=== PATIENT | female | born 1945 | race Caucasian/White ===

== ENCOUNTER 2016-08-21 14:24 | Emergency (ER) | payer BC ==
[~2016-08-21] VITALS: Ht 165.1 cm; Wt 117.9 kg
--- NOTE | 2016-08-21 15:21 | PHYS DOC ---
Past Medical History Past Medical History: Asthma, COPD, Diabetes-Type II, High Cholesterol, Hypertension, Hypothyroid, Other Additional Past Medical Histor: Graves disease Past Surgical History: Cholecystectomy, Pacemaker, Other Additional Past Surgical Histo: hernia repair Additional Information: quit smoking 4 years ago Alcohol Use: None Drug Use: None Adult General Chief Complaint Chief Complaint: MECHANICAL FALL HPI HPI Patient is a 70 year old female who presents with her daughter to the emergency department for evaluation after suffering 2 head injuries over the past 4 days. Patient states that 4 days ago she stumbled well trying to get to the restroom and hit the left side of her head against a wall. Patient did not fall to the ground as a result of this head injury. Patient also denied any loss consciousness. 2 days later the patient was sleeping in a chair and reportedly fell from the chair and hit the left side of her head and face. The patient states that she started noticing bruising along the left side of the face over the past 24 hours. After the patient notified her primary physician today, she was instructed to come to the emergency department for evaluation. Patient states that she is not experiencing any pain at this time. The patient has not had any headaches, worsening difficulty with balance, vision loss, difficulty with speech or swallowing, or increasing weakness. The patient is on Coumadin therapy for treatment of atrial fibrillation. Patient last had her INR checked 2 weeks ago and states that it was "borderline." Review of Systems Review of Systems Constitutional: Denies fever or chills [] Eyes: Denies change in visual acuity, redness, or eye pain [] HENT: Head injury, bruising to scalp and face [] Respiratory: Denies cough or shortness of breath [] Cardiovascular: Denies chest pain [] GI: Denies abdominal pain, nausea, vomiting, bloody stools or diarrhea [] : Denies dysuria or hematuria [] Musculoskeletal: Denies back pain or joint pain [] Integument: Denies rash or skin lesions [] Neurologic: Denies headache, focal weakness or sensory changes [] Allergies Allergies Allergies Coded Allergies Type Severity Reaction Last Updated Verified No Known Drug Allergies 08/21/16 No Physical Exam Physical Exam Constitutional: Alert, obese, afebrile, no acute distress. [] HENT: Normocephalic, ecchymosis and mild soft tissue swelling along left parietal scalp and along the left periorbitum, zygoma and cheek, bilateral external ears normal, oropharynx moist, no oral exudates, nose normal. [] Eyes: PERRLA, EOMI, conjunctiva normal, no discharge. [] Neck: Normal range of motion, no tenderness, supple, no stridor. [] Cardiovascular:Heart rate regular rhythm, no murmur [] Lungs & Thorax: Bilateral breath sounds clear to auscultation [] Abdomen: Bowel sounds normal, soft, no tenderness, no masses, no pulsatile masses. [] Skin: Warm, dry, no erythema, no rash. [] Back: No tenderness, no CVA tenderness. [] Extremities: No tenderness, no cyanosis, no clubbing, ROM intact, no edema. [] Neurologic: Alert and oriented X 3, normal motor function, normal sensory function, no focal deficits noted. [] Current Patient Data Vital Signs Vital Signs Date Time Temp Pulse Resp B/P (MAP) Pulse Ox O2 Delivery O2 Flow Rate FiO2 08/21/16 17:30 78 19 150/97 (114) 97 Room Air 08/21/16 14:32 98.5 98.5 Lab Values Laboratory Tests Test 08/21/16 16:10 Prothrombin Time 28.4 SEC (11.7-14.0) H Prothrombin Time INR 2.9 (0.8-1.1) H EKG EKG Not performed [] Radiology/Procedures Radiology/Procedures [facility] [address] [place] [address] IMAGING REPORT Signed PATIENT: REEMA RUTLEDGE ACCOUNT: [id number] : 1945 LOCATION: ER AGE: 70 SEX: F EXAM STATUS: REG ER ORD. PHYSICIAN: TATE LYMAN MD REASON: fall 2 days ago with head injury, patient currently on Coumadin therapy PROCEDURE: CT HEAD WO CONTRAST ADDENDUM Addendum: Coronal reformats are now available on this patient which demonstrates a subtle 2 mm hyperdensity identified in the subdural region in the left frontal lobe which could be a subtle subdural bleed or a prominent cortical vein. Close interval follow-up examination is recommended. Report was called to in ER at time of dictation. DICTATED AND SIGNED BY: TERESA DORANTES MD DATE: 08/21/16 1645 CC: TATE LYMAN MD; HILTON GIL DO ~ Examination: CT head without contrast History: History of fall Comparison: 05/30/2012 Technique: Axial CT images of the head was performed without contrast. PQRS Compliance Statement: One or more of the following individualized dose reduction techniques were utilized for this examination: 1. Automated exposure control 2. Adjustment of the mA and/or kV according to patient size 3. Use of iterative reconstruction technique Findings: There is no evidence of midline shift. Mild bilateral periventricular white matter hypodensities likely chronic small vessel ischemic disease. The visualized lateral ventricles, third ventricle, fourth ventricle are unchanged. The basal cisterns are uneffaced. Mild soft tissue swelling identified in the left frontal scalp region likely secondary to scalp hematoma. The visualized mastoid air cells are clear. Small mild mucosal thickening identified in the left sphenoid sinus likely sinus disease. Impression: 1. No acute intracranial findings. 2. Small left scalp hematoma in the left lateral frontal region. DICTATED and SIGNED BY: TERESA DORANTES MD DATE: 08/21/16 1538 CC: TATE LYMAN MD; HILTON GIL [] Course & Med Decision Making Course & Med Decision Making Pertinent Labs and Imaging studies reviewed. (See chart for details) Patient's INR within therapeutic range and patient's head CT was initially read as negative. I did receive a call later in the patient's stay from the radiologist stating that the initial read may have not been accurate as he reviewed the coronal images and was concerned about a hyperdensity on image #11 but could represent a possible bleed versus a bridging vein. I consulted Dr. Meadows of neurosurgery who reviewed the CT scan. He felt that the finding was likely not an acute bleed. He did agree to have patient follow-up in 2 days with his office and have repeat CT imaging at that time to ensure that the patient's findings remained stable. I spoke with patient regarding this finding and patient stated that she felt comfortable going home in her current state. Advised patient to return to emergency department for any worsening symptoms. Patient voiced understanding and in agreement with treatment plan. Dragon Disclaimer Dragon Disclaimer This electronic medical record was generated, in whole or in part, using a voice recognition dictation system. Departure Departure Impression: Primary Impression: Closed head injury Additional Impression: Traumatic ecchymosis of face Disposition: 01 HOME, SELF-CARE Condition: IMPROVED Referrals: NON,STAFF (PCP) STEVE MEADOWS MD Patient Instructions: Head Injury, Adult Additional Instructions: You will be followed up in the next [address] Meadows of neurosurgery who will order a repeat CT scan to ensure no evidence of head bleed. While your CT today shows a small abnormality, this is felt to not likely be a sign of life- threatening bleeding. It is important however if you experience any change in symptoms, especially if he develops severe headaches, persistent vomiting, difficulty with speech or swallowing, vision loss, or altered mental status, that she come immediately to the emergency department for reevaluation. Problem Qualifiers Primary Impression: Closed head injury Encounter type: initial encounter Qualified Codes: S09.90XA - Unspecified injury of head, initial encounter Additional Impression: Traumatic ecchymosis of face Encounter type: initial encounter Qualified Codes: S00.83XA - Contusion of other part of head, initial encounter TATE LYMAN MD August 21, 2016 15:21
--- NOTE | 2016-08-21 15:47 | RAD ---
Examination: CT head without contrast History: History of fall Comparison: 05/30/2012 Technique: Axial CT images of the head was performed without contrast. PQRS Compliance Statement: One or more of the following individualized dose reduction techniques were utilized for this examination: 1. Automated exposure control 2. Adjustment of the mA and/or kV according to patient size 3. Use of iterative reconstruction technique Findings: There is no evidence of midline shift. Mild bilateral periventricular white matter hypodensities likely chronic small vessel ischemic disease. The visualized lateral ventricles, third ventricle, fourth ventricle are unchanged. The basal cisterns are uneffaced. Mild soft tissue swelling identified in the left frontal scalp region likely secondary to scalp hematoma. The visualized mastoid air cells are clear. Small mild mucosal thickening identified in the left sphenoid sinus likely sinus disease. Impression: 1. No acute intracranial findings. 2. Small left scalp hematoma in the left lateral frontal region.
[2016-08-21 16:31] LABS: INR 2.9 (0.8-1.1); PROTHROMBIN TIME PATIENT 28.4 SEC (11.7-14.0)
[2016-08-21 17:30] VITALS: BP 150/97
== END 2016-08-21 18:48 | disposition home or self-care (01) ==
LOC: ER 14:24
DX: S00.83XA Contusion of other part of head, initial encounter (principal); S00.03XA Contusion of scalp, initial encounter; E03.9 Hypothyroidism, unspecified; E78.00 Pure hypercholesterolemia, unspecified; I10 Essential (primary) hypertension; E11.9 Type 2 diabetes mellitus without complications; J44.9 Chronic obstructive pulmonary disease, unspecified; E05.00 Thyrotoxicosis with diffuse goiter without thyrotoxic crisis or storm; Z87.891 Personal history of nicotine dependence; Z95.0 Presence of cardiac pacemaker; Z90.49 Acquired absence of other specified parts of digestive tract; Z98.890 Other specified postprocedural states; Z79.01 Long term (current) use of anticoagulants; W22.01XA Walked into wall, initial encounter; Y93.89 Activity, other specified; Y99.8 Other external cause status; Y92.89 Other specified places as the place of occurrence of the external cause
CPT/HCPCS: 36415; 70450; 85610; 99285-25

== ENCOUNTER → 2016-08-23 | Outpatient (CLI) | payer BC ==
[2016-08-21 17:30] VITALS: BP 150/97
--- NOTE | 2016-08-23 13:15 | RAD ---
Examination: CT head without contrast History: History of head injury Comparison: 08/21/2016 Technique: Axial CT images of the head was performed with a contrast. PQRS Compliance Statement: One or more of the following individualized dose reduction techniques were utilized for this examination: 1. Automated exposure control 2. Adjustment of the mA and/or kV according to patient size 3. Use of iterative reconstruction technique Findings: There is no evidence of midline shift. Mild bilateral parietal white matter hypodensities likely chronic small vessel ischemic disease. The visualized lateral ventricles, third ventricle, fourth ventricle are appropriate for age. Questionable subtle hyperdensity identified in the subdural region of the left frontal lobe grossly similar to prior exam could be prominent appearing cortical vein or a very subtle subdural bleed similar to prior exam. Left frontoparietal scalp hematoma grossly similar to prior exam. Mild mucosal thickening left sphenoid sinus Impression: Unchanged exam.
== END | disposition home or self-care (01) ==
LOC: CT 11:09
PROVIDERS: ATTEND Family Medicine
DX: M79.81 Nontraumatic hematoma of soft tissue (principal)
CPT/HCPCS: 70450

== ENCOUNTER 2017-12-23 22:06 | Inpatient (IN) | payer BC ==
[~2017-12-23] VITALS: Ht 165.1 cm; Wt 121.7 kg
[~2017-12-23 22:06] MED LIST: ASPI-630 PO; BENZ-8 PO; BUDE10.2 IH; DIGO125T PO; FLUT12AE IH; FURO20TA3 PO; LEVO125T5 PO; LISI10TA2 PO; METF500T16 PO; POTA10TA12 PO; SIMV40TA3 PO; SOTA150V IV; SOTA80TA20 PO; SOTA80TA48 PO; WARF-31 PO; WARF2TAB96 PO
[2017-12-23 22:38] LABS: BASO # 0.1 x10^3/uL (0.0-0.2); BASO % 1 % (0-3); EOS # 0.1 x10^3/uL (0.0-0.7); EOS % 1 % (0-3); HEMATOCRIT 40.3 % (36.0-47.0); HEMOGLOBIN 13.9 g/dL (12.0-15.5); LYMPH # 1.1 x10^3/uL (1.0-4.8); LYMPH % 13 % (24-48); MEAN CORPUSCULAR HEMOGLOBIN 33 pg (25-35); MEAN CORPUSCULAR HGB CONC 35 g/dL (31-37); MEAN CORPUSCULAR VOLUME 94 fL (79-100); MONO # 1.6 x10^3/uL (0.0-1.1); MONO % 20 % (0-9); NEUT # 5.4 x10^3uL (1.8-7.7); NEUT % 65 % (31-73); PLATELET COUNT 338 x10^3/uL (140-400); RED BLOOD COUNT 4.29 x10^6/uL (3.50-5.40); RED CELL DISTRIBUTION WIDTH 16.2 % (11.5-14.5); WHITE BLOOD COUNT 8.2 x10^3/uL (4.0-11.0)
[2017-12-23 22:47] LABS: PROTHROMBIN TIME PATIENT 21.9 SEC (11.7-14.0)
[2017-12-23 22:48] LABS: CALCIUM 8.9 mg/dL (8.5-10.1); CREATININE 0.9 mg/dL (0.6-1.0); GFR 61.5; POTASSIUM 4.2 mmol/L (3.5-5.1)
--- NOTE | 2017-12-23 22:54 | EKG ---
[facility] [address] [place] [address] Test Date: 2017-12-23 Test Time: 22:21:59 Pat Name: REEMA RUTLEDGE Department: Room: Gender: Female Director Equipment: : 1945 Requested By: ARIANA SNOWDEN Order Number: [id number] Reading MD: Dash Pandey Measurements Intervals [place] Rate: 104 P: [place]: QRS: -114 QRSD: 138 T: 100 QT: 368 QTc: 491 Interpretive Statements ATRIAL FIBRILLATION LOW LIMB LEAD VOLTAGE NON SPECIFIC INTRAVENTRICULAR BLOCK QRS(T) CONTOUR ABNORMALITY CONSISTENT WITH ANTERIOR INFARCT PROBABLY OLD CONSISTENT WITH INFEROLATERAL INFARCT PROBABLY OLD ABNORMAL ECG Electronically Signed On 12-24-2017 11:30:04 CDT by Dash Pandey
[2017-12-23] MEDS ORDERED: DEXAMETHASONE SOD PHOS 20 MG/5 ML VIAL. IV ONE (23:00)
[2017-12-23] MEDS ORDERED: dilTIAZem INJ 125 MG in IV DEXTROSE 5% 100ML 100 ML IV ONE (23:00)
[2017-12-23] MEDS ORDERED: ASPIRIN 325 MG TABLET PO ONE (23:00)
[2017-12-23] MEDS ORDERED: IPRATRPIUM/ALBUTEROL 0.5/2.5MG 3 ML NEBU. NEB ONE ×2 (23:00)
[2017-12-23] MEDS ORDERED: dilTIAZem IV PUSH 25 MG/5 ML VIAL IVP ONE (23:00)
[2017-12-23 23:02] LABS: ALBUMIN/GLOBULIN RATIO 0.7 (1.0-1.7); TOTAL BILIRUBIN 1.6 mg/dL (0.2-1.0); TOTAL PROTEIN 7.6 g/dL (6.4-8.2)
[2017-12-23 23:23] LABS: % METAS 1 % (0-0); % MYELOS 1 % (0-0)
[2017-12-23 23:25] LABS: % BANDS 22 % (0-9); % BASOS 2 % (0-3); % LYMPHS 8 % (24-48); % MONOS 11 % (0-10); % SEGS 55 % (35-66); NUCLEATED RBC 2; PLT ESTIMATE ADEQUATE (ADEQUATE)
[2017-12-23 23:26] LABS: ANISOCYTOSIS SLIGHT; POLYCHROMASIA SLIGHT
[2017-12-23] MEDS ORDERED: HYOSCYAMINE 0.125 MG TAB.RAPDIS PO ONE (23:45)
[2017-12-23] MEDS ORDERED: IV NORMAL SALINE 1000ML BAG 1,000 ML IV ONE ×2 (23:45)
[2017-12-24] VITALS (23 sets, daily range): BP systolic 96–157; BP diastolic 43–101
[2017-12-24] MEDS ORDERED: PIPERACILLIN/TAZOBACTAM 4.5 GM in IV NORMAL SALINE 100ML 100 ML IV ONE ×2
[2017-12-24] MEDS ORDERED: ONDANSETRON PF 4 MG/2 ML VIAL. IV PRN (00:15)
[2017-12-24] MEDS ORDERED: DEXTROSE 50% 25 GM / 50ML DISP.SYRIN. IV PRN (00:15)
[2017-12-24] MEDS ORDERED: fentaNYL PF VIAL 100 MCG/2 ML VIAL IV PRN (00:15)
--- NOTE | 2017-12-24 00:21 | PHYS DOC ---
Past Medical History Past Medical History: Asthma, CHF, COPD, Diabetes-Type II, High Cholesterol, Hypertension, Hypothyroid, Other Additional Past Medical Histor: Graves disease Past Surgical History: Cholecystectomy, Pacemaker, Other Additional Past Surgical Histo: hernia repair Alcohol Use: None Drug Use: None Adult General Chief Complaint Chief Complaint: SHORTNESS OF BREATH HPI HPI 72-year-old female presents with her spouse with report of progressive dyspnea times one week. Reports associated productive cough. Denies fever. Denies trauma. Patient does have history of COPD as well as CHF. Reports some slight increased lower extremity edema. Denies any calf pain. Denies trauma. In triage patient noted to have sats down to 85%. History of present illness limited by patient's current condition Review of Systems Review of Systems Constitutional: Reports generalized malaise Respiratory: Reports productive cough and increased shortness of breath Cardiovascular: Denies chest pain GI: Denies abdominal pain, nausea, vomiting, bloody stools or diarrhea [] Musculoskeletal: Denies back pain or joint pain [] Integument: Denies rash or skin lesions [] Neurologic: Denies headache, focal weakness or sensory changes [] Review of systems limited by patient's current condition Current Medications Current Medications Current Medications Medications (Trade) Dose Ordered Sig/Marley Start Time Stop Time Status Last Admin Dose Admin Albuterol/ Ipratropium (Duoneb) 3 ml STAT ONCE 12/23/17 23:00 12/23/17 23:01 DC Aspirin (Adonis Aspirin) 325 mg 1X ONCE 12/23/17 23:00 12/23/17 23:01 DC Dexamethasone Sodium Phosphate (Decadron) 10 mg 1X ONCE 12/23/17 23:00 12/23/17 23:01 DC 12/23/17 22:57 10 MG Dextrose (Dextrose 50%-Water Syringe) 12.5 gm PRN Q15MIN PRN 12/24/17 00:15 Diltiazem HCl (Cardizem) 20 mg 1X ONCE 12/23/17 23:00 12/23/17 23:01 DC 12/23/17 23:00 20 MG Diltiazem HCl 125 mg/Dextrose 125 ml @ 10 mls/hr 1X ONCE 12/23/17 23:00 12/24/17 11:29 12/23/17 23:11 10 MLS/HR Fentanyl Citrate (Fentanyl 2ml Vial) 50 mcg PRN Q2HR PRN 9/17/18 00:15 12/25/17 00:14 Hyoscyamine (Anaspaz) 0.25 mg 1X ONCE 12/23/17 23:45 12/23/17 23:46 Cancel Levofloxacin/ Dextrose 150 ml @ 100 mls/hr 1X ONCE 12/24/17 00:00 12/24/17 01:29 DC 12/24/17 01:17 100 MLS/HR Ondansetron HCl (Zofran) 4 mg PRN Q8HRS PRN 12/24/17 00:15 12/25/17 00:14 Piperacillin Sod/ Tazobactam Sod 4.5 gm/Sodium Chloride 100 ml @ 200 mls/hr 1X ONCE 12/24/17 00:00 12/24/17 00:29 DC 12/24/17 01:17 200 MLS/HR Sodium Chloride 1,000 ml @ 1,000 mls/hr 1X ONCE 12/23/17 23:45 12/24/17 00:44 DC 12/24/17 04:29 1,000 MLS/HR Allergies Allergies Allergies Coded Allergies Type Severity Reaction Last Updated Verified No Known Drug Allergies 08/21/16 No Physical Exam Physical Exam Constitutional: Well developed, well nourished, moderate respiratory distress HENT: Normocephalic, atraumatic, oropharynx moist Eyes: PERRL, EOMI, conjunctiva normal, no discharge. [] Neck: Normal range of motion, no tenderness, supple, no meningeal signs Cardiovascular: Irregularly irregular heart rate Lungs & Thorax: Coarse breath sounds bilaterally, moderate respiratory distress noted Abdomen: Soft, no tenderness] Skin: Warm, dry, BLE venous stasis noted Extremities: No tenderness, ROM intact, trace edema. [] Neurologic: Alert and oriented X 3, normal motor function, normal sensory function, no focal deficits noted. [] Psychologic: Mood -anxious Current Patient Data Vital Signs Vital Signs Date Time Temp Pulse Resp B/P (MAP) Pulse Ox O2 Delivery O2 Flow Rate FiO2 12/24/17 00:00 80 26 128/64 (85) 95 Nasal Cannula 2.0 12/23/17 22:08 99.7 99.7 Lab Values Laboratory Tests Test 12/23/17 22:15 White Blood Count 8.2 x10^3/uL (4.0-11.0) Red Blood Count 4.29 x10^6/uL (3.50-5.40) Hemoglobin 13.9 g/dL (12.0-15.5) Hematocrit 40.3 % (36.0-47.0) Mean Corpuscular Volume 94 fL (79-100) Mean Corpuscular Hemoglobin 33 pg (25-35) Mean Corpuscular Hemoglobin Concent 35 g/dL (31-37) Red Cell Distribution Width 16.2 % (11.5-14.5) H Platelet Count 338 x10^3/uL (140-400) Neutrophils (%) (Auto) 65 % (31-73) Lymphocytes (%) (Auto) 13 % (24-48) L Monocytes (%) (Auto) 20 % (0-9) H Eosinophils (%) (Auto) 1 % (0-3) Basophils (%) (Auto) 1 % (0-3) Neutrophils # (Auto) 5.4 x10^3uL (1.8-7.7) Lymphocytes # (Auto) 1.1 x10^3/uL (1.0-4.8) Monocytes # (Auto) 1.6 x10^3/uL (0.0-1.1) H Eosinophils # (Auto) 0.1 x10^3/uL (0.0-0.7) Basophils # (Auto) 0.1 x10^3/uL (0.0-0.2) Segmented Neutrophils % 55 % (35-66) Band Neutrophils % 22 % (0-9) H Lymphocytes % 8 % (24-48) L Monocytes % 11 % (0-10) H Basophils % 2 % (0-3) Metamyelocytes % 1 % (0-0) H Myelocytes % 1 % (0-0) H Nucleated Red Blood Cells 2 Platelet Estimate Adequate (ADEQUATE) Polychromasia Slight Anisocytosis Slight Prothrombin Time 21.9 SEC (11.7-14.0) H Prothrombin Time INR 2.0 (0.8-1.1) H PTT 39 SEC (24-38) H Sodium Level 135 mmol/L (136-145) L Potassium Level 4.2 mmol/L (3.5-5.1) Chloride Level 98 mmol/L (98-107) Carbon Dioxide Level 23 mmol/L (21-32) Anion Gap 14 (6-14) Blood Urea Nitrogen 10 mg/dL (7-20) Creatinine 0.9 mg/dL (0.6-1.0) Estimated GFR (Cockcroft-Gault) 61.5 BUN/Creatinine Ratio 11 (6-20) Glucose Level 170 mg/dL (70-99) H Lactic Acid Level 3.1 mmol/L (0.4-2.0) H Calcium Level 8.9 mg/dL (8.5-10.1) Magnesium Level 2.0 mg/dL (1.8-2.4) Total Bilirubin 1.6 mg/dL (0.2-1.0) H Aspartate Amino Transferase (AST) 54 U/L (15-37) H Alanine Aminotransferase (ALT) 31 U/L (14-59) Alkaline Phosphatase 93 U/L (46-116) Creatine Kinase 67 U/L (26-192) Troponin I Quantitative < 0.017 ng/mL (0.000-0.055) AY-Rbb-L-Type Natriuretic Peptide 1899 pg/mL (0-124) H Total Protein 7.6 g/dL (6.4-8.2) Albumin 3.0 g/dL (3.4-5.0) L Albumin/Globulin Ratio 0.7 (1.0-1.7) L Lipase 156 U/L (73-393) Digoxin Level 0.6 ng/mL (0.9-2.0) L Digoxin Last Dose Date Digoxin Last Dose Time Laboratory Tests 12/23/17 22:15 Laboratory Tests 12/23/17 22:15 EKG EKG @ 2221 Afib RVR at 104bpm, Frequent PVCs, Wide QRS, NO STEMI @0009 Afib at 72bpm, Occasional PVC, NO STEMI Radiology/Procedures Radiology/Procedures AP CXR: (preliminary interpretation by ED physician): Some increase vascular markings. Cannot exclude CHF exacerbation vs atypical pneumonia. Course & Med Decision Making Course & Med Decision Making Pertinent Labs and Imaging studies reviewed. (See chart for details) Patient presents with report of progressive dyspnea 2. of moderate respiratory distress upon arrival and noted hypoxia down to 86% on room air. Sats improved with supplemental O2. Patient noted to have coarse breath sounds bilaterally. Patient does have history of both COPD as well as CHF. EKG noted patient to be in atrial fibrillation with rapid ventricular response. Cardizem bolus and drip initiated. Labs obtained and posted to chart. WBC within normal limits however patient with greater than 20% bands. SIRS criteria and therefore met due to tachycardia as well as bandemia. Lactic acid also greater than 3. Concern for severe sepsis given surgical criteria and lactic acid elevation. Chest x-ray without focal pneumonia however appears likely atypical. Severe sepsis empiric antibiotics initiated. IV fluid bolusing provided to ideal weight. DuoNeb treatments provided with interval improvement of symptoms. Patient requiring admission for further evaluation and treatment. Discussed with Dr. Mancia (hospitalist) who is in agreement with admission. Discussed findings and plan with family, who acknowledge understanding and agreement. Dragon Disclaimer Dragon Disclaimer This electronic medical record was generated, in whole or in part, using a voice recognition dictation system. Departure Departure Impression: Primary Impression: Severe sepsis Additional Impressions: Bandemia Hypoxia Atrial fibrillation with RVR Disposition: ADMITTED INPATIENT Admitting Physician: Maryanne Mancia Condition: CRITICAL Referrals: HILTON GIL DO (PCP) Critical Care Time Critical care time was 30-74 minutes which includes time at bedside, spent in discussion of patient's care with specialists and/or family members, with interpretation of laboratory and/or radiological studies and is exclusive of procedures. Problem Qualifiers ARIANA SNOWDEN DO Dec 24, 2017 00:21
[2017-12-24 00:23] LABS: DIG 0.6 ng/mL (0.9-2.0)
[2017-12-24] MEDS ORDERED: VANCOMYCIN 2 GM in IV NORMAL SALINE 500ML BAG 500 ML IV ONE (00:30)
[2017-12-24] MEDS ORDERED: ALBUTEROL SULFATE 2.5 MG/3 ML NEBU. NEB PRN (00:30)
--- NOTE | 2017-12-24 01:15 | EKG ---
[facility] [address] [place] [address] Test Date: 2017-12-24 Test Time: 00:09:14 Pat Name: REEMA RUTLEDGE Department: Room: 103 1 Gender: Female Temperature Regulator: : 1945 Requested By: ARIANA SNOWDEN Order Number: [id number] Reading MD: Dash Pandey Measurements Intervals [place] Rate: 71 P: [place]: QRS: -103 QRSD: 136 T: 66 QT: 448 QTc: 492 Interpretive Statements ATRIAL FIBRILLATION LOW LIMB LEAD VOLTAGE NON SPECIFIC INTRAVENTRICULAR BLOCK QRS(T) CONTOUR ABNORMALITY CONSISTENT WITH ANTERIOR INFARCT PROBABLY OLD CONSISTENT WITH INFEROLATERAL INFARCT PROBABLY OLD ABNORMAL ECG Electronically Signed On 12-24-2017 11:30:57 CDT by Dash Pandey
[2017-12-24] MEDS ORDERED: INFLUENZA VAX SCREEN BY RX. MC ONE (01:45)
--- NOTE | 2017-12-24 02:13 | RAD ---
EXAM: CHEST 1 VIEW History: Dyspnea COMPARISON: 09/22/2017 TECHNIQUE: Single portable radiograph of the chest FINDINGS: Mild cardiomegaly. Mild prominent bilateral interstitial lung markings. Left-sided cardiac pacer is identified. IMPRESSION: Mild prominent appearing bilateral interstitial lung markings likely mild congestive changes. Electronically signed by: Shaw Edouard MD (12/24/2017 2:09 AM) [facility]
[2017-12-24] MEDS: INSULIN LISPRO 300 UNITS/3 ML INSULN.PEN. SQ SCH ×3 (08:41→17:46)
[2017-12-24] MEDS ORDERED: SOTA80TA48 PO (09:54)
[2017-12-24] MEDS ORDERED: BENZ100C PO (09:54)
[2017-12-24] MEDS ORDERED: PROAIR HFA8.5 GM INH (09:54)
[2017-12-24] MEDS: VANCOMYCIN PER PHARMACY MC PRN (10:44)
--- NOTE | 2017-12-24 10:51 | CONS ---
DATE OF CONSULTATION: 12/24/2017 ATTENDING PHYSICIAN: Dr. Mancia. REASON FOR CONSULTATION: Hypoxic respiratory failure, dyspnea. HISTORY OF PRESENT ILLNESS: The patient is a 72-year-old morbidly obese patient, who has a BMI of 43.9. She has 50 years of tobacco use. She is not on home oxygen. She came to the hospital with increasing shortness of breath for past 1 week and got worse this Sunday. She said she had a productive cough. She could not tell what was the color. She had no fever, no chills, no headaches, no nausea, no vomiting, no diarrhea, no chest pains. No dysuria. She did have lower extremity edema and venous stasis. The patient's oxygen saturation was down to 85%. As a result, she was placed on oxygen at 2 liters. Saturations are above 94%. In the ER, she was also reported to be in AFib with a rate above 100. She was started on Cardizem drip. Currently, she is being hospitalized for further evaluation. The patient also has a history of snoring and fatigue. She never had a formal sleep study to rule out CROW. PAST MEDICAL HISTORY: Significant for history of asthma, CHF, COPD, unknown FEV1, history of type 2 diabetes, dyslipidemia, hypertension, hypothyroidism, Graves disease. PAST SURGICAL HISTORY: Cholecystectomy, pacemaker, and hernia repair. ALLERGIES: None. CURRENT MEDICATIONS: All reviewed as listed in the MRAD including broad spectrum antibiotics, which were initiated in the ER, DuoNeb. REVIEW OF SYSTEMS: Twelve-point system obtained. Pertinent positives discussed in my history of present illness, otherwise noncontributory. All systems that were negative were reviewed as well. SOCIAL HISTORY: Smoked for 50 years before quitting. FAMILY HISTORY: Noncontributory to lungs. PHYSICAL EXAMINATION: VITAL SIGNS: Reviewed. Blood pressure currently 136/82, pulse in the 70s, pulse ox 95% on 2 liters. NECK: Supple, no JVD. LUNGS: Diminished breath sounds. CARDIOVASCULAR: With an irregular rhythm. ABDOMEN: Soft, morbidly obese. EXTREMITIES: With 3+ pitting edema and venous stasis. LABORATORY DATA: Reviewed. INR 2.0. BUN 10, creatinine 0.9. ProBNP 1899. Troponin less than 0.017. White cell count 8.2, hemoglobin 13.9 and platelets are 338. IMPRESSION: 1. Acute hypoxic respiratory failure secondary to multifactorial etiologies including a combination of right and left heart failure and possible lower respiratory tract infection. In addition, underlying chronic obstructive pulmonary disease with exacerbation. 2. Chronic atrial fibrillation, on chronic anticoagulation with mild increased ventricular response. Currently on Cardizem. 3. 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 She no longer smokes cigarettes. 4. Morbid obesity and suspect obesity hypoventilation syndrome. Needs to rule out for obstructive sleep apnea by sleep study as an outpatient. RECOMMENDATIONS: 1. Continue with present oxygen via nasal cannula. 2. Noncontrast CT chest to better assess for infiltrates. 3. Obtain echocardiogram to assess for RV and LV function. 4. Continue empiric antibiotics for now until CT chest results are available. 5. Diuresis. 6. Wean off Cardizem per Cardiology. 7. Follow Cardiology recommendation. 8. Bronchodilators. 9. Weight loss is advised. 10. Sleep study as an outpatient. 11. Discussed with the patient and the family, RN and RT. CRITICAL CARE TIME: 37 minutes. CARLOS BLANCO MD DR: VICTORIANO/erin JOB#: [id number] / [id number]
[2017-12-24] MEDS: IPRATRPIUM/ALBUTEROL 0.5/2.5MG 3 ML NEBU. NEB SCH ×3 (12:11→19:52)
[2017-12-24] MEDS: VANCOMYCIN 1.75 GM in IV NORMAL SALINE 500ML BAG 500 ML IV SCH (14:29)
--- NOTE | 2017-12-24 15:36 | HP ---
ADMIT DATE: 12/24/2017 CHIEF COMPLAINT: Shortness of breath. HISTORY OF PRESENT ILLNESS: The patient is a pleasant, morbidly obese female who presented with shortness of breath that has been getting worse for the past week. She has a BMI of 43.9, and she has known heart failure and COPD as well. Basically while in the ER, we noted that she was hypoxic. She seems to have a pulmonary infection and some heart failure. I have discussed the case with ER physician. We are going to admit the patient, give her IV antibiotics, steroids, oxygen and consult Pulmonary and Cardiology. PAST MEDICAL HISTORY: Morbid obesity, COPD, asthma, CHF, diabetes, hyperlipidemia, hypertension, hypothyroidism, Graves disease, cholecystectomy, pacemaker, hernia repair. ALLERGIES: None. FAMILY HISTORY: Coronary artery disease. SOCIAL HISTORY: She quit smoking, no drinking or drugs. MEDICATIONS: Reviewed, please refer to the MRAD. REVIEW OF SYSTEMS: GENERAL: No history of weight change, weakness or fevers. SKIN: No bruising, hair changes or rashes. EYES: No blurred, double or loss of vision. NOSE AND THROAT: No history of nosebleeds, hoarseness or sore throat. HEART: No history of palpitations, chest pain or shortness of breath on exertion. LUNGS: Denies cough, hemoptysis, wheezing. She complains of shortness of breath. GASTROINTESTINAL: Denies changes in appetite, nausea, vomiting, diarrhea or constipation. GENITOURINARY: No history of frequency, urgency, hesitancy or nocturia. NEUROLOGIC: Denies history of numbness, tingling, tremor or weakness. PSYCHIATRIC: No history of panic, anxiety or depression. ENDOCRINE: No history of heat or cold intolerance, polyuria or polydipsia. EXTREMITIES: Denies muscle weakness, joint pain, pain on walking or stiffness. PHYSICAL EXAMINATION: VITAL SIGNS: Temperature 98, pulse 80, respirations 18, blood pressure 120/70, O2 sat 97% on 2 liters. GENERAL: She is awake, soft spoken, lot of family members are present, they are good support for her. HEART: Normal S1, S2 with a soft S3. LUNGS: Bibasilar crackles. ABDOMEN: Soft, morbidly obese. EXTREMITIES: 2+ edema. SKIN: No rashes. ENDOCRINE: No thyromegaly. LYMPHATICS: No cervical nodes. HEMATOPOIETIC: No bruising. LABORATORY DATA: Hematology is normal. Electrolytes are pending. Troponin is 0. INR is 2.0. Drug screen is pending. Digoxin level 0.6. ASSESSMENT AND PLAN: Respiratory failure, multifactorial including heart failure, chronic obstructive pulmonary edema and probable pulmonary infection. The patient has been admitted. We will start IV antibiotics, breathing treatments, oxygen, steroids, consult Pulmonary, consult Cardiology. Continue home medicines, frequent labs. PROGNOSIS: Guarded. ICU monitoring. MACI BROWNE DO DR: NACHO/erin JOB#: [id number] / [id number]
[2017-12-24] MEDS ORDERED: WARFARIN 2 MG TABLET. PO ONE (16:00)
--- NOTE | 2017-12-24 16:42 | RAD ---
CT CHEST WO CONTRAST Indication: COPD, shortness of air Technique: Noncontrast CT imaging was performed of the chest, multiplanar reconstruction images submitted. One or more of the following individualized dose reduction techniques were utilized for this examination: 1. Automated exposure control 2. Adjustment of the mA and/or kV according to patient size 3. Use of iterative reconstruction technique. Contrast: None Comparison: None Findings: There is some motion degradation. There is dual lead left electronic cardiac device. There is no pericardial effusion or pneumothorax. There are trace pleural effusions bilaterally. There is some atelectasis near the lung bases bilaterally. Major airways are patent. There is bronchial wall thickening most notable of the lower lobes bilaterally. There is mild pneumobilia. No significantly enlarged nodes are identified. There is mild coronary calcification. IMPRESSION: 1. There is no lobar consolidation, likely atelectasis near the lung bases. There are trace pleural effusions bilaterally. There is nonspecific bronchial wall thickening bilaterally greatest of the lower lobes, could be seen with bronchitis. 2. There is mild coronary calcification. Electronically signed by: Eric Abreu MD (12/24/2017 4:39 PM) [email or web address]
--- NOTE | 2017-12-24 17:26 | PDOC2 ---
CONSULT Date of Consult Date of Consult DATE: 12/24/17 TIME: 17:18 Reason for Consult Reason for Consult: Dyspnea, A. fib with RVR Referring Physician Referring Physician: Dr. Mancia Identification/Chief Complaint Chief Complaint Dyspnea, sepsis, A. fib with RVR History of Present Illness Reason for Visit: This patient is a 72-year-old lady with a known history of chronic CHF as well as COPD that is an ex-smoker. She has Graves' disease, hypertension, obesity and comes in with progressive dyspnea and cough. For the past few days the patient has been getting more more short of breath and having a cough. She came in and was found to be hypoxic and to be in atrial fibrillation with a rapid ventricular response. The patient has chronic atrial fibrillation and has had a previous pacemaker inserted. She was started on IV Cardizem in the ER and at the time that I saw her she had a heart rate in the 80s. Patient denies any palpitations, denies any loss of consciousness, denies any chest pains. Past Medical History Cardiovascular: AFIB, CHF, HTN, Hyperlipidemia Pulmonary: Bronchitis, COPD Endocrine: Diabetes, Hypothyroidism Past Surgical History Past Surgical History: No pertinent history Family History Family History: High Cholestrol, Hypertension Social History ALCOHOL: none Drugs: None Current Problem List Problem List Problems Medical Problems: (1) Atrial fibrillation with RVR Status: Acute (2) Bandemia Status: Acute (3) Hypoxia Status: Acute (4) Severe sepsis Status: Acute Current Medications Current Medications Current Medications Diltiazem HCl (Cardizem) 20 mg 1X ONCE IVP Last administered on 12/23/17at 23: 00; Start 12/23/17 at 23:00; Stop 12/23/17 at 23:01; Status DC Aspirin (Adonis Aspirin) 325 mg 1X ONCE PO ; Start 12/23/17 at 23:00; Stop 12/23 at 23:01; Status DC Diltiazem HCl 125 mg/Dextrose 125 ml @ 10 mls/hr 1X ONCE IV Last administered on 12/23/17at 23:11; Start 12/23/17 at 23:00; Stop 12/24/17 at 11:29 ; Status DC Dexamethasone Sodium Phosphate (Decadron) 10 mg 1X ONCE IV Last administered on 12/23/17at 22:57; Start 12/23/17 at 23:00; Stop 12/23/17 at 23:01; Status DC Albuterol/ Ipratropium (Duoneb) 3 ml 1X ONCE NEB ; Start 12/23/17 at 23:00; Stop 12/23/17 at 23:01; Status DC Albuterol/ Ipratropium (Duoneb) 3 ml STAT ONCE NEB ; Start 12/23/17 at 23:00; Stop 12/23/17 at 23:01; Status DC Hyoscyamine (Anaspaz) 0.25 mg 1X ONCE PO ; Start 12/23/17 at 23:45; Stop at 23:46; Status Cancel Sodium Chloride 1,000 ml @ 1,000 mls/hr 1X ONCE IV Last administered on at 01:17; Start 12/23/17 at 23:45; Stop 12/24/17 at 00:44; Status DC Sodium Chloride 1,000 ml @ 1,000 mls/hr 1X ONCE IV Last administered on at 04:29; Start 12/23/17 at 23:45; Stop 12/24/17 at 00:44; Status DC Piperacillin Sod/ Tazobactam Sod 4.5 gm/Sodium Chloride 100 ml @ 200 mls/hr 1X ONCE IV Last administered on 12/24/17at 01:17; Start 12/24/17 at 00:00; Stop 12/24/17 at 00:29; Status DC Levofloxacin/ Dextrose 150 ml @ 100 mls/hr 1X ONCE IV Last administered on at 01:17; Start 12/24/17 at 00:00; Stop 12/24/17 at 01:29; Status DC Vancomycin HCl 2 gm/Sodium Chloride 500 ml @ 250 mls/hr 1X ONCE IV Last administered on 12/24/17at 01:18; Start 12/24/17 at 00:30; Stop 12/24/17 at 02:29 ; Status DC Ondansetron HCl (Zofran) 4 mg PRN Q8HRS PRN IV NAUSEA/VOMITING 1ST CHOICE; Start 12/24/17 at 00:15; Stop 12/25/17 at 00:14 Fentanyl Citrate (Fentanyl 2ml Vial) 50 mcg PRN Q2HR PRN IV SEVERE PAIN; Start 12/24/17 at 00:15; Stop 12/25/17 at 00:14 Albuterol Sulfate (Ventolin Neb Soln) 2.5 mg PRN Q4HRS PRN NEB WHEEZING; Start 12/24/17 at 00:30 Insulin Human Lispro (HumaLOG) 0-5 UNITS TIDWMEALS SQ Last administered on 12/24at 13:04; Start 12/24/17 at 08:00 Dextrose (Dextrose 50%-Water Syringe) 12.5 gm PRN Q15MIN PRN IV SEE COMMENTS; Start 12/24/17 at 00:15 Info (Do NOT chart on this placeholder) 1 each 1X ONCE MC ; Start 12/24/17 at 01:45; Stop 12/24/17 at 01:46; Status UNV Influenza Virus Vaccine (Afluria Trivalent [id number] Syringe) 0.5 ml ONCE ONCE VAX IM Last administered on 12/24/17at 08:51; Start 12/24/17 at 09:00; Stop at 09:01; Status DC Albuterol/ Ipratropium (Duoneb) 3 ml RTQID NEB Last administered on 12/24/17at 15:19; Start 12/24/17 at 12:00 Levofloxacin/ Dextrose 100 ml @ 100 mls/hr Q24H IV ; Start 12/24/17 at 10:30; Status UNV Vancomycin HCl (Vanco Per Pharmacy) 1 each PRN DAILY PRN MC SEE COMMENTS Last administered on 12/24/17at 10:44; Start 12/24/17 at 10:30 Levofloxacin/ Dextrose 100 ml @ 100 mls/hr Q24H IV ; Start 12/24/17 at 23:00 Vancomycin HCl 1.75 gm/Sodium Chloride 500 ml @ 250 mls/hr Q12H IV Last administered on 12/24/17at 14:29; Start 12/24/17 at 13:00 Vancomycin HCl (Vancomycin Trough Level) 1 each 1X ONCE MC ; Start 12/25/17 at 23:30; Stop 12/25/17 at 23:31 Lactobacillus Rhamnosus (Culturelle) 1 cap BID PO ; Start 12/24/17 at 21:00 Warfarin Sodium (Coumadin Per Pharmacy) 1 each PRN DAILY PRN MC SEE COMMENTS Last administered on 12/24/17at 15:05; Start 12/24/17 at 14:45 Warfarin Sodium (Coumadin) 2 mg 1X WARF ONCE PO Last administered on at 15:52; Start 12/24/17 at 16:00; Stop 12/24/17 at 16:01; Status DC Digoxin (Lanoxin) 125 mcg DAILY PO ; Start 12/24/17 at 17:30 Sotalol HCl (Betapace) 80 mg BID PO ; Start 12/24/17 at 21:00 Furosemide (Lasix) 20 mg DAILY PO ; Start 12/25/17 at 09:00; Status UNV Potassium Chloride (Klor-Con) 10 meq DAILY PO ; Start 12/25/17 at 09:00; Status UNV Non-Formulary Medication (Levothyroxine Sodium ) 150 mcg DAILY PO ; Start at 09:00; Status UNV Non-Formulary Medication (Metformin Hcl ) 500 mg BIDWMEALS PO ; Start 12/24/17 at 17:00; Status UNV Non-Formulary Medication (Simvastatin ) 40 mg DAILY PO ; Start 12/25/17 at 09:00 ; Status UNV Active Scripts Active Digoxin 125 Mcg Tablet 125 Mcg PO DAILY Reported Proair Hfa Inhaler (Albuterol Sulfate) 8.5 Gm Hfa.aer.ad 1 Puff INH PRN Q6HRS PRN Sotalol (Sotalol Hcl) 80 Mg Tablet 1 Tab PO BID Tessalon Perle (Benzonatate) 100 Mg Capsule 2 Cap PO TID PRN Warfarin Sodium 2 Mg Tablet 1 Tab PO DAILY Lisinopril 10 Mg Tablet 1 Tab PO DAILY Levothyroxine Sodium 125 Mcg Tablet 150 Mcg PO DAILY Simvastatin 40 Mg Tablet 40 Mg PO DAILY Metformin Hcl 500 Mg Tablet 500 Mg PO BIDWMEALS Furosemide 20 Mg Tablet 1 Tab PO DAILY Potassium Chloride 10 Meq Tab.sr.24h 10 Meq PO DAILY Allergies Allergies: Coded Allergies: No Known Drug Allergies (Unverified , 08/21/16) Physical Exam General: Alert, Cooperative, No acute distress HEENT: PERRLA, Other (1 cm JVD) Lungs: Other (breath sounds decreased, no wheezing, diffuse coarse breath sounds) Heart: Other (irregularly irregular, S1, S2) Abdomen: Normal bowel sounds, Soft Extremities: Other (trace edema) Vitals VITALS Vital Signs Date Time Temp Pulse Resp B/P (MAP) Pulse Ox O2 Delivery O2 Flow Rate FiO2 9/17/18 15:19 Nasal Cannula 2.0 12/24/17 15:00 68 15 144/80 (101) 96 12/24/17 12:00 97.9 97.9 Labs Labs Laboratory Tests Test 12/23/17 22:15 12/24/17 02:30 12/24/17 06:30 12/24/17 08:06 White Blood Count 8.2 x10^3/uL (4.0-11.0) Red Blood Count 4.29 x10^6/uL (3.50-5.40) Hemoglobin 13.9 g/dL (12.0-15.5) Hematocrit 40.3 % (36.0-47.0) Mean Corpuscular Volume 94 fL (79-100) Mean Corpuscular Hemoglobin 33 pg (25-35) Mean Corpuscular Hemoglobin Concent 35 g/dL (31-37) Red Cell Distribution Width 16.2 % (11.5-14.5) Platelet Count 338 x10^3/uL (140-400) Neutrophils (%) (Auto) 65 % (31-73) Lymphocytes (%) (Auto) 13 % (24-48) Monocytes (%) (Auto) 20 % (0-9) Eosinophils (%) (Auto) 1 % (0-3) Basophils (%) (Auto) 1 % (0-3) Neutrophils # (Auto) 5.4 x10^3uL (1.8-7.7) Lymphocytes # (Auto) 1.1 x10^3/uL (1.0-4.8) Monocytes # (Auto) 1.6 x10^3/uL (0.0-1.1) Eosinophils # (Auto) 0.1 x10^3/uL (0.0-0.7) Basophils # (Auto) 0.1 x10^3/uL (0.0-0.2) Segmented Neutrophils % 55 % (35-66) Band Neutrophils % 22 % (0-9) Lymphocytes % 8 % (24-48) Monocytes % 11 % (0-10) Basophils % 2 % (0-3) Metamyelocytes % 1 % (0-0) Myelocytes % 1 % (0-0) Nucleated Red Blood Cells 2 Platelet Estimate Adequate (ADEQUATE) Polychromasia Slight Anisocytosis Slight Prothrombin Time 21.9 SEC (11.7-14.0) Prothromb Time International Ratio 2.0 (0.8-1.1) Activated Partial Thromboplast Time 39 SEC (24-38) Sodium Level 135 mmol/L (136-145) Potassium Level 4.2 mmol/L (3.5-5.1) Chloride Level 98 mmol/L (98-107) Carbon Dioxide Level 23 mmol/L (21-32) Anion Gap 14 (6-14) Blood Urea Nitrogen 10 mg/dL (7-20) Creatinine 0.9 mg/dL (0.6-1.0) Estimated GFR (Cockcroft-Gault) 61.5 BUN/Creatinine Ratio 11 (6-20) Glucose Level 170 mg/dL (70-99) Lactic Acid Level 3.1 mmol/L (0.4-2.0) 1.9 mmol/L (0.4-2.0) Calcium Level 8.9 mg/dL (8.5-10.1) Magnesium Level 2.0 mg/dL (1.8-2.4) Total Bilirubin 1.6 mg/dL (0.2-1.0) Aspartate Amino Transf (AST/SGOT) 54 U/L (15-37) Alanine Aminotransferase (ALT/SGPT) 31 U/L (14-59) Alkaline Phosphatase 93 U/L (46-116) Creatine Kinase 67 U/L (26-192) Troponin I Quantitative < 0.017 ng/mL (0.000-0.055) < 0.017 ng/mL (0.000-0.055) < 0.017 ng/mL (0.000-0.055) WN-Urz-S-Type Natriuretic Peptide 1899 pg/mL (0-124) Total Protein 7.6 g/dL (6.4-8.2) Albumin 3.0 g/dL (3.4-5.0) Albumin/Globulin Ratio 0.7 (1.0-1.7) Lipase 156 U/L (73-393) Digoxin Level 0.6 ng/mL (0.9-2.0) Digoxin Last Dose Date Digoxin Last Dose Time Glucose (Fingerstick) 168 mg/dL (70-99) Test 12/24/17 11:50 Glucose (Fingerstick) 157 mg/dL (70-99) Laboratory Tests Test 12/23/17 22:15 12/24/17 02:30 12/24/17 06:30 12/24/17 08:06 White Blood Count 8.2 x10^3/uL (4.0-11.0) Red Blood Count 4.29 x10^6/uL (3.50-5.40) Hemoglobin 13.9 g/dL (12.0-15.5) Hematocrit 40.3 % (36.0-47.0) Mean Corpuscular Volume 94 fL (79-100) Mean Corpuscular Hemoglobin 33 pg (25-35) Mean Corpuscular Hemoglobin Concent 35 g/dL (31-37) Red Cell Distribution Width 16.2 % (11.5-14.5) Platelet Count 338 x10^3/uL (140-400) Neutrophils (%) (Auto) 65 % (31-73) Lymphocytes (%) (Auto) 13 % (24-48) Monocytes (%) (Auto) 20 % (0-9) Eosinophils (%) (Auto) 1 % (0-3) Basophils (%) (Auto) 1 % (0-3) Neutrophils # (Auto) 5.4 x10^3uL (1.8-7.7) Lymphocytes # (Auto) 1.1 x10^3/uL (1.0-4.8) Monocytes # (Auto) 1.6 x10^3/uL (0.0-1.1) Eosinophils # (Auto) 0.1 x10^3/uL (0.0-0.7) Basophils # (Auto) 0.1 x10^3/uL (0.0-0.2) Segmented Neutrophils % 55 % (35-66) Band Neutrophils % 22 % (0-9) Lymphocytes % 8 % (24-48) Monocytes % 11 % (0-10) Basophils % 2 % (0-3) Metamyelocytes % 1 % (0-0) Myelocytes % 1 % (0-0) Nucleated Red Blood Cells 2 Platelet Estimate Adequate (ADEQUATE) Polychromasia Slight Anisocytosis Slight Prothrombin Time 21.9 SEC (11.7-14.0) Prothromb Time International Ratio 2.0 (0.8-1.1) Activated Partial Thromboplast Time 39 SEC (24-38) Sodium Level 135 mmol/L (136-145) Potassium Level 4.2 mmol/L (3.5-5.1) Chloride Level 98 mmol/L (98-107) Carbon Dioxide Level 23 mmol/L (21-32) Anion Gap 14 (6-14) Blood Urea Nitrogen 10 mg/dL (7-20) Creatinine 0.9 mg/dL (0.6-1.0) Estimated GFR (Cockcroft-Gault) 61.5 BUN/Creatinine Ratio 11 (6-20) Glucose Level 170 mg/dL (70-99) Lactic Acid Level 3.1 mmol/L (0.4-2.0) 1.9 mmol/L (0.4-2.0) Calcium Level 8.9 mg/dL (8.5-10.1) Magnesium Level 2.0 mg/dL (1.8-2.4) Total Bilirubin 1.6 mg/dL (0.2-1.0) Aspartate Amino Transf (AST/SGOT) 54 U/L (15-37) Alanine Aminotransferase (ALT/SGPT) 31 U/L (14-59) Alkaline Phosphatase 93 U/L (46-116) Creatine Kinase 67 U/L (26-192) Troponin I Quantitative < 0.017 ng/mL (0.000-0.055) < 0.017 ng/mL (0.000-0.055) < 0.017 ng/mL (0.000-0.055) EG-Sga-P-Type Natriuretic Peptide 1899 pg/mL (0-124) Total Protein 7.6 g/dL (6.4-8.2) Albumin 3.0 g/dL (3.4-5.0) Albumin/Globulin Ratio 0.7 (1.0-1.7) Lipase 156 U/L (73-393) Digoxin Level 0.6 ng/mL (0.9-2.0) Digoxin Last Dose Date Digoxin Last Dose Time Glucose (Fingerstick) 168 mg/dL (70-99) Test 12/24/17 11:50 Glucose (Fingerstick) 157 mg/dL (70-99) Assessment/Plan Assessment/Plan Patient with a known history of right and left heart failure comes in with an elevated lactic level and hypoxia. She may be having a pneumonic process that may have put her into sepsis and heart failure. She has a pacemaker and chronic atrial fibrillation. I would DC the Cardizem drip at this time and resume her home medications with sotalol and digoxin. We will check an echocardiogram to see for changes in the left ventricular function and then depending on the patient's progression will have further recommendations. Thank you very much for asking me to participate in the care of this patient. MARTI SAUER MD Dec 24, 2017 17:26
[2017-12-24] MEDS: FUROSEMIDE 20 MG TABLET PO SCH (17:29)
[2017-12-24] MEDS: POTASSIUM CHLORIDE 10 MEQ TABLET.ER. PO SCH (17:44)
[2017-12-24] MEDS: LEVOTHYROXINE 150 MCG TABLET PO SCH (17:44)
[2017-12-24] MEDS: DIGOXIN 125 MCG TABLET. PO SCH (17:44)
[2017-12-24] MEDS: metFORMIN 500 MG TABLET PO SCH (17:45)
[2017-12-24] MEDS ORDERED: SIMVASTATIN 40 MG TABLET. PO SCH (18:00)
[2017-12-24] MEDS: LACTOBACILLUS RHAMNOSUS GG 1 CAPSULE. PO SCH (21:02)
[2017-12-24] MEDS: SIMVASTATIN 40 MG TABLET. PO SCH (21:02)
[2017-12-24] MEDS: SOTALOL 80 MG TABLET. PO SCH (21:03)
[2017-12-25] VITALS (13 sets, daily range): BP systolic 112–139; BP diastolic 65–88
[2017-12-25 05:42] LABS: PROTHROMBIN TIME PATIENT 22.9 SEC (11.7-14.0)
[2017-12-25] MEDS: IPRATRPIUM/ALBUTEROL 0.5/2.5MG 3 ML NEBU. NEB SCH ×5 (07:44→20:00)
[2017-12-25] MEDS: metFORMIN 500 MG TABLET PO SCH ×2 (07:47→16:44)
[2017-12-25] MEDS: LEVOTHYROXINE 150 MCG TABLET PO SCH (07:47)
[2017-12-25] MEDS: SOTALOL 80 MG TABLET. PO SCH ×2 (07:48→20:45)
[2017-12-25] MEDS: LACTOBACILLUS RHAMNOSUS GG 1 CAPSULE. PO SCH ×2 (07:48→20:46)
[2017-12-25] MEDS: DIGOXIN 125 MCG TABLET. PO SCH (07:49)
[2017-12-25] MEDS: FUROSEMIDE 20 MG TABLET PO SCH (07:50)
[2017-12-25] MEDS: POTASSIUM CHLORIDE 10 MEQ TABLET.ER. PO SCH (07:50)
[2017-12-25] MEDS: INSULIN LISPRO 300 UNITS/3 ML INSULN.PEN. SQ SCH ×3 (08:00→17:00)
[2017-12-25] MEDS ORDERED: guaiFENesin/CODEINE 100mg/10mg 5 ML LIQUID PO PRN (08:45)
[2017-12-25] MEDS ORDERED: FUROSEMIDE 20 MG TABLET PO ONE (09:00)
[2017-12-25] MEDS: VANCOMYCIN PER PHARMACY MC PRN (10:36)
--- NOTE | 2017-12-25 11:34 | PDOC ---
PULMONARY PROGRESS NOTES Subjective feels better Vitals Vital Signs Date Time Temp Pulse Resp B/P (MAP) Pulse Ox O2 Delivery O2 Flow Rate FiO2 12/25/17 10:00 82 18 121/65 (83) 96 Nasal Cannula 2.0 12/25/17 07:00 97.8 97.8 General: Alert, No acute distress Lungs: Wheezing Cardiovascular: S1, S2 Abdomen: Soft, Other (obese) Neuro Exam: Alert Extremities: Other (2+edema) Labs Laboratory Tests Test 12/23/17 22:15 12/24/17 01:30 12/24/17 02:30 12/24/17 06:30 White Blood Count 8.2 x10^3/uL (4.0-11.0) Red Blood Count 4.29 x10^6/uL (3.50-5.40) Hemoglobin 13.9 g/dL (12.0-15.5) Hematocrit 40.3 % (36.0-47.0) Mean Corpuscular Volume 94 fL (79-100) Mean Corpuscular Hemoglobin 33 pg (25-35) Mean Corpuscular Hemoglobin Concent 35 g/dL (31-37) Red Cell Distribution Width 16.2 % (11.5-14.5) Platelet Count 338 x10^3/uL (140-400) Neutrophils (%) (Auto) 65 % (31-73) Lymphocytes (%) (Auto) 13 % (24-48) Monocytes (%) (Auto) 20 % (0-9) Eosinophils (%) (Auto) 1 % (0-3) Basophils (%) (Auto) 1 % (0-3) Neutrophils # (Auto) 5.4 x10^3uL (1.8-7.7) Lymphocytes # (Auto) 1.1 x10^3/uL (1.0-4.8) Monocytes # (Auto) 1.6 x10^3/uL (0.0-1.1) Eosinophils # (Auto) 0.1 x10^3/uL (0.0-0.7) Basophils # (Auto) 0.1 x10^3/uL (0.0-0.2) Segmented Neutrophils % 55 % (35-66) Band Neutrophils % 22 % (0-9) Lymphocytes % 8 % (24-48) Monocytes % 11 % (0-10) Basophils % 2 % (0-3) Metamyelocytes % 1 % (0-0) Myelocytes % 1 % (0-0) Nucleated Red Blood Cells 2 Platelet Estimate Adequate (ADEQUATE) Polychromasia Slight Anisocytosis Slight Prothrombin Time 21.9 SEC (11.7-14.0) Prothromb Time International Ratio 2.0 (0.8-1.1) Activated Partial Thromboplast Time 39 SEC (24-38) Sodium Level 135 mmol/L (136-145) Potassium Level 4.2 mmol/L (3.5-5.1) Chloride Level 98 mmol/L (98-107) Carbon Dioxide Level 23 mmol/L (21-32) Anion Gap 14 (6-14) Blood Urea Nitrogen 10 mg/dL (7-20) Creatinine 0.9 mg/dL (0.6-1.0) Estimated GFR (Cockcroft-Gault) 61.5 BUN/Creatinine Ratio 11 (6-20) Glucose Level 170 mg/dL (70-99) Lactic Acid Level 3.1 mmol/L (0.4-2.0) 1.9 mmol/L (0.4-2.0) Calcium Level 8.9 mg/dL (8.5-10.1) Magnesium Level 2.0 mg/dL (1.8-2.4) Total Bilirubin 1.6 mg/dL (0.2-1.0) Aspartate Amino Transf (AST/SGOT) 54 U/L (15-37) Alanine Aminotransferase (ALT/SGPT) 31 U/L (14-59) Alkaline Phosphatase 93 U/L (46-116) Creatine Kinase 67 U/L (26-192) Troponin I Quantitative < 0.017 ng/mL (0.000-0.055) < 0.017 ng/mL (0.000-0.055) < 0.017 ng/mL (0.000-0.055) NH-Bev-K-Type Natriuretic Peptide 1899 pg/mL (0-124) Total Protein 7.6 g/dL (6.4-8.2) Albumin 3.0 g/dL (3.4-5.0) Albumin/Globulin Ratio 0.7 (1.0-1.7) Lipase 156 U/L (73-393) Digoxin Level 0.6 ng/mL (0.9-2.0) Digoxin Last Dose Date Digoxin Last Dose Time Nasal Screen MRSA (PCR) Negative (Negative) Test 12/24/17 08:06 12/24/17 11:50 12/24/17 17:43 12/25/17 03:50 Glucose (Fingerstick) 168 mg/dL (70-99) 157 mg/dL (70-99) 156 mg/dL (70-99) Prothrombin Time 22.9 SEC (11.7-14.0) Prothromb Time International Ratio 2.1 (0.8-1.1) Test 12/25/17 08:06 Glucose (Fingerstick) 131 mg/dL (70-99) Laboratory Tests Test 12/24/17 11:50 12/24/17 17:43 12/25/17 03:50 12/25/17 08:06 Glucose (Fingerstick) 157 mg/dL (70-99) 156 mg/dL (70-99) 131 mg/dL (70-99) Prothrombin Time 22.9 SEC (11.7-14.0) Prothromb Time International Ratio 2.1 (0.8-1.1) Medications Active Scripts Medications Dose Route/Sig Max Daily Dose Days Date Category Proair Hfa Inhaler (Albuterol Sulfate) 8.5 Gm Hfa.aer.ad 1 Puff INH PRN Q6HRS PRN 12/24/17 Reported Sotalol (Sotalol Hcl) 80 Mg Tablet 1 Tab PO BID 12/24/17 Reported Tessalon Perle (Benzonatate) 100 Mg Capsule 2 Cap PO TID PRN 12/24/17 Reported Digoxin 125 Mcg Tablet 125 Mcg PO DAILY 09/26/17 Rx Warfarin Sodium 2 Mg Tablet 1 Tab PO DAILY 09/23/17 Reported Lisinopril 10 Mg Tablet 1 Tab PO DAILY 09/23/17 Reported Levothyroxine Sodium 125 Mcg Tablet 150 Mcg PO DAILY 09/23/17 Reported Simvastatin 40 Mg Tablet 40 Mg PO DAILY 09/23/17 Reported Metformin Hcl 500 Mg Tablet 500 Mg PO BIDWMEALS 09/23/17 Reported Furosemide 20 Mg Tablet 1 Tab PO DAILY 09/23/17 Reported Potassium Chloride 10 Meq Tab.sr.24h 10 Meq PO DAILY 09/23/17 Reported Impression . 1. Acute hypoxic respiratory failure secondary to multifactorial etiologies including a combination of right and left heart failure and possible lower respiratory tract infection. In addition, underlying chronic obstructive pulmonary disease with exacerbation. 2. Chronic atrial fibrillation, on chronic anticoagulation with mild increased ventricular response. Currently on Cardizem. 3. 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 She no longer smokes cigarettes. 4. Morbid obesity and suspect obesity hypoventilation syndrome. Needs to rule out for obstructive sleep apnea by sleep study as an outpatient. Plan . 1. Continue with present oxygen via nasal cannula. 2. Noncontrast CT chest reviewed. mild basal atelectasis/ tiny effusions 3. echocardiogram reviewed 4. Continue empiric antibiotics for now 5. Diuresis. 6. Wean off Cardizem per Cardiology. 7. Follow Cardiology recommendation. 8. Bronchodilators. 9. Weight loss is advised. 10. Sleep study as an outpatient. 11. Discussed with the patient and the family, RN and RT. CARLOS BLANCO MD Dec 25, 2017 11:34
--- NOTE | 2017-12-25 12:14 | PDOC ---
PROGRESS NOTES Chief Complaint Chief Complaint sob with copd and chf copd exacerbation bronchitis CHF diastolic likely exacerbation HTN HLD Hypothyroidism ppm rapid AFIB Morbid obesity mild dementia plan: fu with card, pulm cont duoneb, levaquin, vanco cardizem drip off, cont satolol, dig, warfarin , INR daily talked to daughter and pt, tiny pleural effusion no need thoracentesis increase lasix to 40mg daily add cough meds echo pending PTOT History of Present Illness History of Present Illness ROS: no fever, chills, chest pain on NC 2L, no home o2 cont severe cough, no sputum bl leg severe edema, daughter said it is bad, but pt cannot tell pt said she was on lasix 150mg daily before, current 20mg daily at home Vitals Vitals Vital Signs Date Time Temp Pulse Resp B/P (MAP) Pulse Ox O2 Delivery O2 Flow Rate FiO2 12/25/17 12:06 95 Nasal Cannula 2.0 12/25/17 10:00 82 18 121/65 (83) 12/25/17 07:00 97.8 97.8 Physical Exam General: Alert, Cooperative, No acute distress Heart: Other (irregularly irregular, S1, S2) Lungs: Wheezing (bl mild wheezing with some rhonchis) Abdomen: Normal bowel sounds, Soft Extremities: No clubbing, No cyanosis, Other (bl leg 2-3+ edema, mild bl leg erythema) Skin: No significant lesion Labs LABS Laboratory Tests Test 12/24/17 17:43 12/25/17 03:50 12/25/17 08:06 12/25/17 12:04 Glucose (Fingerstick) 156 mg/dL (70-99) 131 mg/dL (70-99) 146 mg/dL (70-99) Prothrombin Time 22.9 SEC (11.7-14.0) Prothromb Time International Ratio 2.1 (0.8-1.1) Assessment and Plan Assessmemt and Plan Problems Medical Problems: (1) Atrial fibrillation with RVR Status: Acute (2) Bandemia Status: Acute (3) Hypoxia Status: Acute (4) Severe sepsis Status: Acute Comment Review of Relevant I have reviewed the following items uyen (where applicable) has been applied. Labs Laboratory Tests Test 12/23/17 22:15 12/24/17 01:30 12/24/17 02:30 12/24/17 06:30 White Blood Count 8.2 x10^3/uL (4.0-11.0) Red Blood Count 4.29 x10^6/uL (3.50-5.40) Hemoglobin 13.9 g/dL (12.0-15.5) Hematocrit 40.3 % (36.0-47.0) Mean Corpuscular Volume 94 fL (79-100) Mean Corpuscular Hemoglobin 33 pg (25-35) Mean Corpuscular Hemoglobin Concent 35 g/dL (31-37) Red Cell Distribution Width 16.2 % (11.5-14.5) Platelet Count 338 x10^3/uL (140-400) Neutrophils (%) (Auto) 65 % (31-73) Lymphocytes (%) (Auto) 13 % (24-48) Monocytes (%) (Auto) 20 % (0-9) Eosinophils (%) (Auto) 1 % (0-3) Basophils (%) (Auto) 1 % (0-3) Neutrophils # (Auto) 5.4 x10^3uL (1.8-7.7) Lymphocytes # (Auto) 1.1 x10^3/uL (1.0-4.8) Monocytes # (Auto) 1.6 x10^3/uL (0.0-1.1) Eosinophils # (Auto) 0.1 x10^3/uL (0.0-0.7) Basophils # (Auto) 0.1 x10^3/uL (0.0-0.2) Segmented Neutrophils % 55 % (35-66) Band Neutrophils % 22 % (0-9) Lymphocytes % 8 % (24-48) Monocytes % 11 % (0-10) Basophils % 2 % (0-3) Metamyelocytes % 1 % (0-0) Myelocytes % 1 % (0-0) Nucleated Red Blood Cells 2 Platelet Estimate Adequate (ADEQUATE) Polychromasia Slight Anisocytosis Slight Prothrombin Time 21.9 SEC (11.7-14.0) Prothromb Time International Ratio 2.0 (0.8-1.1) Activated Partial Thromboplast Time 39 SEC (24-38) Sodium Level 135 mmol/L (136-145) Potassium Level 4.2 mmol/L (3.5-5.1) Chloride Level 98 mmol/L (98-107) Carbon Dioxide Level 23 mmol/L (21-32) Anion Gap 14 (6-14) Blood Urea Nitrogen 10 mg/dL (7-20) Creatinine 0.9 mg/dL (0.6-1.0) Estimated GFR (Cockcroft-Gault) 61.5 BUN/Creatinine Ratio 11 (6-20) Glucose Level 170 mg/dL (70-99) Lactic Acid Level 3.1 mmol/L (0.4-2.0) 1.9 mmol/L (0.4-2.0) Calcium Level 8.9 mg/dL (8.5-10.1) Magnesium Level 2.0 mg/dL (1.8-2.4) Total Bilirubin 1.6 mg/dL (0.2-1.0) Aspartate Amino Transf (AST/SGOT) 54 U/L (15-37) Alanine Aminotransferase (ALT/SGPT) 31 U/L (14-59) Alkaline Phosphatase 93 U/L (46-116) Creatine Kinase 67 U/L (26-192) Troponin I Quantitative < 0.017 ng/mL (0.000-0.055) < 0.017 ng/mL (0.000-0.055) < 0.017 ng/mL (0.000-0.055) MH-She-I-Type Natriuretic Peptide 1899 pg/mL (0-124) Total Protein 7.6 g/dL (6.4-8.2) Albumin 3.0 g/dL (3.4-5.0) Albumin/Globulin Ratio 0.7 (1.0-1.7) Lipase 156 U/L (73-393) Digoxin Level 0.6 ng/mL (0.9-2.0) Digoxin Last Dose Date Digoxin Last Dose Time Nasal Screen MRSA (PCR) Negative (Negative) Test 12/24/17 08:06 12/24/17 11:50 12/24/17 17:43 12/25/17 03:50 Glucose (Fingerstick) 168 mg/dL (70-99) 157 mg/dL (70-99) 156 mg/dL (70-99) Prothrombin Time 22.9 SEC (11.7-14.0) Prothromb Time International Ratio 2.1 (0.8-1.1) Test 12/25/17 08:06 9/18/18 12:04 Glucose (Fingerstick) 131 mg/dL (70-99) 146 mg/dL (70-99) Laboratory Tests Test 12/24/17 17:43 12/25/17 03:50 12/25/17 08:06 12/25/17 12:04 Glucose (Fingerstick) 156 mg/dL (70-99) 131 mg/dL (70-99) 146 mg/dL (70-99) Prothrombin Time 22.9 SEC (11.7-14.0) Prothromb Time International Ratio 2.1 (0.8-1.1) Medications Current Medications Diltiazem HCl (Cardizem) 20 mg 1X ONCE IVP Last administered on 12/23/17at 23: 00; Start 12/23/17 at 23:00; Stop 12/23/17 at 23:01; Status DC Aspirin (Adonis Aspirin) 325 mg 1X ONCE PO ; Start 12/23/17 at 23:00; Stop 12/23 at 23:01; Status DC Diltiazem HCl 125 mg/Dextrose 125 ml @ 10 mls/hr 1X ONCE IV Last administered on 12/23/17at 23:11; Start 12/23/17 at 23:00; Stop 12/24/17 at 11:29 ; Status DC Dexamethasone Sodium Phosphate (Decadron) 10 mg 1X ONCE IV Last administered on 12/23/17at 22:57; Start 12/23/17 at 23:00; Stop 12/23/17 at 23:01; Status DC Albuterol/ Ipratropium (Duoneb) 3 ml 1X ONCE NEB ; Start 12/23/17 at 23:00; Stop 12/23/17 at 23:01; Status DC Albuterol/ Ipratropium (Duoneb) 3 ml STAT ONCE NEB ; Start 12/23/17 at 23:00; Stop 12/23/17 at 23:01; Status DC Hyoscyamine (Anaspaz) 0.25 mg 1X ONCE PO ; Start 12/23/17 at 23:45; Stop at 23:46; Status Cancel Sodium Chloride 1,000 ml @ 1,000 mls/hr 1X ONCE IV Last administered on at 01:17; Start 12/23/17 at 23:45; Stop 12/24/17 at 00:44; Status DC Sodium Chloride 1,000 ml @ 1,000 mls/hr 1X ONCE IV Last administered on at 04:29; Start 12/23/17 at 23:45; Stop 12/24/17 at 00:44; Status DC Piperacillin Sod/ Tazobactam Sod 4.5 gm/Sodium Chloride 100 ml @ 200 mls/hr 1X ONCE IV Last administered on 12/24/17at 01:17; Start 12/24/17 at 00:00; Stop 12/24/17 at 00:29; Status DC Levofloxacin/ Dextrose 150 ml @ 100 mls/hr 1X ONCE IV Last administered on at 01:17; Start 12/24/17 at 00:00; Stop 12/24/17 at 01:29; Status DC Vancomycin HCl 2 gm/Sodium Chloride 500 ml @ 250 mls/hr 1X ONCE IV Last administered on 12/24/17at 01:18; Start 12/24/17 at 00:30; Stop 12/24/17 at 02:29 ; Status DC Ondansetron HCl (Zofran) 4 mg PRN Q8HRS PRN IV NAUSEA/VOMITING 1ST CHOICE; Start 12/24/17 at 00:15; Stop 12/25/17 at 00:14; Status DC Fentanyl Citrate (Fentanyl 2ml Vial) 50 mcg PRN Q2HR PRN IV SEVERE PAIN; Start 12/24/17 at 00:15; Stop 12/25/17 at 00:14; Status DC Albuterol Sulfate (Ventolin Neb Soln) 2.5 mg PRN Q4HRS PRN NEB WHEEZING; Start 12/24/17 at 00:30 Insulin Human Lispro (HumaLOG) 0-5 UNITS TIDWMEALS SQ Last administered on 12/24at 17:46; Start 12/24/17 at 08:00 Dextrose (Dextrose 50%-Water Syringe) 12.5 gm PRN Q15MIN PRN IV SEE COMMENTS; Start 12/24/17 at 00:15 Info (Do NOT chart on this placeholder) 1 each 1X ONCE MC ; Start 12/24/17 at 01:45; Stop 12/24/17 at 01:46; Status UNV Influenza Virus Vaccine (Afluria Trivalent [id number] Syringe) 0.5 ml ONCE ONCE VAX IM Last administered on 12/24/17at 08:51; Start 12/24/17 at 09:00; Stop at 09:01; Status DC Albuterol/ Ipratropium (Duoneb) 3 ml RTQID NEB Last administered on 12/25/17at 12:06; Start 12/24/17 at 12:00 Levofloxacin/ Dextrose 100 ml @ 100 mls/hr Q24H IV ; Start 12/24/17 at 10:30; Status UNV Vancomycin HCl (Vanco Per Pharmacy) 1 each PRN DAILY PRN MC SEE COMMENTS Last administered on 12/25/17at 10:36; Start 12/24/17 at 10:30 Levofloxacin/ Dextrose 100 ml @ 100 mls/hr Q24H IV Last administered on at 23:58; Start 12/24/17 at 23:00 Vancomycin HCl 1.75 gm/Sodium Chloride 500 ml @ 250 mls/hr Q12H IV Last administered on 12/25/17at 00:00; Start 12/24/17 at 13:00 Vancomycin HCl (Vancomycin Trough Level) 1 each 1X ONCE MC ; Start 12/25/17 at 23:30; Stop 12/25/17 at 23:31 Lactobacillus Rhamnosus (Culturelle) 1 cap BID PO Last administered on at 07:48; Start 12/24/17 at 21:00 Warfarin Sodium (Coumadin Per Pharmacy) 1 each PRN DAILY PRN MC SEE COMMENTS Last administered on 12/25/17at 10:37; Start 12/24/17 at 14:45 Warfarin Sodium (Coumadin) 2 mg 1X WARF ONCE PO Last administered on at 15:52; Start 12/24/17 at 16:00; Stop 12/24/17 at 16:01; Status DC Digoxin (Lanoxin) 125 mcg DAILY PO Last administered on 12/25/17at 07:49; Start 12/24/17 at 17:30 Sotalol HCl (Betapace) 80 mg BID PO Last administered on 12/25/17at 07:48; Start 12/24/17 at 21:00 Furosemide (Lasix) 20 mg DAILY PO Last administered on 12/25/17at 07:50; Start 12/24/17 at 18:00; Stop 12/25/17 at 08:44; Status DC Potassium Chloride (Klor-Con) 10 meq DAILY PO Last administered on 12/25/17at 07 :50; Start 12/24/17 at 18:00 Levothyroxine Sodium (Synthroid) 150 mcg DAILY07 PO Last administered on at 07:47; Start 12/24/17 at 18:00 Metformin HCl (Glucophage) 500 mg BIDWMEALS PO Last administered on 12/25/17at 07:47; Start 12/24/17 at 18:00 Simvastatin (Zocor) 40 mg DAILY PO ; Start 12/24/17 at 18:00; Stop 12/24/17 at 18:00; Status DC Simvastatin (Zocor) 40 mg QHS PO Last administered on 12/24/17at 21:02; Start at 21:00 Furosemide (Lasix) 20 mg 1X ONCE PO ; Start 12/25/17 at 09:00; Stop 12/25/17 at 09:01; Status DC Guaifenesin/ Codeine Phosphate (Robitussin Ac) 5 ml PRN Q6HRS PRN PO COUGH; Start 12/25/17 at 08:45 Benzonatate (Tessalon Perle) 100 mg [id number] PO ; Start 12/25/17 at 09:00 Furosemide (Lasix) 40 mg DAILY PO ; Start 12/26/17 at 09:00 Warfarin Sodium (Coumadin) 2 mg 1X WARF ONCE PO ; Start 12/25/17 at 16:00; Stop 12/25/17 at 16:01 Active Scripts Active Digoxin 125 Mcg Tablet 125 Mcg PO DAILY Reported Proair Hfa Inhaler (Albuterol Sulfate) 8.5 Gm Hfa.aer.ad 1 Puff INH PRN Q6HRS PRN Sotalol (Sotalol Hcl) 80 Mg Tablet 1 Tab PO BID Tessalon Perle (Benzonatate) 100 Mg Capsule 2 Cap PO TID PRN Warfarin Sodium 2 Mg Tablet 1 Tab PO DAILY Lisinopril 10 Mg Tablet 1 Tab PO DAILY Levothyroxine Sodium 125 Mcg Tablet 150 Mcg PO DAILY Simvastatin 40 Mg Tablet 40 Mg PO DAILY Metformin Hcl 500 Mg Tablet 500 Mg PO BIDWMEALS Furosemide 20 Mg Tablet 1 Tab PO DAILY Potassium Chloride 10 Meq Tab.sr.24h 10 Meq PO DAILY Vitals/I & O Vital Sign - Last 24 Hours 12/24/17 12/24/17 12/24/17 12/24/17 12:20 13:00 14:00 15:00 Pulse 76 65 68 Resp 21 18 15 B/P (MAP) 120/70 (87) 127/76 (93) 144/80 (101) Pulse Ox 98 97 98 96 O2 Delivery Nasal Cannula Nasal Cannula Nasal Cannula Nasal Cannula O2 Flow Rate 2.0 2.0 2.0 2.0 12/24/17 12/24/17 12/24/17 12/24/17 15:19 16:00 16:00 17:00 Temp 97.7 97.7 Pulse 68 63 Resp 16 22 B/P (MAP) 125/66 (85) 116/72 (87) Pulse Ox 97 99 O2 Delivery Nasal Cannula Nasal Cannula Nasal Cannula Nasal Cannula O2 Flow Rate 2.0 2.0 2.0 2.0 12/24/17 12/24/17 12/24/17 12/24/17 17:44 18:00 19:00 19:52 Pulse 63 68 79 Resp 19 22 B/P (MAP) 116/72 117/101 (106) 126/71 (89) Pulse Ox 96 99 98 O2 Delivery Nasal Cannula Nasal Cannula Nasal Cannula O2 Flow Rate 2.0 2.0 2.0 12/24/17 12/24/17 12/24/17 12/24/17 20:00 20:00 21:00 21:03 Temp 98.3 98.3 Pulse 90 92 86 Resp 22 13 B/P (MAP) 108/71 (83) 96/75 (82) 96/75 Pulse Ox 99 96 O2 Delivery Nasal Cannula Nasal Cannula Nasal Cannula O2 Flow Rate 2.0 2.0 2.0 12/24/17 12/24/17 12/25/17 12/25/17 22:00 23:00 00:00 00:00 Temp 97.8 97.8 Pulse 86 78 90 Resp 16 18 14 B/P (MAP) 121/66 (84) 128/68 (88) 131/67 (88) Pulse Ox 95 99 98 O2 Delivery Nasal Cannula Nasal Cannula Nasal Cannula Nasal Cannula O2 Flow Rate 2.0 2.0 2.0 2.0 12/25/17 12/25/17 12/25/17 12/25/17 01:00 02:00 03:00 04:00 Temp 98.1 98.1 Pulse 82 72 70 65 Resp 18 18 16 15 B/P (MAP) 132/72 (92) 139/74 (95) 117/72 (87) 113/67 (82) Pulse Ox 100 98 96 96 O2 Delivery Nasal Cannula Nasal Cannula Nasal Cannula Nasal Cannula O2 Flow Rate 2.0 2.0 2.0 2.0 12/25/17 12/25/17 12/25/17 12/25/17 04:00 05:00 06:00 07:00 Temp 97.8 97.8 Pulse 76 83 78 Resp 15 12 18 B/P (MAP) 125/69 (87) 119/67 (84) 136/74 (94) Pulse Ox 100 99 98 O2 Delivery Nasal Cannula Nasal Cannula Nasal Cannula Nasal Cannula O2 Flow Rate 2.0 2.0 2.0 2.0 12/25/17 12/25/17 12/25/17 12/25/17 07:44 07:48 07:49 08:00 Pulse 98 107 B/P (MAP) 136/74 136/74 Pulse Ox 95 O2 Delivery Nasal Cannula Nasal Cannula O2 Flow Rate 2.0 2.0 12/25/17 12/25/17 12/25/17 12/25/17 08:00 09:00 10:00 12:06 Pulse 86 88 82 Resp 18 B/P (MAP) 130/76 (94) 121/65 (83) Pulse Ox 96 95 96 95 O2 Delivery Nasal Cannula Room Air Nasal Cannula Nasal Cannula O2 Flow Rate 2.0 97.0 2.0 2.0 Intake and Output 12/24/17 12/24/17 12/25/17 15:00 23:00 07:00 Intake Total 480 ml 801.3 ml 850 ml Output Total 150 ml Balance 330 ml 801.3 ml 850 ml NBA ROSENBAUM MD Dec 25, 2017 12:14
[2017-12-25] MEDS ORDERED: LABETALOL 20 MG/4 ML DISP.SYRIN. IVP PRN (12:15)
[2017-12-25] MEDS ORDERED: ONDANSETRON PF 4 MG/2 ML VIAL. IV PRN (12:15)
[2017-12-25] MEDS ORDERED: ACETAMINOPHEN 325 MG TABLET. PO PRN (12:15)
[2017-12-25] MEDS ORDERED: MORPHINE SULFATE 2 MG/ML VIAL. IV PRN (12:15)
[2017-12-25] MEDS: BENZONATATE 100 MG CAPSULE. PO SCH ×4 (12:54→21:00)
[2017-12-25] MEDS: DOCUSATE SODIUM 100 MG CAPSULE. PO PRN (12:55)
[2017-12-25] MEDS: VANCOMYCIN 1.75 GM in IV NORMAL SALINE 500ML BAG 500 ML IV SCH ×3 (13:00)
[2017-12-25] MEDS ORDERED: WARFARIN 2 MG TABLET. PO ONE (16:00)
--- NOTE | 2017-12-25 17:46 | PDOC ---
PROGRESS NOTES Subjective Subjective Patient is having problems with dyspnea. Is not feeling much better. Objective Objective Vital Signs Date Time Temp Pulse Resp B/P (MAP) Pulse Ox O2 Delivery O2 Flow Rate FiO2 12/25/17 17:29 95 Nasal Cannula 2.0 12/25/17 15:59 97.5 85 14 112/76 (88) 97.5 Intake and Output 12/25/17 07:00 Intake Total 2131.3 ml Output Total 150 ml Balance 1981.3 ml Intake Oral 980 ml IV Total 1151.3 ml Output Urine Total 150 ml # Voids 3 Physical Exam Physical Exam Lungs with diffuse wheezing and rales in both bases. Heart sounds unchanged. Extremities unchanged. Assessment Assessment The patient's ventricular response is moderate. Overall she appears to be having worsening CHF therefore I would recommend to diurese the patient. Comment Review of Relevant I have reviewed the following items uyen (where applicable) has been applied. Labs Laboratory Tests Test 12/23/17 22:15 12/24/17 01:30 12/24/17 02:30 12/24/17 06:30 White Blood Count 8.2 x10^3/uL (4.0-11.0) Red Blood Count 4.29 x10^6/uL (3.50-5.40) Hemoglobin 13.9 g/dL (12.0-15.5) Hematocrit 40.3 % (36.0-47.0) Mean Corpuscular Volume 94 fL (79-100) Mean Corpuscular Hemoglobin 33 pg (25-35) Mean Corpuscular Hemoglobin Concent 35 g/dL (31-37) Red Cell Distribution Width 16.2 % (11.5-14.5) Platelet Count 338 x10^3/uL (140-400) Neutrophils (%) (Auto) 65 % (31-73) Lymphocytes (%) (Auto) 13 % (24-48) Monocytes (%) (Auto) 20 % (0-9) Eosinophils (%) (Auto) 1 % (0-3) Basophils (%) (Auto) 1 % (0-3) Neutrophils # (Auto) 5.4 x10^3uL (1.8-7.7) Lymphocytes # (Auto) 1.1 x10^3/uL (1.0-4.8) Monocytes # (Auto) 1.6 x10^3/uL (0.0-1.1) Eosinophils # (Auto) 0.1 x10^3/uL (0.0-0.7) Basophils # (Auto) 0.1 x10^3/uL (0.0-0.2) Segmented Neutrophils % 55 % (35-66) Band Neutrophils % 22 % (0-9) Lymphocytes % 8 % (24-48) Monocytes % 11 % (0-10) Basophils % 2 % (0-3) Metamyelocytes % 1 % (0-0) Myelocytes % 1 % (0-0) Nucleated Red Blood Cells 2 Platelet Estimate Adequate (ADEQUATE) Polychromasia Slight Anisocytosis Slight Prothrombin Time 21.9 SEC (11.7-14.0) Prothromb Time International Ratio 2.0 (0.8-1.1) Activated Partial Thromboplast Time 39 SEC (24-38) Sodium Level 135 mmol/L (136-145) Potassium Level 4.2 mmol/L (3.5-5.1) Chloride Level 98 mmol/L (98-107) Carbon Dioxide Level 23 mmol/L (21-32) Anion Gap 14 (6-14) Blood Urea Nitrogen 10 mg/dL (7-20) Creatinine 0.9 mg/dL (0.6-1.0) Estimated GFR (Cockcroft-Gault) 61.5 BUN/Creatinine Ratio 11 (6-20) Glucose Level 170 mg/dL (70-99) Lactic Acid Level 3.1 mmol/L (0.4-2.0) 1.9 mmol/L (0.4-2.0) Calcium Level 8.9 mg/dL (8.5-10.1) Magnesium Level 2.0 mg/dL (1.8-2.4) Total Bilirubin 1.6 mg/dL (0.2-1.0) Aspartate Amino Transf (AST/SGOT) 54 U/L (15-37) Alanine Aminotransferase (ALT/SGPT) 31 U/L (14-59) Alkaline Phosphatase 93 U/L (46-116) Creatine Kinase 67 U/L (26-192) Troponin I Quantitative < 0.017 ng/mL (0.000-0.055) < 0.017 ng/mL (0.000-0.055) < 0.017 ng/mL (0.000-0.055) RB-Xfm-[id number]-Type Natriuretic Peptide 1899 pg/mL (0-124) Total Protein 7.6 g/dL (6.4-8.2) Albumin 3.0 g/dL (3.4-5.0) Albumin/Globulin Ratio 0.7 (1.0-1.7) Lipase 156 U/L (73-393) Digoxin Level 0.6 ng/mL (0.9-2.0) Digoxin Last Dose Date Digoxin Last Dose Time Nasal Screen MRSA (PCR) Negative (Negative) Test 12/24/17 08:06 12/24/17 11:50 12/24/17 17:43 12/25/17 03:50 Glucose (Fingerstick) 168 mg/dL (70-99) 157 mg/dL (70-99) 156 mg/dL (70-99) Prothrombin Time 22.9 SEC (11.7-14.0) Prothromb Time International Ratio 2.1 (0.8-1.1) Test 12/25/17 08:06 12/25/17 12:04 12/25/17 17:29 Glucose (Fingerstick) 131 mg/dL (70-99) 146 mg/dL (70-99) 138 mg/dL (70-99) Laboratory Tests Test 12/25/17 03:50 12/25/17 08:06 12/25/17 12:04 12/25/17 17:29 Prothrombin Time 22.9 SEC (11.7-14.0) Prothromb Time International Ratio 2.1 (0.8-1.1) Glucose (Fingerstick) 131 mg/dL (70-99) 146 mg/dL (70-99) 138 mg/dL (70-99) Medications Current Medications Diltiazem HCl (Cardizem) 20 mg 1X ONCE IVP Last administered on 12/23/17at 23: 00; Start 12/23/17 at 23:00; Stop 12/23/17 at 23:01; Status DC Aspirin (Adonis Aspirin) 325 mg 1X ONCE PO ; Start 12/23/17 at 23:00; Stop 12/23 at 23:01; Status DC Diltiazem HCl 125 mg/Dextrose 125 ml @ 10 mls/hr 1X ONCE IV Last administered on 12/23/17at 23:11; Start 12/23/17 at 23:00; Stop 12/24/17 at 11:29 ; Status DC Dexamethasone Sodium Phosphate (Decadron) 10 mg 1X ONCE IV Last administered on 12/23/17at 22:57; Start 12/23/17 at 23:00; Stop 12/23/17 at 23:01; Status DC Albuterol/ Ipratropium (Duoneb) 3 ml 1X ONCE NEB ; Start 12/23/17 at 23:00; Stop 12/23/17 at 23:01; Status DC Albuterol/ Ipratropium (Duoneb) 3 ml STAT ONCE NEB ; Start 12/23/17 at 23:00; Stop 12/23/17 at 23:01; Status DC Hyoscyamine (Anaspaz) 0.25 mg 1X ONCE PO ; Start 12/23/17 at 23:45; Stop at 23:46; Status Cancel Sodium Chloride 1,000 ml @ 1,000 mls/hr 1X ONCE IV Last administered on at 01:17; Start 12/23/17 at 23:45; Stop 12/24/17 at 00:44; Status DC Sodium Chloride 1,000 ml @ 1,000 mls/hr 1X ONCE IV Last administered on at 04:29; Start 12/23/17 at 23:45; Stop 12/24/17 at 00:44; Status DC Piperacillin Sod/ Tazobactam Sod 4.5 gm/Sodium Chloride 100 ml @ 200 mls/hr 1X ONCE IV Last administered on 12/24/17at 01:17; Start 12/24/17 at 00:00; Stop 12/24/17 at 00:29; Status DC Levofloxacin/ Dextrose 150 ml @ 100 mls/hr 1X ONCE IV Last administered on at 01:17; Start 12/24/17 at 00:00; Stop 12/24/17 at 01:29; Status DC Vancomycin HCl 2 gm/Sodium Chloride 500 ml @ 250 mls/hr 1X ONCE IV Last administered on 12/24/17at 01:18; Start 12/24/17 at 00:30; Stop 12/24/17 at 02:29 ; Status DC Ondansetron HCl (Zofran) 4 mg PRN Q8HRS PRN IV NAUSEA/VOMITING 1ST CHOICE; Start 12/24/17 at 00:15; Stop 12/25/17 at 00:14; Status DC Fentanyl Citrate (Fentanyl 2ml Vial) 50 mcg PRN Q2HR PRN IV SEVERE PAIN; Start 12/24/17 at 00:15; Stop 12/25/17 at 00:14; Status DC Albuterol Sulfate (Ventolin Neb Soln) 2.5 mg PRN Q4HRS PRN NEB WHEEZING Last administered on 12/25/17at 17:28; Start 12/24/17 at 00:30 Insulin Human Lispro (HumaLOG) 0-5 UNITS TIDWMEALS SQ Last administered on 12/24at 17:46; Start 12/24/17 at 08:00 Dextrose (Dextrose 50%-Water Syringe) 12.5 gm PRN Q15MIN PRN IV SEE COMMENTS; Start 12/24/17 at 00:15 Info (Do NOT chart on this placeholder) 1 each 1X ONCE MC ; Start 12/24/17 at 01:45; Stop 12/24/17 at 01:46; Status UNV Influenza Virus Vaccine (Afluria Trivalent [id number] Syringe) 0.5 ml ONCE ONCE VAX IM Last administered on 12/24/17at 08:51; Start 12/24/17 at 09:00; Stop at 09:01; Status DC Albuterol/ Ipratropium (Duoneb) 3 ml RTQID NEB Last administered on 12/25/17at 16:16; Start 12/24/17 at 12:00 Levofloxacin/ Dextrose 100 ml @ 100 mls/hr Q24H IV ; Start 12/24/17 at 10:30; Status UNV Vancomycin HCl (Vanco Per Pharmacy) 1 each PRN DAILY PRN MC SEE COMMENTS Last administered on 12/25/17at 10:36; Start 12/24/17 at 10:30; Stop 12/25/17 at 17:09 ; Status DC Levofloxacin/ Dextrose 100 ml @ 100 mls/hr Q24H IV Last administered on at 23:58; Start 12/24/17 at 23:00 Vancomycin HCl 1.75 gm/Sodium Chloride 500 ml @ 250 mls/hr Q12H IV Last administered on 12/25/17at 13:00; Start 12/24/17 at 13:00; Stop 12/25/17 at 17:08 ; Status DC Vancomycin HCl (Vancomycin Trough Level) 1 each 1X ONCE MC ; Start 12/25/17 at 23:30; Stop 12/25/17 at 23:30; Status DC Lactobacillus Rhamnosus (Culturelle) 1 cap BID PO Last administered on at 07:48; Start 12/24/17 at 21:00 Warfarin Sodium (Coumadin Per Pharmacy) 1 each PRN DAILY PRN MC SEE COMMENTS Last administered on 12/25/17at 10:37; Start 12/24/17 at 14:45 Warfarin Sodium (Coumadin) 2 mg 1X WARF ONCE PO Last administered on at 15:52; Start 12/24/17 at 16:00; Stop 12/24/17 at 16:01; Status DC Digoxin (Lanoxin) 125 mcg DAILY PO Last administered on 12/25/17at 07:49; Start 12/24/17 at 17:30 Sotalol HCl (Betapace) 80 mg BID PO Last administered on 12/25/17at 07:48; Start 12/24/17 at 21:00 Furosemide (Lasix) 20 mg DAILY PO Last administered on 12/25/17 07:50; Start 12/24/17 at 18:00; Stop 12/25/17 at 08:44; Status DC Potassium Chloride (Klor-Con) 10 meq DAILY PO Last administered on 12/25/17at 07 :50; Start 12/24/17 at 18:00 Levothyroxine Sodium (Synthroid) 150 mcg DAILY07 PO Last administered on at 07:47; Start 12/24/17 at 18:00 Metformin HCl (Glucophage) 500 mg BIDWMEALS PO Last administered on 12/25/17at 16:44; Start 12/24/17 at 18:00 Simvastatin (Zocor) 40 mg DAILY PO ; Start 12/24/17 at 18:00; Stop 12/24/17 at 18:00; Status DC Simvastatin (Zocor) 40 mg QHS PO Last administered on 12/24/17at 21:02; Start at 21:00 Furosemide (Lasix) 20 mg 1X ONCE PO Last administered on 12/25/17at 12:57; Start 12/25/17 at 09:00; Stop 12/25/17 at 09:01; Status DC Guaifenesin/ Codeine Phosphate (Robitussin Ac) 5 ml PRN Q6HRS PRN PO COUGH Last administered on 12/25/17at 12:54; Start 12/25/17 at 08:45 Benzonatate (Tessalon Perle) 100 mg [id number] PO Last administered on 12/25/17at 12 :54; Start 12/25/17 at 09:00 Furosemide (Lasix) 40 mg DAILY PO ; Start 12/26/17 at 09:00 Warfarin Sodium (Coumadin) 2 mg 1X WARF ONCE PO Last administered on at 16:44; Start 12/25/17 at 16:00; Stop 12/25/17 at 16:01; Status DC Acetaminophen (Tylenol) 650 mg PRN Q6HRS PRN PO FEVER; Start 12/25/17 at 12:15 Ondansetron HCl (Zofran) 4 mg PRN Q6HRS PRN IV NAUSEA/VOMITING; Start 12/25/17 at 12:15 Morphine Sulfate (Morphine Sulfate) 2 mg PRN Q2HR PRN IV MODERATE TO SEVERE PAIN; Start 12/25/17 at 12:15 Tramadol HCl (Ultram) 50 mg PRN Q6HRS PRN PO MILD TO MODERATE PAIN; Start 12/25 at 12:15 Docusate Sodium (Colace) 100 mg PRN DAILY PRN PO HARD STOOLS Last administered on 12/25/17at 12:55; Start 12/25/17 at 12:15 Labetalol HCl (Normodyne Iv Push) 20 mg PRN Q2HR PRN IVP HYPERTENSION, SEE COMMENTS; Start 12/25/17 at 12:15 Furosemide (Lasix) 60 mg 1X ONCE IVP ; Start 12/25/17 at 18:00; Stop 12/25/17 at 18:01 Furosemide (Lasix) 60 mg 1X ONCE IVP ; Start 12/26/17 at 09:00; Stop 12/26/17 at 09:01 Active Scripts Active Digoxin 125 Mcg Tablet 125 Mcg PO DAILY Reported Proair Hfa Inhaler (Albuterol Sulfate) 8.5 Gm Hfa.aer.ad 1 Puff INH PRN Q6HRS PRN Sotalol (Sotalol Hcl) 80 Mg Tablet 1 Tab PO BID Tessalon Perle (Benzonatate) 100 Mg Capsule 2 Cap PO TID PRN Warfarin Sodium 2 Mg Tablet 1 Tab PO DAILY Lisinopril 10 Mg Tablet 1 Tab PO DAILY Levothyroxine Sodium 125 Mcg Tablet 150 Mcg PO DAILY Simvastatin 40 Mg Tablet 40 Mg PO DAILY Metformin Hcl 500 Mg Tablet 500 Mg PO BIDWMEALS Furosemide 20 Mg Tablet 1 Tab PO DAILY Potassium Chloride 10 Meq Tab.sr.24h 10 Meq PO DAILY Vitals/I & O Vital Sign - Last 24 Hours 12/24/17 12/24/17 12/24/17 12/24/17 17:44 18:00 19:00 19:52 Pulse 63 68 79 Resp 19 22 B/P (MAP) 116/72 117/101 (106) 126/71 (89) Pulse Ox 96 99 98 O2 Delivery Nasal Cannula Nasal Cannula Nasal Cannula O2 Flow Rate 2.0 2.0 2.0 12/24/17 12/24/17 12/24/17 12/24/17 20:00 20:00 21:00 21:03 Temp 98.3 98.3 Pulse 90 92 86 Resp 22 13 B/P (MAP) 108/71 (83) 96/75 (82) 96/75 Pulse Ox 99 96 O2 Delivery Nasal Cannula Nasal Cannula Nasal Cannula O2 Flow Rate 2.0 2.0 2.0 12/24/17 12/24/17 12/25/17 12/25/17 22:00 23:00 00:00 00:00 Temp 97.8 97.8 Pulse 86 78 90 Resp 16 18 14 B/P (MAP) 121/66 (84) 128/68 (88) 131/67 (88) Pulse Ox 95 99 98 O2 Delivery Nasal Cannula Nasal Cannula Nasal Cannula Nasal Cannula O2 Flow Rate 2.0 2.0 2.0 2.0 12/25/17 12/25/17 12/25/17 12/25/17 01:00 02:00 03:00 04:00 Temp 98.1 98.1 Pulse 82 72 70 65 Resp 18 18 16 15 B/P (MAP) 132/72 (92) 139/74 (95) 117/72 (87) 113/67 (82) Pulse Ox 100 98 96 96 O2 Delivery Nasal Cannula Nasal Cannula Nasal Cannula Nasal Cannula O2 Flow Rate 2.0 2.0 2.0 2.0 12/25/17 12/25/17 12/25/17 12/25/17 04:00 05:00 06:00 07:00 Temp 97.8 97.8 Pulse 76 83 78 Resp 15 12 18 B/P (MAP) 125/69 (87) 119/67 (84) 136/74 (94) Pulse Ox 100 99 98 O2 Delivery Nasal Cannula Nasal Cannula Nasal Cannula Nasal Cannula O2 Flow Rate 2.0 2.0 2.0 2.0 12/25/17 12/25/17 12/25/17 12/25/17 07:44 07:48 07:49 08:00 Pulse 98 107 B/P (MAP) 136/74 136/74 Pulse Ox 95 O2 Delivery Nasal Cannula Nasal Cannula O2 Flow Rate 2.0 2.0 12/25/17 12/25/17 12/25/17 12/25/17 08:00 09:00 10:00 12:00 Pulse 86 88 82 74 Resp 15 16 18 14 B/P (MAP) 130/76 (94) 121/65 (83) 117/76 (90) Pulse Ox 96 95 96 99 O2 Delivery Nasal Cannula Room Air Nasal Cannula Nasal Cannula O2 Flow Rate 2.0 97.0 2.0 2.0 12/25/17 12/25/17 12/25/17 12/25/17 12:06 15:59 16:18 17:29 Temp 97.5 97.5 Pulse 85 Resp 14 B/P (MAP) 112/76 (88) Pulse Ox 95 99 95 95 O2 Delivery Nasal Cannula Nasal Cannula Nasal Cannula Nasal Cannula O2 Flow Rate 2.0 2.0 2.0 2.0 Intake and Output 12/24/17 12/24/17 12/25/17 15:00 23:00 07:00 Intake Total 480 ml 801.3 ml 850 ml Output Total 150 ml Balance 330 ml 801.3 ml 850 ml MARTI SAUER MD Dec 25, 2017 17:46
[2017-12-25] MEDS ORDERED: FUROSEMIDE 40 MG/4 ML VIAL. IVP ONE (18:00)
[2017-12-25] MEDS: SIMVASTATIN 40 MG TABLET. PO SCH (20:45)
[2017-12-26] VITALS (7 sets, daily range): BP systolic 102–139; BP diastolic 45–77
[2017-12-26] MEDS: LEVOTHYROXINE 150 MCG TABLET PO SCH (06:38)
[2017-12-26] MEDS: IPRATRPIUM/ALBUTEROL 0.5/2.5MG 3 ML NEBU. NEB SCH ×4 (07:59→19:33)
[2017-12-26] MEDS: INSULIN LISPRO 300 UNITS/3 ML INSULN.PEN. SQ SCH ×3 (08:00→17:00)
[2017-12-26 08:23] LABS: BASO % 0 % (0-3); EOS % 0 % (0-3); HEMATOCRIT 38.8 % (36.0-47.0); LYMPH # 0.8 x10^3/uL (1.0-4.8); LYMPH % 10 % (24-48); MEAN CORPUSCULAR HEMOGLOBIN 32 pg (25-35); MEAN CORPUSCULAR HGB CONC 33 g/dL (31-37); MEAN CORPUSCULAR VOLUME 95 fL (79-100); MONO # 1.3 x10^3/uL (0.0-1.1); MONO % 15 % (0-9); NEUT # 6.4 x10^3uL (1.8-7.7); NEUT % 74 % (31-73); PLATELET COUNT 249 x10^3/uL (140-400); RED BLOOD COUNT 4.11 x10^6/uL (3.50-5.40); RED CELL DISTRIBUTION WIDTH 16.9 % (11.5-14.5); WHITE BLOOD COUNT 8.6 x10^3/uL (4.0-11.0)
[2017-12-26 08:29] LABS: PROTHROMBIN TIME PATIENT 22.3 SEC (11.7-14.0)
[2017-12-26] MEDS: LACTOBACILLUS RHAMNOSUS GG 1 CAPSULE. PO SCH ×2 (08:45→20:57)
[2017-12-26] MEDS: POTASSIUM CHLORIDE 10 MEQ TABLET.ER. PO SCH (08:45)
[2017-12-26] MEDS: metFORMIN 500 MG TABLET PO SCH ×2 (08:45→17:29)
[2017-12-26] MEDS: BENZONATATE 100 MG CAPSULE. PO SCH ×5 (08:45→21:00)
[2017-12-26] MEDS: DIGOXIN 125 MCG TABLET. PO SCH (08:46)
[2017-12-26] MEDS: SOTALOL 80 MG TABLET. PO SCH ×2 (08:46→20:57)
[2017-12-26 08:49] LABS: CALCIUM 8.3 mg/dL (8.5-10.1); CREATININE 1.6 mg/dL (0.6-1.0); GFR 31.7; POTASSIUM 3.9 mmol/L (3.5-5.1)
[2017-12-26] MEDS: traMADol 50 MG TABLET PO PRN (08:58)
[2017-12-26] MEDS ORDERED: FUROSEMIDE 40 MG TABLET. PO SCH (09:00)
[2017-12-26] MEDS ORDERED: FUROSEMIDE 40 MG/4 ML VIAL. IVP ONE (09:00)
--- NOTE | 2017-12-26 10:54 | PDOC ---
PULMONARY PROGRESS NOTES Subjective feels better Vitals Vital Signs Date Time Temp Pulse Resp B/P (MAP) Pulse Ox O2 Delivery O2 Flow Rate FiO2 12/26/17 08:46 95 12/26/17 08:02 98 Nasal Cannula 2.0 12/26/17 07:59 98.2 18 109/54 (72) 98.2 General: Alert, No acute distress Lungs: Clear, Wheezing Cardiovascular: S1, S2 Abdomen: Soft, Other (obese) Neuro Exam: Alert Extremities: Other (2+edema) Labs Laboratory Tests Test 12/24/17 11:50 12/24/17 17:43 12/25/17 03:50 12/25/17 08:06 Glucose (Fingerstick) 157 mg/dL (70-99) 156 mg/dL (70-99) 131 mg/dL (70-99) Prothrombin Time 22.9 SEC (11.7-14.0) Prothromb Time International Ratio 2.1 (0.8-1.1) Test 12/25/17 12:04 12/25/17 17:29 12/25/17 20:21 12/26/17 07:08 Glucose (Fingerstick) 146 mg/dL (70-99) 138 mg/dL (70-99) 128 mg/dL (70-99) White Blood Count 8.6 x10^3/uL (4.0-11.0) Red Blood Count 4.11 x10^6/uL (3.50-5.40) Hemoglobin 13.0 g/dL (12.0-15.5) Hematocrit 38.8 % (36.0-47.0) Mean Corpuscular Volume 95 fL (79-100) Mean Corpuscular Hemoglobin 32 pg (25-35) Mean Corpuscular Hemoglobin Concent 33 g/dL (31-37) Red Cell Distribution Width 16.9 % (11.5-14.5) Platelet Count 249 x10^3/uL (140-400) Neutrophils (%) (Auto) 74 % (31-73) Lymphocytes (%) (Auto) 10 % (24-48) Monocytes (%) (Auto) 15 % (0-9) Eosinophils (%) (Auto) 0 % (0-3) Basophils (%) (Auto) 0 % (0-3) Neutrophils # (Auto) 6.4 x10^3uL (1.8-7.7) Lymphocytes # (Auto) 0.8 x10^3/uL (1.0-4.8) Monocytes # (Auto) 1.3 x10^3/uL (0.0-1.1) Eosinophils # (Auto) 0.0 x10^3/uL (0.0-0.7) Basophils # (Auto) 0.0 x10^3/uL (0.0-0.2) Prothrombin Time 22.3 SEC (11.7-14.0) Prothromb Time International Ratio 2.0 (0.8-1.1) Test 12/26/17 07:10 12/26/17 07:32 Sodium Level 139 mmol/L (136-145) Potassium Level 3.9 mmol/L (3.5-5.1) Chloride Level 103 mmol/L (98-107) Carbon Dioxide Level 25 mmol/L (21-32) Anion Gap 11 (6-14) Blood Urea Nitrogen 17 mg/dL (7-20) Creatinine 1.6 mg/dL (0.6-1.0) Estimated GFR (Cockcroft-Gault) 31.7 Glucose Level 143 mg/dL (70-99) Calcium Level 8.3 mg/dL (8.5-10.1) Glucose (Fingerstick) 143 mg/dL (70-99) Laboratory Tests Test 12/25/17 12:04 12/25/17 17:29 12/25/17 20:21 12/26/17 07:08 Glucose (Fingerstick) 146 mg/dL (70-99) 138 mg/dL (70-99) 128 mg/dL (70-99) White Blood Count 8.6 x10^3/uL (4.0-11.0) Red Blood Count 4.11 x10^6/uL (3.50-5.40) Hemoglobin 13.0 g/dL (12.0-15.5) Hematocrit 38.8 % (36.0-47.0) Mean Corpuscular Volume 95 fL (79-100) Mean Corpuscular Hemoglobin 32 pg (25-35) Mean Corpuscular Hemoglobin Concent 33 g/dL (31-37) Red Cell Distribution Width 16.9 % (11.5-14.5) Platelet Count 249 x10^3/uL (140-400) Neutrophils (%) (Auto) 74 % (31-73) Lymphocytes (%) (Auto) 10 % (24-48) Monocytes (%) (Auto) 15 % (0-9) Eosinophils (%) (Auto) 0 % (0-3) Basophils (%) (Auto) 0 % (0-3) Neutrophils # (Auto) 6.4 x10^3uL (1.8-7.7) Lymphocytes # (Auto) 0.8 x10^3/uL (1.0-4.8) Monocytes # (Auto) 1.3 x10^3/uL (0.0-1.1) Eosinophils # (Auto) 0.0 x10^3/uL (0.0-0.7) Basophils # (Auto) 0.0 x10^3/uL (0.0-0.2) Prothrombin Time 22.3 SEC (11.7-14.0) Prothromb Time International Ratio 2.0 (0.8-1.1) Test 12/26/17 07:10 12/26/17 07:32 Sodium Level 139 mmol/L (136-145) Potassium Level 3.9 mmol/L (3.5-5.1) Chloride Level 103 mmol/L (98-107) Carbon Dioxide Level 25 mmol/L (21-32) Anion Gap 11 (6-14) Blood Urea Nitrogen 17 mg/dL (7-20) Creatinine 1.6 mg/dL (0.6-1.0) Estimated GFR (Cockcroft-Gault) 31.7 Glucose Level 143 mg/dL (70-99) Calcium Level 8.3 mg/dL (8.5-10.1) Glucose (Fingerstick) 143 mg/dL (70-99) Medications Active Scripts Medications Dose Route/Sig Max Daily Dose Days Date Category Proair Hfa Inhaler (Albuterol Sulfate) 8.5 Gm Hfa.aer.ad 1 Puff INH PRN Q6HRS PRN 12/24/17 Reported Sotalol (Sotalol Hcl) 80 Mg Tablet 1 Tab PO BID 12/24/17 Reported Tessalon Perle (Benzonatate) 100 Mg Capsule 2 Cap PO TID PRN 12/24/17 Reported Digoxin 125 Mcg Tablet 125 Mcg PO DAILY 09/26/17 Rx Warfarin Sodium 2 Mg Tablet 1 Tab PO DAILY 09/23/17 Reported Lisinopril 10 Mg Tablet 1 Tab PO DAILY 09/23/17 Reported Levothyroxine Sodium 125 Mcg Tablet 150 Mcg PO DAILY 09/23/17 Reported Simvastatin 40 Mg Tablet 40 Mg PO DAILY 09/23/17 Reported Metformin Hcl 500 Mg Tablet 500 Mg PO BIDWMEALS 09/23/17 Reported Furosemide 20 Mg Tablet 1 Tab PO DAILY 09/23/17 Reported Potassium Chloride 10 Meq Tab.sr.24h 10 Meq PO DAILY 09/23/17 Reported Impression . 1. Acute hypoxic respiratory failure secondary to multifactorial etiologies including a combination of right and left heart failure and possible lower respiratory tract infection. In addition, underlying chronic obstructive pulmonary disease with exacerbation. 2. Chronic atrial fibrillation, on chronic anticoagulation with mild increased ventricular response. Currently on Cardizem. 3. 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 She no longer smokes cigarettes. 4. Morbid obesity and suspect obesity hypoventilation syndrome. Needs to rule out for obstructive sleep apnea by sleep study as an outpatient. Plan . 1. Continue with present oxygen via nasal cannula. 2. Noncontrast CT chest reviewed. mild basal atelectasis/ tiny effusions 3. echocardiogram reviewed 4. Continue empiric antibiotics for now 5. Diuresis. 6. off Cardizem per Cardiology. 7. Follow Cardiology recommendation. 8. Bronchodilators. 9. Weight loss is advised. 10. Sleep study as an outpatient. 11. Discussed with the patient and the family, CARLOS BLANCO MD Dec 26, 2017 10:54
--- NOTE | 2017-12-26 14:31 | PDOC ---
PROGRESS NOTES Chief Complaint Chief Complaint sob with copd and chf copd exacerbation bronchitis CHF diastolic likely exacerbation HTN HLD Hypothyroidism ppm rapid AFIB Morbid obesity mild dementia plan: fu with card, pulm cont duoneb, levaquin, vanco cardizem drip off, cont satolol, dig, warfarin , INR daily talked to daughter and pt, tiny pleural effusion no need thoracentesis increase lasix to 40mg daily, got lasix 60mg iv last night and today, cr 1.6. add cough meds echo pending PTOT History of Present Illness History of Present Illness ROS: no fever, chills, chest pain on NC 2L, no home o2 cont severe cough, no sputum bl leg severe edema, daughter said it is bad, but pt cannot tell pt said she was on lasix 150mg daily before, current 20mg daily at home Vitals Vitals Vital Signs Date Time Temp Pulse Resp B/P (MAP) Pulse Ox O2 Delivery O2 Flow Rate FiO2 12/26/17 12:14 Nasal Cannula 2.0 12/26/17 11:14 97.6 101 18 102/52 (69) 96 97.6 Physical Exam General: Alert, Cooperative, No acute distress Heart: Other (irregularly irregular, S1, S2) Lungs: Clear, Wheezing Abdomen: Normal bowel sounds, Soft Extremities: No clubbing, No cyanosis, Other (bl leg 2-3+ edema, mild bl leg erythema) Skin: No significant lesion Labs LABS Laboratory Tests Test 12/25/17 17:29 12/25/17 20:21 12/26/17 07:08 12/26/17 07:10 Glucose (Fingerstick) 138 mg/dL (70-99) 128 mg/dL (70-99) White Blood Count 8.6 x10^3/uL (4.0-11.0) Red Blood Count 4.11 x10^6/uL (3.50-5.40) Hemoglobin 13.0 g/dL (12.0-15.5) Hematocrit 38.8 % (36.0-47.0) Mean Corpuscular Volume 95 fL (79-100) Mean Corpuscular Hemoglobin 32 pg (25-35) Mean Corpuscular Hemoglobin Concent 33 g/dL (31-37) Red Cell Distribution Width 16.9 % (11.5-14.5) Platelet Count 249 x10^3/uL (140-400) Neutrophils (%) (Auto) 74 % (31-73) Lymphocytes (%) (Auto) 10 % (24-48) Monocytes (%) (Auto) 15 % (0-9) Eosinophils (%) (Auto) 0 % (0-3) Basophils (%) (Auto) 0 % (0-3) Neutrophils # (Auto) 6.4 x10^3uL (1.8-7.7) Lymphocytes # (Auto) 0.8 x10^3/uL (1.0-4.8) Monocytes # (Auto) 1.3 x10^3/uL (0.0-1.1) Eosinophils # (Auto) 0.0 x10^3/uL (0.0-0.7) Basophils # (Auto) 0.0 x10^3/uL (0.0-0.2) Prothrombin Time 22.3 SEC (11.7-14.0) Prothromb Time International Ratio 2.0 (0.8-1.1) Sodium Level 139 mmol/L (136-145) Potassium Level 3.9 mmol/L (3.5-5.1) Chloride Level 103 mmol/L (98-107) Carbon Dioxide Level 25 mmol/L (21-32) Anion Gap 11 (6-14) Blood Urea Nitrogen 17 mg/dL (7-20) Creatinine 1.6 mg/dL (0.6-1.0) Estimated GFR (Cockcroft-Gault) 31.7 Glucose Level 143 mg/dL (70-99) Calcium Level 8.3 mg/dL (8.5-10.1) Test 12/26/17 07:32 12/26/17 12:20 Glucose (Fingerstick) 143 mg/dL (70-99) 159 mg/dL (70-99) Assessment and Plan Assessmemt and Plan Problems Medical Problems: (1) Atrial fibrillation with RVR Status: Acute (2) Bandemia Status: Acute (3) Hypoxia Status: Acute (4) Severe sepsis Status: Acute Comment Review of Relevant I have reviewed the following items uyen (where applicable) has been applied. Labs Laboratory Tests Test 12/24/17 17:43 12/25/17 03:50 12/25/17 08:06 12/25/17 12:04 Glucose (Fingerstick) 156 mg/dL (70-99) 131 mg/dL (70-99) 146 mg/dL (70-99) Prothrombin Time 22.9 SEC (11.7-14.0) Prothromb Time International Ratio 2.1 (0.8-1.1) Test 12/25/17 17:29 12/25/17 20:21 12/26/17 07:08 12/26/17 07:10 Glucose (Fingerstick) 138 mg/dL (70-99) 128 mg/dL (70-99) White Blood Count 8.6 x10^3/uL (4.0-11.0) Red Blood Count 4.11 x10^6/uL (3.50-5.40) Hemoglobin 13.0 g/dL (12.0-15.5) Hematocrit 38.8 % (36.0-47.0) Mean Corpuscular Volume 95 fL (79-100) Mean Corpuscular Hemoglobin 32 pg (25-35) Mean Corpuscular Hemoglobin Concent 33 g/dL (31-37) Red Cell Distribution Width 16.9 % (11.5-14.5) Platelet Count 249 x10^3/uL (140-400) Neutrophils (%) (Auto) 74 % (31-73) Lymphocytes (%) (Auto) 10 % (24-48) Monocytes (%) (Auto) 15 % (0-9) Eosinophils (%) (Auto) 0 % (0-3) Basophils (%) (Auto) 0 % (0-3) Neutrophils # (Auto) 6.4 x10^3uL (1.8-7.7) Lymphocytes # (Auto) 0.8 x10^3/uL (1.0-4.8) Monocytes # (Auto) 1.3 x10^3/uL (0.0-1.1) Eosinophils # (Auto) 0.0 x10^3/uL (0.0-0.7) Basophils # (Auto) 0.0 x10^3/uL (0.0-0.2) Prothrombin Time 22.3 SEC (11.7-14.0) Prothromb Time International Ratio 2.0 (0.8-1.1) Sodium Level 139 mmol/L (136-145) Potassium Level 3.9 mmol/L (3.5-5.1) Chloride Level 103 mmol/L (98-107) Carbon Dioxide Level 25 mmol/L (21-32) Anion Gap 11 (6-14) Blood Urea Nitrogen 17 mg/dL (7-20) Creatinine 1.6 mg/dL (0.6-1.0) Estimated GFR (Cockcroft-Gault) 31.7 Glucose Level 143 mg/dL (70-99) Calcium Level 8.3 mg/dL (8.5-10.1) Test 12/26/17 07:32 12/26/17 12:20 Glucose (Fingerstick) 143 mg/dL (70-99) 159 mg/dL (70-99) Laboratory Tests Test 12/25/17 17:29 12/25/17 20:21 12/26/17 07:08 12/26/17 07:10 Glucose (Fingerstick) 138 mg/dL (70-99) 128 mg/dL (70-99) White Blood Count 8.6 x10^3/uL (4.0-11.0) Red Blood Count 4.11 x10^6/uL (3.50-5.40) Hemoglobin 13.0 g/dL (12.0-15.5) Hematocrit 38.8 % (36.0-47.0) Mean Corpuscular Volume 95 fL (79-100) Mean Corpuscular Hemoglobin 32 pg (25-35) Mean Corpuscular Hemoglobin Concent 33 g/dL (31-37) Red Cell Distribution Width 16.9 % (11.5-14.5) Platelet Count 249 x10^3/uL (140-400) Neutrophils (%) (Auto) 74 % (31-73) Lymphocytes (%) (Auto) 10 % (24-48) Monocytes (%) (Auto) 15 % (0-9) Eosinophils (%) (Auto) 0 % (0-3) Basophils (%) (Auto) 0 % (0-3) Neutrophils # (Auto) 6.4 x10^3uL (1.8-7.7) Lymphocytes # (Auto) 0.8 x10^3/uL (1.0-4.8) Monocytes # (Auto) 1.3 x10^3/uL (0.0-1.1) Eosinophils # (Auto) 0.0 x10^3/uL (0.0-0.7) Basophils # (Auto) 0.0 x10^3/uL (0.0-0.2) Prothrombin Time 22.3 SEC (11.7-14.0) Prothromb Time International Ratio 2.0 (0.8-1.1) Sodium Level 139 mmol/L (136-145) Potassium Level 3.9 mmol/L (3.5-5.1) Chloride Level 103 mmol/L (98-107) Carbon Dioxide Level 25 mmol/L (21-32) Anion Gap 11 (6-14) Blood Urea Nitrogen 17 mg/dL (7-20) Creatinine 1.6 mg/dL (0.6-1.0) Estimated GFR (Cockcroft-Gault) 31.7 Glucose Level 143 mg/dL (70-99) Calcium Level 8.3 mg/dL (8.5-10.1) Test 12/26/17 07:32 12/26/17 12:20 Glucose (Fingerstick) 143 mg/dL (70-99) 159 mg/dL (70-99) Medications Current Medications Diltiazem HCl (Cardizem) 20 mg 1X ONCE IVP Last administered on 12/23/17at 23: 00; Start 12/23/17 at 23:00; Stop 12/23/17 at 23:01; Status DC Aspirin (Adonis Aspirin) 325 mg 1X ONCE PO ; Start 12/23/17 at 23:00; Stop 12/23 at 23:01; Status DC Diltiazem HCl 125 mg/Dextrose 125 ml @ 10 mls/hr 1X ONCE IV Last administered on 12/23/17at 23:11; Start 12/23/17 at 23:00; Stop 12/24/17 at 11:29 ; Status DC Dexamethasone Sodium Phosphate (Decadron) 10 mg 1X ONCE IV Last administered on 12/23/17at 22:57; Start 12/23/17 at 23:00; Stop 12/23/17 at 23:01; Status DC Albuterol/ Ipratropium (Duoneb) 3 ml 1X ONCE NEB ; Start 12/23/17 at 23:00; Stop 12/23/17 at 23:01; Status DC Albuterol/ Ipratropium (Duoneb) 3 ml STAT ONCE NEB ; Start 12/23/17 at 23:00; Stop 12/23/17 at 23:01; Status DC Hyoscyamine (Anaspaz) 0.25 mg 1X ONCE PO ; Start 12/23/17 at 23:45; Stop at 23:46; Status Cancel Sodium Chloride 1,000 ml @ 1,000 mls/hr 1X ONCE IV Last administered on at 01:17; Start 12/23/17 at 23:45; Stop 12/24/17 at 00:44; Status DC Sodium Chloride 1,000 ml @ 1,000 mls/hr 1X ONCE IV Last administered on at 04:29; Start 12/23/17 at 23:45; Stop 12/24/17 at 00:44; Status DC Piperacillin Sod/ Tazobactam Sod 4.5 gm/Sodium Chloride 100 ml @ 200 mls/hr 1X ONCE IV Last administered on 12/24/17at 01:17; Start 12/24/17 at 00:00; Stop 12/24/17 at 00:29; Status DC Levofloxacin/ Dextrose 150 ml @ 100 mls/hr 1X ONCE IV Last administered on at 01:17; Start 12/24/17 at 00:00; Stop 12/24/17 at 01:29; Status DC Vancomycin HCl 2 gm/Sodium Chloride 500 ml @ 250 mls/hr 1X ONCE IV Last administered on 12/24/17at 01:18; Start 12/24/17 at 00:30; Stop 12/24/17 at 02:29 ; Status DC Ondansetron HCl (Zofran) 4 mg PRN Q8HRS PRN IV NAUSEA/VOMITING 1ST CHOICE; Start 12/24/17 at 00:15; Stop 12/25/17 at 00:14; Status DC Fentanyl Citrate (Fentanyl 2ml Vial) 50 mcg PRN Q2HR PRN IV SEVERE PAIN; Start 12/24/17 at 00:15; Stop 12/25/17 at 00:14; Status DC Albuterol Sulfate (Ventolin Neb Soln) 2.5 mg PRN Q4HRS PRN NEB WHEEZING Last administered on 12/25/17at 17:28; Start 12/24/17 at 00:30 Insulin Human Lispro (HumaLOG) 0-5 UNITS TIDWMEALS SQ Last administered on 12/24at 17:46; Start 12/24/17 at 08:00 Dextrose (Dextrose 50%-Water Syringe) 12.5 gm PRN Q15MIN PRN IV SEE COMMENTS; Start 12/24/17 at 00:15 Info (Do NOT chart on this placeholder) 1 each 1X ONCE MC ; Start 12/24/17 at 01:45; Stop 12/24/17 at 01:46; Status UNV Influenza Virus Vaccine (Afluria Trivalent [id number] Syringe) 0.5 ml ONCE ONCE VAX IM Last administered on 12/24/17at 08:51; Start 12/24/17 at 09:00; Stop at 09:01; Status DC Albuterol/ Ipratropium (Duoneb) 3 ml RTQID NEB Last administered on 12/26/17at 11:08; Start 12/24/17 at 12:00 Levofloxacin/ Dextrose 100 ml @ 100 mls/hr Q24H IV ; Start 12/24/17 at 10:30; Status UNV Vancomycin HCl (Vanco Per Pharmacy) 1 each PRN DAILY PRN MC SEE COMMENTS Last administered on 12/25/17at 10:36; Start 12/24/17 at 10:30; Stop 12/25/17 at 17:09 ; Status DC Levofloxacin/ Dextrose 100 ml @ 100 mls/hr Q24H IV Last administered on at 23:31; Start 12/24/17 at 23:00 Vancomycin HCl 1.75 gm/Sodium Chloride 500 ml @ 250 mls/hr Q12H IV Last administered on 12/25/17at 13:00; Start 12/24/17 at 13:00; Stop 12/25/17 at 17:08 ; Status DC Vancomycin HCl (Vancomycin Trough Level) 1 each 1X ONCE MC ; Start 12/25/17 at 23:30; Stop 12/25/17 at 23:30; Status DC Lactobacillus Rhamnosus (Culturelle) 1 cap BID PO Last administered on at 08:45; Start 12/24/17 at 21:00 Warfarin Sodium (Coumadin Per Pharmacy) 1 each PRN DAILY PRN MC SEE COMMENTS Last administered on 12/25/17at 10:37; Start 12/24/17 at 14:45 Warfarin Sodium (Coumadin) 2 mg 1X WARF ONCE PO Last administered on at 15:52; Start 12/24/17 at 16:00; Stop 12/24/17 at 16:01; Status DC Digoxin (Lanoxin) 125 mcg DAILY PO Last administered on 12/26/17at 08:46; Start 12/24/17 at 17:30 Sotalol HCl (Betapace) 80 mg BID PO Last administered on 12/26/17at 08:46; Start 12/24/17 at 21:00 Furosemide (Lasix) 20 mg DAILY PO Last administered on 12/25/17at 07:50; Start 12/24/17 at 18:00; Stop 12/25/17 at 08:44; Status DC Potassium Chloride (Klor-Con) 10 meq DAILY PO Last administered on 12/26/17at 08 :45; Start 12/24/17 at 18:00 Levothyroxine Sodium (Synthroid) 150 mcg DAILY07 PO Last administered on at 06:38; Start 12/24/17 at 18:00 Metformin HCl (Glucophage) 500 mg BIDWMEALS PO Last administered on 12/26/17at 08:45; Start 12/24/17 at 18:00 Simvastatin (Zocor) 40 mg DAILY PO ; Start 12/24/17 at 18:00; Stop 12/24/17 at 18:00; Status DC Simvastatin (Zocor) 40 mg QHS PO Last administered on 12/25/17at 20:45; Start at 21:00 Furosemide (Lasix) 20 mg 1X ONCE PO Last administered on 12/25/17at 12:57; Start 12/25/17 at 09:00; Stop 12/25/17 at 09:01; Status DC Guaifenesin/ Codeine Phosphate (Robitussin Ac) 5 ml PRN Q6HRS PRN PO COUGH Last administered on 12/25/17at 12:54; Start 12/25/17 at 08:45 Benzonatate (Tessalon Perle) 100 mg [id number] PO Last administered on 12/26/17at 08 :45; Start 12/25/17 at 09:00 Furosemide (Lasix) 40 mg DAILY PO ; Start 12/26/17 at 09:00 Warfarin Sodium (Coumadin) 2 mg 1X WARF ONCE PO Last administered on at 16:44; Start 12/25/17 at 16:00; Stop 12/25/17 at 16:01; Status DC Acetaminophen (Tylenol) 650 mg PRN Q6HRS PRN PO FEVER; Start 12/25/17 at 12:15 Ondansetron HCl (Zofran) 4 mg PRN Q6HRS PRN IV NAUSEA/VOMITING; Start 12/25/17 at 12:15 Morphine Sulfate (Morphine Sulfate) 2 mg PRN Q2HR PRN IV MODERATE TO SEVERE PAIN; Start 12/25/17 at 12:15 Tramadol HCl (Ultram) 50 mg PRN Q6HRS PRN PO MILD TO MODERATE PAIN Last administered on 12/26/17at 08:58; Start 12/25/17 at 12:15 Docusate Sodium (Colace) 100 mg PRN DAILY PRN PO HARD STOOLS Last administered on 12/25/17at 12:55; Start 12/25/17 at 12:15 Labetalol HCl (Normodyne Iv Push) 20 mg PRN Q2HR PRN IVP HYPERTENSION, SEE COMMENTS; Start 12/25/17 at 12:15 Furosemide (Lasix) 60 mg 1X ONCE IVP Last administered on 12/25/17at 17:51; Start 12/25/17 at 18:00; Stop 12/25/17 at 18:01; Status DC Furosemide (Lasix) 60 mg 1X ONCE IVP Last administered on 12/26/17at 08:46; Start 12/26/17 at 09:00; Stop 12/26/17 at 09:01; Status DC Active Scripts Active Digoxin 125 Mcg Tablet 125 Mcg PO DAILY Reported Proair Hfa Inhaler (Albuterol Sulfate) 8.5 Gm Hfa.aer.ad 1 Puff INH PRN Q6HRS PRN Sotalol (Sotalol Hcl) 80 Mg Tablet 1 Tab PO BID Tessalon Perle (Benzonatate) 100 Mg Capsule 2 Cap PO TID PRN Warfarin Sodium 2 Mg Tablet 1 Tab PO DAILY Lisinopril 10 Mg Tablet 1 Tab PO DAILY Levothyroxine Sodium 125 Mcg Tablet 150 Mcg PO DAILY Simvastatin 40 Mg Tablet 40 Mg PO DAILY Metformin Hcl 500 Mg Tablet 500 Mg PO BIDWMEALS Furosemide 20 Mg Tablet 1 Tab PO DAILY Potassium Chloride 10 Meq Tab.sr.24h 10 Meq PO DAILY Vitals/I & O Vital Sign - Last 24 Hours 12/25/17 12/25/17 12/25/17 12/25/17 15:59 16:18 17:29 19:53 Temp 97.5 98.6 97.5 98.6 Pulse 85 110 Resp 14 20 B/P (MAP) 112/76 (88) 133/88 (103) Pulse Ox 99 95 95 96 O2 Delivery Nasal Cannula Nasal Cannula Nasal Cannula Nasal Cannula O2 Flow Rate 2.0 2.0 2.0 1.0 12/25/17 12/25/17 12/26/17 12/26/17 20:00 20:45 00:10 04:02 Temp 97.7 97.7 97.7 97.7 Pulse 110 106 101 Resp 20 18 B/P (MAP) 133/88 139/77 (97) 108/45 (66) Pulse Ox 98 97 O2 Delivery Nasal Cannula Nasal Cannula Nasal Cannula O2 Flow Rate 2.0 1.0 1.0 12/26/17 12/26/17 12/26/17 12/26/17 07:59 08:02 08:46 08:46 Temp 98.2 98.2 Pulse 87 95 95 Resp 18 B/P (MAP) 109/54 (72) Pulse Ox 98 98 O2 Delivery Nasal Cannula Nasal Cannula O2 Flow Rate 1.0 2.0 12/26/17 12/26/17 11:14 12:14 Temp 97.6 97.6 Pulse 101 Resp 18 B/P (MAP) 102/52 (69) Pulse Ox 96 O2 Delivery Nasal Cannula Nasal Cannula O2 Flow Rate 1.0 2.0 Intake and Output 12/25/17 12/25/17 12/26/17 15:00 23:00 07:00 Intake Total 350 ml 180 ml 400 ml Output Total 600 ml 1350 ml 500 ml Balance -250 ml -1170 ml -100 ml NBA ROSENBAUM MD Dec 26, 2017 14:31
[2017-12-26] MEDS ORDERED: WARFARIN 2 MG TABLET. PO ONE ×2 (14:45→16:00)
--- NOTE | 2017-12-26 17:38 | CARD ---
MR#: [id number] Date of Study: 12/24/2017 Ordering Physician: CARLOS BLANCO, Referring Physician: TORIE GARCIA Tech: Audrey Valera NUVIA APPROVED REPORT EXAM: Two-dimensional and M-mode echocardiogram with Doppler and color Doppler. Other Information Quality : Technically Limited Technically limited study due to COPD INDICATION COPD Congestive Heart Failure 2D DIMENSIONS RVDd3.3 (2.9-3.5cm)Left Atrium(2D)4.7 (1.6-4.0cm) IVSd1.1 (0.7-1.1cm)Aortic Root(2D)2.4 (2.0-3.7cm) LVDd4.8 (3.9-5.9cm)LVOT Diameter2.5 (1.8-2.4cm) PWd1.1 (0.7-1.1cm)LVDs3.1 (2.5-4.0cm) FS (%) 34.7 %SV68.3 ml LVEF(%)40.0 (>50%) Aortic Valve AoV Peak Nikhil.180.2cm/sAoV VTI35.4cm AO Peak GR.13.0mmHgLVOT VTI 14.81cm AO Mean GR.8mmHgAVA (VTI)2.05cm2 Mitral Valve MV E Fhcdnbse216.3cm/sMV DECEL [id number] TDI Lateral E' P. V7.01cm/sE/Lateral E'18.2 Tricuspid Valve TR P. [id number]/sRAP [id number] TR Peak Gr.[id number] LEFT VENTRICLE The left ventricle is normal size. There is normal left ventricular wall thickness. The left ventricu lar systolic function is decreased. The Ejection Fraction is 40%. There is global LV hypokinesis RIGHT VENTRICLE The right ventricle is mildly dilated. The right ventricular systolic function is decreased. There is a pacemaker lead in the right ventricle. ATRIA The left atrium is mildly dilated. The right atrium is moderately dilated. A pacemaker is seen in the right atrium consistent with history. The interatrial septum is intact with no evidence for an atria l septal defect or patent foramen ovale as noted on 2-D or Doppler imaging. AORTIC VALVE The aortic valve is not well visualized. Doppler and Color Flow revealed no significant aortic regurg itation. There is no significant aortic valvular stenosis. MITRAL VALVE The mitral valve is calcified but opens well. Mitral annular calcification is mild. There is no evide nce of mitral valve prolapse. There is no mitral valve stenosis. Doppler and Color-flow revealed trac e mitral regurgitation. TRICUSPID VALVE The tricuspid valve is normal in structure Doppler and Color Flow revealed mild tricuspid regurgitati on. There is mild to moderate pulmonary hypertension. The PA pressure was estimated at 45 mmHg. There is no tricuspid valve stenosis. PULMONIC VALVE The pulmonic valve is not well visualized. Doppler and Color Flow revealed no pulmonic valvular regur gitation. There is no pulmonic valvular stenosis. GREAT VESSELS The aortic root is normal in size. The ascending aorta is normal in size. The IVC was not visualized. PERICARDIAL EFFUSION There is a small circumferential pericardial effusion. Critical Notification Critical Value: No <Conclusion> The left ventricular systolic function is decreased. The Ejection Fraction is 40%. There is global LV hypokinesis The right ventricle is mildly dilated. The right ventricular systolic function is decreased. There is a pacemaker lead in the right ventricle. The left atrium is mildly dilated. The right atrium is moderately dilated. A pacemaker is seen in the right atrium consistent with history. The aortic valve is not well visualized. Doppler and Color-flow revealed trace mitral regurgitation. The mitral valve is calcified but opens well. Mitral annular calcification is mild. Doppler and Color Flow revealed mild tricuspid regurgitation. There is mild to moderate pulmonary hypertension. The PA pressure was estimated at 45 mmHg. The pulmonic valve is not well visualized. There is a small circumferential pericardial effusion. Signed by : Juan Pagan MD Electronically Approved : 12/26/2017 17:37:10
--- NOTE | 2017-12-26 19:30 | PDOC ---
PROGRESS NOTES Subjective Subjective At the time that I saw the patient she complained of feeling worse and more short of breath yesterday but now she seems to be doing better. No chest pains. Objective Objective Vital Signs Date Time Temp Pulse Resp B/P (MAP) Pulse Ox O2 Delivery O2 Flow Rate FiO2 12/26/17 15:13 97.5 97 18 111/66 (81) 97 Nasal Cannula 1.0 97.5 Intake and Output 12/26/17 07:00 Intake Total 930 ml Output Total 2450 ml Balance -1520 ml Intake Oral 830 ml IV Total 100 ml Output Urine Total 2450 ml # Voids 5 Physical Exam Physical Exam She is moving air better with less rales now. No changes in heart sounds. No significant decrease in edema Assessment Assessment The patient's echocardiogram was done and it shows: The left ventricular systolic function is decreased. The Ejection Fraction is 40 %. There is global LV hypokinesis The right ventricle is mildly dilated. The right ventricular systolic function is decreased. There is a pacemaker lead in the right ventricle. The left atrium is mildly dilated. The right atrium is moderately dilated. A pacemaker is seen in the right atrium consistent with history. The aortic valve is not well visualized. Doppler and Color-flow revealed trace mitral regurgitation. The mitral valve is calcified but opens well. Mitral annular calcification is mild. Doppler and Color Flow revealed mild tricuspid regurgitation. There is mild to moderate pulmonary hypertension. The PA pressure was estimated at 45 mmHg. The pulmonic valve is not well visualized. There is a small circumferential pericardial effusion. She seems to be doing a little better at this point but I still would like to diurese her a little more. Comment Review of Relevant I have reviewed the following items uyen (where applicable) has been applied. Labs Laboratory Tests Test 12/25/17 03:50 12/25/17 08:06 12/25/17 12:04 12/25/17 17:29 Prothrombin Time 22.9 SEC (11.7-14.0) Prothromb Time International Ratio 2.1 (0.8-1.1) Glucose (Fingerstick) 131 mg/dL (70-99) 146 mg/dL (70-99) 138 mg/dL (70-99) Test 12/25/17 20:21 12/26/17 07:08 12/26/17 07:10 9/19/18 07:32 Glucose (Fingerstick) 128 mg/dL (70-99) 143 mg/dL (70-99) White Blood Count 8.6 x10^3/uL (4.0-11.0) Red Blood Count 4.11 x10^6/uL (3.50-5.40) Hemoglobin 13.0 g/dL (12.0-15.5) Hematocrit 38.8 % (36.0-47.0) Mean Corpuscular Volume 95 fL (79-100) Mean Corpuscular Hemoglobin 32 pg (25-35) Mean Corpuscular Hemoglobin Concent 33 g/dL (31-37) Red Cell Distribution Width 16.9 % (11.5-14.5) Platelet Count 249 x10^3/uL (140-400) Neutrophils (%) (Auto) 74 % (31-73) Lymphocytes (%) (Auto) 10 % (24-48) Monocytes (%) (Auto) 15 % (0-9) Eosinophils (%) (Auto) 0 % (0-3) Basophils (%) (Auto) 0 % (0-3) Neutrophils # (Auto) 6.4 x10^3uL (1.8-7.7) Lymphocytes # (Auto) 0.8 x10^3/uL (1.0-4.8) Monocytes # (Auto) 1.3 x10^3/uL (0.0-1.1) Eosinophils # (Auto) 0.0 x10^3/uL (0.0-0.7) Basophils # (Auto) 0.0 x10^3/uL (0.0-0.2) Prothrombin Time 22.3 SEC (11.7-14.0) Prothromb Time International Ratio 2.0 (0.8-1.1) Sodium Level 139 mmol/L (136-145) Potassium Level 3.9 mmol/L (3.5-5.1) Chloride Level 103 mmol/L (98-107) Carbon Dioxide Level 25 mmol/L (21-32) Anion Gap 11 (6-14) Blood Urea Nitrogen 17 mg/dL (7-20) Creatinine 1.6 mg/dL (0.6-1.0) Estimated GFR (Cockcroft-Gault) 31.7 Glucose Level 143 mg/dL (70-99) Calcium Level 8.3 mg/dL (8.5-10.1) Test 12/26/17 12:20 12/26/17 17:06 Glucose (Fingerstick) 159 mg/dL (70-99) 126 mg/dL (70-99) Laboratory Tests Test 12/25/17 20:21 12/26/17 07:08 12/26/17 07:10 12/26/17 07:32 Glucose (Fingerstick) 128 mg/dL (70-99) 143 mg/dL (70-99) White Blood Count 8.6 x10^3/uL (4.0-11.0) Red Blood Count 4.11 x10^6/uL (3.50-5.40) Hemoglobin 13.0 g/dL (12.0-15.5) Hematocrit 38.8 % (36.0-47.0) Mean Corpuscular Volume 95 fL (79-100) Mean Corpuscular Hemoglobin 32 pg (25-35) Mean Corpuscular Hemoglobin Concent 33 g/dL (31-37) Red Cell Distribution Width 16.9 % (11.5-14.5) Platelet Count 249 x10^3/uL (140-400) Neutrophils (%) (Auto) 74 % (31-73) Lymphocytes (%) (Auto) 10 % (24-48) Monocytes (%) (Auto) 15 % (0-9) Eosinophils (%) (Auto) 0 % (0-3) Basophils (%) (Auto) 0 % (0-3) Neutrophils # (Auto) 6.4 x10^3uL (1.8-7.7) Lymphocytes # (Auto) 0.8 x10^3/uL (1.0-4.8) Monocytes # (Auto) 1.3 x10^3/uL (0.0-1.1) Eosinophils # (Auto) 0.0 x10^3/uL (0.0-0.7) Basophils # (Auto) 0.0 x10^3/uL (0.0-0.2) Prothrombin Time 22.3 SEC (11.7-14.0) Prothromb Time International Ratio 2.0 (0.8-1.1) Sodium Level 139 mmol/L (136-145) Potassium Level 3.9 mmol/L (3.5-5.1) Chloride Level 103 mmol/L (98-107) Carbon Dioxide Level 25 mmol/L (21-32) Anion Gap 11 (6-14) Blood Urea Nitrogen 17 mg/dL (7-20) Creatinine 1.6 mg/dL (0.6-1.0) Estimated GFR (Cockcroft-Gault) 31.7 Glucose Level 143 mg/dL (70-99) Calcium Level 8.3 mg/dL (8.5-10.1) Test 12/26/17 12:20 12/26/17 17:06 Glucose (Fingerstick) 159 mg/dL (70-99) 126 mg/dL (70-99) Medications Current Medications Diltiazem HCl (Cardizem) 20 mg 1X ONCE IVP Last administered on 12/23/17at 23: 00; Start 12/23/17 at 23:00; Stop 12/23/17 at 23:01; Status DC Aspirin (Adonis Aspirin) 325 mg 1X ONCE PO ; Start 12/23/17 at 23:00; Stop 12/23 at 23:01; Status DC Diltiazem HCl 125 mg/Dextrose 125 ml @ 10 mls/hr 1X ONCE IV Last administered on 12/23/17at 23:11; Start 12/23/17 at 23:00; Stop 12/24/17 at 11:29 ; Status DC Dexamethasone Sodium Phosphate (Decadron) 10 mg 1X ONCE IV Last administered on 12/23/17at 22:57; Start 12/23/17 at 23:00; Stop 12/23/17 at 23:01; Status DC Albuterol/ Ipratropium (Duoneb) 3 ml 1X ONCE NEB ; Start 12/23/17 at 23:00; Stop 12/23/17 at 23:01; Status DC Albuterol/ Ipratropium (Duoneb) 3 ml STAT ONCE NEB ; Start 12/23/17 at 23:00; Stop 12/23/17 at 23:01; Status DC Hyoscyamine (Anaspaz) 0.25 mg 1X ONCE PO ; Start 12/23/17 at 23:45; Stop at 23:46; Status Cancel Sodium Chloride 1,000 ml @ 1,000 mls/hr 1X ONCE IV Last administered on at 01:17; Start 12/23/17 at 23:45; Stop 12/24/17 at 00:44; Status DC Sodium Chloride 1,000 ml @ 1,000 mls/hr 1X ONCE IV Last administered on at 04:29; Start 12/23/17 at 23:45; Stop 12/24/17 at 00:44; Status DC Piperacillin Sod/ Tazobactam Sod 4.5 gm/Sodium Chloride 100 ml @ 200 mls/hr 1X ONCE IV Last administered on 12/24/17at 01:17; Start 12/24/17 at 00:00; Stop 12/24/17 at 00:29; Status DC Levofloxacin/ Dextrose 150 ml @ 100 mls/hr 1X ONCE IV Last administered on at 01:17; Start 12/24/17 at 00:00; Stop 12/24/17 at 01:29; Status DC Vancomycin HCl 2 gm/Sodium Chloride 500 ml @ 250 mls/hr 1X ONCE IV Last administered on 12/24/17at 01:18; Start 12/24/17 at 00:30; Stop 12/24/17 at 02:29 ; Status DC Ondansetron HCl (Zofran) 4 mg PRN Q8HRS PRN IV NAUSEA/VOMITING 1ST CHOICE; Start 12/24/17 at 00:15; Stop 12/25/17 at 00:14; Status DC Fentanyl Citrate (Fentanyl 2ml Vial) 50 mcg PRN Q2HR PRN IV SEVERE PAIN; Start 12/24/17 at 00:15; Stop 12/25/17 at 00:14; Status DC Albuterol Sulfate (Ventolin Neb Soln) 2.5 mg PRN Q4HRS PRN NEB WHEEZING Last administered on 12/25/17at 17:28; Start 12/24/17 at 00:30 Insulin Human Lispro (HumaLOG) 0-5 UNITS TIDWMEALS SQ Last administered on 12/24at 17:46; Start 12/24/17 at 08:00 Dextrose (Dextrose 50%-Water Syringe) 12.5 gm PRN Q15MIN PRN IV SEE COMMENTS; Start 12/24/17 at 00:15 Info (Do NOT chart on this placeholder) 1 each 1X ONCE MC ; Start 12/24/17 at 01:45; Stop 12/24/17 at 01:46; Status UNV Influenza Virus Vaccine (Afluria Trivalent 1320-2302 Syringe) 0.5 ml ONCE ONCE VAX IM Last administered on 12/24/17at 08:51; Start 12/24/17 at 09:00; Stop at 09:01; Status DC Albuterol/ Ipratropium (Duoneb) 3 ml RTQID NEB Last administered on 12/26/17at 15:08; Start 12/24/17 at 12:00 Levofloxacin/ Dextrose 100 ml @ 100 mls/hr Q24H IV ; Start 12/24/17 at 10:30; Status UNV Vancomycin HCl (Vanco Per Pharmacy) 1 each PRN DAILY PRN MC SEE COMMENTS Last administered on 12/25/17at 10:36; Start 12/24/17 at 10:30; Stop 12/25/17 at 17:09 ; Status DC Levofloxacin/ Dextrose 100 ml @ 100 mls/hr Q24H IV Last administered on at 23:31; Start 12/24/17 at 23:00; Stop 12/26/17 at 14:40; Status DC Vancomycin HCl 1.75 gm/Sodium Chloride 500 ml @ 250 mls/hr Q12H IV Last administered on 12/25/17at 13:00; Start 12/24/17 at 13:00; Stop 12/25/17 at 17:08 ; Status DC Vancomycin HCl (Vancomycin Trough Level) 1 each 1X ONCE MC ; Start 12/25/17 at 23:30; Stop 12/25/17 at 23:30; Status DC Lactobacillus Rhamnosus (Culturelle) 1 cap BID PO Last administered on at 08:45; Start 12/24/17 at 21:00 Warfarin Sodium (Coumadin Per Pharmacy) 1 each PRN DAILY PRN MC SEE COMMENTS Last administered on 12/26/17at 14:32; Start 12/24/17 at 14:45 Warfarin Sodium (Coumadin) 2 mg 1X WARF ONCE PO Last administered on at 15:52; Start 12/24/17 at 16:00; Stop 12/24/17 at 16:01; Status DC Digoxin (Lanoxin) 125 mcg DAILY PO Last administered on 12/26/17at 08:46; Start 12/24/17 at 17:30 Sotalol HCl (Betapace) 80 mg BID PO Last administered on 12/26/17at 08:46; Start 12/24/17 at 21:00 Furosemide (Lasix) 20 mg DAILY PO Last administered on 12/25/17at 07:50; Start 12/24/17 at 18:00; Stop 12/25/17 at 08:44; Status DC Potassium Chloride (Klor-Con) 10 meq DAILY PO Last administered on 12/26/17at 08 :45; Start 12/24/17 at 18:00 Levothyroxine Sodium (Synthroid) 150 mcg DAILY07 PO Last administered on at 06:38; Start 12/24/17 at 18:00 Metformin HCl (Glucophage) 500 mg BIDWMEALS PO Last administered on 12/26/17at 17:29; Start 12/24/17 at 18:00 Simvastatin (Zocor) 40 mg DAILY PO ; Start 12/24/17 at 18:00; Stop 12/24/17 at 18:00; Status DC Simvastatin (Zocor) 40 mg QHS PO Last administered on 12/25/17at 20:45; Start at 21:00 Furosemide (Lasix) 20 mg 1X ONCE PO Last administered on 12/25/17at 12:57; Start 12/25/17 at 09:00; Stop 12/25/17 at 09:01; Status DC Guaifenesin/ Codeine Phosphate (Robitussin Ac) 5 ml PRN Q6HRS PRN PO COUGH Last administered on 12/25/17at 12:54; Start 12/25/17 at 08:45 Benzonatate (Tessalon Perle) 100 mg [id number] PO Last administered on 12/25/17at 12 :54; Start 12/25/17 at 09:00 Furosemide (Lasix) 40 mg DAILY PO ; Start 12/26/17 at 09:00 Warfarin Sodium (Coumadin) 2 mg 1X WARF ONCE PO Last administered on at 16:44; Start 12/25/17 at 16:00; Stop 12/25/17 at 16:01; Status DC Acetaminophen (Tylenol) 650 mg PRN Q6HRS PRN PO FEVER; Start 12/25/17 at 12:15 Ondansetron HCl (Zofran) 4 mg PRN Q6HRS PRN IV NAUSEA/VOMITING; Start 12/25/17 at 12:15 Morphine Sulfate (Morphine Sulfate) 2 mg PRN Q2HR PRN IV MODERATE TO SEVERE PAIN; Start 12/25/17 at 12:15 Tramadol HCl (Ultram) 50 mg PRN Q6HRS PRN PO MILD TO MODERATE PAIN Last administered on 12/26/17at 08:58; Start 12/25/17 at 12:15 Docusate Sodium (Colace) 100 mg PRN DAILY PRN PO HARD STOOLS Last administered on 12/25/17at 12:55; Start 12/25/17 at 12:15 Labetalol HCl (Normodyne Iv Push) 20 mg PRN Q2HR PRN IVP HYPERTENSION, SEE COMMENTS; Start 12/25/17 at 12:15 Furosemide (Lasix) 60 mg 1X ONCE IVP Last administered on 12/25/17at 17:51; Start 12/25/17 at 18:00; Stop 12/25/17 at 18:01; Status DC Furosemide (Lasix) 60 mg 1X ONCE IVP Last administered on 12/26/17at 08:46; Start 12/26/17 at 09:00; Stop 12/26/17 at 09:01; Status DC Warfarin Sodium (Coumadin) 2 mg 1X ONCE PO ; Start 12/26/17 at 14:45; Stop at 14:46; Status Cancel Warfarin Sodium (Coumadin) 2 mg 1X WARF ONCE PO Last administered on at 17:29; Start 12/26/17 at 16:00; Stop 12/26/17 at 16:01; Status DC Levofloxacin/ Dextrose 50 ml @ 50 mls/hr Q24H IV ; Start 12/26/17 at 23:00 Active Scripts Active Digoxin 125 Mcg Tablet 125 Mcg PO DAILY Reported Proair Hfa Inhaler (Albuterol Sulfate) 8.5 Gm Hfa.aer.ad 1 Puff INH PRN Q6HRS PRN Sotalol (Sotalol Hcl) 80 Mg Tablet 1 Tab PO BID Tessalon Perle (Benzonatate) 100 Mg Capsule 2 Cap PO TID PRN Warfarin Sodium 2 Mg Tablet 1 Tab PO DAILY Lisinopril 10 Mg Tablet 1 Tab PO DAILY Levothyroxine Sodium 125 Mcg Tablet 150 Mcg PO DAILY Simvastatin 40 Mg Tablet 40 Mg PO DAILY Metformin Hcl 500 Mg Tablet 500 Mg PO BIDWMEALS Furosemide 20 Mg Tablet 1 Tab PO DAILY Potassium Chloride 10 Meq Tab.sr.24h 10 Meq PO DAILY Vitals/I & O Vital Sign - Last 24 Hours 12/25/17 12/25/17 12/25/17 12/26/17 19:53 20:00 20:45 00:10 Temp 98.6 97.7 98.6 97.7 Pulse 110 110 106 Resp 20 20 B/P (MAP) 133/88 (103) 133/88 139/77 (97) Pulse Ox 96 98 O2 Delivery Nasal Cannula Nasal Cannula Nasal Cannula O2 Flow Rate 1.0 2.0 1.0 12/26/17 12/26/17 12/26/17 12/26/17 04:02 07:59 08:02 08:46 Temp 97.7 98.2 97.7 98.2 Pulse 101 87 95 Resp 18 B/P (MAP) 108/45 (66) 109/54 (72) Pulse Ox 97 98 98 O2 Delivery Nasal Cannula Nasal Cannula Nasal Cannula O2 Flow Rate 1.0 1.0 2.0 12/26/17 12/26/17 12/26/17 12/26/17 08:46 11:14 12:14 15:11 Temp 97.6 97.6 Pulse 95 101 Resp 18 B/P (MAP) 102/52 (69) Pulse Ox 96 O2 Delivery Nasal Cannula Nasal Cannula Nasal Cannula O2 Flow Rate 1.0 2.0 2.0 12/26/17 15:13 Temp 97.5 97.5 Pulse 97 Resp 18 B/P (MAP) 111/66 (81) Pulse Ox 97 O2 Delivery Nasal Cannula O2 Flow Rate 1.0 Intake and Output 12/25/17 12/25/17 12/26/17 15:00 23:00 07:00 Intake Total 350 ml 180 ml 400 ml Output Total 600 ml 1350 ml 500 ml Balance -250 ml -1170 ml -100 ml MARTI SAUER MD Dec 26, 2017 19:30
[2017-12-26] MEDS: SIMVASTATIN 40 MG TABLET. PO SCH (20:57)
[2017-12-27] VITALS (7 sets, daily range): BP systolic 110–152; BP diastolic 54–77
[2017-12-27] MEDS: LEVOTHYROXINE 150 MCG TABLET PO SCH (05:55)
[2017-12-27 06:05] LABS: CALCIUM 8.1 mg/dL (8.5-10.1); CREATININE 2.1 mg/dL (0.6-1.0); GFR 23.2; POTASSIUM 3.9 mmol/L (3.5-5.1)
[2017-12-27 06:20] LABS: PROTHROMBIN TIME PATIENT 23.1 SEC (11.7-14.0)
[2017-12-27 06:24] LABS: BASO % 0 % (0-3); EOS # 0.1 x10^3/uL (0.0-0.7); EOS % 1 % (0-3); HEMATOCRIT 36.6 % (36.0-47.0); HEMOGLOBIN 12.3 g/dL (12.0-15.5); LYMPH # 0.8 x10^3/uL (1.0-4.8); LYMPH % 11 % (24-48); MEAN CORPUSCULAR HEMOGLOBIN 32 pg (25-35); MEAN CORPUSCULAR HGB CONC 34 g/dL (31-37); MEAN CORPUSCULAR VOLUME 94 fL (79-100); MONO # 1.1 x10^3/uL (0.0-1.1); MONO % 15 % (0-9); NEUT # 5.2 x10^3uL (1.8-7.7); NEUT % 73 % (31-73); PLATELET COUNT 199 x10^3/uL (140-400); RED BLOOD COUNT 3.88 x10^6/uL (3.50-5.40); RED CELL DISTRIBUTION WIDTH 17.2 % (11.5-14.5); WHITE BLOOD COUNT 7.2 x10^3/uL (4.0-11.0)
[2017-12-27] MEDS: IPRATRPIUM/ALBUTEROL 0.5/2.5MG 3 ML NEBU. NEB SCH ×4 (07:36→18:26)
[2017-12-27] MEDS: INSULIN LISPRO 300 UNITS/3 ML INSULN.PEN. SQ SCH ×3 (08:00→17:00)
[2017-12-27] MEDS: BENZONATATE 100 MG CAPSULE. PO SCH ×3 (09:00→20:57)
--- NOTE | 2017-12-27 09:14 | PDOC ---
PULMONARY PROGRESS NOTES Subjective no soa, weak. forgetfull Vitals Vital Signs Date Time Temp Pulse Resp B/P (MAP) Pulse Ox O2 Delivery O2 Flow Rate FiO2 12/27/17 07:38 97 Nasal Cannula 2.0 12/27/17 07:00 97.7 86 24 110/57 (74) 97.7 General: Alert, No acute distress Lungs: Clear Cardiovascular: S1, S2 Abdomen: Soft, Other (obese) Neuro Exam: Alert Extremities: Other (2+edema) Labs Laboratory Tests Test 12/25/17 12:04 12/25/17 17:29 12/25/17 20:21 12/26/17 07:08 Glucose (Fingerstick) 146 mg/dL (70-99) 138 mg/dL (70-99) 128 mg/dL (70-99) White Blood Count 8.6 x10^3/uL (4.0-11.0) Red Blood Count 4.11 x10^6/uL (3.50-5.40) Hemoglobin 13.0 g/dL (12.0-15.5) Hematocrit 38.8 % (36.0-47.0) Mean Corpuscular Volume 95 fL (79-100) Mean Corpuscular Hemoglobin 32 pg (25-35) Mean Corpuscular Hemoglobin Concent 33 g/dL (31-37) Red Cell Distribution Width 16.9 % (11.5-14.5) Platelet Count 249 x10^3/uL (140-400) Neutrophils (%) (Auto) 74 % (31-73) Lymphocytes (%) (Auto) 10 % (24-48) Monocytes (%) (Auto) 15 % (0-9) Eosinophils (%) (Auto) 0 % (0-3) Basophils (%) (Auto) 0 % (0-3) Neutrophils # (Auto) 6.4 x10^3uL (1.8-7.7) Lymphocytes # (Auto) 0.8 x10^3/uL (1.0-4.8) Monocytes # (Auto) 1.3 x10^3/uL (0.0-1.1) Eosinophils # (Auto) 0.0 x10^3/uL (0.0-0.7) Basophils # (Auto) 0.0 x10^3/uL (0.0-0.2) Prothrombin Time 22.3 SEC (11.7-14.0) Prothromb Time International Ratio 2.0 (0.8-1.1) Test 12/26/17 07:10 12/26/17 07:32 12/26/17 12:20 12/26/17 17:06 Sodium Level 139 mmol/L (136-145) Potassium Level 3.9 mmol/L (3.5-5.1) Chloride Level 103 mmol/L (98-107) Carbon Dioxide Level 25 mmol/L (21-32) Anion Gap 11 (6-14) Blood Urea Nitrogen 17 mg/dL (7-20) Creatinine 1.6 mg/dL (0.6-1.0) Estimated GFR (Cockcroft-Gault) 31.7 Glucose Level 143 mg/dL (70-99) Calcium Level 8.3 mg/dL (8.5-10.1) Glucose (Fingerstick) 143 mg/dL (70-99) 159 mg/dL (70-99) 126 mg/dL (70-99) Test 12/26/17 20:34 12/27/17 04:10 12/27/17 04:40 12/27/17 08:25 Glucose (Fingerstick) 113 mg/dL (70-99) 110 mg/dL (70-99) Sodium Level 140 mmol/L (136-145) Potassium Level 3.9 mmol/L (3.5-5.1) Chloride Level 103 mmol/L (98-107) Carbon Dioxide Level 26 mmol/L (21-32) Anion Gap 11 (6-14) Blood Urea Nitrogen 22 mg/dL (7-20) Creatinine 2.1 mg/dL (0.6-1.0) Estimated GFR (Cockcroft-Gault) 23.2 Glucose Level 133 mg/dL (70-99) Calcium Level 8.1 mg/dL (8.5-10.1) White Blood Count 7.2 x10^3/uL (4.0-11.0) Red Blood Count 3.88 x10^6/uL (3.50-5.40) Hemoglobin 12.3 g/dL (12.0-15.5) Hematocrit 36.6 % (36.0-47.0) Mean Corpuscular Volume 94 fL (79-100) Mean Corpuscular Hemoglobin 32 pg (25-35) Mean Corpuscular Hemoglobin Concent 34 g/dL (31-37) Red Cell Distribution Width 17.2 % (11.5-14.5) Platelet Count 199 x10^3/uL (140-400) Neutrophils (%) (Auto) 73 % (31-73) Lymphocytes (%) (Auto) 11 % (24-48) Monocytes (%) (Auto) 15 % (0-9) Eosinophils (%) (Auto) 1 % (0-3) Basophils (%) (Auto) 0 % (0-3) Neutrophils # (Auto) 5.2 x10^3uL (1.8-7.7) Lymphocytes # (Auto) 0.8 x10^3/uL (1.0-4.8) Monocytes # (Auto) 1.1 x10^3/uL (0.0-1.1) Eosinophils # (Auto) 0.1 x10^3/uL (0.0-0.7) Basophils # (Auto) 0.0 x10^3/uL (0.0-0.2) Prothrombin Time 23.1 SEC (11.7-14.0) Prothromb Time International Ratio 2.1 (0.8-1.1) Laboratory Tests Test 12/26/17 12:20 12/26/17 17:06 12/26/17 20:34 12/27/17 04:10 Glucose (Fingerstick) 159 mg/dL (70-99) 126 mg/dL (70-99) 113 mg/dL (70-99) Sodium Level 140 mmol/L (136-145) Potassium Level 3.9 mmol/L (3.5-5.1) Chloride Level 103 mmol/L (98-107) Carbon Dioxide Level 26 mmol/L (21-32) Anion Gap 11 (6-14) Blood Urea Nitrogen 22 mg/dL (7-20) Creatinine 2.1 mg/dL (0.6-1.0) Estimated GFR (Cockcroft-Gault) 23.2 Glucose Level 133 mg/dL (70-99) Calcium Level 8.1 mg/dL (8.5-10.1) Test 12/27/17 04:40 12/27/17 08:25 White Blood Count 7.2 x10^3/uL (4.0-11.0) Red Blood Count 3.88 x10^6/uL (3.50-5.40) Hemoglobin 12.3 g/dL (12.0-15.5) Hematocrit 36.6 % (36.0-47.0) Mean Corpuscular Volume 94 fL (79-100) Mean Corpuscular Hemoglobin 32 pg (25-35) Mean Corpuscular Hemoglobin Concent 34 g/dL (31-37) Red Cell Distribution Width 17.2 % (11.5-14.5) Platelet Count 199 x10^3/uL (140-400) Neutrophils (%) (Auto) 73 % (31-73) Lymphocytes (%) (Auto) 11 % (24-48) Monocytes (%) (Auto) 15 % (0-9) Eosinophils (%) (Auto) 1 % (0-3) Basophils (%) (Auto) 0 % (0-3) Neutrophils # (Auto) 5.2 x10^3uL (1.8-7.7) Lymphocytes # (Auto) 0.8 x10^3/uL (1.0-4.8) Monocytes # (Auto) 1.1 x10^3/uL (0.0-1.1) Eosinophils # (Auto) 0.1 x10^3/uL (0.0-0.7) Basophils # (Auto) 0.0 x10^3/uL (0.0-0.2) Prothrombin Time 23.1 SEC (11.7-14.0) Prothromb Time International Ratio 2.1 (0.8-1.1) Glucose (Fingerstick) 110 mg/dL (70-99) Medications Active Scripts Medications Dose Route/Sig Max Daily Dose Days Date Category Proair Hfa Inhaler (Albuterol Sulfate) 8.5 Gm Hfa.aer.ad 1 Puff INH PRN Q6HRS PRN 12/24/17 Reported Sotalol (Sotalol Hcl) 80 Mg Tablet 1 Tab PO BID 12/24/17 Reported Tessalon Perle (Benzonatate) 100 Mg Capsule 2 Cap PO TID PRN 12/24/17 Reported Digoxin 125 Mcg Tablet 125 Mcg PO DAILY 09/26/17 Rx Warfarin Sodium 2 Mg Tablet 1 Tab PO DAILY 09/23/17 Reported Lisinopril 10 Mg Tablet 1 Tab PO DAILY 09/23/17 Reported Levothyroxine Sodium 125 Mcg Tablet 150 Mcg PO DAILY 09/23/17 Reported Simvastatin 40 Mg Tablet 40 Mg PO DAILY 09/23/17 Reported Metformin Hcl 500 Mg Tablet 500 Mg PO BIDWMEALS 09/23/17 Reported Furosemide 20 Mg Tablet 1 Tab PO DAILY 09/23/17 Reported Potassium Chloride 10 Meq Tab.sr.24h 10 Meq PO DAILY 09/23/17 Reported Impression . 1. Acute hypoxic respiratory failure secondary to multifactorial etiologies including a combination of right and left heart failure and possible lower respiratory tract infection. In addition, underlying chronic obstructive pulmonary disease with exacerbation. 2. Chronic atrial fibrillation, on chronic anticoagulation with mild increased ventricular response. improved. 3. 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 She no longer smokes cigarettes. 4. Morbid obesity and suspect obesity hypoventilation syndrome. Needs to rule out for obstructive sleep apnea by sleep study as an outpatient. Plan . 1. Continue with present oxygen via nasal cannula. 2. Noncontrast CT chest reviewed. mild basal atelectasis/ tiny effusions 3. echocardiogram reviewed 4. Continue empiric antibiotics for now . change to PO 5. Diuresis. 6. off Cardizem per Cardiology. 7. Follow Cardiology recommendation. 8. Bronchodilators. 9. Weight loss is advised. 10. Sleep study as an outpatient. 11. Discussed with the patient and the family, CARLOS BLANCO MD Dec 27, 2017 09:14
[2017-12-27] MEDS: LACTOBACILLUS RHAMNOSUS GG 1 CAPSULE. PO SCH ×2 (09:45→20:56)
[2017-12-27] MEDS: DOCUSATE SODIUM 100 MG CAPSULE. PO PRN (09:45)
[2017-12-27] MEDS: DIGOXIN 125 MCG TABLET. PO SCH (09:45)
[2017-12-27] MEDS: metFORMIN 500 MG TABLET PO SCH (09:45)
[2017-12-27] MEDS: SOTALOL 80 MG TABLET. PO SCH ×2 (09:46→20:52)
[2017-12-27] MEDS: POTASSIUM CHLORIDE 10 MEQ TABLET.ER. PO SCH (09:46)
--- NOTE | 2017-12-27 12:06 | PDOC2 ---
CONSULT Date of Consult Date of Consult DATE: 12/27/17 TIME: 12:00 Reason for Consult Reason for Consult: RICKEY Referring Physician Referring Physician: JOSE Identification/Chief Complaint Chief Complaint SOB Source Source: Chart review History of Present Illness Reason for Visit: THIS IS A 72 YR OLD WITH SOB. NOTED TO HAVE ?CHF AND COPD EXACERBATION. SHE HAS HAD SOME CONFUSION AND IS BEING EVALUATED BY NEUROLOGY FOR THAT. CARDIOLOGY HAS SEEN HER FOR A HX OF AFIB RVR CONTROLLED WITH CA CHANNEL LUPE HX OF CHF. CR WNL ON ADMIT NOW UP TO 2.1. SHE HAS RECEIVED SOME LASIX. PO INTAKE AT BEST MODERATE. NO CKD NOTED. NO NEPHROTOXINS OR HEMODYNAMIC INSTABILITY IDENTIFIED Past Medical History Cardiovascular: AFIB, CHF, HTN, Hyperlipidemia Pulmonary: Bronchitis, COPD Psych: No pertinent hx Rheumatologic: No pertinent hx Infectious disease: No pertinent hx ENT: No pertinent hx Renal/: No pertinent hx Endocrine: Diabetes, Hypothyroidism Past Surgical History Past Surgical History: No pertinent history Family History Family History: High Cholestrol, Hypertension Social History ALCOHOL: none Drugs: None Current Problem List Problem List Problems Medical Problems: (1) Atrial fibrillation with RVR Status: Acute (2) Bandemia Status: Acute (3) Hypoxia Status: Acute (4) Severe sepsis Status: Acute Current Medications Current Medications Current Medications Diltiazem HCl (Cardizem) 20 mg 1X ONCE IVP Last administered on 12/23/17at 23: 00; Start 12/23/17 at 23:00; Stop 12/23/17 at 23:01; Status DC Aspirin (Adonis Aspirin) 325 mg 1X ONCE PO ; Start 12/23/17 at 23:00; Stop 12/23 at 23:01; Status DC Diltiazem HCl 125 mg/Dextrose 125 ml @ 10 mls/hr 1X ONCE IV Last administered on 12/23/17at 23:11; Start 12/23/17 at 23:00; Stop 12/24/17 at 11:29 ; Status DC Dexamethasone Sodium Phosphate (Decadron) 10 mg 1X ONCE IV Last administered on 12/23/17at 22:57; Start 12/23/17 at 23:00; Stop 12/23/17 at 23:01; Status DC Albuterol/ Ipratropium (Duoneb) 3 ml 1X ONCE NEB ; Start 12/23/17 at 23:00; Stop 12/23/17 at 23:01; Status DC Albuterol/ Ipratropium (Duoneb) 3 ml STAT ONCE NEB ; Start 12/23/17 at 23:00; Stop 12/23/17 at 23:01; Status DC Hyoscyamine (Anaspaz) 0.25 mg 1X ONCE PO ; Start 12/23/17 at 23:45; Stop at 23:46; Status Cancel Sodium Chloride 1,000 ml @ 1,000 mls/hr 1X ONCE IV Last administered on at 01:17; Start 12/23/17 at 23:45; Stop 12/24/17 at 00:44; Status DC Sodium Chloride 1,000 ml @ 1,000 mls/hr 1X ONCE IV Last administered on at 04:29; Start 12/23/17 at 23:45; Stop 12/24/17 at 00:44; Status DC Piperacillin Sod/ Tazobactam Sod 4.5 gm/Sodium Chloride 100 ml @ 200 mls/hr 1X ONCE IV Last administered on 12/24/17at 01:17; Start 12/24/17 at 00:00; Stop 12/24/17 at 00:29; Status DC Levofloxacin/ Dextrose 150 ml @ 100 mls/hr 1X ONCE IV Last administered on at 01:17; Start 12/24/17 at 00:00; Stop 12/24/17 at 01:29; Status DC Vancomycin HCl 2 gm/Sodium Chloride 500 ml @ 250 mls/hr 1X ONCE IV Last administered on 12/24/17at 01:18; Start 12/24/17 at 00:30; Stop 12/24/17 at 02:29 ; Status DC Ondansetron HCl (Zofran) 4 mg PRN Q8HRS PRN IV NAUSEA/VOMITING 1ST CHOICE; Start 12/24/17 at 00:15; Stop 12/25/17 at 00:14; Status DC Fentanyl Citrate (Fentanyl 2ml Vial) 50 mcg PRN Q2HR PRN IV SEVERE PAIN; Start 12/24/17 at 00:15; Stop 12/25/17 at 00:14; Status DC Albuterol Sulfate (Ventolin Neb Soln) 2.5 mg PRN Q4HRS PRN NEB WHEEZING Last administered on 12/25/17at 17:28; Start 12/24/17 at 00:30 Insulin Human Lispro (HumaLOG) 0-5 UNITS TIDWMEALS SQ Last administered on 12/24at 17:46; Start 12/24/17 at 08:00 Dextrose (Dextrose 50%-Water Syringe) 12.5 gm PRN Q15MIN PRN IV SEE COMMENTS; Start 12/24/17 at 00:15 Info (Do NOT chart on this placeholder) 1 each 1X ONCE MC ; Start 12/24/17 at 01:45; Stop 12/24/17 at 01:46; Status UNV Influenza Virus Vaccine (Afluria Trivalent [id number] Syringe) 0.5 ml ONCE ONCE VAX IM Last administered on 12/24/17at 08:51; Start 12/24/17 at 09:00; Stop at 09:01; Status DC Albuterol/ Ipratropium (Duoneb) 3 ml RTQID NEB Last administered on 12/27/17at 11:09; Start 12/24/17 at 12:00 Levofloxacin/ Dextrose 100 ml @ 100 mls/hr Q24H IV ; Start 12/24/17 at 10:30; Status UNV Vancomycin HCl (Vanco Per Pharmacy) 1 each PRN DAILY PRN MC SEE COMMENTS Last administered on 12/25/17at 10:36; Start 12/24/17 at 10:30; Stop 12/25/17 at 17:09 ; Status DC Levofloxacin/ Dextrose 100 ml @ 100 mls/hr Q24H IV Last administered on at 23:31; Start 12/24/17 at 23:00; Stop 12/26/17 at 14:40; Status DC Vancomycin HCl 1.75 gm/Sodium Chloride 500 ml @ 250 mls/hr Q12H IV Last administered on 12/25/17at 13:00; Start 12/24/17 at 13:00; Stop 12/25/17 at 17:08 ; Status DC Vancomycin HCl (Vancomycin Trough Level) 1 each 1X ONCE MC ; Start 12/25/17 at 23:30; Stop 12/25/17 at 23:30; Status DC Lactobacillus Rhamnosus (Culturelle) 1 cap BID PO Last administered on at 09:45; Start 12/24/17 at 21:00 Warfarin Sodium (Coumadin Per Pharmacy) 1 each PRN DAILY PRN MC SEE COMMENTS Last administered on 12/27/17 09:20; Start 12/24/17 at 14:45 Warfarin Sodium (Coumadin) 2 mg 1X WARF ONCE PO Last administered on at 15:52; Start 12/24/17 at 16:00; Stop 12/24/17 at 16:01; Status DC Digoxin (Lanoxin) 125 mcg DAILY PO Last administered on 12/27/17at 09:45; Start 12/24/17 at 17:30 Sotalol HCl (Betapace) 80 mg BID PO Last administered on 12/27/17 09:46; Start 12/24/17 at 21:00 Furosemide (Lasix) 20 mg DAILY PO Last administered on 12/25/17at 07:50; Start 12/24/17 at 18:00; Stop 12/25/17 at 08:44; Status DC Potassium Chloride (Klor-Con) 10 meq DAILY PO Last administered on 12/27/17at 09 :46; Start 12/24/17 at 18:00 Levothyroxine Sodium (Synthroid) 150 mcg DAILY07 PO Last administered on at 05:55; Start 12/24/17 at 18:00 Metformin HCl (Glucophage) 500 mg BIDWMEALS PO Last administered on 12/27/17at 09:45; Start 12/24/17 at 18:00; Stop 12/27/17 at 10:53; Status DC Simvastatin (Zocor) 40 mg DAILY PO ; Start 12/24/17 at 18:00; Stop 12/24/17 at 18:00; Status DC Simvastatin (Zocor) 40 mg QHS PO Last administered on 12/26/17at 20:57; Start at 21:00 Furosemide (Lasix) 20 mg 1X ONCE PO Last administered on 12/25/17at 12:57; Start 12/25/17 at 09:00; Stop 12/25/17 at 09:01; Status DC Guaifenesin/ Codeine Phosphate (Robitussin Ac) 5 ml PRN Q6HRS PRN PO COUGH Last administered on 12/25/17at 12:54; Start 12/25/17 at 08:45 Benzonatate (Tessalon Perle) 100 mg [id number] PO Last administered on 12/25/17at 12 :54; Start 12/25/17 at 09:00 Furosemide (Lasix) 40 mg DAILY PO ; Start 12/26/17 at 09:00 Warfarin Sodium (Coumadin) 2 mg 1X WARF ONCE PO Last administered on at 16:44; Start 12/25/17 at 16:00; Stop 12/25/17 at 16:01; Status DC Acetaminophen (Tylenol) 650 mg PRN Q6HRS PRN PO FEVER; Start 12/25/17 at 12:15 Ondansetron HCl (Zofran) 4 mg PRN Q6HRS PRN IV NAUSEA/VOMITING; Start 12/25/17 at 12:15 Morphine Sulfate (Morphine Sulfate) 2 mg PRN Q2HR PRN IV MODERATE TO SEVERE PAIN; Start 12/25/17 at 12:15 Tramadol HCl (Ultram) 50 mg PRN Q6HRS PRN PO MILD TO MODERATE PAIN Last administered on 12/26/17at 08:58; Start 12/25/17 at 12:15 Docusate Sodium (Colace) 100 mg PRN DAILY PRN PO HARD STOOLS Last administered on 12/27/17at 09:45; Start 12/25/17 at 12:15 Labetalol HCl (Normodyne Iv Push) 20 mg PRN Q2HR PRN IVP HYPERTENSION, SEE COMMENTS; Start 12/25/17 at 12:15 Furosemide (Lasix) 60 mg 1X ONCE IVP Last administered on 12/25/17at 17:51; Start 12/25/17 at 18:00; Stop 12/25/17 at 18:01; Status DC Furosemide (Lasix) 60 mg 1X ONCE IVP Last administered on 12/26/17at 08:46; Start 12/26/17 at 09:00; Stop 12/26/17 at 09:01; Status DC Warfarin Sodium (Coumadin) 2 mg 1X ONCE PO ; Start 12/26/17 at 14:45; Stop at 14:46; Status Cancel Warfarin Sodium (Coumadin) 2 mg 1X WARF ONCE PO Last administered on at 17:29; Start 12/26/17 at 16:00; Stop 12/26/17 at 16:01; Status DC Levofloxacin/ Dextrose 50 ml @ 50 mls/hr Q24H IV Last administered on at 22:47; Start 12/26/17 at 23:00; Stop 12/27/17 at 09:12; Status DC Levofloxacin (Levaquin) 250 mg QHS PO ; Start 12/27/17 at 21:00 Warfarin Sodium (Coumadin) 2 mg 1X WARF ONCE PO ; Start 12/27/17 at 16:00; Stop 12/27/17 at 16:01 Active Scripts Active Digoxin 125 Mcg Tablet 125 Mcg PO DAILY Reported Proair Hfa Inhaler (Albuterol Sulfate) 8.5 Gm Hfa.aer.ad 1 Puff INH PRN Q6HRS PRN Sotalol (Sotalol Hcl) 80 Mg Tablet 1 Tab PO BID Tessalon Perle (Benzonatate) 100 Mg Capsule 2 Cap PO TID PRN Warfarin Sodium 2 Mg Tablet 1 Tab PO DAILY Lisinopril 10 Mg Tablet 1 Tab PO DAILY Levothyroxine Sodium 125 Mcg Tablet 150 Mcg PO DAILY Simvastatin 40 Mg Tablet 40 Mg PO DAILY Metformin Hcl 500 Mg Tablet 500 Mg PO BIDWMEALS Furosemide 20 Mg Tablet 1 Tab PO DAILY Potassium Chloride 10 Meq Tab.sr.24h 10 Meq PO DAILY Allergies Allergies: Coded Allergies: No Known Drug Allergies (Unverified , 08/21/16) ROS Review of System UNABLE TO OBTAIN Physical Exam General: Alert, Cooperative, No acute distress HEENT: Atraumatic, PERRLA, EOMI Lungs: Clear to auscultation Heart: Regular rate, Other (IRREGULAR) Abdomen: Normal bowel sounds, Soft Extremities: No clubbing, No cyanosis Skin: No breakdown Neuro: Normal speech, Other (NO ASYMMETRY) Psych/Mental Status: Mood NL MUSCULOSKELETAL: No deformity, No swelling Vitals VITALS Vital Signs Date Time Temp Pulse Resp B/P (MAP) Pulse Ox O2 Delivery O2 Flow Rate FiO2 12/27/17 11:09 Nasal Cannula 2.0 12/27/17 11:00 98.1 73 22 120/54 (76) 95 98.1 Labs Labs Laboratory Tests Test 12/25/17 12:04 12/25/17 17:29 12/25/17 20:21 12/26/17 07:08 Glucose (Fingerstick) 146 mg/dL (70-99) 138 mg/dL (70-99) 128 mg/dL (70-99) White Blood Count 8.6 x10^3/uL (4.0-11.0) Red Blood Count 4.11 x10^6/uL (3.50-5.40) Hemoglobin 13.0 g/dL (12.0-15.5) Hematocrit 38.8 % (36.0-47.0) Mean Corpuscular Volume 95 fL (79-100) Mean Corpuscular Hemoglobin 32 pg (25-35) Mean Corpuscular Hemoglobin Concent 33 g/dL (31-37) Red Cell Distribution Width 16.9 % (11.5-14.5) Platelet Count 249 x10^3/uL (140-400) Neutrophils (%) (Auto) 74 % (31-73) Lymphocytes (%) (Auto) 10 % (24-48) Monocytes (%) (Auto) 15 % (0-9) Eosinophils (%) (Auto) 0 % (0-3) Basophils (%) (Auto) 0 % (0-3) Neutrophils # (Auto) 6.4 x10^3uL (1.8-7.7) Lymphocytes # (Auto) 0.8 x10^3/uL (1.0-4.8) Monocytes # (Auto) 1.3 x10^3/uL (0.0-1.1) Eosinophils # (Auto) 0.0 x10^3/uL (0.0-0.7) Basophils # (Auto) 0.0 x10^3/uL (0.0-0.2) Prothrombin Time 22.3 SEC (11.7-14.0) Prothromb Time International Ratio 2.0 (0.8-1.1) Test 12/26/17 07:10 12/26/17 07:32 12/26/17 12:20 12/26/17 17:06 Sodium Level 139 mmol/L (136-145) Potassium Level 3.9 mmol/L (3.5-5.1) Chloride Level 103 mmol/L (98-107) Carbon Dioxide Level 25 mmol/L (21-32) Anion Gap 11 (6-14) Blood Urea Nitrogen 17 mg/dL (7-20) Creatinine 1.6 mg/dL (0.6-1.0) Estimated GFR (Cockcroft-Gault) 31.7 Glucose Level 143 mg/dL (70-99) Calcium Level 8.3 mg/dL (8.5-10.1) Glucose (Fingerstick) 143 mg/dL (70-99) 159 mg/dL (70-99) 126 mg/dL (70-99) Test 12/26/17 20:34 12/27/17 04:10 12/27/17 04:40 12/27/17 08:25 Glucose (Fingerstick) 113 mg/dL (70-99) 110 mg/dL (70-99) Sodium Level 140 mmol/L (136-145) Potassium Level 3.9 mmol/L (3.5-5.1) Chloride Level 103 mmol/L (98-107) Carbon Dioxide Level 26 mmol/L (21-32) Anion Gap 11 (6-14) Blood Urea Nitrogen 22 mg/dL (7-20) Creatinine 2.1 mg/dL (0.6-1.0) Estimated GFR (Cockcroft-Gault) 23.2 Glucose Level 133 mg/dL (70-99) Calcium Level 8.1 mg/dL (8.5-10.1) Thyroid Stimulating Hormone (TSH) 5.468 uIU/mL (0.358-3.74) White Blood Count 7.2 x10^3/uL (4.0-11.0) Red Blood Count 3.88 x10^6/uL (3.50-5.40) Hemoglobin 12.3 g/dL (12.0-15.5) Hematocrit 36.6 % (36.0-47.0) Mean Corpuscular Volume 94 fL (79-100) Mean Corpuscular Hemoglobin 32 pg (25-35) Mean Corpuscular Hemoglobin Concent 34 g/dL (31-37) Red Cell Distribution Width 17.2 % (11.5-14.5) Platelet Count 199 x10^3/uL (140-400) Neutrophils (%) (Auto) 73 % (31-73) Lymphocytes (%) (Auto) 11 % (24-48) Monocytes (%) (Auto) 15 % (0-9) Eosinophils (%) (Auto) 1 % (0-3) Basophils (%) (Auto) 0 % (0-3) Neutrophils # (Auto) 5.2 x10^3uL (1.8-7.7) Lymphocytes # (Auto) 0.8 x10^3/uL (1.0-4.8) Monocytes # (Auto) 1.1 x10^3/uL (0.0-1.1) Eosinophils # (Auto) 0.1 x10^3/uL (0.0-0.7) Basophils # (Auto) 0.0 x10^3/uL (0.0-0.2) Prothrombin Time 23.1 SEC (11.7-14.0) Prothromb Time International Ratio 2.1 (0.8-1.1) Laboratory Tests Test 12/26/17 12:20 12/26/17 17:06 12/26/17 20:34 12/27/17 04:10 Glucose (Fingerstick) 159 mg/dL (70-99) 126 mg/dL (70-99) 113 mg/dL (70-99) Sodium Level 140 mmol/L (136-145) Potassium Level 3.9 mmol/L (3.5-5.1) Chloride Level 103 mmol/L (98-107) Carbon Dioxide Level 26 mmol/L (21-32) Anion Gap 11 (6-14) Blood Urea Nitrogen 22 mg/dL (7-20) Creatinine 2.1 mg/dL (0.6-1.0) Estimated GFR (Cockcroft-Gault) 23.2 Glucose Level 133 mg/dL (70-99) Calcium Level 8.1 mg/dL (8.5-10.1) Thyroid Stimulating Hormone (TSH) 5.468 uIU/mL (0.358-3.74) Test 12/27/17 04:40 12/27/17 08:25 White Blood Count 7.2 x10^3/uL (4.0-11.0) Red Blood Count 3.88 x10^6/uL (3.50-5.40) Hemoglobin 12.3 g/dL (12.0-15.5) Hematocrit 36.6 % (36.0-47.0) Mean Corpuscular Volume 94 fL (79-100) Mean Corpuscular Hemoglobin 32 pg (25-35) Mean Corpuscular Hemoglobin Concent 34 g/dL (31-37) Red Cell Distribution Width 17.2 % (11.5-14.5) Platelet Count 199 x10^3/uL (140-400) Neutrophils (%) (Auto) 73 % (31-73) Lymphocytes (%) (Auto) 11 % (24-48) Monocytes (%) (Auto) 15 % (0-9) Eosinophils (%) (Auto) 1 % (0-3) Basophils (%) (Auto) 0 % (0-3) Neutrophils # (Auto) 5.2 x10^3uL (1.8-7.7) Lymphocytes # (Auto) 0.8 x10^3/uL (1.0-4.8) Monocytes # (Auto) 1.1 x10^3/uL (0.0-1.1) Eosinophils # (Auto) 0.1 x10^3/uL (0.0-0.7) Basophils # (Auto) 0.0 x10^3/uL (0.0-0.2) Prothrombin Time 23.1 SEC (11.7-14.0) Prothromb Time International Ratio 2.1 (0.8-1.1) Glucose (Fingerstick) 110 mg/dL (70-99) Assessment/Plan Assessment/Plan IMP RICKEY-CR NORMAL TO 2.1 TODAY DEHYDRATION COPD HX OF CHF-COMPENSATED HTN HX DM II PLAN STOP LASIX AND KCL AGREE WITH HOLDING METFORMIN ALSO CONT TO HOLD PTS JORGE LUIS-I HYDRATION VERENA ANGUIANO MD Dec 27, 2017 12:06
--- NOTE | 2017-12-27 12:43 | RAD ---
CT of the head without contrast, 12/27/2017: HISTORY: Altered mental status The patient's head is rotated. Comparison is made to a study from 09/22/2017. There is moderate cerebral atrophy. The ventricles are within normal limits in size considering the presence of atrophy. There is no shift of the midline structures. There is no evidence of acute intracranial hemorrhage or mass effect. A small amount of free fluid is present in the right maxillary sinus. There is mild mucosal thickening in the left maxillary sinus. These findings were not evident on the previous study. IMPRESSION: 1. Cerebral atrophy. 2. No acute intracranial abnormality is detected. 3. Bilateral maxillary sinusitis Note: The findings were called to the patient's nurse on the floor at 12:39 PM on 12/27/2017. Electronically signed by: Edilberto Moraes MD (12/27/2017 12:40 PM) [facility]
--- NOTE | 2017-12-27 13:36 | PDOC2 ---
NEUROLOGY CONSULT Date of Admission Date of Admission DATE: 12/27/17 TIME: 13:23 Reason for Consult Reason for Consult: IMPRESSION: Metabolic encephalopathy. Hypoxia encephalopathy. Confusion x 3 days. CVA evaluation. Respiratory failure. Renal failure. CHF, EF 40%. AFib. DM. Hyperglycemia. HTN. HLD. Hypothyroidism. Bilateral maxillary sinusitis. Severe obesity. Pacemaker in site. Brain atrophy. RECOMMENDATIONS/PLAN: Brain MRI w/o contrast. EEG, after MRI. Lab: see orders. She has been treated with Coumadin. Continue Zocor HS. Treat medical and cardiac diseases. OT/PT. Discussed with her daughter at bedside on 12/27/17. HISTORY OF THE PRESENT ILLNESS: 72-y-old female patient with many medical and cardiac diseases has been having symptoms of SOB, difficult breathing with 02 desaturation, mental status changes, confusion, intermittent unresponsiveness for 2 days and she was brought to the ER of [facility] and hospitalized for further evaluation. Past Medical History Cardiovascular: AFIB, CHF, HTN, Hyperlipidemia Pulmonary: Bronchitis, COPD Psych: No pertinent hx Rheumatologic: No pertinent hx Infectious disease: No pertinent hx ENT: No pertinent hx Renal/: No pertinent hx Endocrine: Diabetes, Hypothyroidism Past Surgical History Cholecystectomy, pacemaker, and hernia repair. Family History HLD, Hypertension Social History ALCOHOL: none Drugs: None ALLERGY: Reviewed. MEDICATIONS: Refer to [facility] REVIEW OF SYSTEMS: Constitutional: Obesity. Head: No traumatic brain or head injury. Skin: No edema, or rash. Ear: No infection, tinnitus. Eyes: No vision loss or color blindness. Nose: No bleeding or purulent discharges. Hearing: Hearing decrease. Neck: No injury. Breast: No history of cancer, masses,or discharges. Cardiac: AFib, Pacemaker Placement, HTN, HLD. Pulmonary: SOB, COPD. GI: No GI ulcer, GI bleeding. Urinary/genital: UTI. Endocrinologic: Diabetes Mellitus, hypothyroidism, obesity. Skeletomuscular: Generalized weakness. Neurological: see HP. Psychiatric: Denies drug use/abuse. Otherwise, not [id number] review of systems. PHYSICAL EXAMINATION: General appearance is in subacute distress. HEENT: Normocephalic and nontraumatic. Eyes, nose, ears, and throat are unremarkable. Neck is supple. No lymphadenopathy. No crepitus. Cardiovascular: S1, S2, seemed irregular rate and rhythm. Pulmonary: decreased breathing sounds to auscultation bilaterally. Abdomen: Bowel sounds are positive. Extremities: No rash, lesions. No restriction of range of motion NEUROLOGICAL EXAMINATION: Confusional state. Not oriented to time, place and person. PERRL. EOMI. CN: no focal findings. Muscle tone: Decreased. Muscle strength: 4- DTR: 0-1 due to near morbid obesity. Plantar reflex: Neutral response bilaterally Gait: not examined in bed. Sensory exam: no acute abnormal findings. No acute cerebellar signs elicited. F-T-N test not performed due to not follow commands. Current Medications Current Medications Current Medications Diltiazem HCl (Cardizem) 20 mg 1X ONCE IVP Last administered on 12/23/17at 23: 00; Start 12/23/17 at 23:00; Stop 12/23/17 at 23:01; Status DC Aspirin (Adonis Aspirin) 325 mg 1X ONCE PO ; Start 12/23/17 at 23:00; Stop 12/23 at 23:01; Status DC Diltiazem HCl 125 mg/Dextrose 125 ml @ 10 mls/hr 1X ONCE IV Last administered on 12/23/17at 23:11; Start 12/23/17 at 23:00; Stop 12/24/17 at 11:29 ; Status DC Dexamethasone Sodium Phosphate (Decadron) 10 mg 1X ONCE IV Last administered on 12/23/17at 22:57; Start 12/23/17 at 23:00; Stop 12/23/17 at 23:01; Status DC Albuterol/ Ipratropium (Duoneb) 3 ml 1X ONCE NEB ; Start 12/23/17 at 23:00; Stop 12/23/17 at 23:01; Status DC Albuterol/ Ipratropium (Duoneb) 3 ml STAT ONCE NEB ; Start 12/23/17 at 23:00; Stop 12/23/17 at 23:01; Status DC Hyoscyamine (Anaspaz) 0.25 mg 1X ONCE PO ; Start 12/23/17 at 23:45; Stop at 23:46; Status Cancel Sodium Chloride 1,000 ml @ 1,000 mls/hr 1X ONCE IV Last administered on at 01:17; Start 12/23/17 at 23:45; Stop 12/24/17 at 00:44; Status DC Sodium Chloride 1,000 ml @ 1,000 mls/hr 1X ONCE IV Last administered on at 04:29; Start 12/23/17 at 23:45; Stop 12/24/17 at 00:44; Status DC Piperacillin Sod/ Tazobactam Sod 4.5 gm/Sodium Chloride 100 ml @ 200 mls/hr 1X ONCE IV Last administered on 12/24/17at 01:17; Start 12/24/17 at 00:00; Stop 12/24/17 at 00:29; Status DC Levofloxacin/ Dextrose 150 ml @ 100 mls/hr 1X ONCE IV Last administered on at 01:17; Start 12/24/17 at 00:00; Stop 12/24/17 at 01:29; Status DC Vancomycin HCl 2 gm/Sodium Chloride 500 ml @ 250 mls/hr 1X ONCE IV Last administered on 12/24/17at 01:18; Start 12/24/17 at 00:30; Stop 12/24/17 at 02:29 ; Status DC Ondansetron HCl (Zofran) 4 mg PRN Q8HRS PRN IV NAUSEA/VOMITING 1ST CHOICE; Start 12/24/17 at 00:15; Stop 12/25/17 at 00:14; Status DC Fentanyl Citrate (Fentanyl 2ml Vial) 50 mcg PRN Q2HR PRN IV SEVERE PAIN; Start 12/24/17 at 00:15; Stop 12/25/17 at 00:14; Status DC Albuterol Sulfate (Ventolin Neb Soln) 2.5 mg PRN Q4HRS PRN NEB WHEEZING Last administered on 12/25/17at 17:28; Start 12/24/17 at 00:30 Insulin Human Lispro (HumaLOG) 0-5 UNITS TIDWMEALS SQ Last administered on 12/24at 17:46; Start 12/24/17 at 08:00 Dextrose (Dextrose 50%-Water Syringe) 12.5 gm PRN Q15MIN PRN IV SEE COMMENTS; Start 12/24/17 at 00:15 Info (Do NOT chart on this placeholder) 1 each 1X ONCE MC ; Start 12/24/17 at 01:45; Stop 12/24/17 at 01:46; Status UNV Influenza Virus Vaccine (Afluria Trivalent [id number] Syringe) 0.5 ml ONCE ONCE VAX IM Last administered on 12/24/17at 08:51; Start 12/24/17 at 09:00; Stop at 09:01; Status DC Albuterol/ Ipratropium (Duoneb) 3 ml RTQID NEB Last administered on 12/27/17at 11:09; Start 12/24/17 at 12:00 Levofloxacin/ Dextrose 100 ml @ 100 mls/hr Q24H IV ; Start 12/24/17 at 10:30; Status UNV Vancomycin HCl (Vanco Per Pharmacy) 1 each PRN DAILY PRN MC SEE COMMENTS Last administered on 12/25/17at 10:36; Start 12/24/17 at 10:30; Stop 12/25/17 at 17:09 ; Status DC Levofloxacin/ Dextrose 100 ml @ 100 mls/hr Q24H IV Last administered on at 23:31; Start 12/24/17 at 23:00; Stop 12/26/17 at 14:40; Status DC Vancomycin HCl 1.75 gm/Sodium Chloride 500 ml @ 250 mls/hr Q12H IV Last administered on 12/25/17at 13:00; Start 12/24/17 at 13:00; Stop 12/25/17 at 17:08 ; Status DC Vancomycin HCl (Vancomycin Trough Level) 1 each 1X ONCE MC ; Start 12/25/17 at 23:30; Stop 12/25/17 at 23:30; Status DC Lactobacillus Rhamnosus (Culturelle) 1 cap BID PO Last administered on at 09:45; Start 12/24/17 at 21:00 Warfarin Sodium (Coumadin Per Pharmacy) 1 each PRN DAILY PRN MC SEE COMMENTS Last administered on 12/27/17at 09:20; Start 12/24/17 at 14:45 Warfarin Sodium (Coumadin) 2 mg 1X WARF ONCE PO Last administered on at 15:52; Start 12/24/17 at 16:00; Stop 12/24/17 at 16:01; Status DC Digoxin (Lanoxin) 125 mcg DAILY PO Last administered on 12/27/17at 09:45; Start 12/24/17 at 17:30 Sotalol HCl (Betapace) 80 mg BID PO Last administered on 12/27/17 09:46; Start 12/24/17 at 21:00 Furosemide (Lasix) 20 mg DAILY PO Last administered on 12/25/17at 07:50; Start 12/24/17 at 18:00; Stop 12/25/17 at 08:44; Status DC Potassium Chloride (Klor-Con) 10 meq DAILY PO Last administered on 12/27/17at 09 :46; Start 12/24/17 at 18:00; Stop 12/27/17 at 11:59; Status DC Levothyroxine Sodium (Synthroid) 150 mcg DAILY07 PO Last administered on at 05:55; Start 12/24/17 at 18:00 Metformin HCl (Glucophage) 500 mg BIDWMEALS PO Last administered on 12/27/17 09:45; Start 12/24/17 at 18:00; Stop 12/27/17 at 10:53; Status DC Simvastatin (Zocor) 40 mg DAILY PO ; Start 12/24/17 at 18:00; Stop 12/24/17 at 18:00; Status DC Simvastatin (Zocor) 40 mg QHS PO Last administered on 12/26/17at 20:57; Start at 21:00 Furosemide (Lasix) 20 mg 1X ONCE PO Last administered on 12/25/17at 12:57; Start 12/25/17 at 09:00; Stop 12/25/17 at 09:01; Status DC Guaifenesin/ Codeine Phosphate (Robitussin Ac) 5 ml PRN Q6HRS PRN PO COUGH Last administered on 12/25/17at 12:54; Start 12/25/17 at 08:45 Benzonatate (Tessalon Perle) 100 mg [id number] PO Last administered on 12/25/17at 12 :54; Start 12/25/17 at 09:00 Furosemide (Lasix) 40 mg DAILY PO ; Start 12/26/17 at 09:00; Stop 12/27/17 at 11 :59; Status DC Warfarin Sodium (Coumadin) 2 mg 1X WARF ONCE PO Last administered on at 16:44; Start 12/25/17 at 16:00; Stop 12/25/17 at 16:01; Status DC Acetaminophen (Tylenol) 650 mg PRN Q6HRS PRN PO FEVER; Start 12/25/17 at 12:15 Ondansetron HCl (Zofran) 4 mg PRN Q6HRS PRN IV NAUSEA/VOMITING; Start 12/25/17 at 12:15 Morphine Sulfate (Morphine Sulfate) 2 mg PRN Q2HR PRN IV MODERATE TO SEVERE PAIN; Start 12/25/17 at 12:15 Tramadol HCl (Ultram) 50 mg PRN Q6HRS PRN PO MILD TO MODERATE PAIN Last administered on 12/26/17at 08:58; Start 12/25/17 at 12:15 Docusate Sodium (Colace) 100 mg PRN DAILY PRN PO HARD STOOLS Last administered on 12/27/17at 09:45; Start 12/25/17 at 12:15 Labetalol HCl (Normodyne Iv Push) 20 mg PRN Q2HR PRN IVP HYPERTENSION, SEE COMMENTS; Start 12/25/17 at 12:15 Furosemide (Lasix) 60 mg 1X ONCE IVP Last administered on 12/25/17at 17:51; Start 12/25/17 at 18:00; Stop 12/25/17 at 18:01; Status DC Furosemide (Lasix) 60 mg 1X ONCE IVP Last administered on 12/26/17at 08:46; Start 12/26/17 at 09:00; Stop 12/26/17 at 09:01; Status DC Warfarin Sodium (Coumadin) 2 mg 1X ONCE PO ; Start 12/26/17 at 14:45; Stop at 14:46; Status Cancel Warfarin Sodium (Coumadin) 2 mg 1X WARF ONCE PO Last administered on at 17:29; Start 12/26/17 at 16:00; Stop 12/26/17 at 16:01; Status DC Levofloxacin/ Dextrose 50 ml @ 50 mls/hr Q24H IV Last administered on at 22:47; Start 12/26/17 at 23:00; Stop 12/27/17 at 09:12; Status DC Levofloxacin (Levaquin) 250 mg QHS PO ; Start 12/27/17 at 21:00 Warfarin Sodium (Coumadin) 2 mg 1X WARF ONCE PO ; Start 12/27/17 at 16:00; Stop 12/27/17 at 16:01 Sodium Chloride 1,000 ml @ 75 mls/hr [id number] IV ; Start 12/27/17 at 12:00 Active Scripts Active Digoxin 125 Mcg Tablet 125 Mcg PO DAILY Reported Proair Hfa Inhaler (Albuterol Sulfate) 8.5 Gm Hfa.aer.ad 1 Puff INH PRN Q6HRS PRN Sotalol (Sotalol Hcl) 80 Mg Tablet 1 Tab PO BID Tessalon Perle (Benzonatate) 100 Mg Capsule 2 Cap PO TID PRN Warfarin Sodium 2 Mg Tablet 1 Tab PO DAILY Lisinopril 10 Mg Tablet 1 Tab PO DAILY Levothyroxine Sodium 125 Mcg Tablet 150 Mcg PO DAILY Simvastatin 40 Mg Tablet 40 Mg PO DAILY Metformin Hcl 500 Mg Tablet 500 Mg PO BIDWMEALS Furosemide 20 Mg Tablet 1 Tab PO DAILY Potassium Chloride 10 Meq Tab.sr.24h 10 Meq PO DAILY Allergies Allergies: Allergies Coded Allergies Type Severity Reaction Last Updated Verified No Known Drug Allergies 08/21/16 No ROS Review of System The patient denies any associated fevers, chills, headache, ear pain, rhinorrhea , sore throat, stiff neck, productive cough, chest pain, shortness of breath, back or flank pain, abdominal pain, nausea, vomiting, diarrhea, constipation, dysuria, rash, numbness, weakness, tingling, incontinence, difficulty ambulating, or diaphoresis. Physical Exam Physical Exam General: Well developed, well nourished, no acute distress, well appearing HEENT: Pupils equally round and reactive to light, EOMI, no discharge, normal conjunctiva Neck: Supple, no nuchal rigidity, no JVD, trachea midline, no tenderness Cardiac: RRR, no murmurs, no gallops, no rubs Chest/Lungs: CTAB, no wheeze, no rhonchi, no crackles Abdomen: soft, non-distended, no guarding, no peritoneal signs, non-tender Back: No tenderness Extremities: no edema, pulses intact, non-tender,capillary refill <3 sec bilateral upper and lower extremities, Neuro: Alert and oriented x 4, no focal deficits, normal speech Vitals Vitals: Vital Signs Date Time Temp Pulse Resp B/P (MAP) Pulse Ox O2 Delivery O2 Flow Rate FiO2 12/27/17 12:31 85 124/65 (84) 12/27/17 11:09 Nasal Cannula 2.0 12/27/17 11:00 98.1 22 95 98.1 Labs Labs Laboratory Tests Test 12/25/17 17:29 12/25/17 20:21 12/26/17 07:08 12/26/17 07:10 Glucose (Fingerstick) 138 mg/dL (70-99) 128 mg/dL (70-99) White Blood Count 8.6 x10^3/uL (4.0-11.0) Red Blood Count 4.11 x10^6/uL (3.50-5.40) Hemoglobin 13.0 g/dL (12.0-15.5) Hematocrit 38.8 % (36.0-47.0) Mean Corpuscular Volume 95 fL (79-100) Mean Corpuscular Hemoglobin 32 pg (25-35) Mean Corpuscular Hemoglobin Concent 33 g/dL (31-37) Red Cell Distribution Width 16.9 % (11.5-14.5) Platelet Count 249 x10^3/uL (140-400) Neutrophils (%) (Auto) 74 % (31-73) Lymphocytes (%) (Auto) 10 % (24-48) Monocytes (%) (Auto) 15 % (0-9) Eosinophils (%) (Auto) 0 % (0-3) Basophils (%) (Auto) 0 % (0-3) Neutrophils # (Auto) 6.4 x10^3uL (1.8-7.7) Lymphocytes # (Auto) 0.8 x10^3/uL (1.0-4.8) Monocytes # (Auto) 1.3 x10^3/uL (0.0-1.1) Eosinophils # (Auto) 0.0 x10^3/uL (0.0-0.7) Basophils # (Auto) 0.0 x10^3/uL (0.0-0.2) Prothrombin Time 22.3 SEC (11.7-14.0) Prothromb Time International Ratio 2.0 (0.8-1.1) Sodium Level 139 mmol/L (136-145) Potassium Level 3.9 mmol/L (3.5-5.1) Chloride Level 103 mmol/L (98-107) Carbon Dioxide Level 25 mmol/L (21-32) Anion Gap 11 (6-14) Blood Urea Nitrogen 17 mg/dL (7-20) Creatinine 1.6 mg/dL (0.6-1.0) Estimated GFR (Cockcroft-Gault) 31.7 Glucose Level 143 mg/dL (70-99) Calcium Level 8.3 mg/dL (8.5-10.1) Test 12/26/17 07:32 12/26/17 12:20 12/26/17 17:06 12/26/17 20:34 Glucose (Fingerstick) 143 mg/dL (70-99) 159 mg/dL (70-99) 126 mg/dL (70-99) 113 mg/dL (70-99) Test 12/27/17 04:10 12/27/17 04:40 12/27/17 08:25 12/27/17 12:08 Sodium Level 140 mmol/L (136-145) Potassium Level 3.9 mmol/L (3.5-5.1) Chloride Level 103 mmol/L (98-107) Carbon Dioxide Level 26 mmol/L (21-32) Anion Gap 11 (6-14) Blood Urea Nitrogen 22 mg/dL (7-20) Creatinine 2.1 mg/dL (0.6-1.0) Estimated GFR (Cockcroft-Gault) 23.2 Glucose Level 133 mg/dL (70-99) Calcium Level 8.1 mg/dL (8.5-10.1) Thyroid Stimulating Hormone (TSH) 5.468 uIU/mL (0.358-3.74) White Blood Count 7.2 x10^3/uL (4.0-11.0) Red Blood Count 3.88 x10^6/uL (3.50-5.40) Hemoglobin 12.3 g/dL (12.0-15.5) Hematocrit 36.6 % (36.0-47.0) Mean Corpuscular Volume 94 fL (79-100) Mean Corpuscular Hemoglobin 32 pg (25-35) Mean Corpuscular Hemoglobin Concent 34 g/dL (31-37) Red Cell Distribution Width 17.2 % (11.5-14.5) Platelet Count 199 x10^3/uL (140-400) Neutrophils (%) (Auto) 73 % (31-73) Lymphocytes (%) (Auto) 11 % (24-48) Monocytes (%) (Auto) 15 % (0-9) Eosinophils (%) (Auto) 1 % (0-3) Basophils (%) (Auto) 0 % (0-3) Neutrophils # (Auto) 5.2 x10^3uL (1.8-7.7) Lymphocytes # (Auto) 0.8 x10^3/uL (1.0-4.8) Monocytes # (Auto) 1.1 x10^3/uL (0.0-1.1) Eosinophils # (Auto) 0.1 x10^3/uL (0.0-0.7) Basophils # (Auto) 0.0 x10^3/uL (0.0-0.2) Prothrombin Time 23.1 SEC (11.7-14.0) Prothromb Time International Ratio 2.1 (0.8-1.1) Glucose (Fingerstick) 110 mg/dL (70-99) 132 mg/dL (70-99) Laboratory Tests Test 12/26/17 17:06 12/26/17 20:34 12/27/17 04:10 12/27/17 04:40 Glucose (Fingerstick) 126 mg/dL (70-99) 113 mg/dL (70-99) Sodium Level 140 mmol/L (136-145) Potassium Level 3.9 mmol/L (3.5-5.1) Chloride Level 103 mmol/L (98-107) Carbon Dioxide Level 26 mmol/L (21-32) Anion Gap 11 (6-14) Blood Urea Nitrogen 22 mg/dL (7-20) Creatinine 2.1 mg/dL (0.6-1.0) Estimated GFR (Cockcroft-Gault) 23.2 Glucose Level 133 mg/dL (70-99) Calcium Level 8.1 mg/dL (8.5-10.1) Thyroid Stimulating Hormone (TSH) 5.468 uIU/mL (0.358-3.74) White Blood Count 7.2 x10^3/uL (4.0-11.0) Red Blood Count 3.88 x10^6/uL (3.50-5.40) Hemoglobin 12.3 g/dL (12.0-15.5) Hematocrit 36.6 % (36.0-47.0) Mean Corpuscular Volume 94 fL (79-100) Mean Corpuscular Hemoglobin 32 pg (25-35) Mean Corpuscular Hemoglobin Concent 34 g/dL (31-37) Red Cell Distribution Width 17.2 % (11.5-14.5) Platelet Count 199 x10^3/uL (140-400) Neutrophils (%) (Auto) 73 % (31-73) Lymphocytes (%) (Auto) 11 % (24-48) Monocytes (%) (Auto) 15 % (0-9) Eosinophils (%) (Auto) 1 % (0-3) Basophils (%) (Auto) 0 % (0-3) Neutrophils # (Auto) 5.2 x10^3uL (1.8-7.7) Lymphocytes # (Auto) 0.8 x10^3/uL (1.0-4.8) Monocytes # (Auto) 1.1 x10^3/uL (0.0-1.1) Eosinophils # (Auto) 0.1 x10^3/uL (0.0-0.7) Basophils # (Auto) 0.0 x10^3/uL (0.0-0.2) Prothrombin Time 23.1 SEC (11.7-14.0) Prothromb Time International Ratio 2.1 (0.8-1.1) Test 12/27/17 08:25 12/27/17 12:08 Glucose (Fingerstick) 110 mg/dL (70-99) 132 mg/dL (70-99) LIAT DE SANTIAGO MD Dec 27, 2017 13:36
[2017-12-27 13:51] LABS: FREE T4 1.43 ng/dL (0.76-1.46)
--- NOTE | 2017-12-27 14:26 | PDOC ---
PROGRESS NOTES Chief Complaint Chief Complaint sob with copd and chf copd exacerbation bronchitis CHF systolic ef 40% likely exacerbation HTN HLD Hypothyroidism ppm rapid AFIB Morbid obesity mild dementia AMS, metabolic encephlopathy with rickey, hypoxic RICKEY, vasomotor plan: fu with card, pulm cont duoneb, levaquin, vanco cardizem drip off, cont satolol, dig, warfarin , INR daily talked to daughter and pt, tiny pleural effusion no need thoracentesis increase lasix to 40mg daily, got lasix 60mg iv last night and today, cr 2.1 today, lasix dced as per renal, and ivf today add cough meds echo done neuro consult, head ct, MRI, EEG hold metformin given rickey PTOT History of Present Illness History of Present Illness ROS: no fever, chills, chest pain on NC 2L, no home o2 cont severe cough, no sputum bl leg severe edema, daughter said it is bad, but pt cannot tell pt said she was on lasix 150mg daily before, current 20mg daily at home 12/27: pt not talking much to me today as before, altho she used to hard finding words to tell me and told her daughter wrong info often cr higher to 2.1, got 2 times lasix iv Vitals Vitals Vital Signs Date Time Temp Pulse Resp B/P (MAP) Pulse Ox O2 Delivery O2 Flow Rate FiO2 12/27/17 12:31 85 124/65 (84) 12/27/17 11:09 Nasal Cannula 2.0 12/27/17 11:00 98.1 22 95 98.1 Physical Exam General: Alert, Cooperative, No acute distress Heart: Regular rate, Other (IRREGULAR) Lungs: Clear Abdomen: Normal bowel sounds, Soft Extremities: No clubbing, No cyanosis Skin: No breakdown Labs LABS Laboratory Tests Test 12/26/17 17:06 12/26/17 20:34 12/27/17 04:10 12/27/17 04:40 Glucose (Fingerstick) 126 mg/dL (70-99) 113 mg/dL (70-99) Sodium Level 140 mmol/L (136-145) Potassium Level 3.9 mmol/L (3.5-5.1) Chloride Level 103 mmol/L (98-107) Carbon Dioxide Level 26 mmol/L (21-32) Anion Gap 11 (6-14) Blood Urea Nitrogen 22 mg/dL (7-20) Creatinine 2.1 mg/dL (0.6-1.0) Estimated GFR (Cockcroft-Gault) 23.2 Glucose Level 133 mg/dL (70-99) Calcium Level 8.1 mg/dL (8.5-10.1) Thyroid Stimulating Hormone (TSH) 5.468 uIU/mL (0.358-3.74) Free Thyroxine 1.43 ng/dL (0.76-1.46) Free Triiodothyronine (T3) pg/mL 0.99 pg/mL (2.18-3.98) White Blood Count 7.2 x10^3/uL (4.0-11.0) Red Blood Count 3.88 x10^6/uL (3.50-5.40) Hemoglobin 12.3 g/dL (12.0-15.5) Hematocrit 36.6 % (36.0-47.0) Mean Corpuscular Volume 94 fL (79-100) Mean Corpuscular Hemoglobin 32 pg (25-35) Mean Corpuscular Hemoglobin Concent 34 g/dL (31-37) Red Cell Distribution Width 17.2 % (11.5-14.5) Platelet Count 199 x10^3/uL (140-400) Neutrophils (%) (Auto) 73 % (31-73) Lymphocytes (%) (Auto) 11 % (24-48) Monocytes (%) (Auto) 15 % (0-9) Eosinophils (%) (Auto) 1 % (0-3) Basophils (%) (Auto) 0 % (0-3) Neutrophils # (Auto) 5.2 x10^3uL (1.8-7.7) Lymphocytes # (Auto) 0.8 x10^3/uL (1.0-4.8) Monocytes # (Auto) 1.1 x10^3/uL (0.0-1.1) Eosinophils # (Auto) 0.1 x10^3/uL (0.0-0.7) Basophils # (Auto) 0.0 x10^3/uL (0.0-0.2) Prothrombin Time 23.1 SEC (11.7-14.0) Prothromb Time International Ratio 2.1 (0.8-1.1) Test 12/27/17 08:25 12/27/17 12:08 Glucose (Fingerstick) 110 mg/dL (70-99) 132 mg/dL (70-99) Assessment and Plan Assessmemt and Plan Problems Medical Problems: (1) Atrial fibrillation with RVR Status: Acute (2) Bandemia Status: Acute (3) Hypoxia Status: Acute (4) Severe sepsis Status: Acute Comment Review of Relevant I have reviewed the following items uyen (where applicable) has been applied. Labs Laboratory Tests Test 12/25/17 17:29 12/25/17 20:21 12/26/17 07:08 12/26/17 07:10 Glucose (Fingerstick) 138 mg/dL (70-99) 128 mg/dL (70-99) White Blood Count 8.6 x10^3/uL (4.0-11.0) Red Blood Count 4.11 x10^6/uL (3.50-5.40) Hemoglobin 13.0 g/dL (12.0-15.5) Hematocrit 38.8 % (36.0-47.0) Mean Corpuscular Volume 95 fL (79-100) Mean Corpuscular Hemoglobin 32 pg (25-35) Mean Corpuscular Hemoglobin Concent 33 g/dL (31-37) Red Cell Distribution Width 16.9 % (11.5-14.5) Platelet Count 249 x10^3/uL (140-400) Neutrophils (%) (Auto) 74 % (31-73) Lymphocytes (%) (Auto) 10 % (24-48) Monocytes (%) (Auto) 15 % (0-9) Eosinophils (%) (Auto) 0 % (0-3) Basophils (%) (Auto) 0 % (0-3) Neutrophils # (Auto) 6.4 x10^3uL (1.8-7.7) Lymphocytes # (Auto) 0.8 x10^3/uL (1.0-4.8) Monocytes # (Auto) 1.3 x10^3/uL (0.0-1.1) Eosinophils # (Auto) 0.0 x10^3/uL (0.0-0.7) Basophils # (Auto) 0.0 x10^3/uL (0.0-0.2) Prothrombin Time 22.3 SEC (11.7-14.0) Prothromb Time International Ratio 2.0 (0.8-1.1) Sodium Level 139 mmol/L (136-145) Potassium Level 3.9 mmol/L (3.5-5.1) Chloride Level 103 mmol/L (98-107) Carbon Dioxide Level 25 mmol/L (21-32) Anion Gap 11 (6-14) Blood Urea Nitrogen 17 mg/dL (7-20) Creatinine 1.6 mg/dL (0.6-1.0) Estimated GFR (Cockcroft-Gault) 31.7 Glucose Level 143 mg/dL (70-99) Calcium Level 8.3 mg/dL (8.5-10.1) Test 12/26/17 07:32 12/26/17 12:20 12/26/17 17:06 12/26/17 20:34 Glucose (Fingerstick) 143 mg/dL (70-99) 159 mg/dL (70-99) 126 mg/dL (70-99) 113 mg/dL (70-99) Test 12/27/17 04:10 12/27/17 04:40 12/27/17 08:25 12/27/17 12:08 Sodium Level 140 mmol/L (136-145) Potassium Level 3.9 mmol/L (3.5-5.1) Chloride Level 103 mmol/L (98-107) Carbon Dioxide Level 26 mmol/L (21-32) Anion Gap 11 (6-14) Blood Urea Nitrogen 22 mg/dL (7-20) Creatinine 2.1 mg/dL (0.6-1.0) Estimated GFR (Cockcroft-Gault) 23.2 Glucose Level 133 mg/dL (70-99) Calcium Level 8.1 mg/dL (8.5-10.1) Thyroid Stimulating Hormone (TSH) 5.468 uIU/mL (0.358-3.74) Free Thyroxine 1.43 ng/dL (0.76-1.46) Free Triiodothyronine (T3) pg/mL 0.99 pg/mL (2.18-3.98) White Blood Count 7.2 x10^3/uL (4.0-11.0) Red Blood Count 3.88 x10^6/uL (3.50-5.40) Hemoglobin 12.3 g/dL (12.0-15.5) Hematocrit 36.6 % (36.0-47.0) Mean Corpuscular Volume 94 fL (79-100) Mean Corpuscular Hemoglobin 32 pg (25-35) Mean Corpuscular Hemoglobin Concent 34 g/dL (31-37) Red Cell Distribution Width 17.2 % (11.5-14.5) Platelet Count 199 x10^3/uL (140-400) Neutrophils (%) (Auto) 73 % (31-73) Lymphocytes (%) (Auto) 11 % (24-48) Monocytes (%) (Auto) 15 % (0-9) Eosinophils (%) (Auto) 1 % (0-3) Basophils (%) (Auto) 0 % (0-3) Neutrophils # (Auto) 5.2 x10^3uL (1.8-7.7) Lymphocytes # (Auto) 0.8 x10^3/uL (1.0-4.8) Monocytes # (Auto) 1.1 x10^3/uL (0.0-1.1) Eosinophils # (Auto) 0.1 x10^3/uL (0.0-0.7) Basophils # (Auto) 0.0 x10^3/uL (0.0-0.2) Prothrombin Time 23.1 SEC (11.7-14.0) Prothromb Time International Ratio 2.1 (0.8-1.1) Glucose (Fingerstick) 110 mg/dL (70-99) 132 mg/dL (70-99) Laboratory Tests Test 12/26/17 17:06 12/26/17 20:34 12/27/17 04:10 12/27/17 04:40 Glucose (Fingerstick) 126 mg/dL (70-99) 113 mg/dL (70-99) Sodium Level 140 mmol/L (136-145) Potassium Level 3.9 mmol/L (3.5-5.1) Chloride Level 103 mmol/L (98-107) Carbon Dioxide Level 26 mmol/L (21-32) Anion Gap 11 (6-14) Blood Urea Nitrogen 22 mg/dL (7-20) Creatinine 2.1 mg/dL (0.6-1.0) Estimated GFR (Cockcroft-Gault) 23.2 Glucose Level 133 mg/dL (70-99) Calcium Level 8.1 mg/dL (8.5-10.1) Thyroid Stimulating Hormone (TSH) 5.468 uIU/mL (0.358-3.74) Free Thyroxine 1.43 ng/dL (0.76-1.46) Free Triiodothyronine (T3) pg/mL 0.99 pg/mL (2.18-3.98) White Blood Count 7.2 x10^3/uL (4.0-11.0) Red Blood Count 3.88 x10^6/uL (3.50-5.40) Hemoglobin 12.3 g/dL (12.0-15.5) Hematocrit 36.6 % (36.0-47.0) Mean Corpuscular Volume 94 fL (79-100) Mean Corpuscular Hemoglobin 32 pg (25-35) Mean Corpuscular Hemoglobin Concent 34 g/dL (31-37) Red Cell Distribution Width 17.2 % (11.5-14.5) Platelet Count 199 x10^3/uL (140-400) Neutrophils (%) (Auto) 73 % (31-73) Lymphocytes (%) (Auto) 11 % (24-48) Monocytes (%) (Auto) 15 % (0-9) Eosinophils (%) (Auto) 1 % (0-3) Basophils (%) (Auto) 0 % (0-3) Neutrophils # (Auto) 5.2 x10^3uL (1.8-7.7) Lymphocytes # (Auto) 0.8 x10^3/uL (1.0-4.8) Monocytes # (Auto) 1.1 x10^3/uL (0.0-1.1) Eosinophils # (Auto) 0.1 x10^3/uL (0.0-0.7) Basophils # (Auto) 0.0 x10^3/uL (0.0-0.2) Prothrombin Time 23.1 SEC (11.7-14.0) Prothromb Time International Ratio 2.1 (0.8-1.1) Test 12/27/17 08:25 12/27/17 12:08 Glucose (Fingerstick) 110 mg/dL (70-99) 132 mg/dL (70-99) Medications Current Medications Diltiazem HCl (Cardizem) 20 mg 1X ONCE IVP Last administered on 12/23/17at 23: 00; Start 12/23/17 at 23:00; Stop 12/23/17 at 23:01; Status DC Aspirin (Adonis Aspirin) 325 mg 1X ONCE PO ; Start 12/23/17 at 23:00; Stop 12/23 at 23:01; Status DC Diltiazem HCl 125 mg/Dextrose 125 ml @ 10 mls/hr 1X ONCE IV Last administered on 12/23/17at 23:11; Start 12/23/17 at 23:00; Stop 12/24/17 at 11:29 ; Status DC Dexamethasone Sodium Phosphate (Decadron) 10 mg 1X ONCE IV Last administered on 12/23/17at 22:57; Start 12/23/17 at 23:00; Stop 12/23/17 at 23:01; Status DC Albuterol/ Ipratropium (Duoneb) 3 ml 1X ONCE NEB ; Start 12/23/17 at 23:00; Stop 12/23/17 at 23:01; Status DC Albuterol/ Ipratropium (Duoneb) 3 ml STAT ONCE NEB ; Start 12/23/17 at 23:00; Stop 12/23/17 at 23:01; Status DC Hyoscyamine (Anaspaz) 0.25 mg 1X ONCE PO ; Start 12/23/17 at 23:45; Stop at 23:46; Status Cancel Sodium Chloride 1,000 ml @ 1,000 mls/hr 1X ONCE IV Last administered on at 01:17; Start 12/23/17 at 23:45; Stop 12/24/17 at 00:44; Status DC Sodium Chloride 1,000 ml @ 1,000 mls/hr 1X ONCE IV Last administered on at 04:29; Start 12/23/17 at 23:45; Stop 12/24/17 at 00:44; Status DC Piperacillin Sod/ Tazobactam Sod 4.5 gm/Sodium Chloride 100 ml @ 200 mls/hr 1X ONCE IV Last administered on 12/24/17at 01:17; Start 12/24/17 at 00:00; Stop 12/24/17 at 00:29; Status DC Levofloxacin/ Dextrose 150 ml @ 100 mls/hr 1X ONCE IV Last administered on at 01:17; Start 12/24/17 at 00:00; Stop 12/24/17 at 01:29; Status DC Vancomycin HCl 2 gm/Sodium Chloride 500 ml @ 250 mls/hr 1X ONCE IV Last administered on 12/24/17at 01:18; Start 12/24/17 at 00:30; Stop 12/24/17 at 02:29 ; Status DC Ondansetron HCl (Zofran) 4 mg PRN Q8HRS PRN IV NAUSEA/VOMITING 1ST CHOICE; Start 12/24/17 at 00:15; Stop 12/25/17 at 00:14; Status DC Fentanyl Citrate (Fentanyl 2ml Vial) 50 mcg PRN Q2HR PRN IV SEVERE PAIN; Start 12/24/17 at 00:15; Stop 12/25/17 at 00:14; Status DC Albuterol Sulfate (Ventolin Neb Soln) 2.5 mg PRN Q4HRS PRN NEB WHEEZING Last administered on 12/25/17at 17:28; Start 12/24/17 at 00:30 Insulin Human Lispro (HumaLOG) 0-5 UNITS TIDWMEALS SQ Last administered on 12/24at 17:46; Start 12/24/17 at 08:00 Dextrose (Dextrose 50%-Water Syringe) 12.5 gm PRN Q15MIN PRN IV SEE COMMENTS; Start 12/24/17 at 00:15 Info (Do NOT chart on this placeholder) 1 each 1X ONCE MC ; Start 12/24/17 at 01:45; Stop 12/24/17 at 01:46; Status UNV Influenza Virus Vaccine (Afluria Trivalent [id number] Syringe) 0.5 ml ONCE ONCE VAX IM Last administered on 12/24/17at 08:51; Start 12/24/17 at 09:00; Stop at 09:01; Status DC Albuterol/ Ipratropium (Duoneb) 3 ml RTQID NEB Last administered on 12/27/17at 11:09; Start 12/24/17 at 12:00 Levofloxacin/ Dextrose 100 ml @ 100 mls/hr Q24H IV ; Start 12/24/17 at 10:30; Status UNV Vancomycin HCl (Vanco Per Pharmacy) 1 each PRN DAILY PRN MC SEE COMMENTS Last administered on 12/25/17at 10:36; Start 12/24/17 at 10:30; Stop 12/25/17 at 17:09 ; Status DC Levofloxacin/ Dextrose 100 ml @ 100 mls/hr Q24H IV Last administered on at 23:31; Start 12/24/17 at 23:00; Stop 12/26/17 at 14:40; Status DC Vancomycin HCl 1.75 gm/Sodium Chloride 500 ml @ 250 mls/hr Q12H IV Last administered on 12/25/17at 13:00; Start 12/24/17 at 13:00; Stop 12/25/17 at 17:08 ; Status DC Vancomycin HCl (Vancomycin Trough Level) 1 each 1X ONCE MC ; Start 12/25/17 at 23:30; Stop 12/25/17 at 23:30; Status DC Lactobacillus Rhamnosus (Culturelle) 1 cap BID PO Last administered on at 09:45; Start 12/24/17 at 21:00 Warfarin Sodium (Coumadin Per Pharmacy) 1 each PRN DAILY PRN MC SEE COMMENTS Last administered on 12/27/17at 09:20; Start 12/24/17 at 14:45 Warfarin Sodium (Coumadin) 2 mg 1X WARF ONCE PO Last administered on at 15:52; Start 12/24/17 at 16:00; Stop 12/24/17 at 16:01; Status DC Digoxin (Lanoxin) 125 mcg DAILY PO Last administered on 12/27/17at 09:45; Start 12/24/17 at 17:30 Sotalol HCl (Betapace) 80 mg BID PO Last administered on 12/27/17at 09:46; Start 12/24/17 at 21:00 Furosemide (Lasix) 20 mg DAILY PO Last administered on 12/25/17at 07:50; Start 12/24/17 at 18:00; Stop 12/25/17 at 08:44; Status DC Potassium Chloride (Klor-Con) 10 meq DAILY PO Last administered on 12/27/17at 09 :46; Start 12/24/17 at 18:00; Stop 12/27/17 at 11:59; Status DC Levothyroxine Sodium (Synthroid) 150 mcg DAILY07 PO Last administered on at 05:55; Start 12/24/17 at 18:00 Metformin HCl (Glucophage) 500 mg BIDWMEALS PO Last administered on 12/27/17at 09:45; Start 12/24/17 at 18:00; Stop 12/27/17 at 10:53; Status DC Simvastatin (Zocor) 40 mg DAILY PO ; Start 12/24/17 at 18:00; Stop 12/24/17 at 18:00; Status DC Simvastatin (Zocor) 40 mg QHS PO Last administered on 12/26/17at 20:57; Start at 21:00 Furosemide (Lasix) 20 mg 1X ONCE PO Last administered on 12/25/17at 12:57; Start 12/25/17 at 09:00; Stop 12/25/17 at 09:01; Status DC Guaifenesin/ Codeine Phosphate (Robitussin Ac) 5 ml PRN Q6HRS PRN PO COUGH Last administered on 12/25/17at 12:54; Start 12/25/17 at 08:45 Benzonatate (Tessalon Perle) 100 mg [id number] PO Last administered on 12/25/17at 12 :54; Start 12/25/17 at 09:00 Furosemide (Lasix) 40 mg DAILY PO ; Start 12/26/17 at 09:00; Stop 12/27/17 at 11 :59; Status DC Warfarin Sodium (Coumadin) 2 mg 1X WARF ONCE PO Last administered on at 16:44; Start 12/25/17 at 16:00; Stop 12/25/17 at 16:01; Status DC Acetaminophen (Tylenol) 650 mg PRN Q6HRS PRN PO FEVER; Start 12/25/17 at 12:15 Ondansetron HCl (Zofran) 4 mg PRN Q6HRS PRN IV NAUSEA/VOMITING; Start 12/25/17 at 12:15 Morphine Sulfate (Morphine Sulfate) 2 mg PRN Q2HR PRN IV MODERATE TO SEVERE PAIN; Start 12/25/17 at 12:15 Tramadol HCl (Ultram) 50 mg PRN Q6HRS PRN PO MILD TO MODERATE PAIN Last administered on 12/26/17at 08:58; Start 12/25/17 at 12:15 Docusate Sodium (Colace) 100 mg PRN DAILY PRN PO HARD STOOLS Last administered on 12/27/17at 09:45; Start 12/25/17 at 12:15 Labetalol HCl (Normodyne Iv Push) 20 mg PRN Q2HR PRN IVP HYPERTENSION, SEE COMMENTS; Start 12/25/17 at 12:15 Furosemide (Lasix) 60 mg 1X ONCE IVP Last administered on 12/25/17at 17:51; Start 12/25/17 at 18:00; Stop 12/25/17 at 18:01; Status DC Furosemide (Lasix) 60 mg 1X ONCE IVP Last administered on 12/26/17at 08:46; Start 12/26/17 at 09:00; Stop 12/26/17 at 09:01; Status DC Warfarin Sodium (Coumadin) 2 mg 1X ONCE PO ; Start 12/26/17 at 14:45; Stop at 14:46; Status Cancel Warfarin Sodium (Coumadin) 2 mg 1X WARF ONCE PO Last administered on at 17:29; Start 12/26/17 at 16:00; Stop 12/26/17 at 16:01; Status DC Levofloxacin/ Dextrose 50 ml @ 50 mls/hr Q24H IV Last administered on at 22:47; Start 12/26/17 at 23:00; Stop 12/27/17 at 09:12; Status DC Levofloxacin (Levaquin) 250 mg QHS PO ; Start 12/27/17 at 21:00 Warfarin Sodium (Coumadin) 2 mg 1X WARF ONCE PO ; Start 12/27/17 at 16:00; Stop 12/27/17 at 16:01 Sodium Chloride 1,000 ml @ 75 mls/hr [id number] IV ; Start 12/27/17 at 12:00 Active Scripts Active Digoxin 125 Mcg Tablet 125 Mcg PO DAILY Reported Proair Hfa Inhaler (Albuterol Sulfate) 8.5 Gm Hfa.aer.ad 1 Puff INH PRN Q6HRS PRN Sotalol (Sotalol Hcl) 80 Mg Tablet 1 Tab PO BID Tessalon Perle (Benzonatate) 100 Mg Capsule 2 Cap PO TID PRN Warfarin Sodium 2 Mg Tablet 1 Tab PO DAILY Lisinopril 10 Mg Tablet 1 Tab PO DAILY Levothyroxine Sodium 125 Mcg Tablet 150 Mcg PO DAILY Simvastatin 40 Mg Tablet 40 Mg PO DAILY Metformin Hcl 500 Mg Tablet 500 Mg PO BIDWMEALS Furosemide 20 Mg Tablet 1 Tab PO DAILY Potassium Chloride 10 Meq Tab.sr.24h 10 Meq PO DAILY Vitals/I & O Vital Sign - Last 24 Hours 12/26/17 12/26/17 12/26/17 12/26/17 15:11 15:13 19:29 19:35 Temp 97.5 97.4 97.5 97.4 Pulse 97 78 Resp 18 18 B/P (MAP) 111/66 (81) 113/62 (79) Pulse Ox 97 98 97 O2 Delivery Nasal Cannula Nasal Cannula Nasal Cannula Nasal Cannula O2 Flow Rate 2.0 1.0 2.0 2.0 12/26/17 12/26/17 12/26/17 12/27/17 20:30 20:57 22:34 03:28 Temp 97.6 98.0 97.6 98.0 Pulse 78 90 111 Resp 18 B/P (MAP) 113/62 123/64 (83) 133/69 (90) Pulse Ox 97 97 O2 Delivery Nasal Cannula Nasal Cannula Nasal Cannula O2 Flow Rate 2.0 2.0 2.0 12/27/17 12/27/17 12/27/17 12/27/17 07:00 07:38 09:45 09:46 Temp 97.7 97.7 Pulse 86 86 94 Resp 24 B/P (MAP) 110/57 (74) Pulse Ox 96 97 O2 Delivery Room Air Nasal Cannula O2 Flow Rate 2.0 12/27/17 12/27/17 12/27/17 11:00 11:09 12:31 Temp 98.1 98.1 Pulse 73 85 Resp 22 B/P (MAP) 120/54 (76) 124/65 (84) Pulse Ox 95 O2 Delivery Nasal Cannula Nasal Cannula O2 Flow Rate 2.0 2.0 Intake and Output 12/26/17 12/26/17 12/27/17 15:00 23:00 07:00 Intake Total 0 ml 240 ml 350 ml Output Total 550 ml 325 ml 150 ml Balance -550 ml -85 ml 200 ml NBA ROSENBAUM MD Dec 27, 2017 14:26
--- NOTE | 2017-12-27 15:05 | PDOC ---
PROGRESS NOTES Subjective Subjective Patient was confused earlier and had an episode for a few minutes of unresponsiveness. Her rhythm shows atrial fibrillation and intermittent pacing. A CT of the head was attempted but has been rescheduled for later on today. Objective Objective Vital Signs Date Time Temp Pulse Resp B/P (MAP) Pulse Ox O2 Delivery O2 Flow Rate FiO2 12/27/17 12:31 85 124/65 (84) 12/27/17 11:09 Nasal Cannula 2.0 12/27/17 11:00 98.1 22 95 98.1 Intake and Output 12/27/17 07:00 Intake Total 590 ml Output Total 1025 ml Balance -435 ml Intake Oral 540 ml IV Total 50 ml Output Urine Total 1025 ml # Voids 4 Physical Exam Physical Exam Some coarse crackles present. No wheezing now. Heart irregular, no changes in sounds. Extremities no changes in edema Assessment Assessment The patient had some mental status changes earlier and a short period of unresponsiveness. In addition to this she is in atrial fibrillation with intermittent pacing. The pacemaker is working appropriately. This pacemaker is a Biotronik and it is not MRI compatible. I agree with the neuro workup. I think that this patient is having problems secondary to Alzheimer's or some form of progressive dementia. Reading to see the opinion of the neurologist in this aspect. Comment Review of Relevant I have reviewed the following items uyen (where applicable) has been applied. Labs Laboratory Tests Test 12/25/17 17:29 12/25/17 20:21 12/26/17 07:08 12/26/17 07:10 Glucose (Fingerstick) 138 mg/dL (70-99) 128 mg/dL (70-99) White Blood Count 8.6 x10^3/uL (4.0-11.0) Red Blood Count 4.11 x10^6/uL (3.50-5.40) Hemoglobin 13.0 g/dL (12.0-15.5) Hematocrit 38.8 % (36.0-47.0) Mean Corpuscular Volume 95 fL (79-100) Mean Corpuscular Hemoglobin 32 pg (25-35) Mean Corpuscular Hemoglobin Concent 33 g/dL (31-37) Red Cell Distribution Width 16.9 % (11.5-14.5) Platelet Count 249 x10^3/uL (140-400) Neutrophils (%) (Auto) 74 % (31-73) Lymphocytes (%) (Auto) 10 % (24-48) Monocytes (%) (Auto) 15 % (0-9) Eosinophils (%) (Auto) 0 % (0-3) Basophils (%) (Auto) 0 % (0-3) Neutrophils # (Auto) 6.4 x10^3uL (1.8-7.7) Lymphocytes # (Auto) 0.8 x10^3/uL (1.0-4.8) Monocytes # (Auto) 1.3 x10^3/uL (0.0-1.1) Eosinophils # (Auto) 0.0 x10^3/uL (0.0-0.7) Basophils # (Auto) 0.0 x10^3/uL (0.0-0.2) Prothrombin Time 22.3 SEC (11.7-14.0) Prothromb Time International Ratio 2.0 (0.8-1.1) Sodium Level 139 mmol/L (136-145) Potassium Level 3.9 mmol/L (3.5-5.1) Chloride Level 103 mmol/L (98-107) Carbon Dioxide Level 25 mmol/L (21-32) Anion Gap 11 (6-14) Blood Urea Nitrogen 17 mg/dL (7-20) Creatinine 1.6 mg/dL (0.6-1.0) Estimated GFR (Cockcroft-Gault) 31.7 Glucose Level 143 mg/dL (70-99) Calcium Level 8.3 mg/dL (8.5-10.1) Test 12/26/17 07:32 12/26/17 12:20 12/26/17 17:06 12/26/17 20:34 Glucose (Fingerstick) 143 mg/dL (70-99) 159 mg/dL (70-99) 126 mg/dL (70-99) 113 mg/dL (70-99) Test 12/27/17 04:10 12/27/17 04:40 12/27/17 08:25 12/27/17 12:08 Sodium Level 140 mmol/L (136-145) Potassium Level 3.9 mmol/L (3.5-5.1) Chloride Level 103 mmol/L (98-107) Carbon Dioxide Level 26 mmol/L (21-32) Anion Gap 11 (6-14) Blood Urea Nitrogen 22 mg/dL (7-20) Creatinine 2.1 mg/dL (0.6-1.0) Estimated GFR (Cockcroft-Gault) 23.2 Glucose Level 133 mg/dL (70-99) Calcium Level 8.1 mg/dL (8.5-10.1) Thyroid Stimulating Hormone (TSH) 5.468 uIU/mL (0.358-3.74) Free Thyroxine 1.43 ng/dL (0.76-1.46) Free Triiodothyronine (T3) pg/mL 0.99 pg/mL (2.18-3.98) White Blood Count 7.2 x10^3/uL (4.0-11.0) Red Blood Count 3.88 x10^6/uL (3.50-5.40) Hemoglobin 12.3 g/dL (12.0-15.5) Hematocrit 36.6 % (36.0-47.0) Mean Corpuscular Volume 94 fL (79-100) Mean Corpuscular Hemoglobin 32 pg (25-35) Mean Corpuscular Hemoglobin Concent 34 g/dL (31-37) Red Cell Distribution Width 17.2 % (11.5-14.5) Platelet Count 199 x10^3/uL (140-400) Neutrophils (%) (Auto) 73 % (31-73) Lymphocytes (%) (Auto) 11 % (24-48) Monocytes (%) (Auto) 15 % (0-9) Eosinophils (%) (Auto) 1 % (0-3) Basophils (%) (Auto) 0 % (0-3) Neutrophils # (Auto) 5.2 x10^3uL (1.8-7.7) Lymphocytes # (Auto) 0.8 x10^3/uL (1.0-4.8) Monocytes # (Auto) 1.1 x10^3/uL (0.0-1.1) Eosinophils # (Auto) 0.1 x10^3/uL (0.0-0.7) Basophils # (Auto) 0.0 x10^3/uL (0.0-0.2) Prothrombin Time 23.1 SEC (11.7-14.0) Prothromb Time International Ratio 2.1 (0.8-1.1) Glucose (Fingerstick) 110 mg/dL (70-99) 132 mg/dL (70-99) Laboratory Tests Test 12/26/17 17:06 12/26/17 20:34 12/27/17 04:10 12/27/17 04:40 Glucose (Fingerstick) 126 mg/dL (70-99) 113 mg/dL (70-99) Sodium Level 140 mmol/L (136-145) Potassium Level 3.9 mmol/L (3.5-5.1) Chloride Level 103 mmol/L (98-107) Carbon Dioxide Level 26 mmol/L (21-32) Anion Gap 11 (6-14) Blood Urea Nitrogen 22 mg/dL (7-20) Creatinine 2.1 mg/dL (0.6-1.0) Estimated GFR (Cockcroft-Gault) 23.2 Glucose Level 133 mg/dL (70-99) Calcium Level 8.1 mg/dL (8.5-10.1) Thyroid Stimulating Hormone (TSH) 5.468 uIU/mL (0.358-3.74) Free Thyroxine 1.43 ng/dL (0.76-1.46) Free Triiodothyronine (T3) pg/mL 0.99 pg/mL (2.18-3.98) White Blood Count 7.2 x10^3/uL (4.0-11.0) Red Blood Count 3.88 x10^6/uL (3.50-5.40) Hemoglobin 12.3 g/dL (12.0-15.5) Hematocrit 36.6 % (36.0-47.0) Mean Corpuscular Volume 94 fL (79-100) Mean Corpuscular Hemoglobin 32 pg (25-35) Mean Corpuscular Hemoglobin Concent 34 g/dL (31-37) Red Cell Distribution Width 17.2 % (11.5-14.5) Platelet Count 199 x10^3/uL (140-400) Neutrophils (%) (Auto) 73 % (31-73) Lymphocytes (%) (Auto) 11 % (24-48) Monocytes (%) (Auto) 15 % (0-9) Eosinophils (%) (Auto) 1 % (0-3) Basophils (%) (Auto) 0 % (0-3) Neutrophils # (Auto) 5.2 x10^3uL (1.8-7.7) Lymphocytes # (Auto) 0.8 x10^3/uL (1.0-4.8) Monocytes # (Auto) 1.1 x10^3/uL (0.0-1.1) Eosinophils # (Auto) 0.1 x10^3/uL (0.0-0.7) Basophils # (Auto) 0.0 x10^3/uL (0.0-0.2) Prothrombin Time 23.1 SEC (11.7-14.0) Prothromb Time International Ratio 2.1 (0.8-1.1) Test 12/27/17 08:25 12/27/17 12:08 Glucose (Fingerstick) 110 mg/dL (70-99) 132 mg/dL (70-99) Medications Current Medications Diltiazem HCl (Cardizem) 20 mg 1X ONCE IVP Last administered on 12/23/17at 23: 00; Start 12/23/17 at 23:00; Stop 12/23/17 at 23:01; Status DC Aspirin (Adonis Aspirin) 325 mg 1X ONCE PO ; Start 12/23/17 at 23:00; Stop 12/23 at 23:01; Status DC Diltiazem HCl 125 mg/Dextrose 125 ml @ 10 mls/hr 1X ONCE IV Last administered on 12/23/17at 23:11; Start 12/23/17 at 23:00; Stop 12/24/17 at 11:29 ; Status DC Dexamethasone Sodium Phosphate (Decadron) 10 mg 1X ONCE IV Last administered on 12/23/17at 22:57; Start 12/23/17 at 23:00; Stop 12/23/17 at 23:01; Status DC Albuterol/ Ipratropium (Duoneb) 3 ml 1X ONCE NEB ; Start 12/23/17 at 23:00; Stop 12/23/17 at 23:01; Status DC Albuterol/ Ipratropium (Duoneb) 3 ml STAT ONCE NEB ; Start 12/23/17 at 23:00; Stop 12/23/17 at 23:01; Status DC Hyoscyamine (Anaspaz) 0.25 mg 1X ONCE PO ; Start 12/23/17 at 23:45; Stop at 23:46; Status Cancel Sodium Chloride 1,000 ml @ 1,000 mls/hr 1X ONCE IV Last administered on at 01:17; Start 12/23/17 at 23:45; Stop 12/24/17 at 00:44; Status DC Sodium Chloride 1,000 ml @ 1,000 mls/hr 1X ONCE IV Last administered on at 04:29; Start 12/23/17 at 23:45; Stop 12/24/17 at 00:44; Status DC Piperacillin Sod/ Tazobactam Sod 4.5 gm/Sodium Chloride 100 ml @ 200 mls/hr 1X ONCE IV Last administered on 12/24/17at 01:17; Start 12/24/17 at 00:00; Stop 12/24/17 at 00:29; Status DC Levofloxacin/ Dextrose 150 ml @ 100 mls/hr 1X ONCE IV Last administered on at 01:17; Start 12/24/17 at 00:00; Stop 12/24/17 at 01:29; Status DC Vancomycin HCl 2 gm/Sodium Chloride 500 ml @ 250 mls/hr 1X ONCE IV Last administered on 12/24/17at 01:18; Start 12/24/17 at 00:30; Stop 12/24/17 at 02:29 ; Status DC Ondansetron HCl (Zofran) 4 mg PRN Q8HRS PRN IV NAUSEA/VOMITING 1ST CHOICE; Start 12/24/17 at 00:15; Stop 12/25/17 at 00:14; Status DC Fentanyl Citrate (Fentanyl 2ml Vial) 50 mcg PRN Q2HR PRN IV SEVERE PAIN; Start 12/24/17 at 00:15; Stop 12/25/17 at 00:14; Status DC Albuterol Sulfate (Ventolin Neb Soln) 2.5 mg PRN Q4HRS PRN NEB WHEEZING Last administered on 12/25/17at 17:28; Start 12/24/17 at 00:30 Insulin Human Lispro (HumaLOG) 0-5 UNITS TIDWMEALS SQ Last administered on 12/24at 17:46; Start 12/24/17 at 08:00 Dextrose (Dextrose 50%-Water Syringe) 12.5 gm PRN Q15MIN PRN IV SEE COMMENTS; Start 12/24/17 at 00:15 Info (Do NOT chart on this placeholder) 1 each 1X ONCE MC ; Start 12/24/17 at 01:45; Stop 12/24/17 at 01:46; Status UNV Influenza Virus Vaccine (Afluria Trivalent [id number] Syringe) 0.5 ml ONCE ONCE VAX IM Last administered on 12/24/17at 08:51; Start 12/24/17 at 09:00; Stop at 09:01; Status DC Albuterol/ Ipratropium (Duoneb) 3 ml RTQID NEB Last administered on 12/27/17at 11:09; Start 12/24/17 at 12:00 Levofloxacin/ Dextrose 100 ml @ 100 mls/hr Q24H IV ; Start 12/24/17 at 10:30; Status UNV Vancomycin HCl (Vanco Per Pharmacy) 1 each PRN DAILY PRN MC SEE COMMENTS Last administered on 12/25/17at 10:36; Start 12/24/17 at 10:30; Stop 12/25/17 at 17:09 ; Status DC Levofloxacin/ Dextrose 100 ml @ 100 mls/hr Q24H IV Last administered on at 23:31; Start 12/24/17 at 23:00; Stop 12/26/17 at 14:40; Status DC Vancomycin HCl 1.75 gm/Sodium Chloride 500 ml @ 250 mls/hr Q12H IV Last administered on 12/25/17at 13:00; Start 12/24/17 at 13:00; Stop 12/25/17 at 17:08 ; Status DC Vancomycin HCl (Vancomycin Trough Level) 1 each 1X ONCE MC ; Start 12/25/17 at 23:30; Stop 12/25/17 at 23:30; Status DC Lactobacillus Rhamnosus (Culturelle) 1 cap BID PO Last administered on at 09:45; Start 12/24/17 at 21:00 Warfarin Sodium (Coumadin Per Pharmacy) 1 each PRN DAILY PRN MC SEE COMMENTS Last administered on 12/27/17at 09:20; Start 12/24/17 at 14:45 Warfarin Sodium (Coumadin) 2 mg 1X WARF ONCE PO Last administered on at 15:52; Start 12/24/17 at 16:00; Stop 12/24/17 at 16:01; Status DC Digoxin (Lanoxin) 125 mcg DAILY PO Last administered on 12/27/17at 09:45; Start 12/24/17 at 17:30 Sotalol HCl (Betapace) 80 mg BID PO Last administered on 12/27/17at 09:46; Start 12/24/17 at 21:00 Furosemide (Lasix) 20 mg DAILY PO Last administered on 12/25/17at 07:50; Start 12/24/17 at 18:00; Stop 12/25/17 at 08:44; Status DC Potassium Chloride (Klor-Con) 10 meq DAILY PO Last administered on 12/27/17at 09 :46; Start 12/24/17 at 18:00; Stop 12/27/17 at 11:59; Status DC Levothyroxine Sodium (Synthroid) 150 mcg DAILY07 PO Last administered on at 05:55; Start 12/24/17 at 18:00 Metformin HCl (Glucophage) 500 mg BIDWMEALS PO Last administered on 12/27/17at 09:45; Start 12/24/17 at 18:00; Stop 12/27/17 at 10:53; Status DC Simvastatin (Zocor) 40 mg DAILY PO ; Start 12/24/17 at 18:00; Stop 12/24/17 at 18:00; Status DC Simvastatin (Zocor) 40 mg QHS PO Last administered on 12/26/17at 20:57; Start at 21:00 Furosemide (Lasix) 20 mg 1X ONCE PO Last administered on 12/25/17at 12:57; Start 12/25/17 at 09:00; Stop 12/25/17 at 09:01; Status DC Guaifenesin/ Codeine Phosphate (Robitussin Ac) 5 ml PRN Q6HRS PRN PO COUGH Last administered on 12/25/17at 12:54; Start 12/25/17 at 08:45 Benzonatate (Tessalon Perle) 100 mg [id number] PO Last administered on 12/25/17at 12 :54; Start 12/25/17 at 09:00 Furosemide (Lasix) 40 mg DAILY PO ; Start 12/26/17 at 09:00; Stop 12/27/17 at 11 :59; Status DC Warfarin Sodium (Coumadin) 2 mg 1X WARF ONCE PO Last administered on at 16:44; Start 12/25/17 at 16:00; Stop 12/25/17 at 16:01; Status DC Acetaminophen (Tylenol) 650 mg PRN Q6HRS PRN PO FEVER; Start 12/25/17 at 12:15 Ondansetron HCl (Zofran) 4 mg PRN Q6HRS PRN IV NAUSEA/VOMITING; Start 12/25/17 at 12:15 Morphine Sulfate (Morphine Sulfate) 2 mg PRN Q2HR PRN IV MODERATE TO SEVERE PAIN; Start 12/25/17 at 12:15 Tramadol HCl (Ultram) 50 mg PRN Q6HRS PRN PO MILD TO MODERATE PAIN Last administered on 12/26/17at 08:58; Start 12/25/17 at 12:15 Docusate Sodium (Colace) 100 mg PRN DAILY PRN PO HARD STOOLS Last administered on 12/27/17at 09:45; Start 12/25/17 at 12:15 Labetalol HCl (Normodyne Iv Push) 20 mg PRN Q2HR PRN IVP HYPERTENSION, SEE COMMENTS; Start 12/25/17 at 12:15 Furosemide (Lasix) 60 mg 1X ONCE IVP Last administered on 12/25/17at 17:51; Start 12/25/17 at 18:00; Stop 12/25/17 at 18:01; Status DC Furosemide (Lasix) 60 mg 1X ONCE IVP Last administered on 12/26/17at 08:46; Start 12/26/17 at 09:00; Stop 12/26/17 at 09:01; Status DC Warfarin Sodium (Coumadin) 2 mg 1X ONCE PO ; Start 12/26/17 at 14:45; Stop at 14:46; Status Cancel Warfarin Sodium (Coumadin) 2 mg 1X WARF ONCE PO Last administered on at 17:29; Start 12/26/17 at 16:00; Stop 12/26/17 at 16:01; Status DC Levofloxacin/ Dextrose 50 ml @ 50 mls/hr Q24H IV Last administered on at 22:47; Start 12/26/17 at 23:00; Stop 9/20/18 at 09:12; Status DC Levofloxacin (Levaquin) 250 mg QHS PO ; Start 12/27/17 at 21:00 Warfarin Sodium (Coumadin) 2 mg 1X WARF ONCE PO ; Start 12/27/17 at 16:00; Stop 12/27/17 at 16:01 Sodium Chloride 1,000 ml @ 75 mls/hr [id number] IV ; Start 12/27/17 at 12:00 Active Scripts Active Digoxin 125 Mcg Tablet 125 Mcg PO DAILY Reported Proair Hfa Inhaler (Albuterol Sulfate) 8.5 Gm Hfa.aer.ad 1 Puff INH PRN Q6HRS PRN Sotalol (Sotalol Hcl) 80 Mg Tablet 1 Tab PO BID Tessalon Perle (Benzonatate) 100 Mg Capsule 2 Cap PO TID PRN Warfarin Sodium 2 Mg Tablet 1 Tab PO DAILY Lisinopril 10 Mg Tablet 1 Tab PO DAILY Levothyroxine Sodium 125 Mcg Tablet 150 Mcg PO DAILY Simvastatin 40 Mg Tablet 40 Mg PO DAILY Metformin Hcl 500 Mg Tablet 500 Mg PO BIDWMEALS Furosemide 20 Mg Tablet 1 Tab PO DAILY Potassium Chloride 10 Meq Tab.sr.24h 10 Meq PO DAILY Vitals/I & O Vital Sign - Last 24 Hours 12/26/17 12/26/17 12/26/17 12/26/17 15:11 15:13 19:29 19:35 Temp 97.5 97.4 97.5 97.4 Pulse 97 78 Resp 18 18 B/P (MAP) 111/66 (81) 113/62 (79) Pulse Ox 97 98 97 O2 Delivery Nasal Cannula Nasal Cannula Nasal Cannula Nasal Cannula O2 Flow Rate 2.0 1.0 2.0 2.0 12/26/17 12/26/17 12/26/17 12/27/17 20:30 20:57 22:34 03:28 Temp 97.6 98.0 97.6 98.0 Pulse 78 90 111 Resp 18 B/P (MAP) 113/62 123/64 (83) 133/69 (90) Pulse Ox 97 97 O2 Delivery Nasal Cannula Nasal Cannula Nasal Cannula O2 Flow Rate 2.0 2.0 2.0 12/27/17 12/27/17 12/27/17 12/27/17 07:00 07:38 09:45 09:46 Temp 97.7 97.7 Pulse 86 86 94 Resp 24 B/P (MAP) 110/57 (74) Pulse Ox 96 97 O2 Delivery Room Air Nasal Cannula O2 Flow Rate 2.0 12/27/17 12/27/17 12/27/17 11:00 11:09 12:31 Temp 98.1 98.1 Pulse 73 85 Resp 22 B/P (MAP) 120/54 (76) 124/65 (84) Pulse Ox 95 O2 Delivery Nasal Cannula Nasal Cannula O2 Flow Rate 2.0 2.0 Intake and Output 12/26/17 12/26/17 12/27/17 15:00 23:00 07:00 Intake Total 0 ml 240 ml 350 ml Output Total 550 ml 325 ml 150 ml Balance -550 ml -85 ml 200 ml MARTI SAUER MD Dec 27, 2017 15:05
[2017-12-27] MEDS: IV NORMAL SALINE 1000ML BAG 1,000 ML IV SCH (15:37)
[2017-12-27] MEDS ORDERED: WARFARIN 2 MG TABLET. PO ONE (16:00)
[2017-12-27] MEDS: SIMVASTATIN 40 MG TABLET. PO SCH (20:52)
[2017-12-27] MEDS: traMADol 50 MG TABLET PO PRN (21:22)
[2017-12-28 03:47] VITALS: BP 116/66
[2017-12-28] MEDS: traMADol 50 MG TABLET PO PRN ×2 (04:07→20:48)
[2017-12-28 05:22] LABS: CALCIUM 7.9 mg/dL (8.5-10.1); CREATININE 2.3 mg/dL (0.6-1.0); GFR 20.8; POTASSIUM 4.1 mmol/L (3.5-5.1)
[2017-12-28 05:27] LABS: PROTHROMBIN TIME PATIENT 24.4 SEC (11.7-14.0)
[2017-12-28 05:45] LABS: CHOLESTEROL/HDL RATIO 2.8
[2017-12-28] MEDS: LEVOTHYROXINE 150 MCG TABLET PO SCH (06:24)
[2017-12-28] MEDS: IPRATRPIUM/ALBUTEROL 0.5/2.5MG 3 ML NEBU. NEB SCH ×4 (07:22→20:06)
[2017-12-28] MEDS: INSULIN LISPRO 300 UNITS/3 ML INSULN.PEN. SQ SCH ×3 (08:00→17:00)
[2017-12-28] MEDS: LACTOBACILLUS RHAMNOSUS GG 1 CAPSULE. PO SCH ×2 (08:01→20:41)
[2017-12-28] MEDS: BENZONATATE 100 MG CAPSULE. PO SCH ×3 (08:01→20:41)
[2017-12-28] MEDS: SOTALOL 80 MG TABLET. PO SCH ×2 (08:02→20:41)
[2017-12-28] MEDS: DIGOXIN 125 MCG TABLET. PO SCH (08:03)
[2017-12-28] MEDS: IV NORMAL SALINE 1000ML BAG 1,000 ML IV SCH ×2 (10:06→17:35)
[2017-12-28 11:00] VITALS: BP 109/71
--- NOTE | 2017-12-28 13:11 | PDOC ---
PULMONARY PROGRESS NOTES Subjective no soa, weak. does not want to go to skill Vitals Vital Signs Date Time Temp Pulse Resp B/P (MAP) Pulse Ox O2 Delivery O2 Flow Rate FiO2 12/28/17 11:22 97 Nasal Cannula 2.0 12/28/17 11:00 98.0 81 20 109/71 (84) 98.0 General: Alert, No acute distress Lungs: Clear Cardiovascular: S1, S2 Abdomen: Soft, Other (obese) Neuro Exam: Alert Extremities: Other (2+edema) Labs Laboratory Tests Test 12/26/17 17:06 12/26/17 20:34 12/27/17 04:10 12/27/17 04:40 Glucose (Fingerstick) 126 mg/dL (70-99) 113 mg/dL (70-99) Sodium Level 140 mmol/L (136-145) Potassium Level 3.9 mmol/L (3.5-5.1) Chloride Level 103 mmol/L (98-107) Carbon Dioxide Level 26 mmol/L (21-32) Anion Gap 11 (6-14) Blood Urea Nitrogen 22 mg/dL (7-20) Creatinine 2.1 mg/dL (0.6-1.0) Estimated GFR (Cockcroft-Gault) 23.2 Glucose Level 133 mg/dL (70-99) Calcium Level 8.1 mg/dL (8.5-10.1) Thyroid Stimulating Hormone (TSH) 5.468 uIU/mL (0.358-3.74) Free Thyroxine 1.43 ng/dL (0.76-1.46) Free Triiodothyronine (T3) pg/mL 0.99 pg/mL (2.18-3.98) White Blood Count 7.2 x10^3/uL (4.0-11.0) Red Blood Count 3.88 x10^6/uL (3.50-5.40) Hemoglobin 12.3 g/dL (12.0-15.5) Hematocrit 36.6 % (36.0-47.0) Mean Corpuscular Volume 94 fL (79-100) Mean Corpuscular Hemoglobin 32 pg (25-35) Mean Corpuscular Hemoglobin Concent 34 g/dL (31-37) Red Cell Distribution Width 17.2 % (11.5-14.5) Platelet Count 199 x10^3/uL (140-400) Neutrophils (%) (Auto) 73 % (31-73) Lymphocytes (%) (Auto) 11 % (24-48) Monocytes (%) (Auto) 15 % (0-9) Eosinophils (%) (Auto) 1 % (0-3) Basophils (%) (Auto) 0 % (0-3) Neutrophils # (Auto) 5.2 x10^3uL (1.8-7.7) Lymphocytes # (Auto) 0.8 x10^3/uL (1.0-4.8) Monocytes # (Auto) 1.1 x10^3/uL (0.0-1.1) Eosinophils # (Auto) 0.1 x10^3/uL (0.0-0.7) Basophils # (Auto) 0.0 x10^3/uL (0.0-0.2) Prothrombin Time 23.1 SEC (11.7-14.0) Prothromb Time International Ratio 2.1 (0.8-1.1) Test 12/27/17 08:25 12/27/17 12:08 12/27/17 17:14 12/27/17 20:53 Glucose (Fingerstick) 110 mg/dL (70-99) 132 mg/dL (70-99) 111 mg/dL (70-99) 151 mg/dL (70-99) Test 12/28/17 04:00 12/28/17 07:58 12/28/17 11:45 Prothrombin Time 24.4 SEC (11.7-14.0) Prothromb Time International Ratio 2.3 (0.8-1.1) Sodium Level 138 mmol/L (136-145) Potassium Level 4.1 mmol/L (3.5-5.1) Chloride Level 104 mmol/L (98-107) Carbon Dioxide Level 25 mmol/L (21-32) Anion Gap 9 (6-14) Blood Urea Nitrogen 25 mg/dL (7-20) Creatinine 2.3 mg/dL (0.6-1.0) Estimated GFR (Cockcroft-Gault) 20.8 Glucose Level 119 mg/dL (70-99) Calcium Level 7.9 mg/dL (8.5-10.1) Triglycerides Level 105 mg/dL (0-150) Cholesterol Level 74 mg/dL (0-200) LDL Cholesterol, Calculated 27 mg/dL (0-100) VLDL Cholesterol, Calculated 21 mg/dL (0-40) Non-HDL Cholesterol Calculated 48 mg/dL (0-129) HDL Cholesterol 26 mg/dL (40-60) Cholesterol/HDL Ratio 2.8 Glucose (Fingerstick) 120 mg/dL (70-99) 148 mg/dL (70-99) Laboratory Tests Test 12/27/17 17:14 12/27/17 20:53 12/28/17 04:00 12/28/17 07:58 Glucose (Fingerstick) 111 mg/dL (70-99) 151 mg/dL (70-99) 120 mg/dL (70-99) Prothrombin Time 24.4 SEC (11.7-14.0) Prothromb Time International Ratio 2.3 (0.8-1.1) Sodium Level 138 mmol/L (136-145) Potassium Level 4.1 mmol/L (3.5-5.1) Chloride Level 104 mmol/L (98-107) Carbon Dioxide Level 25 mmol/L (21-32) Anion Gap 9 (6-14) Blood Urea Nitrogen 25 mg/dL (7-20) Creatinine 2.3 mg/dL (0.6-1.0) Estimated GFR (Cockcroft-Gault) 20.8 Glucose Level 119 mg/dL (70-99) Calcium Level 7.9 mg/dL (8.5-10.1) Triglycerides Level 105 mg/dL (0-150) Cholesterol Level 74 mg/dL (0-200) LDL Cholesterol, Calculated 27 mg/dL (0-100) VLDL Cholesterol, Calculated 21 mg/dL (0-40) Non-HDL Cholesterol Calculated 48 mg/dL (0-129) HDL Cholesterol 26 mg/dL (40-60) Cholesterol/HDL Ratio 2.8 Test 12/28/17 11:45 Glucose (Fingerstick) 148 mg/dL (70-99) Medications Active Scripts Medications Dose Route/Sig Max Daily Dose Days Date Category Proair Hfa Inhaler (Albuterol Sulfate) 8.5 Gm Hfa.aer.ad 1 Puff INH PRN Q6HRS PRN 12/24/17 Reported Sotalol (Sotalol Hcl) 80 Mg Tablet 1 Tab PO BID 12/24/17 Reported Tessalon Perle (Benzonatate) 100 Mg Capsule 2 Cap PO TID PRN 12/24/17 Reported Digoxin 125 Mcg Tablet 125 Mcg PO DAILY 09/26/17 Rx Warfarin Sodium 2 Mg Tablet 1 Tab PO DAILY 09/23/17 Reported Lisinopril 10 Mg Tablet 1 Tab PO DAILY 09/23/17 Reported Levothyroxine Sodium 125 Mcg Tablet 150 Mcg PO DAILY 09/23/17 Reported Simvastatin 40 Mg Tablet 40 Mg PO DAILY 09/23/17 Reported Metformin Hcl 500 Mg Tablet 500 Mg PO BIDWMEALS 09/23/17 Reported Furosemide 20 Mg Tablet 1 Tab PO DAILY 09/23/17 Reported Potassium Chloride 10 Meq Tab.sr.24h 10 Meq PO DAILY 09/23/17 Reported Impression . 1. Acute hypoxic respiratory failure secondary to multifactorial etiologies including a combination of right and left heart failure and possible lower respiratory tract infection. In addition, underlying chronic obstructive pulmonary disease with exacerbation. 2. Chronic atrial fibrillation, on chronic anticoagulation with mild increased ventricular response. improved. 3. 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 She no longer smokes cigarettes. 4. Morbid obesity and suspect obesity hypoventilation syndrome. Needs to rule out for obstructive sleep apnea by sleep study as an outpatient. Plan . 1. Continue with present oxygen via nasal cannula. 2. Noncontrast CT chest reviewed. mild basal atelectasis/ tiny effusions 3. echocardiogram reviewed 4. Continue empiric antibiotics for now . change to PO 5. Diuresis. 6. off Cardizem per Cardiology. 7. Follow Cardiology recommendation. 8. Bronchodilators. 9. Weight loss is advised. 10. Sleep study as an outpatient. 11. Discussed with the patient / she wants to go home 6 min walk before dc CARLOS BLANCO MD Dec 28, 2017 13:11
--- NOTE | 2017-12-28 13:30 | PDOC ---
Renal-Progress Notes Subjective Notes Notes NO COMPLAINTS. NO SOB History of Present Illness Hx of present illness CONFUSION, NEURO EVAL Vitals Vitals Vital Signs Date Time Temp Pulse Resp B/P (MAP) Pulse Ox O2 Delivery O2 Flow Rate FiO2 12/28/17 11:22 97 Nasal Cannula 2.0 12/28/17 11:00 98.0 81 20 109/71 (84) 98.0 Weight Weight [ ] I.O. Intake and Output Intake and Output 12/28/17 07:00 Intake Total 550 ml Output Total 800 ml Balance -250 ml Intake Oral 550 ml Output Urine Total 800 ml # Voids 2 Labs Labs Laboratory Tests Test 12/27/17 17:14 12/27/17 20:53 12/28/17 04:00 12/28/17 07:58 Glucose (Fingerstick) 111 mg/dL (70-99) 151 mg/dL (70-99) 120 mg/dL (70-99) Prothrombin Time 24.4 SEC (11.7-14.0) Prothromb Time International Ratio 2.3 (0.8-1.1) Sodium Level 138 mmol/L (136-145) Potassium Level 4.1 mmol/L (3.5-5.1) Chloride Level 104 mmol/L (98-107) Carbon Dioxide Level 25 mmol/L (21-32) Anion Gap 9 (6-14) Blood Urea Nitrogen 25 mg/dL (7-20) Creatinine 2.3 mg/dL (0.6-1.0) Estimated GFR (Cockcroft-Gault) 20.8 Glucose Level 119 mg/dL (70-99) Calcium Level 7.9 mg/dL (8.5-10.1) Triglycerides Level 105 mg/dL (0-150) Cholesterol Level 74 mg/dL (0-200) LDL Cholesterol, Calculated 27 mg/dL (0-100) VLDL Cholesterol, Calculated 21 mg/dL (0-40) Non-HDL Cholesterol Calculated 48 mg/dL (0-129) HDL Cholesterol 26 mg/dL (40-60) Cholesterol/HDL Ratio 2.8 Test 12/28/17 11:45 Glucose (Fingerstick) 148 mg/dL (70-99) Review of Systems Constitutional: yes: other (NOT RELIABLE) Physical Exam General Appearance: no apparent distress Skin: warm Respiratory: bilateral CTA Heart: S1S2 Abdomen: soft, bowel sounds present Extremities: pulses present Neurology: alert Assessment Assessment IMP RICKEY-ATN-CR OF 2.3-NO CKD DEHYDRATION ACUTE RESP FAILURE-COMPENSATED ENCEPHALOPATHY ?DEMENTIA PLAN ENC PO LOW FLOW IVFS LABS IN AM VERENA ANGUIANO MD Dec 28, 2017 13:30
--- NOTE | 2017-12-28 13:56 | PDOC ---
PROGRESS NOTES Chief Complaint Chief Complaint sob with copd and chf copd exacerbation bronchitis CHF systolic ef 40% likely exacerbation HTN HLD Hypothyroidism ppm rapid AFIB Morbid obesity mild dementia AMS, metabolic encephalopathy with rickey, hypoxic RICKEY, vasomotor plan: fu with card, pulm cont duoneb, levaquin, vanco cardizem drip off, cont satolol, dig, warfarin , INR daily talked to daughter and pt, tiny pleural effusion no need thoracentesis increase lasix to 40mg daily, got lasix 60mg iv last night and today, cr 2.1 today, lasix dced as per renal, added ivf add cough meds echo done neuro consult, head ct, MRI cannot be done 2/2 PPM, EEG pending hold metformin given rickey PTOT sw fu, pt refuse rehab. check UA, ucx History of Present Illness History of Present Illness ROS: no fever, chills, chest pain on NC 2L, no home o2 cont severe cough, no sputum bl leg severe edema, daughter said it is bad, but pt cannot tell pt said she was on lasix 150mg daily before, current 20mg daily at home 12/27: pt not talking much to me today as before, altho she used to hard finding words to tell me and told her daughter wrong info often cr higher to 2.1, got 2 times lasix iv later pt got unresponsive, woke up during CT scan. HEAD CT ok. 12/28: Cr higher to 2.3. pt kind of back to her baseline, not talkative, but answer questions and follow commands. refused to go to rehab hematuria as per [employer] Vitals Vitals Vital Signs Date Time Temp Pulse Resp B/P (MAP) Pulse Ox O2 Delivery O2 Flow Rate FiO2 12/28/17 11:22 97 Nasal Cannula 2.0 12/28/17 11:00 98.0 81 20 109/71 (84) 98.0 Physical Exam General: Alert, Cooperative, No acute distress Heart: Regular rate, Other (IRREGULAR) Lungs: Clear Abdomen: Normal bowel sounds, Soft Extremities: No clubbing, No cyanosis Skin: No breakdown Labs LABS Laboratory Tests Test 12/27/17 17:14 12/27/17 20:53 12/28/17 04:00 12/28/17 07:58 Glucose (Fingerstick) 111 mg/dL (70-99) 151 mg/dL (70-99) 120 mg/dL (70-99) Prothrombin Time 24.4 SEC (11.7-14.0) Prothromb Time International Ratio 2.3 (0.8-1.1) Sodium Level 138 mmol/L (136-145) Potassium Level 4.1 mmol/L (3.5-5.1) Chloride Level 104 mmol/L (98-107) Carbon Dioxide Level 25 mmol/L (21-32) Anion Gap 9 (6-14) Blood Urea Nitrogen 25 mg/dL (7-20) Creatinine 2.3 mg/dL (0.6-1.0) Estimated GFR (Cockcroft-Gault) 20.8 Glucose Level 119 mg/dL (70-99) Calcium Level 7.9 mg/dL (8.5-10.1) Triglycerides Level 105 mg/dL (0-150) Cholesterol Level 74 mg/dL (0-200) LDL Cholesterol, Calculated 27 mg/dL (0-100) VLDL Cholesterol, Calculated 21 mg/dL (0-40) Non-HDL Cholesterol Calculated 48 mg/dL (0-129) HDL Cholesterol 26 mg/dL (40-60) Cholesterol/HDL Ratio 2.8 Test 12/28/17 11:45 Glucose (Fingerstick) 148 mg/dL (70-99) Assessment and Plan Assessmemt and Plan Problems Medical Problems: (1) Atrial fibrillation with RVR Status: Acute (2) Bandemia Status: Acute (3) Hypoxia Status: Acute (4) Severe sepsis Status: Acute Comment Review of Relevant I have reviewed the following items uyen (where applicable) has been applied. Labs Laboratory Tests Test 12/26/17 17:06 12/26/17 20:34 12/27/17 04:10 12/27/17 04:40 Glucose (Fingerstick) 126 mg/dL (70-99) 113 mg/dL (70-99) Sodium Level 140 mmol/L (136-145) Potassium Level 3.9 mmol/L (3.5-5.1) Chloride Level 103 mmol/L (98-107) Carbon Dioxide Level 26 mmol/L (21-32) Anion Gap 11 (6-14) Blood Urea Nitrogen 22 mg/dL (7-20) Creatinine 2.1 mg/dL (0.6-1.0) Estimated GFR (Cockcroft-Gault) 23.2 Glucose Level 133 mg/dL (70-99) Calcium Level 8.1 mg/dL (8.5-10.1) Thyroid Stimulating Hormone (TSH) 5.468 uIU/mL (0.358-3.74) Free Thyroxine 1.43 ng/dL (0.76-1.46) Free Triiodothyronine (T3) pg/mL 0.99 pg/mL (2.18-3.98) White Blood Count 7.2 x10^3/uL (4.0-11.0) Red Blood Count 3.88 x10^6/uL (3.50-5.40) Hemoglobin 12.3 g/dL (12.0-15.5) Hematocrit 36.6 % (36.0-47.0) Mean Corpuscular Volume 94 fL (79-100) Mean Corpuscular Hemoglobin 32 pg (25-35) Mean Corpuscular Hemoglobin Concent 34 g/dL (31-37) Red Cell Distribution Width 17.2 % (11.5-14.5) Platelet Count 199 x10^3/uL (140-400) Neutrophils (%) (Auto) 73 % (31-73) Lymphocytes (%) (Auto) 11 % (24-48) Monocytes (%) (Auto) 15 % (0-9) Eosinophils (%) (Auto) 1 % (0-3) Basophils (%) (Auto) 0 % (0-3) Neutrophils # (Auto) 5.2 x10^3uL (1.8-7.7) Lymphocytes # (Auto) 0.8 x10^3/uL (1.0-4.8) Monocytes # (Auto) 1.1 x10^3/uL (0.0-1.1) Eosinophils # (Auto) 0.1 x10^3/uL (0.0-0.7) Basophils # (Auto) 0.0 x10^3/uL (0.0-0.2) Prothrombin Time 23.1 SEC (11.7-14.0) Prothromb Time International Ratio 2.1 (0.8-1.1) Test 12/27/17 08:25 12/27/17 12:08 12/27/17 17:14 12/27/17 20:53 Glucose (Fingerstick) 110 mg/dL (70-99) 132 mg/dL (70-99) 111 mg/dL (70-99) 151 mg/dL (70-99) Test 12/28/17 04:00 12/28/17 07:58 12/28/17 11:45 Prothrombin Time 24.4 SEC (11.7-14.0) Prothromb Time International Ratio 2.3 (0.8-1.1) Sodium Level 138 mmol/L (136-145) Potassium Level 4.1 mmol/L (3.5-5.1) Chloride Level 104 mmol/L (98-107) Carbon Dioxide Level 25 mmol/L (21-32) Anion Gap 9 (6-14) Blood Urea Nitrogen 25 mg/dL (7-20) Creatinine 2.3 mg/dL (0.6-1.0) Estimated GFR (Cockcroft-Gault) 20.8 Glucose Level 119 mg/dL (70-99) Calcium Level 7.9 mg/dL (8.5-10.1) Triglycerides Level 105 mg/dL (0-150) Cholesterol Level 74 mg/dL (0-200) LDL Cholesterol, Calculated 27 mg/dL (0-100) VLDL Cholesterol, Calculated 21 mg/dL (0-40) Non-HDL Cholesterol Calculated 48 mg/dL (0-129) HDL Cholesterol 26 mg/dL (40-60) Cholesterol/HDL Ratio 2.8 Glucose (Fingerstick) 120 mg/dL (70-99) 148 mg/dL (70-99) Laboratory Tests Test 12/27/17 17:14 12/27/17 20:53 12/28/17 04:00 12/28/17 07:58 Glucose (Fingerstick) 111 mg/dL (70-99) 151 mg/dL (70-99) 120 mg/dL (70-99) Prothrombin Time 24.4 SEC (11.7-14.0) Prothromb Time International Ratio 2.3 (0.8-1.1) Sodium Level 138 mmol/L (136-145) Potassium Level 4.1 mmol/L (3.5-5.1) Chloride Level 104 mmol/L (98-107) Carbon Dioxide Level 25 mmol/L (21-32) Anion Gap 9 (6-14) Blood Urea Nitrogen 25 mg/dL (7-20) Creatinine 2.3 mg/dL (0.6-1.0) Estimated GFR (Cockcroft-Gault) 20.8 Glucose Level 119 mg/dL (70-99) Calcium Level 7.9 mg/dL (8.5-10.1) Triglycerides Level 105 mg/dL (0-150) Cholesterol Level 74 mg/dL (0-200) LDL Cholesterol, Calculated 27 mg/dL (0-100) VLDL Cholesterol, Calculated 21 mg/dL (0-40) Non-HDL Cholesterol Calculated 48 mg/dL (0-129) HDL Cholesterol 26 mg/dL (40-60) Cholesterol/HDL Ratio 2.8 Test 12/28/17 11:45 Glucose (Fingerstick) 148 mg/dL (70-99) Medications Current Medications Diltiazem HCl (Cardizem) 20 mg 1X ONCE IVP Last administered on 12/23/17at 23: 00; Start 12/23/17 at 23:00; Stop 12/23/17 at 23:01; Status DC Aspirin ([place] Aspirin) 325 mg 1X ONCE PO ; Start 12/23/17 at 23:00; Stop 12/23 at 23:01; Status DC Diltiazem HCl 125 mg/Dextrose 125 ml @ 10 mls/hr 1X ONCE IV Last administered on 12/23/17at 23:11; Start 12/23/17 at 23:00; Stop 12/24/17 at 11:29 ; Status DC Dexamethasone Sodium Phosphate (Decadron) 10 mg 1X ONCE IV Last administered on 12/23/17at 22:57; Start 12/23/17 at 23:00; Stop 12/23/17 at 23:01; Status DC Albuterol/ Ipratropium (Duoneb) 3 ml 1X ONCE NEB ; Start 12/23/17 at 23:00; Stop 12/23/17 at 23:01; Status DC Albuterol/ Ipratropium (Duoneb) 3 ml STAT ONCE NEB ; Start 12/23/17 at 23:00; Stop 12/23/17 at 23:01; Status DC Hyoscyamine (Anaspaz) 0.25 mg 1X ONCE PO ; Start 12/23/17 at 23:45; Stop at 23:46; Status Cancel Sodium Chloride 1,000 ml @ 1,000 mls/hr 1X ONCE IV Last administered on at 01:17; Start 12/23/17 at 23:45; Stop 12/24/17 at 00:44; Status DC Sodium Chloride 1,000 ml @ 1,000 mls/hr 1X ONCE IV Last administered on at 04:29; Start 12/23/17 at 23:45; Stop 12/24/17 at 00:44; Status DC Piperacillin Sod/ Tazobactam Sod 4.5 gm/Sodium Chloride 100 ml @ 200 mls/hr 1X ONCE IV Last administered on 12/24/17at 01:17; Start 12/24/17 at 00:00; Stop 12/24/17 at 00:29; Status DC Levofloxacin/ Dextrose 150 ml @ 100 mls/hr 1X ONCE IV Last administered on at 01:17; Start 12/24/17 at 00:00; Stop 12/24/17 at 01:29; Status DC Vancomycin HCl 2 gm/Sodium Chloride 500 ml @ 250 mls/hr 1X ONCE IV Last administered on 12/24/17at 01:18; Start 12/24/17 at 00:30; Stop 12/24/17 at 02:29 ; Status DC Ondansetron HCl (Zofran) 4 mg PRN Q8HRS PRN IV NAUSEA/VOMITING 1ST CHOICE; Start 12/24/17 at 00:15; Stop 12/25/17 at 00:14; Status DC Fentanyl Citrate (Fentanyl 2ml Vial) 50 mcg PRN Q2HR PRN IV SEVERE PAIN; Start 12/24/17 at 00:15; Stop 12/25/17 at 00:14; Status DC Albuterol Sulfate (Ventolin Neb Soln) 2.5 mg PRN Q4HRS PRN NEB WHEEZING Last administered on 12/25/17at 17:28; Start 12/24/17 at 00:30 Insulin Human Lispro (HumaLOG) 0-5 UNITS TIDWMEALS SQ Last administered on 12/24at 17:46; Start 12/24/17 at 08:00 Dextrose (Dextrose 50%-Water Syringe) 12.5 gm PRN Q15MIN PRN IV SEE COMMENTS; Start 12/24/17 at 00:15 Info (Do NOT chart on this placeholder) 1 each 1X ONCE MC ; Start 12/24/17 at 01:45; Stop 12/24/17 at 01:46; Status UNV Influenza Virus Vaccine (Afluria Trivalent 5450-2409 Syringe) 0.5 ml ONCE ONCE VAX IM Last administered on 12/24/17at 08:51; Start 12/24/17 at 09:00; Stop at 09:01; Status DC Albuterol/ Ipratropium (Duoneb) 3 ml RTQID NEB Last administered on 12/28/17at 11:22; Start 12/24/17 at 12:00 Levofloxacin/ Dextrose 100 ml @ 100 mls/hr Q24H IV ; Start 12/24/17 at 10:30; Status UNV Vancomycin HCl (Vanco Per Pharmacy) 1 each PRN DAILY PRN MC SEE COMMENTS Last administered on 12/25/17at 10:36; Start 12/24/17 at 10:30; Stop 12/25/17 at 17:09 ; Status DC Levofloxacin/ Dextrose 100 ml @ 100 mls/hr Q24H IV Last administered on at 23:31; Start 12/24/17 at 23:00; Stop 12/26/17 at 14:40; Status DC Vancomycin HCl 1.75 gm/Sodium Chloride 500 ml @ 250 mls/hr Q12H IV Last administered on 12/25/17at 13:00; Start 12/24/17 at 13:00; Stop 12/25/17 at 17:08 ; Status DC Vancomycin HCl (Vancomycin Trough Level) 1 each 1X ONCE MC ; Start 12/25/17 at 23:30; Stop 12/25/17 at 23:30; Status DC Lactobacillus Rhamnosus (Culturelle) 1 cap BID PO Last administered on at 08:01; Start 12/24/17 at 21:00 Warfarin Sodium (Coumadin Per Pharmacy) 1 each PRN DAILY PRN MC SEE COMMENTS Last administered on 12/27/17at 09:20; Start 12/24/17 at 14:45 Warfarin Sodium (Coumadin) 2 mg 1X WARF ONCE PO Last administered on at 15:52; Start 12/24/17 at 16:00; Stop 12/24/17 at 16:01; Status DC Digoxin (Lanoxin) 125 mcg DAILY PO Last administered on 12/28/17at 08:03; Start 12/24/17 at 17:30 Sotalol HCl (Betapace) 80 mg BID PO Last administered on 12/28/17at 08:02; Start 12/24/17 at 21:00 Furosemide (Lasix) 20 mg DAILY PO Last administered on 12/25/17at 07:50; Start 12/24/17 at 18:00; Stop 12/25/17 at 08:44; Status DC Potassium Chloride (Klor-Con) 10 meq DAILY PO Last administered on 12/27/17at 09 :46; Start 12/24/17 at 18:00; Stop 12/27/17 at 11:59; Status DC Levothyroxine Sodium (Synthroid) 150 mcg DAILY07 PO Last administered on at 06:24; Start 12/24/17 at 18:00 Metformin HCl (Glucophage) 500 mg BIDWMEALS PO Last administered on 12/27/17at 09:45; Start 12/24/17 at 18:00; Stop 12/27/17 at 10:53; Status DC Simvastatin (Zocor) 40 mg DAILY PO ; Start 12/24/17 at 18:00; Stop 12/24/17 at 18:00; Status DC Simvastatin (Zocor) 40 mg QHS PO Last administered on 12/27/17at 20:52; Start at 21:00 Furosemide (Lasix) 20 mg 1X ONCE PO Last administered on 12/25/17at 12:57; Start 12/25/17 at 09:00; Stop 12/25/17 at 09:01; Status DC Guaifenesin/ Codeine Phosphate (Robitussin Ac) 5 ml PRN Q6HRS PRN PO COUGH Last administered on 12/25/17at 12:54; Start 12/25/17 at 08:45 Benzonatate (Tessalon Perle) 100 mg [id number] PO Last administered on 12/28/17at 08 :01; Start 12/25/17 at 09:00 Furosemide (Lasix) 40 mg DAILY PO ; Start 12/26/17 at 09:00; Stop 12/27/17 at 11 :59; Status DC Warfarin Sodium (Coumadin) 2 mg 1X WARF ONCE PO Last administered on at 16:44; Start 12/25/17 at 16:00; Stop 12/25/17 at 16:01; Status DC Acetaminophen (Tylenol) 650 mg PRN Q6HRS PRN PO FEVER; Start 12/25/17 at 12:15 Ondansetron HCl (Zofran) 4 mg PRN Q6HRS PRN IV NAUSEA/VOMITING; Start 12/25/17 at 12:15 Morphine Sulfate (Morphine Sulfate) 2 mg PRN Q2HR PRN IV MODERATE TO SEVERE PAIN; Start 12/25/17 at 12:15 Tramadol HCl (Ultram) 50 mg PRN Q6HRS PRN PO MILD TO MODERATE PAIN Last administered on 12/28/17at 04:07; Start 12/25/17 at 12:15 Docusate Sodium (Colace) 100 mg PRN DAILY PRN PO HARD STOOLS Last administered on 12/27/17at 09:45; Start 12/25/17 at 12:15 Labetalol HCl (Normodyne Iv Push) 20 mg PRN Q2HR PRN IVP HYPERTENSION, SEE COMMENTS; Start 12/25/17 at 12:15 Furosemide (Lasix) 60 mg 1X ONCE IVP Last administered on 12/25/17at 17:51; Start 12/25/17 at 18:00; Stop 12/25/17 at 18:01; Status DC Furosemide (Lasix) 60 mg 1X ONCE IVP Last administered on 12/26/17at 08:46; Start 12/26/17 at 09:00; Stop 12/26/17 at 09:01; Status DC Warfarin Sodium (Coumadin) 2 mg 1X ONCE PO ; Start 12/26/17 at 14:45; Stop at 14:46; Status Cancel Warfarin Sodium (Coumadin) 2 mg 1X WARF ONCE PO Last administered on at 17:29; Start 12/26/17 at 16:00; Stop 12/26/17 at 16:01; Status DC Levofloxacin/ Dextrose 50 ml @ 50 mls/hr Q24H IV Last administered on at 22:47; Start 12/26/17 at 23:00; Stop 12/27/17 at 09:12; Status DC Levofloxacin (Levaquin) 250 mg QHS PO Last administered on 9/20/18at 20:52; Start 12/27/17 at 21:00 Warfarin Sodium (Coumadin) 2 mg 1X WARF ONCE PO Last administered on at 17:15; Start 12/27/17 at 16:00; Stop 12/27/17 at 16:01; Status DC Sodium Chloride 1,000 ml @ 75 mls/hr [id number] IV Last administered on at 15:37; Start 12/27/17 at 12:00 Active Scripts Active Digoxin 125 Mcg Tablet 125 Mcg PO DAILY Reported Proair Hfa Inhaler (Albuterol Sulfate) 8.5 Gm Hfa.aer.ad 1 Puff INH PRN Q6HRS PRN Sotalol (Sotalol Hcl) 80 Mg Tablet 1 Tab PO BID Tessalon Perle (Benzonatate) 100 Mg Capsule 2 Cap PO TID PRN Warfarin Sodium 2 Mg Tablet 1 Tab PO DAILY Lisinopril 10 Mg Tablet 1 Tab PO DAILY Levothyroxine Sodium 125 Mcg Tablet 150 Mcg PO DAILY Simvastatin 40 Mg Tablet 40 Mg PO DAILY Metformin Hcl 500 Mg Tablet 500 Mg PO BIDWMEALS Furosemide 20 Mg Tablet 1 Tab PO DAILY Potassium Chloride 10 Meq Tab.sr.24h 10 Meq PO DAILY Vitals/I & O Vital Sign - Last 24 Hours 12/27/17 12/27/17 12/27/17 12/27/17 15:00 15:22 19:54 20:00 Temp 97.5 97.8 97.5 97.8 Pulse 85 75 Resp 22 22 B/P (MAP) 152/65 (94) 144/67 (92) Pulse Ox 98 97 O2 Delivery Room Air Nasal Cannula Room Air Nasal Cannula O2 Flow Rate 2.0 2.0 12/27/17 12/27/17 12/27/17 12/28/17 20:52 21:22 23:01 03:47 Temp 97.9 98.0 97.9 98.0 Pulse 75 84 85 Resp 20 20 B/P (MAP) 144/67 123/77 (92) 116/66 (83) Pulse Ox 97 99 98 O2 Delivery Nasal Cannula Nasal Cannula Nasal Cannula O2 Flow Rate 2.0 2.0 2.0 12/28/17 12/28/17 12/28/17 12/28/17 04:07 05:30 06:49 07:14 Temp 97.4 97.4 Pulse 79 Pulse Ox 98 98 99 97 O2 Delivery Nasal Cannula Nasal Cannula Nasal Cannula Nasal Cannula O2 Flow Rate 2.0 2.0 3.0 2.0 12/28/17 12/28/17 12/28/17 12/28/17 08:02 08:03 11:00 11:22 Temp 98.0 98.0 Pulse 84 86 81 Resp 20 B/P (MAP) 123/57 109/71 (84) Pulse Ox 98 97 O2 Delivery Nasal Cannula Nasal Cannula O2 Flow Rate 2.0 2.0 Intake and Output 12/27/17 12/27/17 12/28/17 15:00 23:00 07:00 Intake Total 500 ml 50 ml Output Total 300 ml 500 ml Balance 200 ml -450 ml NBA ROSENBAUM MD Dec 28, 2017 13:56
[2017-12-28] MEDS ORDERED: WARFARIN 2 MG TABLET. PO ONE (16:00)
--- NOTE | 2017-12-28 17:04 | PDOC ---
PROGRESS NOTES Subjective Subjective No confusion at this time. We discussed her current situation. The patient has been having some hematuria and complaints of a cough. Objective Objective Vital Signs Date Time Temp Pulse Resp B/P (MAP) Pulse Ox O2 Delivery O2 Flow Rate FiO2 12/28/17 11:22 97 Nasal Cannula 2.0 12/28/17 11:00 98.0 81 20 109/71 (84) 98.0 Intake and Output 12/28/17 07:00 Intake Total 550 ml Output Total 800 ml Balance -250 ml Intake Oral 550 ml Output Urine Total 800 ml # Voids 2 Physical Exam Physical Exam Moving air better. Rhonchi more on the right than on the left. No wheezing. No changes in heart sounds. A little less edema. Assessment Assessment Patient having some hematuria and continues with a cough. I agree with the present plan. Would try to give her more fluids and see how she tolerates them. Eventually she will need to go to detention for some physical therapy but I do not believe that she's ready yet. Comment Review of Relevant I have reviewed the following items uyen (where applicable) has been applied. Labs Laboratory Tests Test 12/26/17 17:06 12/26/17 20:34 12/27/17 04:10 12/27/17 04:40 Glucose (Fingerstick) 126 mg/dL (70-99) 113 mg/dL (70-99) Sodium Level 140 mmol/L (136-145) Potassium Level 3.9 mmol/L (3.5-5.1) Chloride Level 103 mmol/L (98-107) Carbon Dioxide Level 26 mmol/L (21-32) Anion Gap 11 (6-14) Blood Urea Nitrogen 22 mg/dL (7-20) Creatinine 2.1 mg/dL (0.6-1.0) Estimated GFR (Cockcroft-Gault) 23.2 Glucose Level 133 mg/dL (70-99) Calcium Level 8.1 mg/dL (8.5-10.1) Thyroid Stimulating Hormone (TSH) 5.468 uIU/mL (0.358-3.74) Free Thyroxine 1.43 ng/dL (0.76-1.46) Free Triiodothyronine (T3) pg/mL 0.99 pg/mL (2.18-3.98) White Blood Count 7.2 x10^3/uL (4.0-11.0) Red Blood Count 3.88 x10^6/uL (3.50-5.40) Hemoglobin 12.3 g/dL (12.0-15.5) Hematocrit 36.6 % (36.0-47.0) Mean Corpuscular Volume 94 fL (79-100) Mean Corpuscular Hemoglobin 32 pg (25-35) Mean Corpuscular Hemoglobin Concent 34 g/dL (31-37) Red Cell Distribution Width 17.2 % (11.5-14.5) Platelet Count 199 x10^3/uL (140-400) Neutrophils (%) (Auto) 73 % (31-73) Lymphocytes (%) (Auto) 11 % (24-48) Monocytes (%) (Auto) 15 % (0-9) Eosinophils (%) (Auto) 1 % (0-3) Basophils (%) (Auto) 0 % (0-3) Neutrophils # (Auto) 5.2 x10^3uL (1.8-7.7) Lymphocytes # (Auto) 0.8 x10^3/uL (1.0-4.8) Monocytes # (Auto) 1.1 x10^3/uL (0.0-1.1) Eosinophils # (Auto) 0.1 x10^3/uL (0.0-0.7) Basophils # (Auto) 0.0 x10^3/uL (0.0-0.2) Prothrombin Time 23.1 SEC (11.7-14.0) Prothromb Time International Ratio 2.1 (0.8-1.1) Test 12/27/17 08:25 12/27/17 12:08 12/27/17 17:14 12/27/17 20:53 Glucose (Fingerstick) 110 mg/dL (70-99) 132 mg/dL (70-99) 111 mg/dL (70-99) 151 mg/dL (70-99) Test 12/28/17 04:00 12/28/17 07:58 12/28/17 11:45 Prothrombin Time 24.4 SEC (11.7-14.0) Prothromb Time International Ratio 2.3 (0.8-1.1) Sodium Level 138 mmol/L (136-145) Potassium Level 4.1 mmol/L (3.5-5.1) Chloride Level 104 mmol/L (98-107) Carbon Dioxide Level 25 mmol/L (21-32) Anion Gap 9 (6-14) Blood Urea Nitrogen 25 mg/dL (7-20) Creatinine 2.3 mg/dL (0.6-1.0) Estimated GFR (Cockcroft-Gault) 20.8 Glucose Level 119 mg/dL (70-99) Calcium Level 7.9 mg/dL (8.5-10.1) Triglycerides Level 105 mg/dL (0-150) Cholesterol Level 74 mg/dL (0-200) LDL Cholesterol, Calculated 27 mg/dL (0-100) VLDL Cholesterol, Calculated 21 mg/dL (0-40) Non-HDL Cholesterol Calculated 48 mg/dL (0-129) HDL Cholesterol 26 mg/dL (40-60) Cholesterol/HDL Ratio 2.8 Glucose (Fingerstick) 120 mg/dL (70-99) 148 mg/dL (70-99) Laboratory Tests Test 12/27/17 17:14 12/27/17 20:53 12/28/17 04:00 12/28/17 07:58 Glucose (Fingerstick) 111 mg/dL (70-99) 151 mg/dL (70-99) 120 mg/dL (70-99) Prothrombin Time 24.4 SEC (11.7-14.0) Prothromb Time International Ratio 2.3 (0.8-1.1) Sodium Level 138 mmol/L (136-145) Potassium Level 4.1 mmol/L (3.5-5.1) Chloride Level 104 mmol/L (98-107) Carbon Dioxide Level 25 mmol/L (21-32) Anion Gap 9 (6-14) Blood Urea Nitrogen 25 mg/dL (7-20) Creatinine 2.3 mg/dL (0.6-1.0) Estimated GFR (Cockcroft-Gault) 20.8 Glucose Level 119 mg/dL (70-99) Calcium Level 7.9 mg/dL (8.5-10.1) Triglycerides Level 105 mg/dL (0-150) Cholesterol Level 74 mg/dL (0-200) LDL Cholesterol, Calculated 27 mg/dL (0-100) VLDL Cholesterol, Calculated 21 mg/dL (0-40) Non-HDL Cholesterol Calculated 48 mg/dL (0-129) HDL Cholesterol 26 mg/dL (40-60) Cholesterol/HDL Ratio 2.8 Test 12/28/17 11:45 Glucose (Fingerstick) 148 mg/dL (70-99) Medications Current Medications Diltiazem HCl (Cardizem) 20 mg 1X ONCE IVP Last administered on 12/23/17at 23: 00; Start 12/23/17 at 23:00; Stop 12/23/17 at 23:01; Status DC Aspirin (Adonis Aspirin) 325 mg 1X ONCE PO ; Start 12/23/17 at 23:00; Stop 12/23 at 23:01; Status DC Diltiazem HCl 125 mg/Dextrose 125 ml @ 10 mls/hr 1X ONCE IV Last administered on 12/23/17at 23:11; Start 12/23/17 at 23:00; Stop 12/24/17 at 11:29 ; Status DC Dexamethasone Sodium Phosphate (Decadron) 10 mg 1X ONCE IV Last administered on 12/23/17at 22:57; Start 12/23/17 at 23:00; Stop 12/23/17 at 23:01; Status DC Albuterol/ Ipratropium (Duoneb) 3 ml 1X ONCE NEB ; Start 12/23/17 at 23:00; Stop 12/23/17 at 23:01; Status DC Albuterol/ Ipratropium (Duoneb) 3 ml STAT ONCE NEB ; Start 12/23/17 at 23:00; Stop 12/23/17 at 23:01; Status DC Hyoscyamine (Anaspaz) 0.25 mg 1X ONCE PO ; Start 12/23/17 at 23:45; Stop at 23:46; Status Cancel Sodium Chloride 1,000 ml @ 1,000 mls/hr 1X ONCE IV Last administered on at 01:17; Start 12/23/17 at 23:45; Stop 12/24/17 at 00:44; Status DC Sodium Chloride 1,000 ml @ 1,000 mls/hr 1X ONCE IV Last administered on at 04:29; Start 12/23/17 at 23:45; Stop 12/24/17 at 00:44; Status DC Piperacillin Sod/ Tazobactam Sod 4.5 gm/Sodium Chloride 100 ml @ 200 mls/hr 1X ONCE IV Last administered on 12/24/17at 01:17; Start 12/24/17 at 00:00; Stop 12/24/17 at 00:29; Status DC Levofloxacin/ Dextrose 150 ml @ 100 mls/hr 1X ONCE IV Last administered on at 01:17; Start 12/24/17 at 00:00; Stop 12/24/17 at 01:29; Status DC Vancomycin HCl 2 gm/Sodium Chloride 500 ml @ 250 mls/hr 1X ONCE IV Last administered on 12/24/17at 01:18; Start 12/24/17 at 00:30; Stop 12/24/17 at 02:29 ; Status DC Ondansetron HCl (Zofran) 4 mg PRN Q8HRS PRN IV NAUSEA/VOMITING 1ST CHOICE; Start 12/24/17 at 00:15; Stop 12/25/17 at 00:14; Status DC Fentanyl Citrate (Fentanyl 2ml Vial) 50 mcg PRN Q2HR PRN IV SEVERE PAIN; Start 12/24/17 at 00:15; Stop 12/25/17 at 00:14; Status DC Albuterol Sulfate (Ventolin Neb Soln) 2.5 mg PRN Q4HRS PRN NEB WHEEZING Last administered on 12/25/17at 17:28; Start 12/24/17 at 00:30 Insulin Human Lispro (HumaLOG) 0-5 UNITS TIDWMEALS SQ Last administered on 12/24at 17:46; Start 12/24/17 at 08:00 Dextrose (Dextrose 50%-Water Syringe) 12.5 gm PRN Q15MIN PRN IV SEE COMMENTS; Start 12/24/17 at 00:15 Info (Do NOT chart on this placeholder) 1 each 1X ONCE MC ; Start 12/24/17 at 01:45; Stop 12/24/17 at 01:46; Status UNV Influenza Virus Vaccine (Afluria Trivalent [id number] Syringe) 0.5 ml ONCE ONCE VAX IM Last administered on 12/24/17at 08:51; Start 12/24/17 at 09:00; Stop at 09:01; Status DC Albuterol/ Ipratropium (Duoneb) 3 ml RTQID NEB Last administered on 12/28/17at 11:22; Start 12/24/17 at 12:00 Levofloxacin/ Dextrose 100 ml @ 100 mls/hr Q24H IV ; Start 12/24/17 at 10:30; Status UNV Vancomycin HCl (Vanco Per Pharmacy) 1 each PRN DAILY PRN MC SEE COMMENTS Last administered on 12/25/17at 10:36; Start 12/24/17 at 10:30; Stop 12/25/17 at 17:09 ; Status DC Levofloxacin/ Dextrose 100 ml @ 100 mls/hr Q24H IV Last administered on at 23:31; Start 12/24/17 at 23:00; Stop 12/26/17 at 14:40; Status DC Vancomycin HCl 1.75 gm/Sodium Chloride 500 ml @ 250 mls/hr Q12H IV Last administered on 12/25/17at 13:00; Start 12/24/17 at 13:00; Stop 12/25/17 at 17:08 ; Status DC Vancomycin HCl (Vancomycin Trough Level) 1 each 1X ONCE MC ; Start 12/25/17 at 23:30; Stop 12/25/17 at 23:30; Status DC Lactobacillus Rhamnosus (Culturelle) 1 cap BID PO Last administered on at 08:01; Start 12/24/17 at 21:00 Warfarin Sodium (Coumadin Per Pharmacy) 1 each PRN DAILY PRN MC SEE COMMENTS Last administered on 12/28/17at 14:03; Start 12/24/17 at 14:45 Warfarin Sodium (Coumadin) 2 mg 1X WARF ONCE PO Last administered on at 15:52; Start 12/24/17 at 16:00; Stop 12/24/17 at 16:01; Status DC Digoxin (Lanoxin) 125 mcg DAILY PO Last administered on 12/28/17at 08:03; Start 12/24/17 at 17:30 Sotalol HCl (Betapace) 80 mg BID PO Last administered on 12/28/17at 08:02; Start 12/24/17 at 21:00 Furosemide (Lasix) 20 mg DAILY PO Last administered on 12/25/17at 07:50; Start 12/24/17 at 18:00; Stop 12/25/17 at 08:44; Status DC Potassium Chloride (Klor-Con) 10 meq DAILY PO Last administered on 12/27/17at 09 :46; Start 12/24/17 at 18:00; Stop 12/27/17 at 11:59; Status DC Levothyroxine Sodium (Synthroid) 150 mcg DAILY07 PO Last administered on at 06:24; Start 12/24/17 at 18:00 Metformin HCl (Glucophage) 500 mg BIDWMEALS PO Last administered on 12/27/17at 09:45; Start 12/24/17 at 18:00; Stop 12/27/17 at 10:53; Status DC Simvastatin (Zocor) 40 mg DAILY PO ; Start 12/24/17 at 18:00; Stop 12/24/17 at 18:00; Status DC Simvastatin (Zocor) 40 mg QHS PO Last administered on 12/27/17at 20:52; Start at 21:00 Furosemide (Lasix) 20 mg 1X ONCE PO Last administered on 12/25/17at 12:57; Start 12/25/17 at 09:00; Stop 12/25/17 at 09:01; Status DC Guaifenesin/ Codeine Phosphate (Robitussin Ac) 5 ml PRN Q6HRS PRN PO COUGH Last administered on 12/25/17at 12:54; Start 12/25/17 at 08:45 Benzonatate (Tessalon Perle) 100 mg [id number] PO Last administered on 12/28/17at 08 :01; Start 12/25/17 at 09:00 Furosemide (Lasix) 40 mg DAILY PO ; Start 12/26/17 at 09:00; Stop 12/27/17 at 11 :59; Status DC Warfarin Sodium (Coumadin) 2 mg 1X WARF ONCE PO Last administered on at 16:44; Start 12/25/17 at 16:00; Stop 12/25/17 at 16:01; Status DC Acetaminophen (Tylenol) 650 mg PRN Q6HRS PRN PO FEVER; Start 12/25/17 at 12:15 Ondansetron HCl (Zofran) 4 mg PRN Q6HRS PRN IV NAUSEA/VOMITING; Start 12/25/17 at 12:15 Morphine Sulfate (Morphine Sulfate) 2 mg PRN Q2HR PRN IV MODERATE TO SEVERE PAIN; Start 12/25/17 at 12:15 Tramadol HCl (Ultram) 50 mg PRN Q6HRS PRN PO MILD TO MODERATE PAIN Last administered on 12/28/17at 04:07; Start 12/25/17 at 12:15 Docusate Sodium (Colace) 100 mg PRN DAILY PRN PO HARD STOOLS Last administered on 12/27/17at 09:45; Start 12/25/17 at 12:15 Labetalol HCl (Normodyne Iv Push) 20 mg PRN Q2HR PRN IVP HYPERTENSION, SEE COMMENTS; Start 12/25/17 at 12:15 Furosemide (Lasix) 60 mg 1X ONCE IVP Last administered on 12/25/17at 17:51; Start 12/25/17 at 18:00; Stop 12/25/17 at 18:01; Status DC Furosemide (Lasix) 60 mg 1X ONCE IVP Last administered on 12/26/17at 08:46; Start 12/26/17 at 09:00; Stop 12/26/17 at 09:01; Status DC Warfarin Sodium (Coumadin) 2 mg 1X ONCE PO ; Start 12/26/17 at 14:45; Stop at 14:46; Status Cancel Warfarin Sodium (Coumadin) 2 mg 1X WARF ONCE PO Last administered on at 17:29; Start 12/26/17 at 16:00; Stop 12/26/17 at 16:01; Status DC Levofloxacin/ Dextrose 50 ml @ 50 mls/hr Q24H IV Last administered on at 22:47; Start 12/26/17 at 23:00; Stop 12/27/17 at 09:12; Status DC Levofloxacin (Levaquin) 250 mg QHS PO Last administered on 12/27/17at 20:52; Start 12/27/17 at 21:00 Warfarin Sodium (Coumadin) 2 mg 1X WARF ONCE PO Last administered on at 17:15; Start 12/27/17 at 16:00; Stop 12/27/17 at 16:01; Status DC Sodium Chloride 1,000 ml @ 75 mls/hr [id number] IV Last administered on at 15:37; Start 12/27/17 at 12:00 Warfarin Sodium (Coumadin) 2 mg 1X WARF ONCE PO ; Start 12/28/17 at 16:00; Stop 12/28/17 at 16:01; Status DC Active Scripts Active Digoxin 125 Mcg Tablet 125 Mcg PO DAILY Reported Proair Hfa Inhaler (Albuterol Sulfate) 8.5 Gm Hfa.aer.ad 1 Puff INH PRN Q6HRS PRN Sotalol (Sotalol Hcl) 80 Mg Tablet 1 Tab PO BID Tessalon Perle (Benzonatate) 100 Mg Capsule 2 Cap PO TID PRN Warfarin Sodium 2 Mg Tablet 1 Tab PO DAILY Lisinopril 10 Mg Tablet 1 Tab PO DAILY Levothyroxine Sodium 125 Mcg Tablet 150 Mcg PO DAILY Simvastatin 40 Mg Tablet 40 Mg PO DAILY Metformin Hcl 500 Mg Tablet 500 Mg PO BIDWMEALS Furosemide 20 Mg Tablet 1 Tab PO DAILY Potassium Chloride 10 Meq Tab.sr.24h 10 Meq PO DAILY Vitals/I & O Vital Sign - Last 24 Hours 12/27/17 12/27/17 12/27/17 12/27/17 19:54 20:00 20:52 21:22 Temp 97.8 97.8 Pulse 75 75 Resp 22 B/P (MAP) 144/67 (92) 144/67 Pulse Ox 97 97 O2 Delivery Room Air Nasal Cannula Nasal Cannula O2 Flow Rate 2.0 2.0 12/27/17 12/28/17 12/28/17 12/28/17 23:01 03:47 04:07 05:30 Temp 97.9 98.0 97.9 98.0 Pulse 84 85 Resp 20 20 B/P (MAP) 123/77 (92) 116/66 (83) Pulse Ox 99 98 98 98 O2 Delivery Nasal Cannula Nasal Cannula Nasal Cannula Nasal Cannula O2 Flow Rate 2.0 2.0 2.0 2.0 12/28/17 12/28/17 12/28/17 12/28/17 06:49 07:14 08:02 08:03 Temp 97.4 97.4 Pulse 79 84 86 B/P (MAP) 123/57 Pulse Ox 99 97 O2 Delivery Nasal Cannula Nasal Cannula O2 Flow Rate 3.0 2.0 12/28/17 12/28/17 11:00 11:22 Temp 98.0 98.0 Pulse 81 Resp 20 B/P (MAP) 109/71 (84) Pulse Ox 98 97 O2 Delivery Nasal Cannula Nasal Cannula O2 Flow Rate 2.0 2.0 Intake and Output 12/27/17 12/27/17 12/28/17 15:00 23:00 07:00 Intake Total 500 ml 50 ml Output Total 300 ml 500 ml Balance 200 ml -450 ml MARTI SAUER MD Dec 28, 2017 17:03
--- NOTE | 2017-12-28 18:15 | EEG ---
DATE OF SERVICE: 12/28/2017 ELECTROENCEPHALOGRAM NUMBER: [id number] OBJECTIVE: This is a 72-year-old female patient with history of mental status changes. EEG was requested to evaluate cerebral activity. METHODS: Twenty electrodes were applied according to the international 10-20 electrode placement system. EKG monitoring, hyperventilation, intermittent photic stimulation, monopolar and bipolar montages are routinely utilized. The record was obtained on a digital system with video monitoring. FINDINGS: 1. Background: The patient was recorded in the awake, drowsy, and sleep states. The overall background amplitude is 10-20 microvolts. A posterior dominant rhythm of 7-8 Hz is observed. 2. Abnormalities: No specific epileptiform discharge or electrographic seizure is seen. No focal or diffuse slowing. 3. Activation: Hyperventilation was not performed because the patient was unable to perform the technique. Intermittent photic stimulation was performed with photic driving. IMPRESSION: This electroencephalogram is a mildly abnormal study for the awake, drowsy and sleep states. The posterior dominant rhythm of 7-8 Hz is mildly slow for age. No focal, lateralizing, specific epileptiform discharge or electrographic seizure is seen. LIAT DE SANTIAGO MD DR: MARGO/erin JOB#: [id number] / [id number] HENNY
--- NOTE | 2017-12-28 18:19 | PDOC ---
PROGRESS NOTES Assessment Assessment Metabolic encephalopathy. Hypoxia encephalopathy. Confusion. CVA evaluation. Respiratory failure. Renal failure. CHF, EF 40%. AFib. DM. Hyperglycemia. HTN. HLD. Hypothyroidism. Bilateral maxillary sinusitis. Severe obesity. Pacemaker in site. Brain atrophy. RECOMMENDATIONS/PLAN: She has been treated with Coumadin. Continue Zocor HS. Treat medical and cardiac diseases. OT/PT. Discussed with her daughter in detail on the phone on 12/28/17. EEG on 12/28/17: The posterior dominant rhythm is slow for age. HCT: 12/27/17: No acute findings except brain atrophy. HISTORY OF THE PRESENT ILLNESS: 72-y-old female patient with many medical and cardiac diseases has been having symptoms of SOB, difficult breathing with 02 desaturation, mental status changes, confusion, intermittent unresponsiveness for 2 days and she was brought to the ER of [facility] and hospitalized for further evaluation. Past Medical History Cardiovascular: AFIB, CHF, HTN, Hyperlipidemia Pulmonary: Bronchitis, COPD Psych: No pertinent hx Rheumatologic: No pertinent hx Infectious disease: No pertinent hx ENT: No pertinent hx Renal/: No pertinent hx Endocrine: Diabetes, Hypothyroidism Past Surgical History Cholecystectomy, pacemaker, and hernia repair. Family History HLD, Hypertension Social History ALCOHOL: none Drugs: None ALLERGY: Reviewed. MEDICATIONS: Refer to MAR REVIEW OF SYSTEMS: Constitutional: Obesity. Head: No traumatic brain or head injury. Skin: No edema, or rash. Ear: No infection, tinnitus. Eyes: No vision loss or color blindness. Nose: No bleeding or purulent discharges. Hearing: Hearing decrease. Neck: No injury. Breast: No history of cancer, masses,or discharges. Cardiac: AFib, Pacemaker Placement, HTN, HLD. Pulmonary: SOB, COPD. GI: No GI ulcer, GI bleeding. Urinary/genital: UTI. Endocrinologic: Diabetes Mellitus, hypothyroidism, obesity. Skeletomuscular: Generalized weakness. Neurological: see HP. Psychiatric: Denies drug use/abuse. Otherwise, not [id number] review of systems. PHYSICAL EXAMINATION: General appearance is in subacute distress. HEENT: Normocephalic and nontraumatic. Eyes, nose, ears, and throat are unremarkable. Neck is supple. No lymphadenopathy. No crepitus. Cardiovascular: S1, S2, seemed irregular rate and rhythm. Pulmonary: decreased breathing sounds to auscultation bilaterally. Abdomen: Bowel sounds are positive. Extremities: No rash, lesions. No restriction of range of motion NEUROLOGICAL EXAMINATION: Awake. Not oriented to time, place but knew person. PERRL. EOMI. CN: no focal findings. Muscle tone: Decreased. Muscle strength: 4 DTR: 0-1 due to near morbid obesity. Plantar reflex: Neutral response bilaterally Gait: not examined in chair. Sensory exam: no acute abnormal findings. No acute cerebellar signs elicited. F-T-N test fine. Objective Objective Vital Signs Date Time Temp Pulse Resp B/P (MAP) Pulse Ox O2 Delivery O2 Flow Rate FiO2 12/28/17 17:12 98 Nasal Cannula 2.0 12/28/17 11:00 98.0 81 20 109/71 (84) 98.0 Intake and Output 12/28/17 07:00 Intake Total 550 ml Output Total 800 ml Balance -250 ml Intake Oral 550 ml Output Urine Total 800 ml # Voids 2 Vitals Signs Vitals VS - Last 72 Hours, by Label Date Time Temp Pulse Resp B/P (MAP) Pulse Ox O2 Delivery O2 Flow Rate FiO2 12/28/17 17:12 98 Nasal Cannula 2.0 12/28/17 11:22 97 Nasal Cannula 2.0 12/28/17 11:00 98.0 81 20 109/71 (84) 98 Nasal Cannula 2.0 98.0 12/28/17 08:03 86 12/28/17 08:02 84 123/57 12/28/17 07:14 97 Nasal Cannula 2.0 12/28/17 06:49 97.4 79 99 Nasal Cannula 3.0 97.4 12/28/17 05:30 98 Nasal Cannula 2.0 12/28/17 04:07 98 Nasal Cannula 2.0 12/28/17 03:47 98.0 85 20 116/66 (83) 98 Nasal Cannula 2.0 98.0 12/27/17 23:01 97.9 84 20 123/77 (92) 99 Nasal Cannula 2.0 97.9 12/27/17 21:22 97 Nasal Cannula 2.0 12/27/17 20:52 75 144/67 12/27/17 20:00 Nasal Cannula 2.0 12/27/17 19:54 97.8 75 22 144/67 (92) 97 Room Air 97.8 9/20/18 15:22 Nasal Cannula 2.0 12/27/17 15:00 97.5 85 22 152/65 (94) 98 Room Air 97.5 12/27/17 12:31 85 124/65 (84) 12/27/17 11:09 Nasal Cannula 2.0 12/27/17 11:00 98.1 73 22 120/54 (76) 95 Nasal Cannula 2.0 98.1 12/27/17 09:46 94 12/27/17 09:45 86 12/27/17 07:38 97 Nasal Cannula 2.0 12/27/17 07:00 97.7 86 24 110/57 (74) 96 Room Air 97.7 Laboratory Laboratory Laboratory Tests Test 12/27/17 20:53 12/28/17 04:00 12/28/17 07:58 12/28/17 11:45 Glucose (Fingerstick) 151 mg/dL (70-99) 120 mg/dL (70-99) 148 mg/dL (70-99) Prothrombin Time 24.4 SEC (11.7-14.0) Prothromb Time International Ratio 2.3 (0.8-1.1) Sodium Level 138 mmol/L (136-145) Potassium Level 4.1 mmol/L (3.5-5.1) Chloride Level 104 mmol/L (98-107) Carbon Dioxide Level 25 mmol/L (21-32) Anion Gap 9 (6-14) Blood Urea Nitrogen 25 mg/dL (7-20) Creatinine 2.3 mg/dL (0.6-1.0) Estimated GFR (Cockcroft-Gault) 20.8 Glucose Level 119 mg/dL (70-99) Calcium Level 7.9 mg/dL (8.5-10.1) Triglycerides Level 105 mg/dL (0-150) Cholesterol Level 74 mg/dL (0-200) LDL Cholesterol, Calculated 27 mg/dL (0-100) VLDL Cholesterol, Calculated 21 mg/dL (0-40) Non-HDL Cholesterol Calculated 48 mg/dL (0-129) HDL Cholesterol 26 mg/dL (40-60) Cholesterol/HDL Ratio 2.8 Test 12/28/17 17:24 Glucose (Fingerstick) 133 mg/dL (70-99) Medication Medications Current Medications Levofloxacin (Levaquin) 250 mg QHS PO Last administered on 12/27/17at 20:52; Start 12/27/17 at 21:00 Sodium Chloride 1,000 ml @ 60 mls/hr [id number] IV Last administered on at 17:35; Start 12/28/17 at 18:00 Warfarin Sodium (Coumadin) 2 mg 1X WARF ONCE PO Last administered on at 17:33; Start 12/28/17 at 16:00; Stop 12/28/17 at 16:01; Status DC Comment Review of Relevant I have reviewed the following items uyen (where applicable) has been applied. LIAT DE SANTIAGO MD Dec 28, 2017 18:19
[2017-12-28 18:31] LABS: BILIRUBIN,URINE NEGATIVE (NEG); CLARITY,URINE CLEAR; COLOR,URINE YELLOW; NITRITE,URINE NEGATIVE (NEG); PROTEIN,URINE 30 mg/dL (NEG-TRACE); UROBILINOGEN,URINE 0.2 mg/dL (0.2 mg/dL)
[2017-12-28 18:49] LABS: BACTERIA,URINE 0 /HPF (0-FEW); RBC,URINE TNTC /HPF (0-2); SQUAMOUS EPITHELIAL CELL,UR MOD /LPF
[2017-12-28 19:35] VITALS: BP 122/66
[2017-12-28 20:40] VITALS: BP 124/61
[2017-12-28] MEDS: SIMVASTATIN 40 MG TABLET. PO SCH (20:41)
[2017-12-28] MEDS: DOCUSATE SODIUM 100 MG CAPSULE. PO PRN (20:47)
[2017-12-28 23:25] VITALS: BP 119/63
[2017-12-29 03:43] VITALS: BP 120/64
[2017-12-29] MEDS: LEVOTHYROXINE 150 MCG TABLET PO SCH (06:39)
[2017-12-29] MEDS: IPRATRPIUM/ALBUTEROL 0.5/2.5MG 3 ML NEBU. NEB SCH ×4 (07:13→19:16)
[2017-12-29 07:16] VITALS: BP 128/62
[2017-12-29] MEDS: INSULIN LISPRO 300 UNITS/3 ML INSULN.PEN. SQ SCH ×3 (08:00→17:00)
[2017-12-29] MEDS: DIGOXIN 125 MCG TABLET. PO SCH (08:36)
[2017-12-29] MEDS: LACTOBACILLUS RHAMNOSUS GG 1 CAPSULE. PO SCH ×2 (08:36→20:13)
[2017-12-29] MEDS: SOTALOL 80 MG TABLET. PO SCH ×2 (08:36→20:13)
[2017-12-29] MEDS: BENZONATATE 100 MG CAPSULE. PO SCH ×3 (08:36→20:13)
--- NOTE | 2017-12-29 09:11 | PDOC ---
PULMONARY PROGRESS NOTES Subjective no soa, weak. does not want to go to skill Vitals Vital Signs Date Time Temp Pulse Resp B/P (MAP) Pulse Ox O2 Delivery O2 Flow Rate FiO2 12/29/17 08:36 85 128/62 12/29/17 07:16 98.0 21 98 Nasal Cannula 2.0 98.0 General: Alert, No acute distress Lungs: Clear Cardiovascular: S1, S2 Abdomen: Soft, Other (obese) Neuro Exam: Alert Extremities: Other (2+edema) Labs Laboratory Tests Test 12/27/17 12:08 12/27/17 17:14 12/27/17 20:53 12/28/17 04:00 Glucose (Fingerstick) 132 mg/dL (70-99) 111 mg/dL (70-99) 151 mg/dL (70-99) Prothrombin Time 24.4 SEC (11.7-14.0) Prothromb Time International Ratio 2.3 (0.8-1.1) Sodium Level 138 mmol/L (136-145) Potassium Level 4.1 mmol/L (3.5-5.1) Chloride Level 104 mmol/L (98-107) Carbon Dioxide Level 25 mmol/L (21-32) Anion Gap 9 (6-14) Blood Urea Nitrogen 25 mg/dL (7-20) Creatinine 2.3 mg/dL (0.6-1.0) Estimated GFR (Cockcroft-Gault) 20.8 Glucose Level 119 mg/dL (70-99) Calcium Level 7.9 mg/dL (8.5-10.1) Triglycerides Level 105 mg/dL (0-150) Cholesterol Level 74 mg/dL (0-200) LDL Cholesterol, Calculated 27 mg/dL (0-100) VLDL Cholesterol, Calculated 21 mg/dL (0-40) Non-HDL Cholesterol Calculated 48 mg/dL (0-129) HDL Cholesterol 26 mg/dL (40-60) Cholesterol/HDL Ratio 2.8 Test 12/28/17 07:58 12/28/17 11:45 12/28/17 17:24 12/28/17 18:00 Glucose (Fingerstick) 120 mg/dL (70-99) 148 mg/dL (70-99) 133 mg/dL (70-99) Urine Collection Type Unknown Urine Color Yellow Urine Clarity Clear Urine pH 5.0 Urine Specific [place] 1.010 Urine Protein 30 mg/dL (NEG-TRACE) Urine Glucose (UA) Negative mg/dL (NEG) Urine Ketones (Stick) Negative mg/dL (NEG) Urine Blood Large (NEG) Urine Nitrite Negative (NEG) Urine Bilirubin Negative (NEG) Urine Urobilinogen Dipstick 0.2 mg/dL (0.2 mg/dL) Urine Leukocyte Esterase Small (NEG) Urine RBC Tntc /HPF (0-2) Urine WBC 11-20 /HPF (0-4) Urine Squamous Epithelial Cells Mod /LPF Urine Bacteria 0 /HPF (0-FEW) Urine Mucus Mod /LPF Test 12/28/17 20:56 12/29/17 08:07 Glucose (Fingerstick) 114 mg/dL (70-99) 116 mg/dL (70-99) Laboratory Tests Test 12/28/17 11:45 12/28/17 17:24 12/28/17 18:00 12/28/17 20:56 Glucose (Fingerstick) 148 mg/dL (70-99) 133 mg/dL (70-99) 114 mg/dL (70-99) Urine Collection Type Unknown Urine Color Yellow Urine Clarity Clear Urine pH 5.0 Urine Specific [place] 1.010 Urine Protein 30 mg/dL (NEG-TRACE) Urine Glucose (UA) Negative mg/dL (NEG) Urine Ketones (Stick) Negative mg/dL (NEG) Urine Blood Large (NEG) Urine Nitrite Negative (NEG) Urine Bilirubin Negative (NEG) Urine Urobilinogen Dipstick 0.2 mg/dL (0.2 mg/dL) Urine Leukocyte Esterase Small (NEG) Urine RBC Tntc /HPF (0-2) Urine WBC 11-20 /HPF (0-4) Urine Squamous Epithelial Cells Mod /LPF Urine Bacteria 0 /HPF (0-FEW) Urine Mucus Mod /LPF Test 12/29/17 08:07 Glucose (Fingerstick) 116 mg/dL (70-99) Medications Active Scripts Medications Dose Route/Sig Max Daily Dose Days Date Category Proair Hfa Inhaler (Albuterol Sulfate) 8.5 Gm Hfa.aer.ad 1 Puff INH PRN Q6HRS PRN 12/24/17 Reported Sotalol (Sotalol Hcl) 80 Mg Tablet 1 Tab PO BID 12/24/17 Reported Tessalon Perle (Benzonatate) 100 Mg Capsule 2 Cap PO TID PRN 12/24/17 Reported Digoxin 125 Mcg Tablet 125 Mcg PO DAILY 09/26/17 Rx Warfarin Sodium 2 Mg Tablet 1 Tab PO DAILY 09/23/17 Reported Lisinopril 10 Mg Tablet 1 Tab PO DAILY 09/23/17 Reported Levothyroxine Sodium 125 Mcg Tablet 150 Mcg PO DAILY 09/23/17 Reported Simvastatin 40 Mg Tablet 40 Mg PO DAILY 09/23/17 Reported Metformin Hcl 500 Mg Tablet 500 Mg PO BIDWMEALS 09/23/17 Reported Furosemide 20 Mg Tablet 1 Tab PO DAILY 09/23/17 Reported Potassium Chloride 10 Meq Tab.sr.24h 10 Meq PO DAILY 09/23/17 Reported Impression . 1. Acute hypoxic respiratory failure secondary to multifactorial etiologies including a combination of right and left heart failure and possible lower respiratory tract infection. In addition, underlying chronic obstructive pulmonary disease with exacerbation. 2. Chronic atrial fibrillation, on chronic anticoagulation with mild increased ventricular response. improved. 3. 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 She no longer smokes cigarettes. 4. Morbid obesity and suspect obesity hypoventilation syndrome. Needs to rule out for obstructive sleep apnea by sleep study as an outpatient. Plan . 1. Continue with present oxygen via nasal cannula. 2. Noncontrast CT chest reviewed. mild basal atelectasis/ tiny effusions 3. echocardiogram reviewed 4. Continue empiric antibiotics for now . changed to PO 5. Diuresis. 6. off Cardizem per Cardiology. 7. Follow Cardiology recommendation. 8. Bronchodilators. 9. Weight loss is advised. 10. Sleep study as an outpatient. 11. Discussed with the patient / she wants to go home 6 min walk before dc CARLOS BLANCO MD Dec 29, 2017 09:11
[2017-12-29] MEDS: IV NORMAL SALINE 1000ML BAG 1,000 ML IV SCH (10:40)
[2017-12-29 11:10] VITALS: BP 115/57
[2017-12-29 11:19] LABS: ALBUMIN 2.6 g/dL (3.4-5.0); ALBUMIN/GLOBULIN RATIO 0.8 (1.0-1.7); CALCIUM 7.8 mg/dL (8.5-10.1); CREATININE 2.4 mg/dL (0.6-1.0); GFR 19.8; POTASSIUM 4.3 mmol/L (3.5-5.1); TOTAL BILIRUBIN 0.5 mg/dL (0.2-1.0); TOTAL PROTEIN 5.7 g/dL (6.4-8.2)
[2017-12-29 11:29] LABS: PROTHROMBIN TIME PATIENT 24.1 SEC (11.7-14.0)
--- NOTE | 2017-12-29 12:24 | PDOC ---
PROGRESS NOTES Chief Complaint Chief Complaint sob with copd and chf copd exacerbation bronchitis CHF systolic ef 40% likely exacerbation HTN HLD Hypothyroidism ppm rapid AFIB Morbid obesity mild dementia AMS, metabolic encephalopathy with rickey, hypoxic RICKEY, vasomotor plan: fu with card, pulm cont duoneb, levaquin. dced vanco cardizem drip off, cont satolol, dig, warfarin , INR daily talked to daughter and pt, tiny pleural effusion no need thoracentesis increase lasix to 40mg daily, got lasix 60mg iv x2 times. lasix dced as per renal, added ivf add cough meds echo done neuro consult, head ct, MRI cannot be done 2/2 PPM, EEG neg for seizure. hold metformin given rickey PTOT sw fu, pt refused rehab but seems family agreed, screening PP. check UA, ucx History of Present Illness History of Present Illness ROS: no fever, chills, chest pain on NC 2L, no home o2 cont severe cough, no sputum bl leg severe edema, daughter said it is bad, but pt cannot tell pt said she was on lasix 150mg daily before, current 20mg daily at home 12/27: pt not talking much to me today as before, altho she used to hard finding words to tell me and told her daughter wrong info often cr higher to 2.1, got 2 times lasix iv later pt got unresponsive, woke up during CT scan. HEAD CT ok. 12/28: Cr higher to 2.3. pt kind of back to her baseline, not talkative, but answer questions and follow commands. refused to go to rehab hematuria as per [employer] 12/29: talkative a like normal, cannot tell me why she was unresponsive 2 ds ago. Cr still high as 2.4 Vitals Vitals Vital Signs Date Time Temp Pulse Resp B/P (MAP) Pulse Ox O2 Delivery O2 Flow Rate FiO2 12/29/17 11:20 98 12/29/17 11:10 98.3 101 20 115/57 (76) Room Air 98.3 12/29/17 07:16 2.0 Physical Exam General: Alert, Cooperative, No acute distress Heart: Regular rate, Other (IRREGULAR) Lungs: Clear Abdomen: Normal bowel sounds, Soft Extremities: No clubbing, No cyanosis Skin: No breakdown Labs LABS Laboratory Tests Test 12/28/17 17:24 12/28/17 18:00 12/28/17 20:56 12/29/17 08:07 Glucose (Fingerstick) 133 mg/dL (70-99) 114 mg/dL (70-99) 116 mg/dL (70-99) Urine Collection Type Unknown Urine Color Yellow Urine Clarity Clear Urine pH 5.0 Urine Specific [place] 1.010 Urine Protein 30 mg/dL (NEG-TRACE) Urine Glucose (UA) Negative mg/dL (NEG) Urine Ketones (Stick) Negative mg/dL (NEG) Urine Blood Large (NEG) Urine Nitrite Negative (NEG) Urine Bilirubin Negative (NEG) Urine Urobilinogen Dipstick 0.2 mg/dL (0.2 mg/dL) Urine Leukocyte Esterase Small (NEG) Urine RBC Tntc /HPF (0-2) Urine WBC 11-20 /HPF (0-4) Urine Squamous Epithelial Cells Mod /LPF Urine Bacteria 0 /HPF (0-FEW) Urine Mucus Mod /LPF Test 12/29/17 10:30 12/29/17 11:56 Prothrombin Time 24.1 SEC (11.7-14.0) Prothromb Time International Ratio 2.2 (0.8-1.1) Sodium Level 140 mmol/L (136-145) Potassium Level 4.3 mmol/L (3.5-5.1) Chloride Level 104 mmol/L (98-107) Carbon Dioxide Level 26 mmol/L (21-32) Anion Gap 10 (6-14) Blood Urea Nitrogen 25 mg/dL (7-20) Creatinine 2.4 mg/dL (0.6-1.0) Estimated GFR (Cockcroft-Gault) 19.8 BUN/Creatinine Ratio 10 (6-20) Glucose Level 160 mg/dL (70-99) Calcium Level 7.8 mg/dL (8.5-10.1) Total Bilirubin 0.5 mg/dL (0.2-1.0) Aspartate Amino Transf (AST/SGOT) 43 U/L (15-37) Alanine Aminotransferase (ALT/SGPT) 28 U/L (14-59) Alkaline Phosphatase 91 U/L (46-116) Total Protein 5.7 g/dL (6.4-8.2) Albumin 2.6 g/dL (3.4-5.0) Albumin/Globulin Ratio 0.8 (1.0-1.7) Glucose (Fingerstick) 135 mg/dL (70-99) Assessment and Plan Assessmemt and Plan Problems Medical Problems: (1) Atrial fibrillation with RVR Status: Acute (2) Bandemia Status: Acute (3) Hypoxia Status: Acute (4) Severe sepsis Status: Acute Comment Review of Relevant I have reviewed the following items uyen (where applicable) has been applied. Labs Laboratory Tests Test 12/27/17 17:14 12/27/17 20:53 12/28/17 04:00 12/28/17 07:58 Glucose (Fingerstick) 111 mg/dL (70-99) 151 mg/dL (70-99) 120 mg/dL (70-99) Prothrombin Time 24.4 SEC (11.7-14.0) Prothromb Time International Ratio 2.3 (0.8-1.1) Sodium Level 138 mmol/L (136-145) Potassium Level 4.1 mmol/L (3.5-5.1) Chloride Level 104 mmol/L (98-107) Carbon Dioxide Level 25 mmol/L (21-32) Anion Gap 9 (6-14) Blood Urea Nitrogen 25 mg/dL (7-20) Creatinine 2.3 mg/dL (0.6-1.0) Estimated GFR (Cockcroft-Gault) 20.8 Glucose Level 119 mg/dL (70-99) Calcium Level 7.9 mg/dL (8.5-10.1) Triglycerides Level 105 mg/dL (0-150) Cholesterol Level 74 mg/dL (0-200) LDL Cholesterol, Calculated 27 mg/dL (0-100) VLDL Cholesterol, Calculated 21 mg/dL (0-40) Non-HDL Cholesterol Calculated 48 mg/dL (0-129) HDL Cholesterol 26 mg/dL (40-60) Cholesterol/HDL Ratio 2.8 Test 12/28/17 11:45 12/28/17 17:24 12/28/17 18:00 12/28/17 20:56 Glucose (Fingerstick) 148 mg/dL (70-99) 133 mg/dL (70-99) 114 mg/dL (70-99) Urine Collection Type Unknown Urine Color Yellow Urine Clarity Clear Urine pH 5.0 Urine Specific [place] 1.010 Urine Protein 30 mg/dL (NEG-TRACE) Urine Glucose (UA) Negative mg/dL (NEG) Urine Ketones (Stick) Negative mg/dL (NEG) Urine Blood Large (NEG) Urine Nitrite Negative (NEG) Urine Bilirubin Negative (NEG) Urine Urobilinogen Dipstick 0.2 mg/dL (0.2 mg/dL) Urine Leukocyte Esterase Small (NEG) Urine RBC Tntc /HPF (0-2) Urine WBC 11-20 /HPF (0-4) Urine Squamous Epithelial Cells Mod /LPF Urine Bacteria 0 /HPF (0-FEW) Urine Mucus Mod /LPF Test 12/29/17 08:07 12/29/17 10:30 12/29/17 11:56 Glucose (Fingerstick) 116 mg/dL (70-99) 135 mg/dL (70-99) Prothrombin Time 24.1 SEC (11.7-14.0) Prothromb Time International Ratio 2.2 (0.8-1.1) Sodium Level 140 mmol/L (136-145) Potassium Level 4.3 mmol/L (3.5-5.1) Chloride Level 104 mmol/L (98-107) Carbon Dioxide Level 26 mmol/L (21-32) Anion Gap 10 (6-14) Blood Urea Nitrogen 25 mg/dL (7-20) Creatinine 2.4 mg/dL (0.6-1.0) Estimated GFR (Cockcroft-Gault) 19.8 BUN/Creatinine Ratio 10 (6-20) Glucose Level 160 mg/dL (70-99) Calcium Level 7.8 mg/dL (8.5-10.1) Total Bilirubin 0.5 mg/dL (0.2-1.0) Aspartate Amino Transf (AST/SGOT) 43 U/L (15-37) Alanine Aminotransferase (ALT/SGPT) 28 U/L (14-59) Alkaline Phosphatase 91 U/L (46-116) Total Protein 5.7 g/dL (6.4-8.2) Albumin 2.6 g/dL (3.4-5.0) Albumin/Globulin Ratio 0.8 (1.0-1.7) Laboratory Tests Test 12/28/17 17:24 12/28/17 18:00 12/28/17 20:56 12/29/17 08:07 Glucose (Fingerstick) 133 mg/dL (70-99) 114 mg/dL (70-99) 116 mg/dL (70-99) Urine Collection Type Unknown Urine Color Yellow Urine Clarity Clear Urine pH 5.0 Urine Specific [place] 1.010 Urine Protein 30 mg/dL (NEG-TRACE) Urine Glucose (UA) Negative mg/dL (NEG) Urine Ketones (Stick) Negative mg/dL (NEG) Urine Blood Large (NEG) Urine Nitrite Negative (NEG) Urine Bilirubin Negative (NEG) Urine Urobilinogen Dipstick 0.2 mg/dL (0.2 mg/dL) Urine Leukocyte Esterase Small (NEG) Urine RBC Tntc /HPF (0-2) Urine WBC 11-20 /HPF (0-4) Urine Squamous Epithelial Cells Mod /LPF Urine Bacteria 0 /HPF (0-FEW) Urine Mucus Mod /LPF Test 12/29/17 10:30 12/29/17 11:56 Prothrombin Time 24.1 SEC (11.7-14.0) Prothromb Time International Ratio 2.2 (0.8-1.1) Sodium Level 140 mmol/L (136-145) Potassium Level 4.3 mmol/L (3.5-5.1) Chloride Level 104 mmol/L (98-107) Carbon Dioxide Level 26 mmol/L (21-32) Anion Gap 10 (6-14) Blood Urea Nitrogen 25 mg/dL (7-20) Creatinine 2.4 mg/dL (0.6-1.0) Estimated GFR (Cockcroft-Gault) 19.8 BUN/Creatinine Ratio 10 (6-20) Glucose Level 160 mg/dL (70-99) Calcium Level 7.8 mg/dL (8.5-10.1) Total Bilirubin 0.5 mg/dL (0.2-1.0) Aspartate Amino Transf (AST/SGOT) 43 U/L (15-37) Alanine Aminotransferase (ALT/SGPT) 28 U/L (14-59) Alkaline Phosphatase 91 U/L (46-116) Total Protein 5.7 g/dL (6.4-8.2) Albumin 2.6 g/dL (3.4-5.0) Albumin/Globulin Ratio 0.8 (1.0-1.7) Glucose (Fingerstick) 135 mg/dL (70-99) Medications Current Medications Diltiazem HCl (Cardizem) 20 mg 1X ONCE IVP Last administered on 12/23/17at 23: 00; Start 12/23/17 at 23:00; Stop 12/23/17 at 23:01; Status DC Aspirin (Adonis Aspirin) 325 mg 1X ONCE PO ; Start 12/23/17 at 23:00; Stop 12/23 at 23:01; Status DC Diltiazem HCl 125 mg/Dextrose 125 ml @ 10 mls/hr 1X ONCE IV Last administered on 12/23/17at 23:11; Start 12/23/17 at 23:00; Stop 12/24/17 at 11:29 ; Status DC Dexamethasone Sodium Phosphate (Decadron) 10 mg 1X ONCE IV Last administered on 12/23/17at 22:57; Start 12/23/17 at 23:00; Stop 12/23/17 at 23:01; Status DC Albuterol/ Ipratropium (Duoneb) 3 ml 1X ONCE NEB ; Start 12/23/17 at 23:00; Stop 12/23/17 at 23:01; Status DC Albuterol/ Ipratropium (Duoneb) 3 ml STAT ONCE NEB ; Start 12/23/17 at 23:00; Stop 12/23/17 at 23:01; Status DC Hyoscyamine (Anaspaz) 0.25 mg 1X ONCE PO ; Start 12/23/17 at 23:45; Stop at 23:46; Status Cancel Sodium Chloride 1,000 ml @ 1,000 mls/hr 1X ONCE IV Last administered on at 01:17; Start 12/23/17 at 23:45; Stop 12/24/17 at 00:44; Status DC Sodium Chloride 1,000 ml @ 1,000 mls/hr 1X ONCE IV Last administered on at 04:29; Start 12/23/17 at 23:45; Stop 12/24/17 at 00:44; Status DC Piperacillin Sod/ Tazobactam Sod 4.5 gm/Sodium Chloride 100 ml @ 200 mls/hr 1X ONCE IV Last administered on 12/24/17at 01:17; Start 12/24/17 at 00:00; Stop 12/24/17 at 00:29; Status DC Levofloxacin/ Dextrose 150 ml @ 100 mls/hr 1X ONCE IV Last administered on at 01:17; Start 12/24/17 at 00:00; Stop 12/24/17 at 01:29; Status DC Vancomycin HCl 2 gm/Sodium Chloride 500 ml @ 250 mls/hr 1X ONCE IV Last administered on 12/24/17at 01:18; Start 12/24/17 at 00:30; Stop 12/24/17 at 02:29 ; Status DC Ondansetron HCl (Zofran) 4 mg PRN Q8HRS PRN IV NAUSEA/VOMITING 1ST CHOICE; Start 12/24/17 at 00:15; Stop 12/25/17 at 00:14; Status DC Fentanyl Citrate (Fentanyl 2ml Vial) 50 mcg PRN Q2HR PRN IV SEVERE PAIN; Start 12/24/17 at 00:15; Stop 12/25/17 at 00:14; Status DC Albuterol Sulfate (Ventolin Neb Soln) 2.5 mg PRN Q4HRS PRN NEB WHEEZING Last administered on 12/25/17at 17:28; Start 12/24/17 at 00:30 Insulin Human Lispro (HumaLOG) 0-5 UNITS TIDWMEALS SQ Last administered on 12/24at 17:46; Start 12/24/17 at 08:00 Dextrose (Dextrose 50%-Water Syringe) 12.5 gm PRN Q15MIN PRN IV SEE COMMENTS; Start 12/24/17 at 00:15 Info (Do NOT chart on this placeholder) 1 each 1X ONCE MC ; Start 12/24/17 at 01:45; Stop 12/24/17 at 01:46; Status UNV Influenza Virus Vaccine (Afluria Trivalent [id number] Syringe) 0.5 ml ONCE ONCE VAX IM Last administered on 12/24/17at 08:51; Start 12/24/17 at 09:00; Stop at 09:01; Status DC Albuterol/ Ipratropium (Duoneb) 3 ml RTQID NEB Last administered on 12/29/17at 11:20; Start 12/24/17 at 12:00 Levofloxacin/ Dextrose 100 ml @ 100 mls/hr Q24H IV ; Start 12/24/17 at 10:30; Status UNV Vancomycin HCl (Vanco Per Pharmacy) 1 each PRN DAILY PRN MC SEE COMMENTS Last administered on 12/25/17at 10:36; Start 12/24/17 at 10:30; Stop 12/25/17 at 17:09 ; Status DC Levofloxacin/ Dextrose 100 ml @ 100 mls/hr Q24H IV Last administered on at 23:31; Start 12/24/17 at 23:00; Stop 12/26/17 at 14:40; Status DC Vancomycin HCl 1.75 gm/Sodium Chloride 500 ml @ 250 mls/hr Q12H IV Last administered on 12/25/17at 13:00; Start 12/24/17 at 13:00; Stop 12/25/17 at 17:08 ; Status DC Vancomycin HCl (Vancomycin Trough Level) 1 each 1X ONCE MC ; Start 12/25/17 at 23:30; Stop 12/25/17 at 23:30; Status DC Lactobacillus Rhamnosus (Culturelle) 1 cap BID PO Last administered on at 08:36; Start 12/24/17 at 21:00 Warfarin Sodium (Coumadin Per Pharmacy) 1 each PRN DAILY PRN MC SEE COMMENTS Last administered on 12/28/17at 14:03; Start 12/24/17 at 14:45 Warfarin Sodium (Coumadin) 2 mg 1X WARF ONCE PO Last administered on at 15:52; Start 12/24/17 at 16:00; Stop 12/24/17 at 16:01; Status DC Digoxin (Lanoxin) 125 mcg DAILY PO Last administered on 12/29/17at 08:36; Start 12/24/17 at 17:30 Sotalol HCl (Betapace) 80 mg BID PO Last administered on 12/29/17at 08:36; Start 12/24/17 at 21:00 Furosemide (Lasix) 20 mg DAILY PO Last administered on 12/25/17at 07:50; Start 12/24/17 at 18:00; Stop 12/25/17 at 08:44; Status DC Potassium Chloride (Klor-Con) 10 meq DAILY PO Last administered on 12/27/17at 09 :46; Start 12/24/17 at 18:00; Stop 12/27/17 at 11:59; Status DC Levothyroxine Sodium (Synthroid) 150 mcg DAILY07 PO Last administered on at 06:39; Start 12/24/17 at 18:00 Metformin HCl (Glucophage) 500 mg BIDWMEALS PO Last administered on 12/27/17at 09:45; Start 12/24/17 at 18:00; Stop 12/27/17 at 10:53; Status DC Simvastatin (Zocor) 40 mg DAILY PO ; Start 12/24/17 at 18:00; Stop 12/24/17 at 18:00; Status DC Simvastatin (Zocor) 40 mg QHS PO Last administered on 12/28/17at 20:41; Start at 21:00 Furosemide (Lasix) 20 mg 1X ONCE PO Last administered on 12/25/17at 12:57; Start 12/25/17 at 09:00; Stop 12/25/17 at 09:01; Status DC Guaifenesin/ Codeine Phosphate (Robitussin Ac) 5 ml PRN Q6HRS PRN PO COUGH Last administered on 12/25/17at 12:54; Start 12/25/17 at 08:45 Benzonatate (Tessalon Perle) 100 mg [id number] PO Last administered on 12/29/17at 08 :36; Start 12/25/17 at 09:00 Furosemide (Lasix) 40 mg DAILY PO ; Start 12/26/17 at 09:00; Stop 12/27/17 at 11 :59; Status DC Warfarin Sodium (Coumadin) 2 mg 1X WARF ONCE PO Last administered on at 16:44; Start 12/25/17 at 16:00; Stop 12/25/17 at 16:01; Status DC Acetaminophen (Tylenol) 650 mg PRN Q6HRS PRN PO FEVER; Start 12/25/17 at 12:15 Ondansetron HCl (Zofran) 4 mg PRN Q6HRS PRN IV NAUSEA/VOMITING; Start 12/25/17 at 12:15 Morphine Sulfate (Morphine Sulfate) 2 mg PRN Q2HR PRN IV MODERATE TO SEVERE PAIN; Start 12/25/17 at 12:15 Tramadol HCl (Ultram) 50 mg PRN Q6HRS PRN PO MILD TO MODERATE PAIN Last administered on 12/28/17at 20:48; Start 12/25/17 at 12:15 Docusate Sodium (Colace) 100 mg PRN DAILY PRN PO HARD STOOLS Last administered on 12/28/17at 20:47; Start 12/25/17 at 12:15 Labetalol HCl (Normodyne Iv Push) 20 mg PRN Q2HR PRN IVP HYPERTENSION, SEE COMMENTS; Start 12/25/17 at 12:15 Furosemide (Lasix) 60 mg 1X ONCE IVP Last administered on 12/25/17at 17:51; Start 12/25/17 at 18:00; Stop 12/25/17 at 18:01; Status DC Furosemide (Lasix) 60 mg 1X ONCE IVP Last administered on 12/26/17at 08:46; Start 12/26/17 at 09:00; Stop 12/26/17 at 09:01; Status DC Warfarin Sodium (Coumadin) 2 mg 1X ONCE PO ; Start 12/26/17 at 14:45; Stop at 14:46; Status Cancel Warfarin Sodium (Coumadin) 2 mg 1X WARF ONCE PO Last administered on at 17:29; Start 12/26/17 at 16:00; Stop 12/26/17 at 16:01; Status DC Levofloxacin/ Dextrose 50 ml @ 50 mls/hr Q24H IV Last administered on at 22:47; Start 12/26/17 at 23:00; Stop 12/27/17 at 09:12; Status DC Levofloxacin (Levaquin) 250 mg QHS PO Last administered on 12/28/17at 20:41; Start 12/27/17 at 21:00 Warfarin Sodium (Coumadin) 2 mg 1X WARF ONCE PO Last administered on at 17:15; Start 12/27/17 at 16:00; Stop 12/27/17 at 16:01; Status DC Sodium Chloride 1,000 ml @ 75 mls/hr [id number] IV Last administered on at 15:37; Start 12/27/17 at 12:00; Stop 12/28/17 at 17:24; Status DC Warfarin Sodium (Coumadin) 2 mg 1X WARF ONCE PO Last administered on at 17:33; Start 12/28/17 at 16:00; Stop 12/28/17 at 16:01; Status DC Sodium Chloride 1,000 ml @ 60 mls/hr [id number] IV Last administered on at 17:35; Start 12/28/17 at 18:00 Warfarin Sodium (Coumadin) 2 mg 1X WARF ONCE PO ; Start 12/29/17 at 16:00; Stop 12/29/17 at 16:01 Active Scripts Active Digoxin 125 Mcg Tablet 125 Mcg PO DAILY Reported Proair Hfa Inhaler (Albuterol Sulfate) 8.5 Gm Hfa.aer.ad 1 Puff INH PRN Q6HRS PRN Sotalol (Sotalol Hcl) 80 Mg Tablet 1 Tab PO BID Tessalon Perle (Benzonatate) 100 Mg Capsule 2 Cap PO TID PRN Warfarin Sodium 2 Mg Tablet 1 Tab PO DAILY Lisinopril 10 Mg Tablet 1 Tab PO DAILY Levothyroxine Sodium 125 Mcg Tablet 150 Mcg PO DAILY Simvastatin 40 Mg Tablet 40 Mg PO DAILY Metformin Hcl 500 Mg Tablet 500 Mg PO BIDWMEALS Furosemide 20 Mg Tablet 1 Tab PO DAILY Potassium Chloride 10 Meq Tab.sr.24h 10 Meq PO DAILY Vitals/I & O Vital Sign - Last 24 Hours 12/28/17 12/28/17 12/28/17 12/28/17 17:12 19:35 20:00 20:09 Temp 97.8 97.8 Pulse 69 Resp 20 B/P (MAP) 122/66 (84) Pulse Ox 98 99 99 O2 Delivery Nasal Cannula Nasal Cannula Nasal Cannula Nasal Cannula O2 Flow Rate 2.0 2.0 2.0 2.0 12/28/17 12/28/17 12/28/17 12/28/17 20:40 20:41 20:48 21:48 Pulse 80 80 Resp 20 20 B/P (MAP) 124/61 (82) 124/61 12/28/17 12/29/17 12/29/17 12/29/17 23:25 03:43 07:15 07:16 Temp 98.1 98.0 98.0 98.1 98.0 98.0 Pulse 90 81 85 Resp 22 21 21 B/P (MAP) 119/63 (81) 120/64 (82) 128/62 (84) Pulse Ox 95 98 99 98 O2 Delivery Nasal Cannula Nasal Cannula Nasal Cannula Nasal Cannula O2 Flow Rate 2.0 2.0 2.0 2.0 12/29/17 12/29/17 12/29/17 12/29/17 08:36 08:36 11:10 11:20 Temp 98.3 98.3 Pulse 85 85 101 Resp 20 B/P (MAP) 128/62 128/62 115/57 (76) Pulse Ox 94 98 O2 Delivery Room Air Intake and Output 12/28/17 12/28/17 12/29/17 15:00 23:00 07:00 Intake Total 460 ml 200 ml Output Total 600 ml 400 ml Balance -140 ml -200 ml NBA ROSENBAUM MD Dec 29, 2017 12:24
--- NOTE | 2017-12-29 13:25 | PDOC ---
PROGRESS NOTES Subjective Subjective Patient feels better today. Was able to stand up today and even ambulate with assistance for a short distance. Objective Objective Vital Signs Date Time Temp Pulse Resp B/P (MAP) Pulse Ox O2 Delivery O2 Flow Rate FiO2 12/29/17 11:20 98 12/29/17 11:10 98.3 101 20 115/57 (76) Room Air 98.3 12/29/17 08:00 2.0 Intake and Output 12/29/17 07:00 Intake Total 660 ml Output Total 1000 ml Balance -340 ml Intake Oral 660 ml Output Urine Total 1000 ml # Voids 1 Physical Exam Physical Exam No significant changes in cardiac exam Assessment Assessment Patient in better spirits although she is concerned about missing out on her [employer] game as well as a family birthday alliance party next weekend. Continue with physical therapy Comment Review of Relevant I have reviewed the following items uyen (where applicable) has been applied. Labs Laboratory Tests Test 12/27/17 17:14 12/27/17 20:53 12/28/17 04:00 12/28/17 07:58 Glucose (Fingerstick) 111 mg/dL (70-99) 151 mg/dL (70-99) 120 mg/dL (70-99) Prothrombin Time 24.4 SEC (11.7-14.0) Prothromb Time International Ratio 2.3 (0.8-1.1) Sodium Level 138 mmol/L (136-145) Potassium Level 4.1 mmol/L (3.5-5.1) Chloride Level 104 mmol/L (98-107) Carbon Dioxide Level 25 mmol/L (21-32) Anion Gap 9 (6-14) Blood Urea Nitrogen 25 mg/dL (7-20) Creatinine 2.3 mg/dL (0.6-1.0) Estimated GFR (Cockcroft-Gault) 20.8 Glucose Level 119 mg/dL (70-99) Calcium Level 7.9 mg/dL (8.5-10.1) Triglycerides Level 105 mg/dL (0-150) Cholesterol Level 74 mg/dL (0-200) LDL Cholesterol, Calculated 27 mg/dL (0-100) VLDL Cholesterol, Calculated 21 mg/dL (0-40) Non-HDL Cholesterol Calculated 48 mg/dL (0-129) HDL Cholesterol 26 mg/dL (40-60) Cholesterol/HDL Ratio 2.8 Test 12/28/17 11:45 12/28/17 17:24 12/28/17 18:00 12/28/17 20:56 Glucose (Fingerstick) 148 mg/dL (70-99) 133 mg/dL (70-99) 114 mg/dL (70-99) Urine Collection Type Unknown Urine Color Yellow Urine Clarity Clear Urine pH 5.0 Urine Specific [place] 1.010 Urine Protein 30 mg/dL (NEG-TRACE) Urine Glucose (UA) Negative mg/dL (NEG) Urine Ketones (Stick) Negative mg/dL (NEG) Urine Blood Large (NEG) Urine Nitrite Negative (NEG) Urine Bilirubin Negative (NEG) Urine Urobilinogen Dipstick 0.2 mg/dL (0.2 mg/dL) Urine Leukocyte Esterase Small (NEG) Urine RBC Tntc /HPF (0-2) Urine WBC 11-20 /HPF (0-4) Urine Squamous Epithelial Cells Mod /LPF Urine Bacteria 0 /HPF (0-FEW) Urine Mucus Mod /LPF Test 12/29/17 08:07 12/29/17 10:30 12/29/17 11:56 Glucose (Fingerstick) 116 mg/dL (70-99) 135 mg/dL (70-99) Prothrombin Time 24.1 SEC (11.7-14.0) Prothromb Time International Ratio 2.2 (0.8-1.1) Sodium Level 140 mmol/L (136-145) Potassium Level 4.3 mmol/L (3.5-5.1) Chloride Level 104 mmol/L (98-107) Carbon Dioxide Level 26 mmol/L (21-32) Anion Gap 10 (6-14) Blood Urea Nitrogen 25 mg/dL (7-20) Creatinine 2.4 mg/dL (0.6-1.0) Estimated GFR (Cockcroft-Gault) 19.8 BUN/Creatinine Ratio 10 (6-20) Glucose Level 160 mg/dL (70-99) Calcium Level 7.8 mg/dL (8.5-10.1) Total Bilirubin 0.5 mg/dL (0.2-1.0) Aspartate Amino Transf (AST/SGOT) 43 U/L (15-37) Alanine Aminotransferase (ALT/SGPT) 28 U/L (14-59) Alkaline Phosphatase 91 U/L (46-116) Total Protein 5.7 g/dL (6.4-8.2) Albumin 2.6 g/dL (3.4-5.0) Albumin/Globulin Ratio 0.8 (1.0-1.7) Laboratory Tests Test 12/28/17 17:24 12/28/17 18:00 12/28/17 20:56 12/29/17 08:07 Glucose (Fingerstick) 133 mg/dL (70-99) 114 mg/dL (70-99) 116 mg/dL (70-99) Urine Collection Type Unknown Urine Color Yellow Urine Clarity Clear Urine pH 5.0 Urine Specific [place] 1.010 Urine Protein 30 mg/dL (NEG-TRACE) Urine Glucose (UA) Negative mg/dL (NEG) Urine Ketones (Stick) Negative mg/dL (NEG) Urine Blood Large (NEG) Urine Nitrite Negative (NEG) Urine Bilirubin Negative (NEG) Urine Urobilinogen Dipstick 0.2 mg/dL (0.2 mg/dL) Urine Leukocyte Esterase Small (NEG) Urine RBC Tntc /HPF (0-2) Urine WBC 11-20 /HPF (0-4) Urine Squamous Epithelial Cells Mod /LPF Urine Bacteria 0 /HPF (0-FEW) Urine Mucus Mod /LPF Test 12/29/17 10:30 12/29/17 11:56 Prothrombin Time 24.1 SEC (11.7-14.0) Prothromb Time International Ratio 2.2 (0.8-1.1) Sodium Level 140 mmol/L (136-145) Potassium Level 4.3 mmol/L (3.5-5.1) Chloride Level 104 mmol/L (98-107) Carbon Dioxide Level 26 mmol/L (21-32) Anion Gap 10 (6-14) Blood Urea Nitrogen 25 mg/dL (7-20) Creatinine 2.4 mg/dL (0.6-1.0) Estimated GFR (Cockcroft-Gault) 19.8 BUN/Creatinine Ratio 10 (6-20) Glucose Level 160 mg/dL (70-99) Calcium Level 7.8 mg/dL (8.5-10.1) Total Bilirubin 0.5 mg/dL (0.2-1.0) Aspartate Amino Transf (AST/SGOT) 43 U/L (15-37) Alanine Aminotransferase (ALT/SGPT) 28 U/L (14-59) Alkaline Phosphatase 91 U/L (46-116) Total Protein 5.7 g/dL (6.4-8.2) Albumin 2.6 g/dL (3.4-5.0) Albumin/Globulin Ratio 0.8 (1.0-1.7) Glucose (Fingerstick) 135 mg/dL (70-99) Medications Current Medications Diltiazem HCl (Cardizem) 20 mg 1X ONCE IVP Last administered on 12/23/17at 23: 00; Start 12/23/17 at 23:00; Stop 12/23/17 at 23:01; Status DC Aspirin (Adonis Aspirin) 325 mg 1X ONCE PO ; Start 12/23/17 at 23:00; Stop 12/23 at 23:01; Status DC Diltiazem HCl 125 mg/Dextrose 125 ml @ 10 mls/hr 1X ONCE IV Last administered on 12/23/17at 23:11; Start 12/23/17 at 23:00; Stop 12/24/17 at 11:29 ; Status DC Dexamethasone Sodium Phosphate (Decadron) 10 mg 1X ONCE IV Last administered on 12/23/17at 22:57; Start 12/23/17 at 23:00; Stop 12/23/17 at 23:01; Status DC Albuterol/ Ipratropium (Duoneb) 3 ml 1X ONCE NEB ; Start 12/23/17 at 23:00; Stop 12/23/17 at 23:01; Status DC Albuterol/ Ipratropium (Duoneb) 3 ml STAT ONCE NEB ; Start 12/23/17 at 23:00; Stop 12/23/17 at 23:01; Status DC Hyoscyamine (Anaspaz) 0.25 mg 1X ONCE PO ; Start 12/23/17 at 23:45; Stop at 23:46; Status Cancel Sodium Chloride 1,000 ml @ 1,000 mls/hr 1X ONCE IV Last administered on at 01:17; Start 12/23/17 at 23:45; Stop 12/24/17 at 00:44; Status DC Sodium Chloride 1,000 ml @ 1,000 mls/hr 1X ONCE IV Last administered on at 04:29; Start 12/23/17 at 23:45; Stop 12/24/17 at 00:44; Status DC Piperacillin Sod/ Tazobactam Sod 4.5 gm/Sodium Chloride 100 ml @ 200 mls/hr 1X ONCE IV Last administered on 12/24/17at 01:17; Start 12/24/17 at 00:00; Stop 12/24/17 at 00:29; Status DC Levofloxacin/ Dextrose 150 ml @ 100 mls/hr 1X ONCE IV Last administered on at 01:17; Start 12/24/17 at 00:00; Stop 12/24/17 at 01:29; Status DC Vancomycin HCl 2 gm/Sodium Chloride 500 ml @ 250 mls/hr 1X ONCE IV Last administered on 12/24/17at 01:18; Start 12/24/17 at 00:30; Stop 12/24/17 at 02:29 ; Status DC Ondansetron HCl (Zofran) 4 mg PRN Q8HRS PRN IV NAUSEA/VOMITING 1ST CHOICE; Start 12/24/17 at 00:15; Stop 12/25/17 at 00:14; Status DC Fentanyl Citrate (Fentanyl 2ml Vial) 50 mcg PRN Q2HR PRN IV SEVERE PAIN; Start 12/24/17 at 00:15; Stop 12/25/17 at 00:14; Status DC Albuterol Sulfate (Ventolin Neb Soln) 2.5 mg PRN Q4HRS PRN NEB WHEEZING Last administered on 12/25/17at 17:28; Start 12/24/17 at 00:30 Insulin Human Lispro (HumaLOG) 0-5 UNITS TIDWMEALS SQ Last administered on 12/24at 17:46; Start 12/24/17 at 08:00 Dextrose (Dextrose 50%-Water Syringe) 12.5 gm PRN Q15MIN PRN IV SEE COMMENTS; Start 12/24/17 at 00:15 Info (Do NOT chart on this placeholder) 1 each 1X ONCE MC ; Start 12/24/17 at 01:45; Stop 12/24/17 at 01:46; Status UNV Influenza Virus Vaccine (Afluria Trivalent [id number] Syringe) 0.5 ml ONCE ONCE VAX IM Last administered on 12/24/17at 08:51; Start 12/24/17 at 09:00; Stop at 09:01; Status DC Albuterol/ Ipratropium (Duoneb) 3 ml RTQID NEB Last administered on 12/29/17at 11:20; Start 12/24/17 at 12:00 Levofloxacin/ Dextrose 100 ml @ 100 mls/hr Q24H IV ; Start 12/24/17 at 10:30; Status UNV Vancomycin HCl (Vanco Per Pharmacy) 1 each PRN DAILY PRN MC SEE COMMENTS Last administered on 12/25/17at 10:36; Start 12/24/17 at 10:30; Stop 12/25/17 at 17:09 ; Status DC Levofloxacin/ Dextrose 100 ml @ 100 mls/hr Q24H IV Last administered on at 23:31; Start 12/24/17 at 23:00; Stop 12/26/17 at 14:40; Status DC Vancomycin HCl 1.75 gm/Sodium Chloride 500 ml @ 250 mls/hr Q12H IV Last administered on 12/25/17at 13:00; Start 12/24/17 at 13:00; Stop 12/25/17 at 17:08 ; Status DC Vancomycin HCl (Vancomycin Trough Level) 1 each 1X ONCE MC ; Start 12/25/17 at 23:30; Stop 12/25/17 at 23:30; Status DC Lactobacillus Rhamnosus (Culturelle) 1 cap BID PO Last administered on at 08:36; Start 12/24/17 at 21:00 Warfarin Sodium (Coumadin Per Pharmacy) 1 each PRN DAILY PRN MC SEE COMMENTS Last administered on 12/28/17at 14:03; Start 12/24/17 at 14:45 Warfarin Sodium (Coumadin) 2 mg 1X WARF ONCE PO Last administered on at 15:52; Start 12/24/17 at 16:00; Stop 12/24/17 at 16:01; Status DC Digoxin (Lanoxin) 125 mcg DAILY PO Last administered on 12/29/17at 08:36; Start 12/24/17 at 17:30 Sotalol HCl (Betapace) 80 mg BID PO Last administered on 12/29/17at 08:36; Start 12/24/17 at 21:00 Furosemide (Lasix) 20 mg DAILY PO Last administered on 12/25/17at 07:50; Start 12/24/17 at 18:00; Stop 12/25/17 at 08:44; Status DC Potassium Chloride (Klor-Con) 10 meq DAILY PO Last administered on 12/27/17at 09 :46; Start 12/24/17 at 18:00; Stop 12/27/17 at 11:59; Status DC Levothyroxine Sodium (Synthroid) 150 mcg DAILY07 PO Last administered on at 06:39; Start 12/24/17 at 18:00 Metformin HCl (Glucophage) 500 mg BIDWMEALS PO Last administered on 12/27/17at 09:45; Start 12/24/17 at 18:00; Stop 12/27/17 at 10:53; Status DC Simvastatin (Zocor) 40 mg DAILY PO ; Start 12/24/17 at 18:00; Stop 12/24/17 at 18:00; Status DC Simvastatin (Zocor) 40 mg QHS PO Last administered on 12/28/17at 20:41; Start at 21:00 Furosemide (Lasix) 20 mg 1X ONCE PO Last administered on 12/25/17at 12:57; Start 12/25/17 at 09:00; Stop 12/25/17 at 09:01; Status DC Guaifenesin/ Codeine Phosphate (Robitussin Ac) 5 ml PRN Q6HRS PRN PO COUGH Last administered on 12/25/17at 12:54; Start 12/25/17 at 08:45 Benzonatate (Tessalon Perle) 100 mg [id number] PO Last administered on 12/29/17at 08 :36; Start 12/25/17 at 09:00 Furosemide (Lasix) 40 mg DAILY PO ; Start 12/26/17 at 09:00; Stop 12/27/17 at 11 :59; Status DC Warfarin Sodium (Coumadin) 2 mg 1X WARF ONCE PO Last administered on at 16:44; Start 12/25/17 at 16:00; Stop 12/25/17 at 16:01; Status DC Acetaminophen (Tylenol) 650 mg PRN Q6HRS PRN PO FEVER; Start 12/25/17 at 12:15 Ondansetron HCl (Zofran) 4 mg PRN Q6HRS PRN IV NAUSEA/VOMITING; Start 12/25/17 at 12:15 Morphine Sulfate (Morphine Sulfate) 2 mg PRN Q2HR PRN IV MODERATE TO SEVERE PAIN; Start 12/25/17 at 12:15 Tramadol HCl (Ultram) 50 mg PRN Q6HRS PRN PO MILD TO MODERATE PAIN Last administered on 12/28/17at 20:48; Start 12/25/17 at 12:15 Docusate Sodium (Colace) 100 mg PRN DAILY PRN PO HARD STOOLS Last administered on 12/28/17at 20:47; Start 12/25/17 at 12:15 Labetalol HCl (Normodyne Iv Push) 20 mg PRN Q2HR PRN IVP HYPERTENSION, SEE COMMENTS; Start 12/25/17 at 12:15 Furosemide (Lasix) 60 mg 1X ONCE IVP Last administered on 12/25/17at 17:51; Start 12/25/17 at 18:00; Stop 12/25/17 at 18:01; Status DC Furosemide (Lasix) 60 mg 1X ONCE IVP Last administered on 12/26/17at 08:46; Start 12/26/17 at 09:00; Stop 12/26/17 at 09:01; Status DC Warfarin Sodium (Coumadin) 2 mg 1X ONCE PO ; Start 12/26/17 at 14:45; Stop at 14:46; Status Cancel Warfarin Sodium (Coumadin) 2 mg 1X WARF ONCE PO Last administered on at 17:29; Start 12/26/17 at 16:00; Stop 12/26/17 at 16:01; Status DC Levofloxacin/ Dextrose 50 ml @ 50 mls/hr Q24H IV Last administered on at 22:47; Start 12/26/17 at 23:00; Stop 12/27/17 at 09:12; Status DC Levofloxacin (Levaquin) 250 mg QHS PO Last administered on 12/28/17at 20:41; Start 12/27/17 at 21:00 Warfarin Sodium (Coumadin) 2 mg 1X WARF ONCE PO Last administered on at 17:15; Start 12/27/17 at 16:00; Stop 12/27/17 at 16:01; Status DC Sodium Chloride 1,000 ml @ 75 mls/hr [id number] IV Last administered on at 15:37; Start 12/27/17 at 12:00; Stop 12/28/17 at 17:24; Status DC Warfarin Sodium (Coumadin) 2 mg 1X WARF ONCE PO Last administered on at 17:33; Start 12/28/17 at 16:00; Stop 12/28/17 at 16:01; Status DC Sodium Chloride 1,000 ml @ 60 mls/hr [id number] IV Last administered on at 17:35; Start 12/28/17 at 18:00 Warfarin Sodium (Coumadin) 2 mg 1X WARF ONCE PO ; Start 12/29/17 at 16:00; Stop 12/29/17 at 16:01 Active Scripts Active Digoxin 125 Mcg Tablet 125 Mcg PO DAILY Reported Proair Hfa Inhaler (Albuterol Sulfate) 8.5 Gm Hfa.aer.ad 1 Puff INH PRN Q6HRS PRN Sotalol (Sotalol Hcl) 80 Mg Tablet 1 Tab PO BID Tessalon Perle (Benzonatate) 100 Mg Capsule 2 Cap PO TID PRN Warfarin Sodium 2 Mg Tablet 1 Tab PO DAILY Lisinopril 10 Mg Tablet 1 Tab PO DAILY Levothyroxine Sodium 125 Mcg Tablet 150 Mcg PO DAILY Simvastatin 40 Mg Tablet 40 Mg PO DAILY Metformin Hcl 500 Mg Tablet 500 Mg PO BIDWMEALS Furosemide 20 Mg Tablet 1 Tab PO DAILY Potassium Chloride 10 Meq Tab.sr.24h 10 Meq PO DAILY Vitals/I & O Vital Sign - Last 24 Hours 12/28/17 12/28/17 12/28/17 12/28/17 17:12 19:35 20:00 20:09 Temp 97.8 97.8 Pulse 69 Resp 20 B/P (MAP) 122/66 (84) Pulse Ox 98 99 99 O2 Delivery Nasal Cannula Nasal Cannula Nasal Cannula Nasal Cannula O2 Flow Rate 2.0 2.0 2.0 2.0 12/28/17 12/28/17 12/28/17 12/28/17 20:40 20:41 20:48 21:48 Pulse 80 80 Resp 20 20 B/P (MAP) 124/61 (82) 124/61 12/28/17 12/29/17 12/29/17 12/29/17 23:25 03:43 07:15 07:16 Temp 98.1 98.0 98.0 98.1 98.0 98.0 Pulse 90 81 85 Resp 22 21 21 B/P (MAP) 119/63 (81) 120/64 (82) 128/62 (84) Pulse Ox 95 98 99 98 O2 Delivery Nasal Cannula Nasal Cannula Nasal Cannula Nasal Cannula O2 Flow Rate 2.0 2.0 2.0 2.0 12/29/17 12/29/17 12/29/17 12/29/17 08:00 08:36 08:36 11:10 Temp 98.3 98.3 Pulse 85 85 101 Resp 20 B/P (MAP) 128/62 128/62 115/57 (76) Pulse Ox 94 O2 Delivery Nasal Cannula Room Air O2 Flow Rate 2.0 12/29/17 11:20 Pulse Ox 98 Intake and Output 12/28/17 12/28/17 12/29/17 15:00 23:00 07:00 Intake Total 460 ml 200 ml Output Total 600 ml 400 ml Balance -140 ml -200 ml MARTI SAUER MD Dec 29, 2017 13:25
--- NOTE | 2017-12-29 14:00 | PDOC ---
PROGRESS NOTES Assessment Assessment Metabolic encephalopathy. Hypoxia encephalopathy. Confusion. Respiratory failure. Renal failure. CHF, EF 40%. AFib. DM. Hyperglycemia. HTN. HLD. Hypothyroidism. Bilateral maxillary sinusitis. Severe obesity. Pacemaker in site. Brain atrophy. RECOMMENDATIONS/PLAN: She has been treated with Coumadin. Continue Zocor HS. Treat medical and cardiac diseases. OT/PT. Discussed with her daughter in detail on the phone on 12/28/17. EEG on 12/28/17: The posterior dominant rhythm is slow for age. HCT: 12/27/17: No acute findings except brain atrophy. HISTORY OF THE PRESENT ILLNESS: 72-y-old female patient with many medical and cardiac diseases has been having symptoms of SOB, difficult breathing with 02 desaturation, mental status changes, confusion, intermittent unresponsiveness for 2 days and she was brought to the ER of [facility] and hospitalized for further evaluation. She stated she is doing better on 12/29/17. Past Medical History Cardiovascular: AFIB, CHF, HTN, Hyperlipidemia Pulmonary: Bronchitis, COPD Psych: No pertinent hx Rheumatologic: No pertinent hx Infectious disease: No pertinent hx ENT: No pertinent hx Renal/: No pertinent hx Endocrine: Diabetes, Hypothyroidism Past Surgical History Cholecystectomy, pacemaker, and hernia repair. Family History HLD, Hypertension Social History ALCOHOL: none Drugs: None ALLERGY: Reviewed. MEDICATIONS: Refer to [facility] REVIEW OF SYSTEMS: Constitutional: Obesity. Head: No traumatic brain or head injury. Skin: No edema, or rash. Ear: No infection, tinnitus. Eyes: No vision loss or color blindness. Nose: No bleeding or purulent discharges. Hearing: Hearing decrease. Neck: No injury. Breast: No history of cancer, masses,or discharges. Cardiac: AFib, Pacemaker Placement, HTN, HLD. Pulmonary: SOB, COPD. GI: No GI ulcer, GI bleeding. Urinary/genital: UTI. Endocrinologic: Diabetes Mellitus, hypothyroidism, obesity. Skeletomuscular: Generalized weakness. Neurological: see HP. Psychiatric: Denies drug use/abuse. Otherwise, not [id number] review of systems. PHYSICAL EXAMINATION: General appearance is in subacute distress. HEENT: Normocephalic and nontraumatic. Eyes, nose, ears, and throat are unremarkable. Neck is supple. No lymphadenopathy. No crepitus. Cardiovascular: S1, S2, seemed irregular rate and rhythm. Pulmonary: decreased breathing sounds to auscultation bilaterally. Abdomen: Bowel sounds are positive. Extremities: No rash, lesions. No restriction of range of motion NEUROLOGICAL EXAMINATION: Awake. Not oriented to time, place but knew person. PERRL. EOMI. CN: no focal findings. Muscle tone: Decreased. Muscle strength: 4 DTR: 0-1 due to near morbid obesity. Plantar reflex: Neutral response bilaterally Gait: not examined in chair. Sensory exam: no acute abnormal findings. No acute cerebellar signs elicited. F-T-N test fine. Objective Objective Vital Signs Date Time Temp Pulse Resp B/P (MAP) Pulse Ox O2 Delivery O2 Flow Rate FiO2 12/29/17 11:20 98 12/29/17 11:10 98.3 101 20 115/57 (76) Room Air 98.3 12/29/17 08:00 2.0 Intake and Output 12/29/17 07:00 Intake Total 660 ml Output Total 1000 ml Balance -340 ml Intake Oral 660 ml Output Urine Total 1000 ml # Voids 1 Vitals Signs Vitals VS - Last 72 Hours, by Label Date Time Temp Pulse Resp B/P (MAP) Pulse Ox O2 Delivery O2 Flow Rate FiO2 12/29/17 11:20 98 12/29/17 11:10 98.3 101 20 115/57 (76) 94 Room Air 98.3 12/29/17 08:36 85 128/62 12/29/17 08:36 85 128/62 12/29/17 08:00 Nasal Cannula 2.0 12/29/17 07:16 98.0 85 21 128/62 (84) 98 Nasal Cannula 2.0 98.0 12/29/17 07:15 99 Nasal Cannula 2.0 12/29/17 03:43 98.0 81 21 120/64 (82) 98 Nasal Cannula 2.0 98.0 12/28/17 23:25 98.1 90 22 119/63 (81) 95 Nasal Cannula 2.0 98.1 12/28/17 21:48 20 12/28/17 20:48 20 12/28/17 20:41 80 124/61 12/28/17 20:40 80 124/61 (82) 12/28/17 20:09 99 Nasal Cannula 2.0 12/28/17 20:00 Nasal Cannula 2.0 12/28/17 19:35 97.8 69 20 122/66 (84) 99 Nasal Cannula 2.0 97.8 12/28/17 17:12 98 Nasal Cannula 2.0 12/28/17 11:22 97 Nasal Cannula 2.0 12/28/17 11:00 98.0 81 20 109/71 (84) 98 Nasal Cannula 2.0 98.0 12/28/17 08:03 86 12/28/17 08:02 84 123/57 12/28/17 07:14 97 Nasal Cannula 2.0 Laboratory Laboratory Laboratory Tests Test 12/28/17 17:24 12/28/17 18:00 12/28/17 20:56 12/29/17 08:07 Glucose (Fingerstick) 133 mg/dL (70-99) 114 mg/dL (70-99) 116 mg/dL (70-99) Urine Collection Type Unknown Urine Color Yellow Urine Clarity Clear Urine pH 5.0 Urine Specific [place] 1.010 Urine Protein 30 mg/dL (NEG-TRACE) Urine Glucose (UA) Negative mg/dL (NEG) Urine Ketones (Stick) Negative mg/dL (NEG) Urine Blood Large (NEG) Urine Nitrite Negative (NEG) Urine Bilirubin Negative (NEG) Urine Urobilinogen Dipstick 0.2 mg/dL (0.2 mg/dL) Urine Leukocyte Esterase Small (NEG) Urine RBC Tntc /HPF (0-2) Urine WBC 11-20 /HPF (0-4) Urine Squamous Epithelial Cells Mod /LPF Urine Bacteria 0 /HPF (0-FEW) Urine Mucus Mod /LPF Test 12/29/17 10:30 12/29/17 11:56 Prothrombin Time 24.1 SEC (11.7-14.0) Prothromb Time International Ratio 2.2 (0.8-1.1) Sodium Level 140 mmol/L (136-145) Potassium Level 4.3 mmol/L (3.5-5.1) Chloride Level 104 mmol/L (98-107) Carbon Dioxide Level 26 mmol/L (21-32) Anion Gap 10 (6-14) Blood Urea Nitrogen 25 mg/dL (7-20) Creatinine 2.4 mg/dL (0.6-1.0) Estimated GFR (Cockcroft-Gault) 19.8 BUN/Creatinine Ratio 10 (6-20) Glucose Level 160 mg/dL (70-99) Calcium Level 7.8 mg/dL (8.5-10.1) Total Bilirubin 0.5 mg/dL (0.2-1.0) Aspartate Amino Transf (AST/SGOT) 43 U/L (15-37) Alanine Aminotransferase (ALT/SGPT) 28 U/L (14-59) Alkaline Phosphatase 91 U/L (46-116) Total Protein 5.7 g/dL (6.4-8.2) Albumin 2.6 g/dL (3.4-5.0) Albumin/Globulin Ratio 0.8 (1.0-1.7) Glucose (Fingerstick) 135 mg/dL (70-99) Medication Medications Current Medications Sodium Chloride 1,000 ml @ 60 mls/hr [id number] IV Last administered on at 17:35; Start 12/28/17 at 18:00 Warfarin Sodium (Coumadin) 2 mg 1X WARF ONCE PO Last administered on at 17:33; Start 12/28/17 at 16:00; Stop 12/28/17 at 16:01; Status DC Warfarin Sodium (Coumadin) 2 mg 1X WARF ONCE PO ; Start 12/29/17 at 16:00; Stop 12/29/17 at 16:01 Comment Review of Relevant I have reviewed the following items uyen (where applicable) has been applied. LIAT DE SANTIAGO MD Dec 29, 2017 14:00
--- NOTE | 2017-12-29 14:06 | PDOC ---
SUBJECTIVE ROS We were asked to see this patient for AK I/ATN? Patient claims she is feeling more or less the same. She claims when she bends down and tries to stand up she does get a little lightheaded. CVS: no Orthopnea, no CP RESP: no SOB, no SILVA GI: no Nausea, no Vomiting : no Dysuria, no Urgency OBJECTIVE Vital Signs Vital Signs Date Time Temp Pulse Resp B/P (MAP) Pulse Ox O2 Delivery O2 Flow Rate FiO2 12/29/17 11:20 98 12/29/17 11:10 98.3 101 20 115/57 (76) Room Air 98.3 12/29/17 08:00 2.0 I & 0 Intake and Output 12/29/17 07:00 Intake Total 660 ml Output Total 1000 ml Balance -340 ml Intake Oral 660 ml Output Urine Total 1000 ml # Voids 1 PHYSICAL EXAM Physical Exam GEN: Awake, Oriented x 3, In no distress; morbidly obese female EYES: Vision Unchanged, Conjunctiva Normal EN: No EN Drainage, Mucous Membranes moist NECK: no JVD, no JVP, Supple, no Thyromegaly, short and thick. Unable to palpate thyromegaly CVS: S1S2, no audible Murmur, No Gallop, No Rub,+2-3 Ch brawny Edema RESP: no Rales, no Rhonchi,no Acc. Muscle Use GI: BS + ve, NO Bruit, Non Tender, Non Distended, obese abdomen : no CVA tenderness, no Suprapubic Tenderness DIAGNOSIS/ASSESSMENT Assessment & Plan ARF: Presumed ATN. Hematuria is noted so will check renal sonogram. May need CT scan stone protocol of the abdomen and pelvis. Current fluid and E-lyte status does not necessitate emergent need for dialysis. Anticipate improvement with IV fluids Possible intravascular volume depletion: Anticipate improvement with IV fluids as ordered hold diuretics at this time. Hematuria: Plan as above Significant lower extremity edema: May benefit from lymphedema therapy Hypoalbuminemia. May be contributing to edema also. COMMENT/RELEVANT DATA Meds Current Medications Medications (Trade) Dose Ordered Sig/Marley Start Time Stop Time Status Last Admin Dose Admin Acetaminophen (Tylenol) 650 mg PRN Q6HRS PRN 12/25/17 12:15 Albuterol Sulfate (Ventolin Neb Soln) 2.5 mg PRN Q4HRS PRN 12/24/17 00:30 12/25/17 17:28 2.5 MG Albuterol/ Ipratropium (Duoneb) 3 ml RTQID 12/24/17 12:00 12/29/17 11:20 3 ML Aspirin (Adonis Aspirin) 325 mg 1X ONCE 12/23/17 23:00 12/23/17 23:01 DC Benzonatate (Tessalon Perle) 100 mg [id number] 12/25/17 09:00 12/29/17 08:36 100 MG Dexamethasone Sodium Phosphate (Decadron) 10 mg 1X ONCE 12/23/17 23:00 12/23/17 23:01 DC 12/23/17 22:57 10 MG Dextrose (Dextrose 50%-Water Syringe) 12.5 gm PRN Q15MIN PRN 12/24/17 00:15 Digoxin (Lanoxin) 125 mcg DAILY 12/24/17 17:30 12/29/17 08:36 125 MCG Diltiazem HCl (Cardizem) 20 mg 1X ONCE 12/23/17 23:00 12/23/17 23:01 DC 12/23/17 23:00 20 MG Diltiazem HCl 125 mg/Dextrose 125 ml @ 10 mls/hr 1X ONCE 12/23/17 23:00 12/24/17 11:29 DC 12/23/17 23:11 10 MLS/HR Docusate Sodium (Colace) 100 mg PRN DAILY PRN 12/25/17 12:15 12/28/17 20:47 100 MG Fentanyl Citrate (Fentanyl 2ml Vial) 50 mcg PRN Q2HR PRN 12/24/17 00:15 12/25/17 00:14 DC Furosemide (Lasix) 60 mg 1X ONCE 12/26/17 09:00 12/26/17 09:01 DC 12/26/17 08:46 60 MG Guaifenesin/ Codeine Phosphate (Robitussin Ac) 5 ml PRN Q6HRS PRN 12/25/17 08:45 12/25/17 12:54 5 ML Hyoscyamine (Anaspaz) 0.25 mg 1X ONCE 12/23/17 23:45 12/23/17 23:46 Cancel Influenza Virus Vaccine (Afluria Trivalent [id number] Syringe) 0.5 ml ONCE ONCE 12/24/17 09:00 9/17/18 09:01 DC 12/24/17 08:51 0.5 ML Info (Do NOT chart on this placeholder) 1 each 1X ONCE 12/24/17 01:45 12/24/17 01:46 UNV Insulin Human Lispro (HumaLOG) 0-5 UNITS TIDWMEALS 12/24/17 08:00 12/24/17 17:46 2 UNITS Labetalol HCl (Normodyne Iv Push) 20 mg PRN Q2HR PRN 12/25/17 12:15 Lactobacillus Rhamnosus (Culturelle) 1 cap BID 12/24/17 21:00 12/29/17 08:36 1 CAP Levofloxacin (Levaquin) 250 mg QHS 12/27/17 21:00 12/28/17 20:41 250 MG Levofloxacin/ Dextrose 50 ml @ 50 mls/hr Q24H 12/26/17 23:00 12/27/17 09:12 DC 12/26/17 22:47 50 MLS/HR Levothyroxine Sodium (Synthroid) 150 mcg DAILY07 12/24/17 18:00 12/29/17 06:39 150 MCG Metformin HCl (Glucophage) 500 mg BIDWMEALS 12/24/17 18:00 12/27/17 10:53 DC 12/27/17 09:45 500 MG Morphine Sulfate (Morphine Sulfate) 2 mg PRN Q2HR PRN 12/25/17 12:15 Ondansetron HCl (Zofran) 4 mg PRN Q6HRS PRN 12/25/17 12:15 Piperacillin Sod/ Tazobactam Sod 4.5 gm/Sodium Chloride 100 ml @ 200 mls/hr 1X ONCE 12/24/17 00:00 12/24/17 00:29 DC 12/24/17 01:17 200 MLS/HR Potassium Chloride (Klor-Con) 10 meq DAILY 12/24/17 18:00 12/27/17 11:59 DC 12/27/17 09:46 10 MEQ Simvastatin (Zocor) 40 mg QHS 12/24/17 21:00 12/28/17 20:41 40 MG Sodium Chloride 1,000 ml @ 60 mls/hr [id number] 12/28/17 18:00 12/28/17 17:35 60 MLS/HR Sotalol HCl (Betapace) 80 mg BID 12/24/17 21:00 12/29/17 08:36 80 MG Tramadol HCl (Ultram) 50 mg PRN Q6HRS PRN 12/25/17 12:15 12/28/17 20:48 50 MG Vancomycin HCl (Vanco Per Pharmacy) 1 each PRN DAILY PRN 12/24/17 10:30 12/25/17 17:09 DC 12/25/17 10:36 1 EACH Vancomycin HCl (Vancomycin Trough Level) 1 each 1X ONCE 12/25/17 23:30 12/25/17 23:30 DC Vancomycin HCl 1.75 gm/Sodium Chloride 500 ml @ 250 mls/hr Q12H 12/24/17 13:00 12/25/17 17:08 DC 12/25/17 13:00 250 MLS/HR Vancomycin HCl 2 gm/Sodium Chloride 500 ml @ 250 mls/hr 1X ONCE 12/24/17 00:30 12/24/17 02:29 DC 12/24/17 01:18 250 MLS/HR Warfarin Sodium (Coumadin Per Pharmacy) 1 each PRN DAILY PRN 12/24/17 14:45 12/28/17 14:03 1 EACH Warfarin Sodium (Coumadin) 2 mg 1X WARF ONCE 12/29/17 16:00 12/29/17 16:01 Lab Laboratory Tests Test 12/28/17 17:24 12/28/17 18:00 12/28/17 20:56 12/29/17 08:07 Glucose (Fingerstick) 133 mg/dL (70-99) 114 mg/dL (70-99) 116 mg/dL (70-99) Urine Collection Type Unknown Urine Color Yellow Urine Clarity Clear Urine pH 5.0 Urine Specific [place] 1.010 Urine Protein 30 mg/dL (NEG-TRACE) Urine Glucose (UA) Negative mg/dL (NEG) Urine Ketones (Stick) Negative mg/dL (NEG) Urine Blood Large (NEG) Urine Nitrite Negative (NEG) Urine Bilirubin Negative (NEG) Urine Urobilinogen Dipstick 0.2 mg/dL (0.2 mg/dL) Urine Leukocyte Esterase Small (NEG) Urine RBC Tntc /HPF (0-2) Urine WBC 11-20 /HPF (0-4) Urine Squamous Epithelial Cells Mod /LPF Urine Bacteria 0 /HPF (0-FEW) Urine Mucus Mod /LPF Test 12/29/17 10:30 12/29/17 11:56 Prothrombin Time 24.1 SEC (11.7-14.0) Prothromb Time International Ratio 2.2 (0.8-1.1) Sodium Level 140 mmol/L (136-145) Potassium Level 4.3 mmol/L (3.5-5.1) Chloride Level 104 mmol/L (98-107) Carbon Dioxide Level 26 mmol/L (21-32) Anion Gap 10 (6-14) Blood Urea Nitrogen 25 mg/dL (7-20) Creatinine 2.4 mg/dL (0.6-1.0) Estimated GFR (Cockcroft-Gault) 19.8 BUN/Creatinine Ratio 10 (6-20) Glucose Level 160 mg/dL (70-99) Calcium Level 7.8 mg/dL (8.5-10.1) Total Bilirubin 0.5 mg/dL (0.2-1.0) Aspartate Amino Transf (AST/SGOT) 43 U/L (15-37) Alanine Aminotransferase (ALT/SGPT) 28 U/L (14-59) Alkaline Phosphatase 91 U/L (46-116) Total Protein 5.7 g/dL (6.4-8.2) Albumin 2.6 g/dL (3.4-5.0) Albumin/Globulin Ratio 0.8 (1.0-1.7) Glucose (Fingerstick) 135 mg/dL (70-99) Results All relevant outside records, renal labs, imaging studies, telemetry/EKG's were reviewed. ROHIT JENSEN MD Dec 29, 2017 14:06
[2017-12-29 15:00] VITALS: BP 113/56
--- NOTE | 2017-12-29 15:36 | RAD ---
RENAL COMPLETE BILATERAL History: Acute kidney injury Comparison: None. Findings: Multiple sonographic images of the kidneys and urinary bladder are submitted. Right kidney measured 11.6 x 5.5 x 4.3 cm. Left kidney measured 10.6 x 6.4 x 5.4 cm. There is no hydronephrosis of either kidney. Urinary bladder is distended with estimated volume of about 383 cc. Impression: 1. There is distention of the urinary bladder. 2. There is no hydronephrosis of either kidney. Electronically signed by: Eric Abreu MD (12/29/2017 3:32 PM) [id number]
[2017-12-29] MEDS ORDERED: WARFARIN 2 MG TABLET. PO ONE (16:00)
[2017-12-29 19:48] VITALS: BP 142/60
[2017-12-29] MEDS: SIMVASTATIN 40 MG TABLET. PO SCH (20:13)
[2017-12-29 23:29] VITALS: BP 116/69
[2017-12-30 03:05] VITALS: BP 122/67
[2017-12-30 04:40] LABS: BASO # 0.1 x10^3/uL (0.0-0.2); BASO % 1 % (0-3); EOS # 0.3 x10^3/uL (0.0-0.7); EOS % 4 % (0-3); HEMOGLOBIN 12.1 g/dL (12.0-15.5); LYMPH % 13 % (24-48); MEAN CORPUSCULAR HEMOGLOBIN 32 pg (25-35); MEAN CORPUSCULAR HGB CONC 34 g/dL (31-37); MEAN CORPUSCULAR VOLUME 94 fL (79-100); MONO % 13 % (0-9); NEUT # 5.4 x10^3uL (1.8-7.7); NEUT % 69 % (31-73); PLATELET COUNT 162 x10^3/uL (140-400); RED BLOOD COUNT 3.81 x10^6/uL (3.50-5.40); RED CELL DISTRIBUTION WIDTH 16.7 % (11.5-14.5); WHITE BLOOD COUNT 7.8 x10^3/uL (4.0-11.0)
[2017-12-30 05:05] LABS: CREATININE 2.4 mg/dL (0.6-1.0); GFR 19.8
[2017-12-30 05:14] LABS: PROTHROMBIN TIME PATIENT 23.9 SEC (11.7-14.0)
[2017-12-30] MEDS: IV NORMAL SALINE 1000ML BAG 1,000 ML IV SCH ×2 (05:27→21:26)
[2017-12-30] MEDS: LEVOTHYROXINE 150 MCG TABLET PO SCH (05:28)
--- NOTE | 2017-12-30 06:57 | PDOC ---
SUBJECTIVE ROS Asked to see for AK I. Patient is feeling a little better today. She does feel like she has a pretty dry throat though. Was barely able to swallow pills CVS: no Orthopnea, no CP RESP: no SOB, no SILVA GI: no Nausea, no Vomiting : no Dysuria, no Urgency OBJECTIVE Vital Signs Vital Signs Date Time Temp Pulse Resp B/P (MAP) Pulse Ox O2 Delivery O2 Flow Rate FiO2 12/30/17 03:05 98.1 77 21 122/67 (85) 94 Room Air 98.1 12/29/17 08:00 2.0 I & 0 Intake and Output 12/30/17 07:00 Intake Total 1080 ml Output Total 1140 ml Balance -60 ml Intake Oral 1080 ml Output Urine Total 1140 ml # Voids 2 PHYSICAL EXAM Physical Exam GEN: Awake, Oriented x 3, In no distress; morbidly obese female EYES: Vision Unchanged, Conjunctiva Normal EN: No EN Drainage, Mucous Membranes moist NECK: no JVD, no JVP, Supple, no Thyromegaly, short and thick. Unable to palpate thyromegaly CVS: S1S2, no audible Murmur, No Gallop, No Rub,+2-3 Ch brawny Edema RESP: no Rales, no Rhonchi,no Acc. Muscle Use GI: BS + ve, NO Bruit, Non Tender, Non Distended, obese abdomen : no CVA tenderness, no Suprapubic Tenderness DIAGNOSIS/ASSESSMENT Assessment & Plan ARF: Presumed ATN. Hematuria is notedbut -ve renal sonogram. May need CT scan stone protocol of the abdomen and pelvis if hematuria persists. I will check another UA in the morning. Possible intravascular volume depletion: Anticipate improvement with IV fluids as ordered hold diuretics at this time. Hematuria: Plan as above, unclear if she has underlying cystitis or is this due to underlying Coumadin use and coagulopathy Possible urinary retention based on renal sonogram. Bladder volume scanning has been ordered Significant lower extremity edema: May benefit from lymphedema therapy Hypoalbuminemia. May be contributing to edema also. Is this an indication of underlying TOIRBIO -like condition ? COMMENT/RELEVANT DATA Meds Current Medications Medications (Trade) Dose Ordered Sig/Marley Start Time Stop Time Status Last Admin Dose Admin Acetaminophen (Tylenol) 650 mg PRN Q6HRS PRN 12/25/17 12:15 Albuterol Sulfate (Ventolin Neb Soln) 2.5 mg PRN Q4HRS PRN 12/24/17 00:30 12/25/17 17:28 2.5 MG Albuterol/ Ipratropium (Duoneb) 3 ml RTQID 12/24/17 12:00 12/29/17 19:16 3 ML Aspirin (Adonis Aspirin) 325 mg 1X ONCE 12/23/17 23:00 12/23/17 23:01 DC Benzonatate (Tessalon Perle) 100 mg [id number] 12/25/17 09:00 12/29/17 20:13 100 MG Dexamethasone Sodium Phosphate (Decadron) 10 mg 1X ONCE 12/23/17 23:00 12/23/17 23:01 DC 12/23/17 22:57 10 MG Dextrose (Dextrose 50%-Water Syringe) 12.5 gm PRN Q15MIN PRN 12/24/17 00:15 Digoxin (Lanoxin) 125 mcg DAILY 12/24/17 17:30 12/29/17 08:36 125 MCG Diltiazem HCl (Cardizem) 20 mg 1X ONCE 12/23/17 23:00 12/23/17 23:01 DC 12/23/17 23:00 20 MG Diltiazem HCl 125 mg/Dextrose 125 ml @ 10 mls/hr 1X ONCE 12/23/17 23:00 12/24/17 11:29 DC 12/23/17 23:11 10 MLS/HR Docusate Sodium (Colace) 100 mg PRN DAILY PRN 12/25/17 12:15 12/28/17 20:47 100 MG Fentanyl Citrate (Fentanyl 2ml Vial) 50 mcg PRN Q2HR PRN 12/24/17 00:15 12/25/17 00:14 DC Furosemide (Lasix) 60 mg 1X ONCE 12/26/17 09:00 12/26/17 09:01 DC 12/26/17 08:46 60 MG Guaifenesin/ Codeine Phosphate (Robitussin Ac) 5 ml PRN Q6HRS PRN 12/25/17 08:45 12/25/17 12:54 5 ML Hyoscyamine (Anaspaz) 0.25 mg 1X ONCE 12/23/17 23:45 12/23/17 23:46 Cancel Influenza Virus Vaccine (Afluria Trivalent [id number] Syringe) 0.5 ml ONCE ONCE 12/24/17 09:00 12/24/17 09:01 DC 12/24/17 08:51 0.5 ML Info (Do NOT chart on this placeholder) 1 each 1X ONCE 12/24/17 01:45 12/24/17 01:46 UNV Insulin Human Lispro (HumaLOG) 0-5 UNITS TIDWMEALS 12/24/17 08:00 12/24/17 17:46 2 UNITS Labetalol HCl (Normodyne Iv Push) 20 mg PRN Q2HR PRN 12/25/17 12:15 Lactobacillus Rhamnosus (Culturelle) 1 cap BID 12/24/17 21:00 12/29/17 20:13 1 CAP Levofloxacin (Levaquin) 250 mg QHS 12/27/17 21:00 12/29/17 20:13 250 MG Levofloxacin/ Dextrose 50 ml @ 50 mls/hr Q24H 12/26/17 23:00 12/27/17 09:12 DC 12/26/17 22:47 50 MLS/HR Levothyroxine Sodium (Synthroid) 150 mcg DAILY07 12/24/17 18:00 12/30/17 05:28 150 MCG Metformin HCl (Glucophage) 500 mg BIDWMEALS 12/24/17 18:00 12/27/17 10:53 DC 12/27/17 09:45 500 MG Morphine Sulfate (Morphine Sulfate) 2 mg PRN Q2HR PRN 12/25/17 12:15 Ondansetron HCl (Zofran) 4 mg PRN Q6HRS PRN 12/25/17 12:15 Piperacillin Sod/ Tazobactam Sod 4.5 gm/Sodium Chloride 100 ml @ 200 mls/hr 1X ONCE 12/24/17 00:00 12/24/17 00:29 DC 12/24/17 01:17 200 MLS/HR Potassium Chloride (Klor-Con) 10 meq DAILY 12/24/17 18:00 12/27/17 11:59 DC 12/27/17 09:46 10 MEQ Simvastatin (Zocor) 40 mg QHS 12/24/17 21:00 12/29/17 20:13 40 MG Sodium Chloride 1,000 ml @ 60 mls/hr [id number] 12/28/17 18:00 12/30/17 05:27 60 MLS/HR Sotalol HCl (Betapace) 80 mg BID 12/24/17 21:00 12/29/17 20:13 80 MG Tramadol HCl (Ultram) 50 mg PRN Q6HRS PRN 12/25/17 12:15 12/28/17 20:48 50 MG Vancomycin HCl (Vanco Per Pharmacy) 1 each PRN DAILY PRN 12/24/17 10:30 12/25/17 17:09 DC 12/25/17 10:36 1 EACH Vancomycin HCl (Vancomycin Trough Level) 1 each 1X ONCE 12/25/17 23:30 12/25/17 23:30 DC Vancomycin HCl 1.75 gm/Sodium Chloride 500 ml @ 250 mls/hr Q12H 12/24/17 13:00 12/25/17 17:08 DC 12/25/17 13:00 250 MLS/HR Vancomycin HCl 2 gm/Sodium Chloride 500 ml @ 250 mls/hr 1X ONCE 12/24/17 00:30 12/24/17 02:29 DC 12/24/17 01:18 250 MLS/HR Warfarin Sodium (Coumadin Per Pharmacy) 1 each PRN DAILY PRN 12/24/17 14:45 12/28/17 14:03 1 EACH Warfarin Sodium (Coumadin) 2 mg 1X WARF ONCE 12/29/17 16:00 12/29/17 16:01 DC 12/29/17 16:28 2 MG Lab Laboratory Tests Test 12/29/17 08:07 12/29/17 10:30 12/29/17 11:56 12/29/17 17:00 Glucose (Fingerstick) 116 mg/dL (70-99) 135 mg/dL (70-99) 116 mg/dL (70-99) Prothrombin Time 24.1 SEC (11.7-14.0) Prothromb Time International Ratio 2.2 (0.8-1.1) Sodium Level 140 mmol/L (136-145) Potassium Level 4.3 mmol/L (3.5-5.1) Chloride Level 104 mmol/L (98-107) Carbon Dioxide Level 26 mmol/L (21-32) Anion Gap 10 (6-14) Blood Urea Nitrogen 25 mg/dL (7-20) Creatinine 2.4 mg/dL (0.6-1.0) Estimated GFR (Cockcroft-Gault) 19.8 BUN/Creatinine Ratio 10 (6-20) Glucose Level 160 mg/dL (70-99) Calcium Level 7.8 mg/dL (8.5-10.1) Total Bilirubin 0.5 mg/dL (0.2-1.0) Aspartate Amino Transf (AST/SGOT) 43 U/L (15-37) Alanine Aminotransferase (ALT/SGPT) 28 U/L (14-59) Alkaline Phosphatase 91 U/L (46-116) Total Protein 5.7 g/dL (6.4-8.2) Albumin 2.6 g/dL (3.4-5.0) Albumin/Globulin Ratio 0.8 (1.0-1.7) Test 12/29/17 20:42 12/30/17 03:00 Glucose (Fingerstick) 114 mg/dL (70-99) White Blood Count 7.8 x10^3/uL (4.0-11.0) Red Blood Count 3.81 x10^6/uL (3.50-5.40) Hemoglobin 12.1 g/dL (12.0-15.5) Hematocrit 36.0 % (36.0-47.0) Mean Corpuscular Volume 94 fL (79-100) Mean Corpuscular Hemoglobin 32 pg (25-35) Mean Corpuscular Hemoglobin Concent 34 g/dL (31-37) Red Cell Distribution Width 16.7 % (11.5-14.5) Platelet Count 162 x10^3/uL (140-400) Neutrophils (%) (Auto) 69 % (31-73) Lymphocytes (%) (Auto) 13 % (24-48) Monocytes (%) (Auto) 13 % (0-9) Eosinophils (%) (Auto) 4 % (0-3) Basophils (%) (Auto) 1 % (0-3) Neutrophils # (Auto) 5.4 x10^3uL (1.8-7.7) Lymphocytes # (Auto) 1.0 x10^3/uL (1.0-4.8) Monocytes # (Auto) 1.0 x10^3/uL (0.0-1.1) Eosinophils # (Auto) 0.3 x10^3/uL (0.0-0.7) Basophils # (Auto) 0.1 x10^3/uL (0.0-0.2) Prothrombin Time 23.9 SEC (11.7-14.0) Prothromb Time International Ratio 2.2 (0.8-1.1) Sodium Level 137 mmol/L (136-145) Potassium Level 4.0 mmol/L (3.5-5.1) Chloride Level 105 mmol/L (98-107) Carbon Dioxide Level 22 mmol/L (21-32) Anion Gap 10 (6-14) Blood Urea Nitrogen 24 mg/dL (7-20) Creatinine 2.4 mg/dL (0.6-1.0) Estimated GFR (Cockcroft-Gault) 19.8 Glucose Level 113 mg/dL (70-99) Calcium Level 8.0 mg/dL (8.5-10.1) Results All relevant outside records, renal labs, imaging studies, telemetry/EKG's were reviewed. Other Findings: Multiple sonographic images of the kidneys and urinary bladder are submitted. Right kidney measured 11.6 x 5.5 x 4.3 cm. Left kidney measured 10.6 x 6.4 x 5.4 cm. There is no hydronephrosis of either kidney. Urinary bladder is distended with estimated volume of about 383 cc. Impression: 1. There is distention of the urinary bladder. 2. There is no hydronephrosis of either kidney. ROHIT JENSEN MD Dec 30, 2017 06:57
[2017-12-30] MEDS ORDERED: MAGNESIUM SULFATE 2GM 50 ML IV PRN (07:00)
[2017-12-30 07:15] VITALS: BP 116/66
[2017-12-30] MEDS: IPRATRPIUM/ALBUTEROL 0.5/2.5MG 3 ML NEBU. NEB SCH ×4 (07:47→19:31)
[2017-12-30] MEDS: INSULIN LISPRO 300 UNITS/3 ML INSULN.PEN. SQ SCH ×3 (08:00→17:00)
[2017-12-30] MEDS: BENZONATATE 100 MG CAPSULE. PO SCH ×3 (08:22→21:00)
[2017-12-30] MEDS: DIGOXIN 125 MCG TABLET. PO SCH (08:23)
[2017-12-30] MEDS: SOTALOL 80 MG TABLET. PO SCH ×2 (08:23→21:26)
[2017-12-30] MEDS: DOCUSATE SODIUM 100 MG CAPSULE. PO PRN (08:23)
[2017-12-30] MEDS: LACTOBACILLUS RHAMNOSUS GG 1 CAPSULE. PO SCH ×2 (08:23→21:23)
[2017-12-30 11:02] VITALS: BP 124/49
--- NOTE | 2017-12-30 11:43 | PDOC ---
PULMONARY PROGRESS NOTES Subjective no soa, Vitals Vital Signs Date Time Temp Pulse Resp B/P (MAP) Pulse Ox O2 Delivery O2 Flow Rate FiO2 12/30/17 11:02 97.7 74 16 124/49 (74) 95 Room Air 97.7 12/29/17 08:00 2.0 General: Alert, No acute distress Lungs: Clear Cardiovascular: S1, S2 Abdomen: Soft, Other (obese) Neuro Exam: Alert Extremities: Other (2+edema) Labs Laboratory Tests Test 12/28/17 11:45 12/28/17 17:24 12/28/17 18:00 12/28/17 20:56 Glucose (Fingerstick) 148 mg/dL (70-99) 133 mg/dL (70-99) 114 mg/dL (70-99) Urine Collection Type Unknown Urine Color Yellow Urine Clarity Clear Urine pH 5.0 Urine Specific [place] 1.010 Urine Protein 30 mg/dL (NEG-TRACE) Urine Glucose (UA) Negative mg/dL (NEG) Urine Ketones (Stick) Negative mg/dL (NEG) Urine Blood Large (NEG) Urine Nitrite Negative (NEG) Urine Bilirubin Negative (NEG) Urine Urobilinogen Dipstick 0.2 mg/dL (0.2 mg/dL) Urine Leukocyte Esterase Small (NEG) Urine RBC Tntc /HPF (0-2) Urine WBC 11-20 /HPF (0-4) Urine Squamous Epithelial Cells Mod /LPF Urine Bacteria 0 /HPF (0-FEW) Urine Mucus Mod /LPF Test 12/29/17 08:07 12/29/17 10:30 12/29/17 11:56 12/29/17 17:00 Glucose (Fingerstick) 116 mg/dL (70-99) 135 mg/dL (70-99) 116 mg/dL (70-99) Prothrombin Time 24.1 SEC (11.7-14.0) Prothromb Time International Ratio 2.2 (0.8-1.1) Sodium Level 140 mmol/L (136-145) Potassium Level 4.3 mmol/L (3.5-5.1) Chloride Level 104 mmol/L (98-107) Carbon Dioxide Level 26 mmol/L (21-32) Anion Gap 10 (6-14) Blood Urea Nitrogen 25 mg/dL (7-20) Creatinine 2.4 mg/dL (0.6-1.0) Estimated GFR (Cockcroft-Gault) 19.8 BUN/Creatinine Ratio 10 (6-20) Glucose Level 160 mg/dL (70-99) Calcium Level 7.8 mg/dL (8.5-10.1) Total Bilirubin 0.5 mg/dL (0.2-1.0) Aspartate Amino Transf (AST/SGOT) 43 U/L (15-37) Alanine Aminotransferase (ALT/SGPT) 28 U/L (14-59) Alkaline Phosphatase 91 U/L (46-116) Total Protein 5.7 g/dL (6.4-8.2) Albumin 2.6 g/dL (3.4-5.0) Albumin/Globulin Ratio 0.8 (1.0-1.7) Test 12/29/17 20:42 12/30/17 03:00 12/30/17 07:00 Glucose (Fingerstick) 114 mg/dL (70-99) 117 mg/dL (70-99) White Blood Count 7.8 x10^3/uL (4.0-11.0) Red Blood Count 3.81 x10^6/uL (3.50-5.40) Hemoglobin 12.1 g/dL (12.0-15.5) Hematocrit 36.0 % (36.0-47.0) Mean Corpuscular Volume 94 fL (79-100) Mean Corpuscular Hemoglobin 32 pg (25-35) Mean Corpuscular Hemoglobin Concent 34 g/dL (31-37) Red Cell Distribution Width 16.7 % (11.5-14.5) Platelet Count 162 x10^3/uL (140-400) Neutrophils (%) (Auto) 69 % (31-73) Lymphocytes (%) (Auto) 13 % (24-48) Monocytes (%) (Auto) 13 % (0-9) Eosinophils (%) (Auto) 4 % (0-3) Basophils (%) (Auto) 1 % (0-3) Neutrophils # (Auto) 5.4 x10^3uL (1.8-7.7) Lymphocytes # (Auto) 1.0 x10^3/uL (1.0-4.8) Monocytes # (Auto) 1.0 x10^3/uL (0.0-1.1) Eosinophils # (Auto) 0.3 x10^3/uL (0.0-0.7) Basophils # (Auto) 0.1 x10^3/uL (0.0-0.2) Prothrombin Time 23.9 SEC (11.7-14.0) Prothromb Time International Ratio 2.2 (0.8-1.1) Sodium Level 137 mmol/L (136-145) Potassium Level 4.0 mmol/L (3.5-5.1) Chloride Level 105 mmol/L (98-107) Carbon Dioxide Level 22 mmol/L (21-32) Anion Gap 10 (6-14) Blood Urea Nitrogen 24 mg/dL (7-20) Creatinine 2.4 mg/dL (0.6-1.0) Estimated GFR (Cockcroft-Gault) 19.8 Glucose Level 113 mg/dL (70-99) Calcium Level 8.0 mg/dL (8.5-10.1) Laboratory Tests Test 12/29/17 11:56 12/29/17 17:00 12/29/17 20:42 12/30/17 03:00 Glucose (Fingerstick) 135 mg/dL (70-99) 116 mg/dL (70-99) 114 mg/dL (70-99) White Blood Count 7.8 x10^3/uL (4.0-11.0) Red Blood Count 3.81 x10^6/uL (3.50-5.40) Hemoglobin 12.1 g/dL (12.0-15.5) Hematocrit 36.0 % (36.0-47.0) Mean Corpuscular Volume 94 fL (79-100) Mean Corpuscular Hemoglobin 32 pg (25-35) Mean Corpuscular Hemoglobin Concent 34 g/dL (31-37) Red Cell Distribution Width 16.7 % (11.5-14.5) Platelet Count 162 x10^3/uL (140-400) Neutrophils (%) (Auto) 69 % (31-73) Lymphocytes (%) (Auto) 13 % (24-48) Monocytes (%) (Auto) 13 % (0-9) Eosinophils (%) (Auto) 4 % (0-3) Basophils (%) (Auto) 1 % (0-3) Neutrophils # (Auto) 5.4 x10^3uL (1.8-7.7) Lymphocytes # (Auto) 1.0 x10^3/uL (1.0-4.8) Monocytes # (Auto) 1.0 x10^3/uL (0.0-1.1) Eosinophils # (Auto) 0.3 x10^3/uL (0.0-0.7) Basophils # (Auto) 0.1 x10^3/uL (0.0-0.2) Prothrombin Time 23.9 SEC (11.7-14.0) Prothromb Time International Ratio 2.2 (0.8-1.1) Sodium Level 137 mmol/L (136-145) Potassium Level 4.0 mmol/L (3.5-5.1) Chloride Level 105 mmol/L (98-107) Carbon Dioxide Level 22 mmol/L (21-32) Anion Gap 10 (6-14) Blood Urea Nitrogen 24 mg/dL (7-20) Creatinine 2.4 mg/dL (0.6-1.0) Estimated GFR (Cockcroft-Gault) 19.8 Glucose Level 113 mg/dL (70-99) Calcium Level 8.0 mg/dL (8.5-10.1) Test 12/30/17 07:00 Glucose (Fingerstick) 117 mg/dL (70-99) Medications Active Scripts Medications Dose Route/Sig Max Daily Dose Days Date Category Proair Hfa Inhaler (Albuterol Sulfate) 8.5 Gm Hfa.aer.ad 1 Puff INH PRN Q6HRS PRN 12/24/17 Reported Sotalol (Sotalol Hcl) 80 Mg Tablet 1 Tab PO BID 12/24/17 Reported Tessalon Perle (Benzonatate) 100 Mg Capsule 2 Cap PO TID PRN 12/24/17 Reported Digoxin 125 Mcg Tablet 125 Mcg PO DAILY 09/26/17 Rx Warfarin Sodium 2 Mg Tablet 1 Tab PO DAILY 09/23/17 Reported Lisinopril 10 Mg Tablet 1 Tab PO DAILY 09/23/17 Reported Levothyroxine Sodium 125 Mcg Tablet 150 Mcg PO DAILY 09/23/17 Reported Simvastatin 40 Mg Tablet 40 Mg PO DAILY 09/23/17 Reported Metformin Hcl 500 Mg Tablet 500 Mg PO BIDWMEALS 09/23/17 Reported Furosemide 20 Mg Tablet 1 Tab PO DAILY 09/23/17 Reported Potassium Chloride 10 Meq Tab.sr.24h 10 Meq PO DAILY 09/23/17 Reported Impression . 1. Acute hypoxic respiratory failure secondary to multifactorial etiologies including a combination of right and left heart failure and possible lower respiratory tract infection. In addition, underlying chronic obstructive pulmonary disease with exacerbation. 2. Chronic atrial fibrillation, on chronic anticoagulation 3. 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 She no longer smokes cigarettes. 4. Morbid obesity and suspect obesity hypoventilation syndrome. Needs to rule out for obstructive sleep apnea by sleep study as an outpatient. Plan . 1. Continue with present oxygen via nasal cannula. 2. Noncontrast CT chest reviewed. mild basal atelectasis/ tiny effusions 3. echocardiogram reviewed 4. PO abx 5. Diuresis. 7. Follow Cardiology recommendation. 8. Bronchodilators. 9. Weight loss is advised. 10. Sleep study as an outpatient. 11. Discussed with the patient / await skill transfer CARLOS BLANCO MD Dec 30, 2017 11:43
--- NOTE | 2017-12-30 13:26 | PDOC ---
PROGRESS NOTES Chief Complaint Chief Complaint sob with copd and chf copd exacerbation bronchitis CHF systolic ef 40% likely exacerbation HTN HLD Hypothyroidism ppm rapid AFIB Morbid obesity mild dementia AMS, metabolic encephalopathy with rickey, hypoxic RICKEY, vasomotor hematuria plan: fu with card, pulm cont duoneb, levaquin. dced vanco cardizem drip off, cont satolol, dig, warfarin , INR daily talked to daughter and pt, tiny pleural effusion no need thoracentesis increase lasix to 40mg daily, got lasix 60mg iv x2 times. lasix dced as per renal, added ivf add cough meds echo done neuro consult, head ct, MRI cannot be done 2/2 PPM, EEG neg for seizure. hold metformin given irckey PTOT sw fu, pt refused rehab but seems family agreed, screening PP. check UA, ucx. repeat as per renal. may need ABD CT if cont hematuria History of Present Illness History of Present Illness ROS: no fever, chills, chest pain on NC 2L, no home o2 cont severe cough, no sputum bl leg severe edema, daughter said it is bad, but pt cannot tell pt said she was on lasix 150mg daily before, current 20mg daily at home 12/27: pt not talking much to me today as before, altho she used to hard finding words to tell me and told her daughter wrong info often cr higher to 2.1, got 2 times lasix iv later pt got unresponsive, woke up during CT scan. HEAD CT ok. 12/28: Cr higher to 2.3. pt kind of back to her baseline, not talkative, but answer questions and follow commands. refused to go to rehab hematuria as per [employer] 12/29: talkative a like normal, cannot tell me why she was unresponsive 2 ds ago. Cr still high as 2.4 12/30: cr cont 2.4. mental normal x2ds. cough better, off NC2l, hematuria better , denies UTI symptoms Vitals Vitals Vital Signs Date Time Temp Pulse Resp B/P (MAP) Pulse Ox O2 Delivery O2 Flow Rate FiO2 12/30/17 11:02 97.7 74 16 124/49 (74) 95 Room Air 97.7 12/29/17 08:00 2.0 Physical Exam General: Alert, Cooperative, No acute distress Heart: Regular rate, Other (IRREGULAR) Lungs: Clear Abdomen: Normal bowel sounds, Soft Extremities: No clubbing, No cyanosis Skin: No breakdown Labs LABS Laboratory Tests Test 12/29/17 17:00 12/29/17 20:42 12/30/17 03:00 12/30/17 07:00 Glucose (Fingerstick) 116 mg/dL (70-99) 114 mg/dL (70-99) 117 mg/dL (70-99) White Blood Count 7.8 x10^3/uL (4.0-11.0) Red Blood Count 3.81 x10^6/uL (3.50-5.40) Hemoglobin 12.1 g/dL (12.0-15.5) Hematocrit 36.0 % (36.0-47.0) Mean Corpuscular Volume 94 fL (79-100) Mean Corpuscular Hemoglobin 32 pg (25-35) Mean Corpuscular Hemoglobin Concent 34 g/dL (31-37) Red Cell Distribution Width 16.7 % (11.5-14.5) Platelet Count 162 x10^3/uL (140-400) Neutrophils (%) (Auto) 69 % (31-73) Lymphocytes (%) (Auto) 13 % (24-48) Monocytes (%) (Auto) 13 % (0-9) Eosinophils (%) (Auto) 4 % (0-3) Basophils (%) (Auto) 1 % (0-3) Neutrophils # (Auto) 5.4 x10^3uL (1.8-7.7) Lymphocytes # (Auto) 1.0 x10^3/uL (1.0-4.8) Monocytes # (Auto) 1.0 x10^3/uL (0.0-1.1) Eosinophils # (Auto) 0.3 x10^3/uL (0.0-0.7) Basophils # (Auto) 0.1 x10^3/uL (0.0-0.2) Prothrombin Time 23.9 SEC (11.7-14.0) Prothromb Time International Ratio 2.2 (0.8-1.1) Sodium Level 137 mmol/L (136-145) Potassium Level 4.0 mmol/L (3.5-5.1) Chloride Level 105 mmol/L (98-107) Carbon Dioxide Level 22 mmol/L (21-32) Anion Gap 10 (6-14) Blood Urea Nitrogen 24 mg/dL (7-20) Creatinine 2.4 mg/dL (0.6-1.0) Estimated GFR (Cockcroft-Gault) 19.8 Glucose Level 113 mg/dL (70-99) Calcium Level 8.0 mg/dL (8.5-10.1) Test 12/30/17 11:36 Glucose (Fingerstick) 144 mg/dL (70-99) Assessment and Plan Assessmemt and Plan Problems Medical Problems: (1) Atrial fibrillation with RVR Status: Acute (2) Bandemia Status: Acute (3) Hypoxia Status: Acute (4) Severe sepsis Status: Acute Comment Review of Relevant I have reviewed the following items uyen (where applicable) has been applied. Labs Laboratory Tests Test 12/28/17 17:24 12/28/17 18:00 12/28/17 20:56 12/29/17 08:07 Glucose (Fingerstick) 133 mg/dL (70-99) 114 mg/dL (70-99) 116 mg/dL (70-99) Urine Collection Type Unknown Urine Color Yellow Urine Clarity Clear Urine pH 5.0 Urine Specific Napoleon 1.010 Urine Protein 30 mg/dL (NEG-TRACE) Urine Glucose (UA) Negative mg/dL (NEG) Urine Ketones (Stick) Negative mg/dL (NEG) Urine Blood Large (NEG) Urine Nitrite Negative (NEG) Urine Bilirubin Negative (NEG) Urine Urobilinogen Dipstick 0.2 mg/dL (0.2 mg/dL) Urine Leukocyte Esterase Small (NEG) Urine RBC Tntc /HPF (0-2) Urine WBC 11-20 /HPF (0-4) Urine Squamous Epithelial Cells Mod /LPF Urine Bacteria 0 /HPF (0-FEW) Urine Mucus Mod /LPF Test 12/29/17 10:30 12/29/17 11:56 12/29/17 17:00 12/29/17 20:42 Prothrombin Time 24.1 SEC (11.7-14.0) Prothromb Time International Ratio 2.2 (0.8-1.1) Sodium Level 140 mmol/L (136-145) Potassium Level 4.3 mmol/L (3.5-5.1) Chloride Level 104 mmol/L (98-107) Carbon Dioxide Level 26 mmol/L (21-32) Anion Gap 10 (6-14) Blood Urea Nitrogen 25 mg/dL (7-20) Creatinine 2.4 mg/dL (0.6-1.0) Estimated GFR (Cockcroft-Gault) 19.8 BUN/Creatinine Ratio 10 (6-20) Glucose Level 160 mg/dL (70-99) Calcium Level 7.8 mg/dL (8.5-10.1) Total Bilirubin 0.5 mg/dL (0.2-1.0) Aspartate Amino Transf (AST/SGOT) 43 U/L (15-37) Alanine Aminotransferase (ALT/SGPT) 28 U/L (14-59) Alkaline Phosphatase 91 U/L (46-116) Total Protein 5.7 g/dL (6.4-8.2) Albumin 2.6 g/dL (3.4-5.0) Albumin/Globulin Ratio 0.8 (1.0-1.7) Glucose (Fingerstick) 135 mg/dL (70-99) 116 mg/dL (70-99) 114 mg/dL (70-99) Test 12/30/17 03:00 12/30/17 07:00 12/30/17 11:36 White Blood Count 7.8 x10^3/uL (4.0-11.0) Red Blood Count 3.81 x10^6/uL (3.50-5.40) Hemoglobin 12.1 g/dL (12.0-15.5) Hematocrit 36.0 % (36.0-47.0) Mean Corpuscular Volume 94 fL (79-100) Mean Corpuscular Hemoglobin 32 pg (25-35) Mean Corpuscular Hemoglobin Concent 34 g/dL (31-37) Red Cell Distribution Width 16.7 % (11.5-14.5) Platelet Count 162 x10^3/uL (140-400) Neutrophils (%) (Auto) 69 % (31-73) Lymphocytes (%) (Auto) 13 % (24-48) Monocytes (%) (Auto) 13 % (0-9) Eosinophils (%) (Auto) 4 % (0-3) Basophils (%) (Auto) 1 % (0-3) Neutrophils # (Auto) 5.4 x10^3uL (1.8-7.7) Lymphocytes # (Auto) 1.0 x10^3/uL (1.0-4.8) Monocytes # (Auto) 1.0 x10^3/uL (0.0-1.1) Eosinophils # (Auto) 0.3 x10^3/uL (0.0-0.7) Basophils # (Auto) 0.1 x10^3/uL (0.0-0.2) Prothrombin Time 23.9 SEC (11.7-14.0) Prothromb Time International Ratio 2.2 (0.8-1.1) Sodium Level 137 mmol/L (136-145) Potassium Level 4.0 mmol/L (3.5-5.1) Chloride Level 105 mmol/L (98-107) Carbon Dioxide Level 22 mmol/L (21-32) Anion Gap 10 (6-14) Blood Urea Nitrogen 24 mg/dL (7-20) Creatinine 2.4 mg/dL (0.6-1.0) Estimated GFR (Cockcroft-Gault) 19.8 Glucose Level 113 mg/dL (70-99) Calcium Level 8.0 mg/dL (8.5-10.1) Glucose (Fingerstick) 117 mg/dL (70-99) 144 mg/dL (70-99) Laboratory Tests Test 12/29/17 17:00 12/29/17 20:42 12/30/17 03:00 12/30/17 07:00 Glucose (Fingerstick) 116 mg/dL (70-99) 114 mg/dL (70-99) 117 mg/dL (70-99) White Blood Count 7.8 x10^3/uL (4.0-11.0) Red Blood Count 3.81 x10^6/uL (3.50-5.40) Hemoglobin 12.1 g/dL (12.0-15.5) Hematocrit 36.0 % (36.0-47.0) Mean Corpuscular Volume 94 fL (79-100) Mean Corpuscular Hemoglobin 32 pg (25-35) Mean Corpuscular Hemoglobin Concent 34 g/dL (31-37) Red Cell Distribution Width 16.7 % (11.5-14.5) Platelet Count 162 x10^3/uL (140-400) Neutrophils (%) (Auto) 69 % (31-73) Lymphocytes (%) (Auto) 13 % (24-48) Monocytes (%) (Auto) 13 % (0-9) Eosinophils (%) (Auto) 4 % (0-3) Basophils (%) (Auto) 1 % (0-3) Neutrophils # (Auto) 5.4 x10^3uL (1.8-7.7) Lymphocytes # (Auto) 1.0 x10^3/uL (1.0-4.8) Monocytes # (Auto) 1.0 x10^3/uL (0.0-1.1) Eosinophils # (Auto) 0.3 x10^3/uL (0.0-0.7) Basophils # (Auto) 0.1 x10^3/uL (0.0-0.2) Prothrombin Time 23.9 SEC (11.7-14.0) Prothromb Time International Ratio 2.2 (0.8-1.1) Sodium Level 137 mmol/L (136-145) Potassium Level 4.0 mmol/L (3.5-5.1) Chloride Level 105 mmol/L (98-107) Carbon Dioxide Level 22 mmol/L (21-32) Anion Gap 10 (6-14) Blood Urea Nitrogen 24 mg/dL (7-20) Creatinine 2.4 mg/dL (0.6-1.0) Estimated GFR (Cockcroft-Gault) 19.8 Glucose Level 113 mg/dL (70-99) Calcium Level 8.0 mg/dL (8.5-10.1) Test 12/30/17 11:36 Glucose (Fingerstick) 144 mg/dL (70-99) Medications Current Medications Diltiazem HCl (Cardizem) 20 mg 1X ONCE IVP Last administered on 12/23/17at 23: 00; Start 12/23/17 at 23:00; Stop 12/23/17 at 23:01; Status DC Aspirin (Adonis Aspirin) 325 mg 1X ONCE PO ; Start 12/23/17 at 23:00; Stop 12/23 at 23:01; Status DC Diltiazem HCl 125 mg/Dextrose 125 ml @ 10 mls/hr 1X ONCE IV Last administered on 12/23/17at 23:11; Start 12/23/17 at 23:00; Stop 12/24/17 at 11:29 ; Status DC Dexamethasone Sodium Phosphate (Decadron) 10 mg 1X ONCE IV Last administered on 12/23/17at 22:57; Start 12/23/17 at 23:00; Stop 12/23/17 at 23:01; Status DC Albuterol/ Ipratropium (Duoneb) 3 ml 1X ONCE NEB ; Start 12/23/17 at 23:00; Stop 12/23/17 at 23:01; Status DC Albuterol/ Ipratropium (Duoneb) 3 ml STAT ONCE NEB ; Start 12/23/17 at 23:00; Stop 12/23/17 at 23:01; Status DC Hyoscyamine (Anaspaz) 0.25 mg 1X ONCE PO ; Start 12/23/17 at 23:45; Stop at 23:46; Status Cancel Sodium Chloride 1,000 ml @ 1,000 mls/hr 1X ONCE IV Last administered on at 01:17; Start 12/23/17 at 23:45; Stop 12/24/17 at 00:44; Status DC Sodium Chloride 1,000 ml @ 1,000 mls/hr 1X ONCE IV Last administered on at 04:29; Start 12/23/17 at 23:45; Stop 12/24/17 at 00:44; Status DC Piperacillin Sod/ Tazobactam Sod 4.5 gm/Sodium Chloride 100 ml @ 200 mls/hr 1X ONCE IV Last administered on 12/24/17at 01:17; Start 12/24/17 at 00:00; Stop 12/24/17 at 00:29; Status DC Levofloxacin/ Dextrose 150 ml @ 100 mls/hr 1X ONCE IV Last administered on at 01:17; Start 12/24/17 at 00:00; Stop 12/24/17 at 01:29; Status DC Vancomycin HCl 2 gm/Sodium Chloride 500 ml @ 250 mls/hr 1X ONCE IV Last administered on 12/24/17at 01:18; Start 12/24/17 at 00:30; Stop 12/24/17 at 02:29 ; Status DC Ondansetron HCl (Zofran) 4 mg PRN Q8HRS PRN IV NAUSEA/VOMITING 1ST CHOICE; Start 12/24/17 at 00:15; Stop 12/25/17 at 00:14; Status DC Fentanyl Citrate (Fentanyl 2ml Vial) 50 mcg PRN Q2HR PRN IV SEVERE PAIN; Start 12/24/17 at 00:15; Stop 12/25/17 at 00:14; Status DC Albuterol Sulfate (Ventolin Neb Soln) 2.5 mg PRN Q4HRS PRN NEB WHEEZING Last administered on 12/25/17at 17:28; Start 12/24/17 at 00:30 Insulin Human Lispro (HumaLOG) 0-5 UNITS TIDWMEALS SQ Last administered on 12/24at 17:46; Start 12/24/17 at 08:00 Dextrose (Dextrose 50%-Water Syringe) 12.5 gm PRN Q15MIN PRN IV SEE COMMENTS; Start 12/24/17 at 00:15 Info (Do NOT chart on this placeholder) 1 each 1X ONCE MC ; Start 12/24/17 at 01:45; Stop 12/24/17 at 01:46; Status UNV Influenza Virus Vaccine (Afluria Trivalent [id number] Syringe) 0.5 ml ONCE ONCE VAX IM Last administered on 12/24/17at 08:51; Start 12/24/17 at 09:00; Stop at 09:01; Status DC Albuterol/ Ipratropium (Duoneb) 3 ml RTQID NEB Last administered on 12/30/17at 07:47; Start 12/24/17 at 12:00 Levofloxacin/ Dextrose 100 ml @ 100 mls/hr Q24H IV ; Start 12/24/17 at 10:30; Status UNV Vancomycin HCl (Vanco Per Pharmacy) 1 each PRN DAILY PRN MC SEE COMMENTS Last administered on 12/25/17at 10:36; Start 12/24/17 at 10:30; Stop 12/25/17 at 17:09 ; Status DC Levofloxacin/ Dextrose 100 ml @ 100 mls/hr Q24H IV Last administered on at 23:31; Start 12/24/17 at 23:00; Stop 12/26/17 at 14:40; Status DC Vancomycin HCl 1.75 gm/Sodium Chloride 500 ml @ 250 mls/hr Q12H IV Last administered on 12/25/17at 13:00; Start 12/24/17 at 13:00; Stop 12/25/17 at 17:08 ; Status DC Vancomycin HCl (Vancomycin Trough Level) 1 each 1X ONCE MC ; Start 12/25/17 at 23:30; Stop 12/25/17 at 23:30; Status DC Lactobacillus Rhamnosus (Culturelle) 1 cap BID PO Last administered on 08:23; Start 12/24/17 at 21:00 Warfarin Sodium (Coumadin Per Pharmacy) 1 each PRN DAILY PRN MC SEE COMMENTS Last administered on 12/30/17at 10:52; Start 12/24/17 at 14:45 Warfarin Sodium (Coumadin) 2 mg 1X WARF ONCE PO Last administered on 15:52; Start 12/24/17 at 16:00; Stop 12/24/17 at 16:01; Status DC Digoxin (Lanoxin) 125 mcg DAILY PO Last administered on 12/30/17 08:23; Start 12/24/17 at 17:30 Sotalol HCl (Betapace) 80 mg BID PO Last administered on 12/30/17at 08:23; Start 12/24/17 at 21:00 Furosemide (Lasix) 20 mg DAILY PO Last administered on 12/25/17at 07:50; Start 12/24/17 at 18:00; Stop 12/25/17 at 08:44; Status DC Potassium Chloride (Klor-Con) 10 meq DAILY PO Last administered on 12/27/17at 09 :46; Start 12/24/17 at 18:00; Stop 12/27/17 at 11:59; Status DC Levothyroxine Sodium (Synthroid) 150 mcg DAILY07 PO Last administered on at 05:28; Start 12/24/17 at 18:00 Metformin HCl (Glucophage) 500 mg BIDWMEALS PO Last administered on 12/27/17at 09:45; Start 12/24/17 at 18:00; Stop 12/27/17 at 10:53; Status DC Simvastatin (Zocor) 40 mg DAILY PO ; Start 12/24/17 at 18:00; Stop 12/24/17 at 18:00; Status DC Simvastatin (Zocor) 40 mg QHS PO Last administered on 12/29/17at 20:13; Start at 21:00 Furosemide (Lasix) 20 mg 1X ONCE PO Last administered on 12/25/17at 12:57; Start 12/25/17 at 09:00; Stop 12/25/17 at 09:01; Status DC Guaifenesin/ Codeine Phosphate (Robitussin Ac) 5 ml PRN Q6HRS PRN PO COUGH Last administered on 12/25/17at 12:54; Start 12/25/17 at 08:45 Benzonatate (Tessalon Perle) 100 mg [id number] PO Last administered on 12/30/17at 13 :07; Start 12/25/17 at 09:00 Furosemide (Lasix) 40 mg DAILY PO ; Start 12/26/17 at 09:00; Stop 12/27/17 at 11 :59; Status DC Warfarin Sodium (Coumadin) 2 mg 1X WARF ONCE PO Last administered on at 16:44; Start 12/25/17 at 16:00; Stop 12/25/17 at 16:01; Status DC Acetaminophen (Tylenol) 650 mg PRN Q6HRS PRN PO FEVER; Start 12/25/17 at 12:15 Ondansetron HCl (Zofran) 4 mg PRN Q6HRS PRN IV NAUSEA/VOMITING; Start 12/25/17 at 12:15 Morphine Sulfate (Morphine Sulfate) 2 mg PRN Q2HR PRN IV MODERATE TO SEVERE PAIN; Start 12/25/17 at 12:15 Tramadol HCl (Ultram) 50 mg PRN Q6HRS PRN PO MILD TO MODERATE PAIN Last administered on 12/28/17at 20:48; Start 12/25/17 at 12:15 Docusate Sodium (Colace) 100 mg PRN DAILY PRN PO HARD STOOLS Last administered on 12/30/17at 08:23; Start 12/25/17 at 12:15 Labetalol HCl (Normodyne Iv Push) 20 mg PRN Q2HR PRN IVP HYPERTENSION, SEE COMMENTS; Start 12/25/17 at 12:15 Furosemide (Lasix) 60 mg 1X ONCE IVP Last administered on 12/25/17at 17:51; Start 12/25/17 at 18:00; Stop 12/25/17 at 18:01; Status DC Furosemide (Lasix) 60 mg 1X ONCE IVP Last administered on 12/26/17at 08:46; Start 12/26/17 at 09:00; Stop 12/26/17 at 09:01; Status DC Warfarin Sodium (Coumadin) 2 mg 1X ONCE PO ; Start 12/26/17 at 14:45; Stop at 14:46; Status Cancel Warfarin Sodium (Coumadin) 2 mg 1X WARF ONCE PO Last administered on at 17:29; Start 12/26/17 at 16:00; Stop 12/26/17 at 16:01; Status DC Levofloxacin/ Dextrose 50 ml @ 50 mls/hr Q24H IV Last administered on at 22:47; Start 12/26/17 at 23:00; Stop 12/27/17 at 09:12; Status DC Levofloxacin (Levaquin) 250 mg QHS PO Last administered on 12/29/17at 20:13; Start 12/27/17 at 21:00 Warfarin Sodium (Coumadin) 2 mg 1X WARF ONCE PO Last administered on at 17:15; Start 12/27/17 at 16:00; Stop 12/27/17 at 16:01; Status DC Sodium Chloride 1,000 ml @ 75 mls/hr [id number] IV Last administered on at 15:37; Start 12/27/17 at 12:00; Stop 12/28/17 at 17:24; Status DC Warfarin Sodium (Coumadin) 2 mg 1X WARF ONCE PO Last administered on at 17:33; Start 12/28/17 at 16:00; Stop 12/28/17 at 16:01; Status DC Sodium Chloride 1,000 ml @ 60 mls/hr [id number] IV Last administered on at 05:27; Start 12/28/17 at 18:00 Warfarin Sodium (Coumadin) 2 mg 1X WARF ONCE PO Last administered on at 16:28; Start 12/29/17 at 16:00; Stop 12/29/17 at 16:01; Status DC Magnesium Sulfate 50 ml @ 25 mls/hr PRN DAILY PRN IV for Mag < 1.7 on am labs; Start 12/30/17 at 07:00 Warfarin Sodium (Coumadin) 2 mg 1X WARF ONCE PO ; Start 12/30/17 at 16:00; Stop 12/30/17 at 16:01 Active Scripts Active Digoxin 125 Mcg Tablet 125 Mcg PO DAILY Reported Proair Hfa Inhaler (Albuterol Sulfate) 8.5 Gm Hfa.aer.ad 1 Puff INH PRN Q6HRS PRN Sotalol (Sotalol Hcl) 80 Mg Tablet 1 Tab PO BID Tessalon Perle (Benzonatate) 100 Mg Capsule 2 Cap PO TID PRN Warfarin Sodium 2 Mg Tablet 1 Tab PO DAILY Lisinopril 10 Mg Tablet 1 Tab PO DAILY Levothyroxine Sodium 125 Mcg Tablet 150 Mcg PO DAILY Simvastatin 40 Mg Tablet 40 Mg PO DAILY Metformin Hcl 500 Mg Tablet 500 Mg PO BIDWMEALS Furosemide 20 Mg Tablet 1 Tab PO DAILY Potassium Chloride 10 Meq Tab.sr.24h 10 Meq PO DAILY Vitals/I & O Vital Sign - Last 24 Hours 12/29/17 12/29/17 12/29/17 12/29/17 15:00 19:17 19:48 20:00 Temp 98.1 98.2 98.1 98.2 Pulse 81 85 Resp 16 21 B/P (MAP) 113/56 (75) 142/60 (87) Pulse Ox 94 93 94 O2 Delivery Room Air Room Air Room Air Room Air 12/29/17 12/29/17 12/30/17 12/30/17 20:13 23:29 03:05 07:15 Temp 98.3 98.1 98.2 98.3 98.1 98.2 Pulse 78 82 77 87 Resp 22 21 16 B/P (MAP) 142/60 116/69 (85) 122/67 (85) 116/66 (83) Pulse Ox 93 94 92 O2 Delivery Room Air Room Air Room Air 12/30/17 12/30/17 12/30/17 12/30/17 07:49 08:02 08:23 08:23 Pulse 98 98 B/P (MAP) 116/66 116/66 Pulse Ox 93 O2 Delivery Room Air Room Air 12/30/17 11:02 Temp 97.7 97.7 Pulse 74 Resp 16 B/P (MAP) 124/49 (74) Pulse Ox 95 O2 Delivery Room Air Intake and Output 12/29/17 12/29/17 12/30/17 15:00 23:00 07:00 Intake Total 240 ml 740 ml 100 ml Output Total 690 ml 450 ml Balance 240 ml 50 ml -350 ml NBA ROSENBAUM MD Dec 30, 2017 13:26
[2017-12-30 14:10] LABS: BILIRUBIN,URINE NEGATIVE (NEG); CLARITY,URINE CLEAR; COLOR,URINE YELLOW; NITRITE,URINE NEGATIVE (NEG); PH,URINE 5.5; PROTEIN,URINE NEGATIVE (NEG-TRACE); UROBILINOGEN,URINE 0.2 mg/dL (0.2 mg/dL)
--- NOTE | 2017-12-30 14:14 | PDOC ---
PROGRESS NOTES Subjective Subjective Patient is having hematuria. No cardiac complaints. Rhythm is stable. Objective Objective Vital Signs Date Time Temp Pulse Resp B/P (MAP) Pulse Ox O2 Delivery O2 Flow Rate FiO2 12/30/17 11:02 97.7 74 16 124/49 (74) 95 Room Air 97.7 12/29/17 08:00 2.0 Intake and Output 12/30/17 07:00 Intake Total 1080 ml Output Total 1140 ml Balance -60 ml Intake Oral 1080 ml Output Urine Total 1140 ml # Voids 2 Physical Exam Physical Exam Less edema otherwise no changes in cardiac exam Assessment Assessment Rhythm is stable. I agree with present plan. Comment Review of Relevant I have reviewed the following items uyen (where applicable) has been applied. Labs Laboratory Tests Test 12/28/17 17:24 12/28/17 18:00 12/28/17 20:56 12/29/17 08:07 Glucose (Fingerstick) 133 mg/dL (70-99) 114 mg/dL (70-99) 116 mg/dL (70-99) Urine Collection Type Unknown Urine Color Yellow Urine Clarity Clear Urine pH 5.0 Urine Specific Viper 1.010 Urine Protein 30 mg/dL (NEG-TRACE) Urine Glucose (UA) Negative mg/dL (NEG) Urine Ketones (Stick) Negative mg/dL (NEG) Urine Blood Large (NEG) Urine Nitrite Negative (NEG) Urine Bilirubin Negative (NEG) Urine Urobilinogen Dipstick 0.2 mg/dL (0.2 mg/dL) Urine Leukocyte Esterase Small (NEG) Urine RBC Tntc /HPF (0-2) Urine WBC 11-20 /HPF (0-4) Urine Squamous Epithelial Cells Mod /LPF Urine Bacteria 0 /HPF (0-FEW) Urine Mucus Mod /LPF Test 12/29/17 10:30 12/29/17 11:56 12/29/17 17:00 12/29/17 20:42 Prothrombin Time 24.1 SEC (11.7-14.0) Prothromb Time International Ratio 2.2 (0.8-1.1) Sodium Level 140 mmol/L (136-145) Potassium Level 4.3 mmol/L (3.5-5.1) Chloride Level 104 mmol/L (98-107) Carbon Dioxide Level 26 mmol/L (21-32) Anion Gap 10 (6-14) Blood Urea Nitrogen 25 mg/dL (7-20) Creatinine 2.4 mg/dL (0.6-1.0) Estimated GFR (Cockcroft-Gault) 19.8 BUN/Creatinine Ratio 10 (6-20) Glucose Level 160 mg/dL (70-99) Calcium Level 7.8 mg/dL (8.5-10.1) Total Bilirubin 0.5 mg/dL (0.2-1.0) Aspartate Amino Transf (AST/SGOT) 43 U/L (15-37) Alanine Aminotransferase (ALT/SGPT) 28 U/L (14-59) Alkaline Phosphatase 91 U/L (46-116) Total Protein 5.7 g/dL (6.4-8.2) Albumin 2.6 g/dL (3.4-5.0) Albumin/Globulin Ratio 0.8 (1.0-1.7) Glucose (Fingerstick) 135 mg/dL (70-99) 116 mg/dL (70-99) 114 mg/dL (70-99) Test 12/30/17 03:00 12/30/17 07:00 12/30/17 11:36 White Blood Count 7.8 x10^3/uL (4.0-11.0) Red Blood Count 3.81 x10^6/uL (3.50-5.40) Hemoglobin 12.1 g/dL (12.0-15.5) Hematocrit 36.0 % (36.0-47.0) Mean Corpuscular Volume 94 fL (79-100) Mean Corpuscular Hemoglobin 32 pg (25-35) Mean Corpuscular Hemoglobin Concent 34 g/dL (31-37) Red Cell Distribution Width 16.7 % (11.5-14.5) Platelet Count 162 x10^3/uL (140-400) Neutrophils (%) (Auto) 69 % (31-73) Lymphocytes (%) (Auto) 13 % (24-48) Monocytes (%) (Auto) 13 % (0-9) Eosinophils (%) (Auto) 4 % (0-3) Basophils (%) (Auto) 1 % (0-3) Neutrophils # (Auto) 5.4 x10^3uL (1.8-7.7) Lymphocytes # (Auto) 1.0 x10^3/uL (1.0-4.8) Monocytes # (Auto) 1.0 x10^3/uL (0.0-1.1) Eosinophils # (Auto) 0.3 x10^3/uL (0.0-0.7) Basophils # (Auto) 0.1 x10^3/uL (0.0-0.2) Prothrombin Time 23.9 SEC (11.7-14.0) Prothromb Time International Ratio 2.2 (0.8-1.1) Sodium Level 137 mmol/L (136-145) Potassium Level 4.0 mmol/L (3.5-5.1) Chloride Level 105 mmol/L (98-107) Carbon Dioxide Level 22 mmol/L (21-32) Anion Gap 10 (6-14) Blood Urea Nitrogen 24 mg/dL (7-20) Creatinine 2.4 mg/dL (0.6-1.0) Estimated GFR (Cockcroft-Gault) 19.8 Glucose Level 113 mg/dL (70-99) Calcium Level 8.0 mg/dL (8.5-10.1) Glucose (Fingerstick) 117 mg/dL (70-99) 144 mg/dL (70-99) Laboratory Tests Test 12/29/17 17:00 12/29/17 20:42 12/30/17 03:00 12/30/17 07:00 Glucose (Fingerstick) 116 mg/dL (70-99) 114 mg/dL (70-99) 117 mg/dL (70-99) White Blood Count 7.8 x10^3/uL (4.0-11.0) Red Blood Count 3.81 x10^6/uL (3.50-5.40) Hemoglobin 12.1 g/dL (12.0-15.5) Hematocrit 36.0 % (36.0-47.0) Mean Corpuscular Volume 94 fL (79-100) Mean Corpuscular Hemoglobin 32 pg (25-35) Mean Corpuscular Hemoglobin Concent 34 g/dL (31-37) Red Cell Distribution Width 16.7 % (11.5-14.5) Platelet Count 162 x10^3/uL (140-400) Neutrophils (%) (Auto) 69 % (31-73) Lymphocytes (%) (Auto) 13 % (24-48) Monocytes (%) (Auto) 13 % (0-9) Eosinophils (%) (Auto) 4 % (0-3) Basophils (%) (Auto) 1 % (0-3) Neutrophils # (Auto) 5.4 x10^3uL (1.8-7.7) Lymphocytes # (Auto) 1.0 x10^3/uL (1.0-4.8) Monocytes # (Auto) 1.0 x10^3/uL (0.0-1.1) Eosinophils # (Auto) 0.3 x10^3/uL (0.0-0.7) Basophils # (Auto) 0.1 x10^3/uL (0.0-0.2) Prothrombin Time 23.9 SEC (11.7-14.0) Prothromb Time International Ratio 2.2 (0.8-1.1) Sodium Level 137 mmol/L (136-145) Potassium Level 4.0 mmol/L (3.5-5.1) Chloride Level 105 mmol/L (98-107) Carbon Dioxide Level 22 mmol/L (21-32) Anion Gap 10 (6-14) Blood Urea Nitrogen 24 mg/dL (7-20) Creatinine 2.4 mg/dL (0.6-1.0) Estimated GFR (Cockcroft-Gault) 19.8 Glucose Level 113 mg/dL (70-99) Calcium Level 8.0 mg/dL (8.5-10.1) Test 12/30/17 11:36 Glucose (Fingerstick) 144 mg/dL (70-99) Medications Current Medications Diltiazem HCl (Cardizem) 20 mg 1X ONCE IVP Last administered on 12/23/17at 23: 00; Start 12/23/17 at 23:00; Stop 12/23/17 at 23:01; Status DC Aspirin (Adonis Aspirin) 325 mg 1X ONCE PO ; Start 12/23/17 at 23:00; Stop 12/23 at 23:01; Status DC Diltiazem HCl 125 mg/Dextrose 125 ml @ 10 mls/hr 1X ONCE IV Last administered on 12/23/17at 23:11; Start 12/23/17 at 23:00; Stop 12/24/17 at 11:29 ; Status DC Dexamethasone Sodium Phosphate (Decadron) 10 mg 1X ONCE IV Last administered on 12/23/17at 22:57; Start 12/23/17 at 23:00; Stop 12/23/17 at 23:01; Status DC Albuterol/ Ipratropium (Duoneb) 3 ml 1X ONCE NEB ; Start 12/23/17 at 23:00; Stop 12/23/17 at 23:01; Status DC Albuterol/ Ipratropium (Duoneb) 3 ml STAT ONCE NEB ; Start 12/23/17 at 23:00; Stop 12/23/17 at 23:01; Status DC Hyoscyamine (Anaspaz) 0.25 mg 1X ONCE PO ; Start 12/23/17 at 23:45; Stop at 23:46; Status Cancel Sodium Chloride 1,000 ml @ 1,000 mls/hr 1X ONCE IV Last administered on at 01:17; Start 12/23/17 at 23:45; Stop 12/24/17 at 00:44; Status DC Sodium Chloride 1,000 ml @ 1,000 mls/hr 1X ONCE IV Last administered on at 04:29; Start 12/23/17 at 23:45; Stop 12/24/17 at 00:44; Status DC Piperacillin Sod/ Tazobactam Sod 4.5 gm/Sodium Chloride 100 ml @ 200 mls/hr 1X ONCE IV Last administered on 12/24/17at 01:17; Start 12/24/17 at 00:00; Stop 12/24/17 at 00:29; Status DC Levofloxacin/ Dextrose 150 ml @ 100 mls/hr 1X ONCE IV Last administered on at 01:17; Start 12/24/17 at 00:00; Stop 12/24/17 at 01:29; Status DC Vancomycin HCl 2 gm/Sodium Chloride 500 ml @ 250 mls/hr 1X ONCE IV Last administered on 12/24/17at 01:18; Start 12/24/17 at 00:30; Stop 12/24/17 at 02:29 ; Status DC Ondansetron HCl (Zofran) 4 mg PRN Q8HRS PRN IV NAUSEA/VOMITING 1ST CHOICE; Start 12/24/17 at 00:15; Stop 12/25/17 at 00:14; Status DC Fentanyl Citrate (Fentanyl 2ml Vial) 50 mcg PRN Q2HR PRN IV SEVERE PAIN; Start 12/24/17 at 00:15; Stop 12/25/17 at 00:14; Status DC Albuterol Sulfate (Ventolin Neb Soln) 2.5 mg PRN Q4HRS PRN NEB WHEEZING Last administered on 12/25/17at 17:28; Start 12/24/17 at 00:30 Insulin Human Lispro (HumaLOG) 0-5 UNITS TIDWMEALS SQ Last administered on 12/24at 17:46; Start 12/24/17 at 08:00 Dextrose (Dextrose 50%-Water Syringe) 12.5 gm PRN Q15MIN PRN IV SEE COMMENTS; Start 12/24/17 at 00:15 Info (Do NOT chart on this placeholder) 1 each 1X ONCE MC ; Start 12/24/17 at 01:45; Stop 12/24/17 at 01:46; Status UNV Influenza Virus Vaccine (Afluria Trivalent [id number] Syringe) 0.5 ml ONCE ONCE VAX IM Last administered on 12/24/17at 08:51; Start 12/24/17 at 09:00; Stop at 09:01; Status DC Albuterol/ Ipratropium (Duoneb) 3 ml RTQID NEB Last administered on 12/30/17at 07:47; Start 12/24/17 at 12:00 Levofloxacin/ Dextrose 100 ml @ 100 mls/hr Q24H IV ; Start 12/24/17 at 10:30; Status UNV Vancomycin HCl (Vanco Per Pharmacy) 1 each PRN DAILY PRN MC SEE COMMENTS Last administered on 12/25/17at 10:36; Start 12/24/17 at 10:30; Stop 12/25/17 at 17:09 ; Status DC Levofloxacin/ Dextrose 100 ml @ 100 mls/hr Q24H IV Last administered on at 23:31; Start 12/24/17 at 23:00; Stop 12/26/17 at 14:40; Status DC Vancomycin HCl 1.75 gm/Sodium Chloride 500 ml @ 250 mls/hr Q12H IV Last administered on 12/25/17at 13:00; Start 12/24/17 at 13:00; Stop 12/25/17 at 17:08 ; Status DC Vancomycin HCl (Vancomycin Trough Level) 1 each 1X ONCE MC ; Start 12/25/17 at 23:30; Stop 12/25/17 at 23:30; Status DC Lactobacillus Rhamnosus (Culturelle) 1 cap BID PO Last administered on at 08:23; Start 12/24/17 at 21:00 Warfarin Sodium (Coumadin Per Pharmacy) 1 each PRN DAILY PRN MC SEE COMMENTS Last administered on 12/30/17at 10:52; Start 12/24/17 at 14:45 Warfarin Sodium (Coumadin) 2 mg 1X WARF ONCE PO Last administered on at 15:52; Start 12/24/17 at 16:00; Stop 12/24/17 at 16:01; Status DC Digoxin (Lanoxin) 125 mcg DAILY PO Last administered on 12/30/17at 08:23; Start 12/24/17 at 17:30 Sotalol HCl (Betapace) 80 mg BID PO Last administered on 12/30/17at 08:23; Start 12/24/17 at 21:00 Furosemide (Lasix) 20 mg DAILY PO Last administered on 12/25/17at 07:50; Start 12/24/17 at 18:00; Stop 12/25/17 at 08:44; Status DC Potassium Chloride (Klor-Con) 10 meq DAILY PO Last administered on 12/27/17at 09 :46; Start 12/24/17 at 18:00; Stop 12/27/17 at 11:59; Status DC Levothyroxine Sodium (Synthroid) 150 mcg DAILY07 PO Last administered on at 05:28; Start 12/24/17 at 18:00 Metformin HCl (Glucophage) 500 mg BIDWMEALS PO Last administered on 12/27/17at 09:45; Start 12/24/17 at 18:00; Stop 12/27/17 at 10:53; Status DC Simvastatin (Zocor) 40 mg DAILY PO ; Start 12/24/17 at 18:00; Stop 12/24/17 at 18:00; Status DC Simvastatin (Zocor) 40 mg QHS PO Last administered on 12/29/17at 20:13; Start at 21:00 Furosemide (Lasix) 20 mg 1X ONCE PO Last administered on 12/25/17at 12:57; Start 12/25/17 at 09:00; Stop 12/25/17 at 09:01; Status DC Guaifenesin/ Codeine Phosphate (Robitussin Ac) 5 ml PRN Q6HRS PRN PO COUGH Last administered on 12/25/17at 12:54; Start 12/25/17 at 08:45 Benzonatate (Tessalon Perle) 100 mg [id number] PO Last administered on 12/30/17at 13 :07; Start 12/25/17 at 09:00 Furosemide (Lasix) 40 mg DAILY PO ; Start 12/26/17 at 09:00; Stop 12/27/17 at 11 :59; Status DC Warfarin Sodium (Coumadin) 2 mg 1X WARF ONCE PO Last administered on at 16:44; Start 12/25/17 at 16:00; Stop 12/25/17 at 16:01; Status DC Acetaminophen (Tylenol) 650 mg PRN Q6HRS PRN PO FEVER; Start 12/25/17 at 12:15 Ondansetron HCl (Zofran) 4 mg PRN Q6HRS PRN IV NAUSEA/VOMITING; Start 12/25/17 at 12:15 Morphine Sulfate (Morphine Sulfate) 2 mg PRN Q2HR PRN IV MODERATE TO SEVERE PAIN; Start 12/25/17 at 12:15 Tramadol HCl (Ultram) 50 mg PRN Q6HRS PRN PO MILD TO MODERATE PAIN Last administered on 12/28/17at 20:48; Start 12/25/17 at 12:15 Docusate Sodium (Colace) 100 mg PRN DAILY PRN PO HARD STOOLS Last administered on 12/30/17at 08:23; Start 12/25/17 at 12:15 Labetalol HCl (Normodyne Iv Push) 20 mg PRN Q2HR PRN IVP HYPERTENSION, SEE COMMENTS; Start 12/25/17 at 12:15 Furosemide (Lasix) 60 mg 1X ONCE IVP Last administered on 12/25/17at 17:51; Start 12/25/17 at 18:00; Stop 12/25/17 at 18:01; Status DC Furosemide (Lasix) 60 mg 1X ONCE IVP Last administered on 12/26/17at 08:46; Start 12/26/17 at 09:00; Stop 12/26/17 at 09:01; Status DC Warfarin Sodium (Coumadin) 2 mg 1X ONCE PO ; Start 12/26/17 at 14:45; Stop at 14:46; Status Cancel Warfarin Sodium (Coumadin) 2 mg 1X WARF ONCE PO Last administered on at 17:29; Start 12/26/17 at 16:00; Stop 12/26/17 at 16:01; Status DC Levofloxacin/ Dextrose 50 ml @ 50 mls/hr Q24H IV Last administered on at 22:47; Start 12/26/17 at 23:00; Stop 12/27/17 at 09:12; Status DC Levofloxacin (Levaquin) 250 mg QHS PO Last administered on 12/29/17at 20:13; Start 12/27/17 at 21:00 Warfarin Sodium (Coumadin) 2 mg 1X WARF ONCE PO Last administered on at 17:15; Start 12/27/17 at 16:00; Stop 12/27/17 at 16:01; Status DC Sodium Chloride 1,000 ml @ 75 mls/hr [id number] IV Last administered on at 15:37; Start 12/27/17 at 12:00; Stop 12/28/17 at 17:24; Status DC Warfarin Sodium (Coumadin) 2 mg 1X WARF ONCE PO Last administered on at 17:33; Start 12/28/17 at 16:00; Stop 12/28/17 at 16:01; Status DC Sodium Chloride 1,000 ml @ 60 mls/hr [id number] IV Last administered on at 05:27; Start 12/28/17 at 18:00 Warfarin Sodium (Coumadin) 2 mg 1X WARF ONCE PO Last administered on at 16:28; Start 12/29/17 at 16:00; Stop 12/29/17 at 16:01; Status DC Magnesium Sulfate 50 ml @ 25 mls/hr PRN DAILY PRN IV for Mag < 1.7 on am labs; Start 12/30/17 at 07:00 Warfarin Sodium (Coumadin) 2 mg 1X WARF ONCE PO ; Start 12/30/17 at 16:00; Stop 12/30/17 at 16:01 Active Scripts Active Digoxin 125 Mcg Tablet 125 Mcg PO DAILY Reported Proair Hfa Inhaler (Albuterol Sulfate) 8.5 Gm Hfa.aer.ad 1 Puff INH PRN Q6HRS PRN Sotalol (Sotalol Hcl) 80 Mg Tablet 1 Tab PO BID Tessalon Perle (Benzonatate) 100 Mg Capsule 2 Cap PO TID PRN Warfarin Sodium 2 Mg Tablet 1 Tab PO DAILY Lisinopril 10 Mg Tablet 1 Tab PO DAILY Levothyroxine Sodium 125 Mcg Tablet 150 Mcg PO DAILY Simvastatin 40 Mg Tablet 40 Mg PO DAILY Metformin Hcl 500 Mg Tablet 500 Mg PO BIDWMEALS Furosemide 20 Mg Tablet 1 Tab PO DAILY Potassium Chloride 10 Meq Tab.sr.24h 10 Meq PO DAILY Vitals/I & O Vital Sign - Last 24 Hours 12/29/17 12/29/17 12/29/17 12/29/17 15:00 19:17 19:48 20:00 Temp 98.1 98.2 98.1 98.2 Pulse 81 85 Resp 16 21 B/P (MAP) 113/56 (75) 142/60 (87) Pulse Ox 94 93 94 O2 Delivery Room Air Room Air Room Air Room Air 12/29/17 12/29/17 12/30/17 12/30/17 20:13 23:29 03:05 07:15 Temp 98.3 98.1 98.2 98.3 98.1 98.2 Pulse 78 82 77 87 Resp 22 21 16 B/P (MAP) 142/60 116/69 (85) 122/67 (85) 116/66 (83) Pulse Ox 93 94 92 O2 Delivery Room Air Room Air Room Air 12/30/17 12/30/17 12/30/17 12/30/17 07:49 08:02 08:23 08:23 Pulse 98 98 B/P (MAP) 116/66 116/66 Pulse Ox 93 O2 Delivery Room Air Room Air 12/30/17 11:02 Temp 97.7 97.7 Pulse 74 Resp 16 B/P (MAP) 124/49 (74) Pulse Ox 95 O2 Delivery Room Air Intake and Output 12/29/17 12/29/17 12/30/17 15:00 23:00 07:00 Intake Total 240 ml 740 ml 100 ml Output Total 690 ml 450 ml Balance 240 ml 50 ml -350 ml MARTI SAUER MD Dec 30, 2017 14:14
--- NOTE | 2017-12-30 14:25 | PDOC ---
PROGRESS NOTES Assessment Assessment Metabolic encephalopathy. Hypoxia encephalopathy. Confusion. Respiratory failure. Renal failure. CHF, EF 40%. AFib. DM. Hyperglycemia. HTN. HLD. Hypothyroidism. Bilateral maxillary sinusitis. Severe obesity. Pacemaker in site. Brain atrophy. RECOMMENDATIONS/PLAN: She has been treated with Coumadin. Continue Zocor HS. Treat medical and cardiac diseases. OT/PT. Discussed with her daughter again at bedside on 12/30/17. EEG on 12/28/17: The posterior dominant rhythm is slow for age. HCT: 12/27/17: No acute findings except brain atrophy. HISTORY OF THE PRESENT ILLNESS: 72-y-old female patient with many medical and cardiac diseases has been having symptoms of SOB, difficult breathing with 02 desaturation, mental status changes, confusion, intermittent unresponsiveness for 2 days and she was brought to the ER of [facility] and hospitalized for further evaluation. She stated she is doing better since 12/29/17. Past Medical History Cardiovascular: AFIB, CHF, HTN, Hyperlipidemia Pulmonary: Bronchitis, COPD Psych: No pertinent hx Rheumatologic: No pertinent hx Infectious disease: No pertinent hx ENT: No pertinent hx Renal/: No pertinent hx Endocrine: Diabetes, Hypothyroidism Past Surgical History Cholecystectomy, pacemaker, and hernia repair. Family History HLD, Hypertension Social History ALCOHOL: none Drugs: None ALLERGY: Reviewed. MEDICATIONS: Refer to MAR REVIEW OF SYSTEMS: Constitutional: Obesity. Head: No traumatic brain or head injury. Skin: No edema, or rash. Ear: No infection, tinnitus. Eyes: No vision loss or color blindness. Nose: No bleeding or purulent discharges. Hearing: Hearing decrease. Neck: No injury. Breast: No history of cancer, masses,or discharges. Cardiac: AFib, Pacemaker Placement, HTN, HLD. Pulmonary: SOB, COPD. GI: No GI ulcer, GI bleeding. Urinary/genital: UTI. Endocrinologic: Diabetes Mellitus, hypothyroidism, obesity. Skeletomuscular: Generalized weakness. Neurological: see HP. Psychiatric: Denies drug use/abuse. Otherwise, not [id number] review of systems. PHYSICAL EXAMINATION: General appearance is in subacute distress. HEENT: Normocephalic and nontraumatic. Eyes, nose, ears, and throat are unremarkable. Neck is supple. No lymphadenopathy. No crepitus. Cardiovascular: S1, S2, seemed irregular rate and rhythm. Pulmonary: decreased breathing sounds to auscultation bilaterally. Abdomen: Bowel sounds are positive. Extremities: No rash, lesions. No restriction of range of motion NEUROLOGICAL EXAMINATION: Awake. Not oriented to time, place but knew person. PERRL. EOMI. CN: no focal findings. Muscle tone: Decreased. Muscle strength: 4 DTR: 0-1 due to near morbid obesity. Plantar reflex: Neutral response bilaterally Gait: not examined in chair. Sensory exam: no acute abnormal findings. No acute cerebellar signs elicited. F-T-N test fine. Objective Objective Vital Signs Date Time Temp Pulse Resp B/P (MAP) Pulse Ox O2 Delivery O2 Flow Rate FiO2 12/30/17 11:02 97.7 74 16 124/49 (74) 95 Room Air 97.7 12/29/17 08:00 2.0 Intake and Output 12/30/17 07:00 Intake Total 1080 ml Output Total 1140 ml Balance -60 ml Intake Oral 1080 ml Output Urine Total 1140 ml # Voids 2 Vitals Signs Vitals VS - Last 72 Hours, by Label Date Time Temp Pulse Resp B/P (MAP) Pulse Ox O2 Delivery O2 Flow Rate FiO2 12/30/17 11:02 97.7 74 16 124/49 (74) 95 Room Air 97.7 12/30/17 08:23 98 116/66 12/30/17 08:23 98 116/66 12/30/17 08:02 Room Air 12/30/17 07:49 93 Room Air 12/30/17 07:15 98.2 87 16 116/66 (83) 92 Room Air 98.2 12/30/17 03:05 98.1 77 21 122/67 (85) 94 Room Air 98.1 12/29/17 23:29 98.3 82 22 116/69 (85) 93 Room Air 98.3 12/29/17 20:13 78 142/60 12/29/17 20:00 Room Air 12/29/17 19:48 98.2 85 21 142/60 (87) 94 Room Air 98.2 12/29/17 19:17 93 Room Air 12/29/17 15:00 98.1 81 16 113/56 (75) 94 Room Air 98.1 12/29/17 11:20 98 12/29/17 11:10 98.3 101 20 115/57 (76) 94 Room Air 98.3 12/29/17 08:36 85 128/62 12/29/17 08:36 85 128/62 12/29/17 08:00 Nasal Cannula 2.0 12/29/17 07:16 98.0 85 21 128/62 (84) 98 Nasal Cannula 2.0 98.0 12/29/17 07:15 99 Nasal Cannula 2.0 Laboratory Laboratory Laboratory Tests Test 12/29/17 17:00 12/29/17 20:42 12/30/17 03:00 12/30/17 07:00 Glucose (Fingerstick) 116 mg/dL (70-99) 114 mg/dL (70-99) 117 mg/dL (70-99) White Blood Count 7.8 x10^3/uL (4.0-11.0) Red Blood Count 3.81 x10^6/uL (3.50-5.40) Hemoglobin 12.1 g/dL (12.0-15.5) Hematocrit 36.0 % (36.0-47.0) Mean Corpuscular Volume 94 fL (79-100) Mean Corpuscular Hemoglobin 32 pg (25-35) Mean Corpuscular Hemoglobin Concent 34 g/dL (31-37) Red Cell Distribution Width 16.7 % (11.5-14.5) Platelet Count 162 x10^3/uL (140-400) Neutrophils (%) (Auto) 69 % (31-73) Lymphocytes (%) (Auto) 13 % (24-48) Monocytes (%) (Auto) 13 % (0-9) Eosinophils (%) (Auto) 4 % (0-3) Basophils (%) (Auto) 1 % (0-3) Neutrophils # (Auto) 5.4 x10^3uL (1.8-7.7) Lymphocytes # (Auto) 1.0 x10^3/uL (1.0-4.8) Monocytes # (Auto) 1.0 x10^3/uL (0.0-1.1) Eosinophils # (Auto) 0.3 x10^3/uL (0.0-0.7) Basophils # (Auto) 0.1 x10^3/uL (0.0-0.2) Prothrombin Time 23.9 SEC (11.7-14.0) Prothromb Time International Ratio 2.2 (0.8-1.1) Sodium Level 137 mmol/L (136-145) Potassium Level 4.0 mmol/L (3.5-5.1) Chloride Level 105 mmol/L (98-107) Carbon Dioxide Level 22 mmol/L (21-32) Anion Gap 10 (6-14) Blood Urea Nitrogen 24 mg/dL (7-20) Creatinine 2.4 mg/dL (0.6-1.0) Estimated GFR (Cockcroft-Gault) 19.8 Glucose Level 113 mg/dL (70-99) Calcium Level 8.0 mg/dL (8.5-10.1) Test 12/30/17 11:36 Glucose (Fingerstick) 144 mg/dL (70-99) Medication Medications Current Medications Magnesium Sulfate 50 ml @ 25 mls/hr PRN DAILY PRN IV for Mag < 1.7 on am labs; Start 12/30/17 at 07:00 Warfarin Sodium (Coumadin) 2 mg 1X WARF ONCE PO Last administered on at 16:28; Start 12/29/17 at 16:00; Stop 12/29/17 at 16:01; Status DC Warfarin Sodium (Coumadin) 2 mg 1X WARF ONCE PO ; Start 12/30/17 at 16:00; Stop 12/30/17 at 16:01 Comment Review of Relevant I have reviewed the following items uyen (where applicable) has been applied. LIAT DE SANTIAGO MD Dec 30, 2017 14:25
[2017-12-30 14:33] LABS: BACTERIA,URINE 0 /HPF (0-FEW); RBC,URINE >40 /HPF (0-2); SQUAMOUS EPITHELIAL CELL,UR FEW /LPF
[2017-12-30 15:26] VITALS: BP 119/59
[2017-12-30] MEDS ORDERED: WARFARIN 2 MG TABLET. PO ONE (16:00)
[2017-12-30 19:30] VITALS: BP 141/67
[2017-12-30] MEDS: SIMVASTATIN 40 MG TABLET. PO SCH (21:23)
[2017-12-30 23:00] VITALS: BP 123/50
[2017-12-31 03:30] VITALS: BP 124/56
[2017-12-31 07:27] LABS: ALBUMIN 2.3 g/dL (3.4-5.0); CALCIUM 8.6 mg/dL (8.5-10.1); CREATININE 2.5 mg/dL (0.6-1.0); GFR 18.9; PHOSPHORUS 3.6 mg/dL (2.6-4.7); POTASSIUM 4.1 mmol/L (3.5-5.1)
[2017-12-31 07:29] LABS: PROTHROMBIN TIME PATIENT 22.8 SEC (11.7-14.0)
[2017-12-31 07:30] VITALS: BP 125/64
[2017-12-31] MEDS: IPRATRPIUM/ALBUTEROL 0.5/2.5MG 3 ML NEBU. NEB SCH ×4 (07:57→19:50)
[2017-12-31] MEDS: INSULIN LISPRO 300 UNITS/3 ML INSULN.PEN. SQ SCH ×3 (08:00→17:00)
[2017-12-31] MEDS: LEVOTHYROXINE 150 MCG TABLET PO SCH (08:38)
[2017-12-31] MEDS: LACTOBACILLUS RHAMNOSUS GG 1 CAPSULE. PO SCH ×2 (08:38→20:24)
[2017-12-31] MEDS: BENZONATATE 100 MG CAPSULE. PO SCH ×3 (08:39→20:25)
[2017-12-31] MEDS: SOTALOL 80 MG TABLET. PO SCH ×2 (08:41→20:23)
[2017-12-31] MEDS: DIGOXIN 125 MCG TABLET. PO SCH (08:43)
--- NOTE | 2017-12-31 09:14 | PDOC ---
PULMONARY PROGRESS NOTES Subjective no soa, Vitals Vital Signs Date Time Temp Pulse Resp B/P (MAP) Pulse Ox O2 Delivery O2 Flow Rate FiO2 12/31/17 08:43 74 125/64 12/31/17 07:57 94 Room Air 12/31/17 07:30 98.0 20 98.0 General: Alert, No acute distress Lungs: Clear Cardiovascular: S1, S2 Abdomen: Soft, Other (obese) Neuro Exam: Alert Extremities: Other (2+edema) Labs Laboratory Tests Test 12/29/17 10:30 12/29/17 11:56 12/29/17 17:00 12/29/17 20:42 Prothrombin Time 24.1 SEC (11.7-14.0) Prothromb Time International Ratio 2.2 (0.8-1.1) Sodium Level 140 mmol/L (136-145) Potassium Level 4.3 mmol/L (3.5-5.1) Chloride Level 104 mmol/L (98-107) Carbon Dioxide Level 26 mmol/L (21-32) Anion Gap 10 (6-14) Blood Urea Nitrogen 25 mg/dL (7-20) Creatinine 2.4 mg/dL (0.6-1.0) Estimated GFR (Cockcroft-Gault) 19.8 BUN/Creatinine Ratio 10 (6-20) Glucose Level 160 mg/dL (70-99) Calcium Level 7.8 mg/dL (8.5-10.1) Total Bilirubin 0.5 mg/dL (0.2-1.0) Aspartate Amino Transf (AST/SGOT) 43 U/L (15-37) Alanine Aminotransferase (ALT/SGPT) 28 U/L (14-59) Alkaline Phosphatase 91 U/L (46-116) Total Protein 5.7 g/dL (6.4-8.2) Albumin 2.6 g/dL (3.4-5.0) Albumin/Globulin Ratio 0.8 (1.0-1.7) Glucose (Fingerstick) 135 mg/dL (70-99) 116 mg/dL (70-99) 114 mg/dL (70-99) Test 12/30/17 03:00 12/30/17 07:00 12/30/17 11:36 12/30/17 13:45 White Blood Count 7.8 x10^3/uL (4.0-11.0) Red Blood Count 3.81 x10^6/uL (3.50-5.40) Hemoglobin 12.1 g/dL (12.0-15.5) Hematocrit 36.0 % (36.0-47.0) Mean Corpuscular Volume 94 fL (79-100) Mean Corpuscular Hemoglobin 32 pg (25-35) Mean Corpuscular Hemoglobin Concent 34 g/dL (31-37) Red Cell Distribution Width 16.7 % (11.5-14.5) Platelet Count 162 x10^3/uL (140-400) Neutrophils (%) (Auto) 69 % (31-73) Lymphocytes (%) (Auto) 13 % (24-48) Monocytes (%) (Auto) 13 % (0-9) Eosinophils (%) (Auto) 4 % (0-3) Basophils (%) (Auto) 1 % (0-3) Neutrophils # (Auto) 5.4 x10^3uL (1.8-7.7) Lymphocytes # (Auto) 1.0 x10^3/uL (1.0-4.8) Monocytes # (Auto) 1.0 x10^3/uL (0.0-1.1) Eosinophils # (Auto) 0.3 x10^3/uL (0.0-0.7) Basophils # (Auto) 0.1 x10^3/uL (0.0-0.2) Prothrombin Time 23.9 SEC (11.7-14.0) Prothromb Time International Ratio 2.2 (0.8-1.1) Sodium Level 137 mmol/L (136-145) Potassium Level 4.0 mmol/L (3.5-5.1) Chloride Level 105 mmol/L (98-107) Carbon Dioxide Level 22 mmol/L (21-32) Anion Gap 10 (6-14) Blood Urea Nitrogen 24 mg/dL (7-20) Creatinine 2.4 mg/dL (0.6-1.0) Estimated GFR (Cockcroft-Gault) 19.8 Glucose Level 113 mg/dL (70-99) Calcium Level 8.0 mg/dL (8.5-10.1) Glucose (Fingerstick) 117 mg/dL (70-99) 144 mg/dL (70-99) Urine Collection Type Unknown Urine Color Yellow Urine Clarity Clear Urine pH 5.5 Urine Specific [place] 1.010 Urine Protein Negative mg/dL (NEG-TRACE) Urine Glucose (UA) Negative mg/dL (NEG) Urine Ketones (Stick) Negative mg/dL (NEG) Urine Blood Large (NEG) Urine Nitrite Negative (NEG) Urine Bilirubin Negative (NEG) Urine Urobilinogen Dipstick 0.2 mg/dL (0.2 mg/dL) Urine Leukocyte Esterase Trace (NEG) Urine RBC >40 /HPF (0-2) Urine WBC 1-4 /HPF (0-4) Urine Squamous Epithelial Cells Few /LPF Urine Bacteria 0 /HPF (0-FEW) Test 12/30/17 17:07 12/30/17 20:53 12/31/17 06:10 12/31/17 06:11 Glucose (Fingerstick) 109 mg/dL (70-99) 115 mg/dL (70-99) Sodium Level 139 mmol/L (136-145) Potassium Level 4.1 mmol/L (3.5-5.1) Chloride Level 104 mmol/L (98-107) Carbon Dioxide Level 24 mmol/L (21-32) Anion Gap 11 (6-14) Blood Urea Nitrogen 24 mg/dL (7-20) Creatinine 2.5 mg/dL (0.6-1.0) Estimated GFR (Cockcroft-Gault) 18.9 Glucose Level 113 mg/dL (70-99) Calcium Level 8.6 mg/dL (8.5-10.1) Phosphorus Level 3.6 mg/dL (2.6-4.7) Magnesium Level 2.0 mg/dL (1.8-2.4) Albumin 2.3 g/dL (3.4-5.0) Hemoglobin 12.1 g/dL (12.0-15.5) Prothrombin Time 22.8 SEC (11.7-14.0) Prothromb Time International Ratio 2.1 (0.8-1.1) Test 12/31/17 07:34 Glucose (Fingerstick) 111 mg/dL (70-99) Laboratory Tests Test 12/30/17 11:36 12/30/17 13:45 12/30/17 17:07 12/30/17 20:53 Glucose (Fingerstick) 144 mg/dL (70-99) 109 mg/dL (70-99) 115 mg/dL (70-99) Urine Collection Type Unknown Urine Color Yellow Urine Clarity Clear Urine pH 5.5 Urine Specific [place] 1.010 Urine Protein Negative mg/dL (NEG-TRACE) Urine Glucose (UA) Negative mg/dL (NEG) Urine Ketones (Stick) Negative mg/dL (NEG) Urine Blood Large (NEG) Urine Nitrite Negative (NEG) Urine Bilirubin Negative (NEG) Urine Urobilinogen Dipstick 0.2 mg/dL (0.2 mg/dL) Urine Leukocyte Esterase Trace (NEG) Urine RBC >40 /HPF (0-2) Urine WBC 1-4 /HPF (0-4) Urine Squamous Epithelial Cells Few /LPF Urine Bacteria 0 /HPF (0-FEW) Test 12/31/17 06:10 12/31/17 06:11 12/31/17 07:34 Sodium Level 139 mmol/L (136-145) Potassium Level 4.1 mmol/L (3.5-5.1) Chloride Level 104 mmol/L (98-107) Carbon Dioxide Level 24 mmol/L (21-32) Anion Gap 11 (6-14) Blood Urea Nitrogen 24 mg/dL (7-20) Creatinine 2.5 mg/dL (0.6-1.0) Estimated GFR (Cockcroft-Gault) 18.9 Glucose Level 113 mg/dL (70-99) Calcium Level 8.6 mg/dL (8.5-10.1) Phosphorus Level 3.6 mg/dL (2.6-4.7) Magnesium Level 2.0 mg/dL (1.8-2.4) Albumin 2.3 g/dL (3.4-5.0) Hemoglobin 12.1 g/dL (12.0-15.5) Prothrombin Time 22.8 SEC (11.7-14.0) Prothromb Time International Ratio 2.1 (0.8-1.1) Glucose (Fingerstick) 111 mg/dL (70-99) Medications Active Scripts Medications Dose Route/Sig Max Daily Dose Days Date Category Proair Hfa Inhaler (Albuterol Sulfate) 8.5 Gm Hfa.aer.ad 1 Puff INH PRN Q6HRS PRN 12/24/17 Reported Sotalol (Sotalol Hcl) 80 Mg Tablet 1 Tab PO BID 12/24/17 Reported Tessalon Perle (Benzonatate) 100 Mg Capsule 2 Cap PO TID PRN 12/24/17 Reported Digoxin 125 Mcg Tablet 125 Mcg PO DAILY 09/26/17 Rx Warfarin Sodium 2 Mg Tablet 1 Tab PO DAILY 09/23/17 Reported Lisinopril 10 Mg Tablet 1 Tab PO DAILY 09/23/17 Reported Levothyroxine Sodium 125 Mcg Tablet 150 Mcg PO DAILY 09/23/17 Reported Simvastatin 40 Mg Tablet 40 Mg PO DAILY 09/23/17 Reported Metformin Hcl 500 Mg Tablet 500 Mg PO BIDWMEALS 09/23/17 Reported Furosemide 20 Mg Tablet 1 Tab PO DAILY 09/23/17 Reported Potassium Chloride 10 Meq Tab.sr.24h 10 Meq PO DAILY 09/23/17 Reported Impression . 1. Acute hypoxic respiratory failure secondary to multifactorial etiologies including a combination of right and left heart failure and possible lower respiratory tract infection. In addition, underlying chronic obstructive pulmonary disease with exacerbation. 2. Chronic atrial fibrillation, on chronic anticoagulation 3. 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 She no longer smokes cigarettes. 4. Morbid obesity and suspect obesity hypoventilation syndrome. Needs to rule out for obstructive sleep apnea by sleep study as an outpatient. Plan . PT OK TO D/C FROM MY [facility]ANDPOINT OUT PT SLEEP STUDY POSSIBLE HOME HEALTH 6 MIN NILAY SAUCEDO MD Dec 31, 2017 09:14
--- NOTE | 2017-12-31 09:28 | PDOC ---
SUBJECTIVE ROS No specific complaints , stable OBJECTIVE Vital Signs Vital Signs Date Time Temp Pulse Resp B/P (MAP) Pulse Ox O2 Delivery O2 Flow Rate FiO2 12/31/17 08:43 74 125/64 12/31/17 07:57 94 Room Air 12/31/17 07:30 98.0 20 98.0 I & 0 Intake and Output 12/31/17 07:00 Intake Total 920 ml Output Total 2350 ml Balance -1430 ml Intake Oral 920 ml Output Urine Total 2350 ml PHYSICAL EXAM Physical Exam General- Morbidly obese , NAD , sitting up in recliner NECK: Supple, no JVD. HEENT- OM mildly dry LUNGS: Diminished breath sounds. CV: With an irregular rhythm. ABDOMEN: Soft, morbidly obese. EXTREMITIES: Non pitting edema , chronic venous stasis Skin- No rash, changes of CVI Neuro- AXOx 3 + DIAGNOSIS/ASSESSMENT Assessment & Plan ARF: Presumed ATN Renal sonogram Normal ,Holding Diuretics No improvement in renal function , Lytes wnl , UA- No Overt Proteinuria Hematuria: unclear if she has underlying cystitis or is this due to underlying Coumadin use and coagulopathy No Luu May need CT scan - Consult Urology Possible urinary retention based on renal sonogram. Bladder volume scanning has been ordered Hypoalbuminemia. May be contributing to edema also Discussed with Pt and RN at bedside COMMENT/RELEVANT DATA Meds Current Medications Medications (Trade) Dose Ordered Sig/Marley Start Time Stop Time Status Last Admin Dose Admin Acetaminophen (Tylenol) 650 mg PRN Q6HRS PRN 12/25/17 12:15 Albuterol Sulfate (Ventolin Neb Soln) 2.5 mg PRN Q4HRS PRN 12/24/17 00:30 12/25/17 17:28 2.5 MG Albuterol/ Ipratropium (Duoneb) 3 ml RTQID 12/24/17 12:00 12/31/17 07:57 3 ML Aspirin (Adonis Aspirin) 325 mg 1X ONCE 12/23/17 23:00 12/23/17 23:01 DC Benzonatate (Tessalon Perle) 100 mg [id number] 12/25/17 09:00 12/31/17 08:39 100 MG Dexamethasone Sodium Phosphate (Decadron) 10 mg 1X ONCE 12/23/17 23:00 12/23/17 23:01 DC 12/23/17 22:57 10 MG Dextrose (Dextrose 50%-Water Syringe) 12.5 gm PRN Q15MIN PRN 12/24/17 00:15 Digoxin (Lanoxin) 125 mcg DAILY 12/24/17 17:30 12/31/17 08:43 125 MCG Diltiazem HCl (Cardizem) 20 mg 1X ONCE 12/23/17 23:00 12/23/17 23:01 DC 12/23/17 23:00 20 MG Diltiazem HCl 125 mg/Dextrose 125 ml @ 10 mls/hr 1X ONCE 12/23/17 23:00 12/24/17 11:29 DC 12/23/17 23:11 10 MLS/HR Docusate Sodium (Colace) 100 mg PRN DAILY PRN 12/25/17 12:15 12/30/17 08:23 100 MG Fentanyl Citrate (Fentanyl 2ml Vial) 50 mcg PRN Q2HR PRN 12/24/17 00:15 12/25/17 00:14 DC Furosemide (Lasix) 60 mg 1X ONCE 12/26/17 09:00 12/26/17 09:01 DC 12/26/17 08:46 60 MG Guaifenesin/ Codeine Phosphate (Robitussin Ac) 5 ml PRN Q6HRS PRN 12/25/17 08:45 12/25/17 12:54 5 ML Hyoscyamine (Anaspaz) 0.25 mg 1X ONCE 12/23/17 23:45 12/23/17 23:46 Cancel Influenza Virus Vaccine (Afluria Trivalent [id number] Syringe) 0.5 ml ONCE ONCE 12/24/17 09:00 12/24/17 09:01 DC 12/24/17 08:51 0.5 ML Info (Do NOT chart on this placeholder) 1 each 1X ONCE 12/24/17 01:45 12/24/17 01:46 UNV Insulin Human Lispro (HumaLOG) 0-5 UNITS TIDWMEALS 12/24/17 08:00 12/24/17 17:46 2 UNITS Labetalol HCl (Normodyne Iv Push) 20 mg PRN Q2HR PRN 12/25/17 12:15 Lactobacillus Rhamnosus (Culturelle) 1 cap BID 12/24/17 21:00 12/31/17 08:38 1 CAP Levofloxacin (Levaquin) 250 mg QHS 12/27/17 21:00 12/30/17 21:23 250 MG Levofloxacin/ Dextrose 50 ml @ 50 mls/hr Q24H 12/26/17 23:00 12/27/17 09:12 DC 12/26/17 22:47 50 MLS/HR Levothyroxine Sodium (Synthroid) 150 mcg DAILY07 12/24/17 18:00 12/31/17 08:38 150 MCG Magnesium Sulfate 50 ml @ 25 mls/hr PRN DAILY PRN 12/30/17 07:00 Metformin HCl (Glucophage) 500 mg BIDWMEALS 12/24/17 18:00 12/27/17 10:53 DC 12/27/17 09:45 500 MG Morphine Sulfate (Morphine Sulfate) 2 mg PRN Q2HR PRN 12/25/17 12:15 Ondansetron HCl (Zofran) 4 mg PRN Q6HRS PRN 12/25/17 12:15 Piperacillin Sod/ Tazobactam Sod 4.5 gm/Sodium Chloride 100 ml @ 200 mls/hr 1X ONCE 12/24/17 00:00 12/24/17 00:29 DC 12/24/17 01:17 200 MLS/HR Potassium Chloride (Klor-Con) 10 meq DAILY 12/24/17 18:00 12/27/17 11:59 DC 12/27/17 09:46 10 MEQ Simvastatin (Zocor) 40 mg QHS 12/24/17 21:00 12/30/17 21:23 40 MG Sodium Chloride 1,000 ml @ 60 mls/hr [id number] 12/28/17 18:00 12/30/17 21:26 60 MLS/HR Sotalol HCl (Betapace) 80 mg BID 12/24/17 21:00 12/31/17 08:41 80 MG Tramadol HCl (Ultram) 50 mg PRN Q6HRS PRN 12/25/17 12:15 12/28/17 20:48 50 MG Vancomycin HCl (Vanco Per Pharmacy) 1 each PRN DAILY PRN 12/24/17 10:30 12/25/17 17:09 DC 12/25/17 10:36 1 EACH Vancomycin HCl (Vancomycin Trough Level) 1 each 1X ONCE 12/25/17 23:30 12/25/17 23:30 DC Vancomycin HCl 1.75 gm/Sodium Chloride 500 ml @ 250 mls/hr Q12H 12/24/17 13:00 12/25/17 17:08 DC 12/25/17 13:00 250 MLS/HR Vancomycin HCl 2 gm/Sodium Chloride 500 ml @ 250 mls/hr 1X ONCE 12/24/17 00:30 12/24/17 02:29 DC 12/24/17 01:18 250 MLS/HR Warfarin Sodium (Coumadin Per Pharmacy) 1 each PRN DAILY PRN 12/24/17 14:45 12/30/17 10:52 1 EACH Warfarin Sodium (Coumadin) 2 mg 1X WARF ONCE 12/30/17 16:00 12/30/17 16:01 DC Lab Laboratory Tests Test 12/30/17 11:36 12/30/17 13:45 12/30/17 17:07 12/30/17 20:53 Glucose (Fingerstick) 144 mg/dL (70-99) 109 mg/dL (70-99) 115 mg/dL (70-99) Urine Collection Type Unknown Urine Color Yellow Urine Clarity Clear Urine pH 5.5 Urine Specific [place] 1.010 Urine Protein Negative mg/dL (NEG-TRACE) Urine Glucose (UA) Negative mg/dL (NEG) Urine Ketones (Stick) Negative mg/dL (NEG) Urine Blood Large (NEG) Urine Nitrite Negative (NEG) Urine Bilirubin Negative (NEG) Urine Urobilinogen Dipstick 0.2 mg/dL (0.2 mg/dL) Urine Leukocyte Esterase Trace (NEG) Urine RBC >40 /HPF (0-2) Urine WBC 1-4 /HPF (0-4) Urine Squamous Epithelial Cells Few /LPF Urine Bacteria 0 /HPF (0-FEW) Test 12/31/17 06:10 12/31/17 06:11 12/31/17 07:34 Sodium Level 139 mmol/L (136-145) Potassium Level 4.1 mmol/L (3.5-5.1) Chloride Level 104 mmol/L (98-107) Carbon Dioxide Level 24 mmol/L (21-32) Anion Gap 11 (6-14) Blood Urea Nitrogen 24 mg/dL (7-20) Creatinine 2.5 mg/dL (0.6-1.0) Estimated GFR (Cockcroft-Gault) 18.9 Glucose Level 113 mg/dL (70-99) Calcium Level 8.6 mg/dL (8.5-10.1) Phosphorus Level 3.6 mg/dL (2.6-4.7) Magnesium Level 2.0 mg/dL (1.8-2.4) Albumin 2.3 g/dL (3.4-5.0) Hemoglobin 12.1 g/dL (12.0-15.5) Prothrombin Time 22.8 SEC (11.7-14.0) Prothromb Time International Ratio 2.1 (0.8-1.1) Glucose (Fingerstick) 111 mg/dL (70-99) Results All relevant outside records, renal labs, imaging studies, telemetry/EKG's were reviewed. KIMBERLYN COCHRAN MD Dec 31, 2017 09:28
--- NOTE | 2017-12-31 11:21 | DISCH ---
DISCHARGE DISCHARGE INFORMATION: FINAL DIAGNOSIS Problems Medical Problems: (1) Atrial fibrillation with RVR Status: Acute (2) Bandemia Status: Acute (3) Hypoxia Status: Acute (4) Severe sepsis Status: Acute CONDITION ON DISCHARGE: Stable CODE STATUS: Code Status: Full CORRECTION: SNF STAY <30 DAYS: Yes HOSPICE: HOSPICE: No HOSPICE EVAL & TREAT: No LTAC: ADMIT TO LTAC: No POST DISCHARGE ORDERS: ACTIVITY ORDERS: Resume previous activity DIET AFTER DISCHARGE: Cardiac TREATMENT/EQUIPMENT ORDERS: ADAPTIVE EQUIPMENT NEEDED: Cane Physical Therapy For: Evalulation/Treatment Occupational Therapy For: Evaluation/Treatment DISCHARGE MEDICATIONS: Home Meds Active Scripts Digoxin (DIGOXIN) 125 Mcg Tablet, 125 MCG PO DAILY, #30 TAB 2 Refills Prov:NOEMÍ MARINO MD 09/26/17 Reported Medications Albuterol Sulfate (PROAIR HFA INHALER) 8.5 Gm Hfa.aer.ad, 1 PUFF INH PRN Q6HRS PRN for SHORTNESS OF BREATH, INHALER 0 Refills 12/24/17 Sotalol Hcl (SOTALOL) 80 Mg Tablet, 1 TAB PO BID, #60 TAB 5 Refills 12/24/17 Benzonatate (TESSALON PERLE) 100 Mg Capsule, 2 CAP PO TID PRN for COUGH, #21 CAP 12/24/17 Warfarin Sodium (WARFARIN SODIUM) 2 Mg Tablet, 1 TAB PO DAILY, #90 TAB 1 Refill 09/23/17 Lisinopril (LISINOPRIL) 10 Mg Tablet, 1 TAB PO DAILY, #30 TAB 5 Refills 09/23/17 Levothyroxine Sodium (LEVOTHYROXINE SODIUM) 125 Mcg Tablet, 150 MCG PO DAILY, # 30 TAB 5 Refills 09/23/17 Simvastatin (SIMVASTATIN) 40 Mg Tablet, 40 MG PO DAILY for FOR CHOLESTEROL, #30 TAB 0 Refills 09/23/17 Metformin Hcl (METFORMIN HCL) 500 Mg Tablet, 500 MG PO BIDWMEALS for ANTI- DIABETIC, TAB 0 Refills 09/23/17 Furosemide (FUROSEMIDE) 20 Mg Tablet, 1 TAB PO DAILY, #90 TAB 1 Refill 09/23/17 Potassium Chloride (POTASSIUM CHLORIDE) 10 Meq Tab.sr.24h, 10 MEQ PO DAILY, TAB.SR 09/23/17 MACI BROWNE III DO Dec 31, 2017 11:21
--- NOTE | 2017-12-31 11:42 | PDOC ---
PROGRESS NOTES Chief Complaint Chief Complaint sob with copd and chf copd exacerbation bronchitis CHF systolic ef 40% likely exacerbation HTN HLD Hypothyroidism ppm rapid AFIB Morbid obesity mild dementia AMS, metabolic encephalopathy with rickey, hypoxic RICKEY, vasomotor hematuria plan: fu with card, pulm cont duoneb, levaquin. dced vanco cardizem drip off, cont satolol, dig, warfarin , INR daily talked to daughter and pt, tiny pleural effusion no need thoracentesis increase lasix to 40mg daily, got lasix 60mg iv x2 times. lasix dced as per renal, added ivf add cough meds echo done neuro consult, head ct, MRI cannot be done 2/2 PPM, EEG neg for seizure. hold metformin given rickey PTOT sw fu, pt refused rehab but seems family agreed, screening PP. check UA, ucx. repeat as per renal. may need ABD CT if cont hematuria History of Present Illness History of Present Illness pt seen and examined pt is pleasant denies fever and chill dw RN Vitals Vitals Vital Signs Date Time Temp Pulse Resp B/P (MAP) Pulse Ox O2 Delivery O2 Flow Rate FiO2 12/31/17 08:43 74 125/64 12/31/17 08:00 Room Air 12/31/17 07:57 94 12/31/17 07:30 98.0 20 98.0 Physical Exam General: Alert, Cooperative, No acute distress Heart: Regular rate, Normal S1, Other (IRREGULAR) Lungs: Clear Abdomen: Normal bowel sounds, Soft Extremities: No clubbing, No cyanosis Skin: No rashes, No breakdown Labs LABS Laboratory Tests Test 12/30/17 13:45 12/30/17 17:07 12/30/17 20:53 12/31/17 06:10 Urine Collection Type Unknown Urine Color Yellow Urine Clarity Clear Urine pH 5.5 Urine Specific [place] 1.010 Urine Protein Negative mg/dL (NEG-TRACE) Urine Glucose (UA) Negative mg/dL (NEG) Urine Ketones (Stick) Negative mg/dL (NEG) Urine Blood Large (NEG) Urine Nitrite Negative (NEG) Urine Bilirubin Negative (NEG) Urine Urobilinogen Dipstick 0.2 mg/dL (0.2 mg/dL) Urine Leukocyte Esterase Trace (NEG) Urine RBC >40 /HPF (0-2) Urine WBC 1-4 /HPF (0-4) Urine Squamous Epithelial Cells Few /LPF Urine Bacteria 0 /HPF (0-FEW) Glucose (Fingerstick) 109 mg/dL (70-99) 115 mg/dL (70-99) Sodium Level 139 mmol/L (136-145) Potassium Level 4.1 mmol/L (3.5-5.1) Chloride Level 104 mmol/L (98-107) Carbon Dioxide Level 24 mmol/L (21-32) Anion Gap 11 (6-14) Blood Urea Nitrogen 24 mg/dL (7-20) Creatinine 2.5 mg/dL (0.6-1.0) Estimated GFR (Cockcroft-Gault) 18.9 Glucose Level 113 mg/dL (70-99) Calcium Level 8.6 mg/dL (8.5-10.1) Phosphorus Level 3.6 mg/dL (2.6-4.7) Magnesium Level 2.0 mg/dL (1.8-2.4) Albumin 2.3 g/dL (3.4-5.0) Test 12/31/17 06:11 12/31/17 07:34 Hemoglobin 12.1 g/dL (12.0-15.5) Prothrombin Time 22.8 SEC (11.7-14.0) Prothromb Time International Ratio 2.1 (0.8-1.1) Glucose (Fingerstick) 111 mg/dL (70-99) Review of Systems Review of Systems CO fatigue CO hunger Assessment and Plan Assessmemt and Plan Problems Medical Problems: (1) Atrial fibrillation with RVR Status: Acute (2) Bandemia Status: Acute (3) Hypoxia Status: Acute (4) Severe sepsis Status: Acute Plan: Discharge to SNU home meds cardiac monitoring 6 min walk, PT/OT Comment Review of Relevant I have reviewed the following items uyen (where applicable) has been applied. Labs Laboratory Tests Test 12/29/17 11:56 12/29/17 17:00 12/29/17 20:42 12/30/17 03:00 Glucose (Fingerstick) 135 mg/dL (70-99) 116 mg/dL (70-99) 114 mg/dL (70-99) White Blood Count 7.8 x10^3/uL (4.0-11.0) Red Blood Count 3.81 x10^6/uL (3.50-5.40) Hemoglobin 12.1 g/dL (12.0-15.5) Hematocrit 36.0 % (36.0-47.0) Mean Corpuscular Volume 94 fL (79-100) Mean Corpuscular Hemoglobin 32 pg (25-35) Mean Corpuscular Hemoglobin Concent 34 g/dL (31-37) Red Cell Distribution Width 16.7 % (11.5-14.5) Platelet Count 162 x10^3/uL (140-400) Neutrophils (%) (Auto) 69 % (31-73) Lymphocytes (%) (Auto) 13 % (24-48) Monocytes (%) (Auto) 13 % (0-9) Eosinophils (%) (Auto) 4 % (0-3) Basophils (%) (Auto) 1 % (0-3) Neutrophils # (Auto) 5.4 x10^3uL (1.8-7.7) Lymphocytes # (Auto) 1.0 x10^3/uL (1.0-4.8) Monocytes # (Auto) 1.0 x10^3/uL (0.0-1.1) Eosinophils # (Auto) 0.3 x10^3/uL (0.0-0.7) Basophils # (Auto) 0.1 x10^3/uL (0.0-0.2) Prothrombin Time 23.9 SEC (11.7-14.0) Prothromb Time International Ratio 2.2 (0.8-1.1) Sodium Level 137 mmol/L (136-145) Potassium Level 4.0 mmol/L (3.5-5.1) Chloride Level 105 mmol/L (98-107) Carbon Dioxide Level 22 mmol/L (21-32) Anion Gap 10 (6-14) Blood Urea Nitrogen 24 mg/dL (7-20) Creatinine 2.4 mg/dL (0.6-1.0) Estimated GFR (Cockcroft-Gault) 19.8 Glucose Level 113 mg/dL (70-99) Calcium Level 8.0 mg/dL (8.5-10.1) Test 12/30/17 07:00 12/30/17 11:36 12/30/17 13:45 12/30/17 17:07 Glucose (Fingerstick) 117 mg/dL (70-99) 144 mg/dL (70-99) 109 mg/dL (70-99) Urine Collection Type Unknown Urine Color Yellow Urine Clarity Clear Urine pH 5.5 Urine Specific [place] 1.010 Urine Protein Negative mg/dL (NEG-TRACE) Urine Glucose (UA) Negative mg/dL (NEG) Urine Ketones (Stick) Negative mg/dL (NEG) Urine Blood Large (NEG) Urine Nitrite Negative (NEG) Urine Bilirubin Negative (NEG) Urine Urobilinogen Dipstick 0.2 mg/dL (0.2 mg/dL) Urine Leukocyte Esterase Trace (NEG) Urine RBC >40 /HPF (0-2) Urine WBC 1-4 /HPF (0-4) Urine Squamous Epithelial Cells Few /LPF Urine Bacteria 0 /HPF (0-FEW) Test 12/30/17 20:53 12/31/17 06:10 12/31/17 06:11 12/31/17 07:34 Glucose (Fingerstick) 115 mg/dL (70-99) 111 mg/dL (70-99) Sodium Level 139 mmol/L (136-145) Potassium Level 4.1 mmol/L (3.5-5.1) Chloride Level 104 mmol/L (98-107) Carbon Dioxide Level 24 mmol/L (21-32) Anion Gap 11 (6-14) Blood Urea Nitrogen 24 mg/dL (7-20) Creatinine 2.5 mg/dL (0.6-1.0) Estimated GFR (Cockcroft-Gault) 18.9 Glucose Level 113 mg/dL (70-99) Calcium Level 8.6 mg/dL (8.5-10.1) Phosphorus Level 3.6 mg/dL (2.6-4.7) Magnesium Level 2.0 mg/dL (1.8-2.4) Albumin 2.3 g/dL (3.4-5.0) Hemoglobin 12.1 g/dL (12.0-15.5) Prothrombin Time 22.8 SEC (11.7-14.0) Prothromb Time International Ratio 2.1 (0.8-1.1) Laboratory Tests Test 12/30/17 13:45 12/30/17 17:07 12/30/17 20:53 12/31/17 06:10 Urine Collection Type Unknown Urine Color Yellow Urine Clarity Clear Urine pH 5.5 Urine Specific [place] 1.010 Urine Protein Negative mg/dL (NEG-TRACE) Urine Glucose (UA) Negative mg/dL (NEG) Urine Ketones (Stick) Negative mg/dL (NEG) Urine Blood Large (NEG) Urine Nitrite Negative (NEG) Urine Bilirubin Negative (NEG) Urine Urobilinogen Dipstick 0.2 mg/dL (0.2 mg/dL) Urine Leukocyte Esterase Trace (NEG) Urine RBC >40 /HPF (0-2) Urine WBC 1-4 /HPF (0-4) Urine Squamous Epithelial Cells Few /LPF Urine Bacteria 0 /HPF (0-FEW) Glucose (Fingerstick) 109 mg/dL (70-99) 115 mg/dL (70-99) Sodium Level 139 mmol/L (136-145) Potassium Level 4.1 mmol/L (3.5-5.1) Chloride Level 104 mmol/L (98-107) Carbon Dioxide Level 24 mmol/L (21-32) Anion Gap 11 (6-14) Blood Urea Nitrogen 24 mg/dL (7-20) Creatinine 2.5 mg/dL (0.6-1.0) Estimated GFR (Cockcroft-Gault) 18.9 Glucose Level 113 mg/dL (70-99) Calcium Level 8.6 mg/dL (8.5-10.1) Phosphorus Level 3.6 mg/dL (2.6-4.7) Magnesium Level 2.0 mg/dL (1.8-2.4) Albumin 2.3 g/dL (3.4-5.0) Test 12/31/17 06:11 12/31/17 07:34 Hemoglobin 12.1 g/dL (12.0-15.5) Prothrombin Time 22.8 SEC (11.7-14.0) Prothromb Time International Ratio 2.1 (0.8-1.1) Glucose (Fingerstick) 111 mg/dL (70-99) Microbiology 12/28/17 Urine Culture - Final, Complete 12/28/17 Urine Culture Result 1 (ANGELICA) - Final, Complete Medications Current Medications Diltiazem HCl (Cardizem) 20 mg 1X ONCE IVP Last administered on 12/23/17at 23: 00; Start 12/23/17 at 23:00; Stop 12/23/17 at 23:01; Status DC Aspirin (Adonis Aspirin) 325 mg 1X ONCE PO ; Start 12/23/17 at 23:00; Stop 12/23 at 23:01; Status DC Diltiazem HCl 125 mg/Dextrose 125 ml @ 10 mls/hr 1X ONCE IV Last administered on 12/23/17at 23:11; Start 12/23/17 at 23:00; Stop 12/24/17 at 11:29 ; Status DC Dexamethasone Sodium Phosphate (Decadron) 10 mg 1X ONCE IV Last administered on 12/23/17at 22:57; Start 12/23/17 at 23:00; Stop 12/23/17 at 23:01; Status DC Albuterol/ Ipratropium (Duoneb) 3 ml 1X ONCE NEB ; Start 12/23/17 at 23:00; Stop 12/23/17 at 23:01; Status DC Albuterol/ Ipratropium (Duoneb) 3 ml STAT ONCE NEB ; Start 12/23/17 at 23:00; Stop 12/23/17 at 23:01; Status DC Hyoscyamine (Anaspaz) 0.25 mg 1X ONCE PO ; Start 12/23/17 at 23:45; Stop at 23:46; Status Cancel Sodium Chloride 1,000 ml @ 1,000 mls/hr 1X ONCE IV Last administered on at 01:17; Start 12/23/17 at 23:45; Stop 12/24/17 at 00:44; Status DC Sodium Chloride 1,000 ml @ 1,000 mls/hr 1X ONCE IV Last administered on at 04:29; Start 12/23/17 at 23:45; Stop 12/24/17 at 00:44; Status DC Piperacillin Sod/ Tazobactam Sod 4.5 gm/Sodium Chloride 100 ml @ 200 mls/hr 1X ONCE IV Last administered on 12/24/17at 01:17; Start 12/24/17 at 00:00; Stop 12/24/17 at 00:29; Status DC Levofloxacin/ Dextrose 150 ml @ 100 mls/hr 1X ONCE IV Last administered on at 01:17; Start 12/24/17 at 00:00; Stop 12/24/17 at 01:29; Status DC Vancomycin HCl 2 gm/Sodium Chloride 500 ml @ 250 mls/hr 1X ONCE IV Last administered on 12/24/17at 01:18; Start 12/24/17 at 00:30; Stop 12/24/17 at 02:29 ; Status DC Ondansetron HCl (Zofran) 4 mg PRN Q8HRS PRN IV NAUSEA/VOMITING 1ST CHOICE; Start 12/24/17 at 00:15; Stop 12/25/17 at 00:14; Status DC Fentanyl Citrate (Fentanyl 2ml Vial) 50 mcg PRN Q2HR PRN IV SEVERE PAIN; Start 12/24/17 at 00:15; Stop 12/25/17 at 00:14; Status DC Albuterol Sulfate (Ventolin Neb Soln) 2.5 mg PRN Q4HRS PRN NEB WHEEZING Last administered on 12/25/17at 17:28; Start 12/24/17 at 00:30 Insulin Human Lispro (HumaLOG) 0-5 UNITS TIDWMEALS SQ Last administered on 12/24at 17:46; Start 12/24/17 at 08:00 Dextrose (Dextrose 50%-Water Syringe) 12.5 gm PRN Q15MIN PRN IV SEE COMMENTS; Start 12/24/17 at 00:15 Info (Do NOT chart on this placeholder) 1 each 1X ONCE MC ; Start 12/24/17 at 01:45; Stop 12/24/17 at 01:46; Status UNV Influenza Virus Vaccine (Afluria Trivalent [id number] Syringe) 0.5 ml ONCE ONCE VAX IM Last administered on 12/24/17at 08:51; Start 12/24/17 at 09:00; Stop at 09:01; Status DC Albuterol/ Ipratropium (Duoneb) 3 ml RTQID NEB Last administered on 12/31/17at 07:57; Start 12/24/17 at 12:00 Levofloxacin/ Dextrose 100 ml @ 100 mls/hr Q24H IV ; Start 12/24/17 at 10:30; Status UNV Vancomycin HCl (Vanco Per Pharmacy) 1 each PRN DAILY PRN MC SEE COMMENTS Last administered on 12/25/17at 10:36; Start 12/24/17 at 10:30; Stop 12/25/17 at 17:09 ; Status DC Levofloxacin/ Dextrose 100 ml @ 100 mls/hr Q24H IV Last administered on at 23:31; Start 12/24/17 at 23:00; Stop 12/26/17 at 14:40; Status DC Vancomycin HCl 1.75 gm/Sodium Chloride 500 ml @ 250 mls/hr Q12H IV Last administered on 12/25/17at 13:00; Start 12/24/17 at 13:00; Stop 12/25/17 at 17:08 ; Status DC Vancomycin HCl (Vancomycin Trough Level) 1 each 1X ONCE MC ; Start 12/25/17 at 23:30; Stop 12/25/17 at 23:30; Status DC Lactobacillus Rhamnosus (Culturelle) 1 cap BID PO Last administered on 08:38; Start 12/24/17 at 21:00 Warfarin Sodium (Coumadin Per Pharmacy) 1 each PRN DAILY PRN MC SEE COMMENTS Last administered on 12/30/17at 10:52; Start 12/24/17 at 14:45 Warfarin Sodium (Coumadin) 2 mg 1X WARF ONCE PO Last administered on at 15:52; Start 12/24/17 at 16:00; Stop 12/24/17 at 16:01; Status DC Digoxin (Lanoxin) 125 mcg DAILY PO Last administered on 12/31/17 08:43; Start 12/24/17 at 17:30 Sotalol HCl (Betapace) 80 mg BID PO Last administered on 12/31/17 08:41; Start 12/24/17 at 21:00 Furosemide (Lasix) 20 mg DAILY PO Last administered on 12/25/17at 07:50; Start 12/24/17 at 18:00; Stop 12/25/17 at 08:44; Status DC Potassium Chloride (Klor-Con) 10 meq DAILY PO Last administered on 12/27/17 09 :46; Start 12/24/17 at 18:00; Stop 12/27/17 at 11:59; Status DC Levothyroxine Sodium (Synthroid) 150 mcg DAILY07 PO Last administered on 08:38; Start 12/24/17 at 18:00 Metformin HCl (Glucophage) 500 mg BIDWMEALS PO Last administered on 12/27/17at 09:45; Start 12/24/17 at 18:00; Stop 12/27/17 at 10:53; Status DC Simvastatin (Zocor) 40 mg DAILY PO ; Start 12/24/17 at 18:00; Stop 12/24/17 at 18:00; Status DC Simvastatin (Zocor) 40 mg QHS PO Last administered on 12/30/17at 21:23; Start at 21:00 Furosemide (Lasix) 20 mg 1X ONCE PO Last administered on 12/25/17at 12:57; Start 12/25/17 at 09:00; Stop 12/25/17 at 09:01; Status DC Guaifenesin/ Codeine Phosphate (Robitussin Ac) 5 ml PRN Q6HRS PRN PO COUGH Last administered on 12/25/17at 12:54; Start 12/25/17 at 08:45 Benzonatate (Tessalon Perle) 100 mg [id number] PO Last administered on 12/31/17at 08 :39; Start 12/25/17 at 09:00 Furosemide (Lasix) 40 mg DAILY PO ; Start 12/26/17 at 09:00; Stop 12/27/17 at 11 :59; Status DC Warfarin Sodium (Coumadin) 2 mg 1X WARF ONCE PO Last administered on at 16:44; Start 12/25/17 at 16:00; Stop 12/25/17 at 16:01; Status DC Acetaminophen (Tylenol) 650 mg PRN Q6HRS PRN PO FEVER; Start 12/25/17 at 12:15 Ondansetron HCl (Zofran) 4 mg PRN Q6HRS PRN IV NAUSEA/VOMITING; Start 12/25/17 at 12:15 Morphine Sulfate (Morphine Sulfate) 2 mg PRN Q2HR PRN IV MODERATE TO SEVERE PAIN; Start 12/25/17 at 12:15 Tramadol HCl (Ultram) 50 mg PRN Q6HRS PRN PO MILD TO MODERATE PAIN Last administered on 12/28/17at 20:48; Start 12/25/17 at 12:15 Docusate Sodium (Colace) 100 mg PRN DAILY PRN PO HARD STOOLS Last administered on 12/30/17at 08:23; Start 12/25/17 at 12:15 Labetalol HCl (Normodyne Iv Push) 20 mg PRN Q2HR PRN IVP HYPERTENSION, SEE COMMENTS; Start 12/25/17 at 12:15 Furosemide (Lasix) 60 mg 1X ONCE IVP Last administered on 12/25/17at 17:51; Start 12/25/17 at 18:00; Stop 12/25/17 at 18:01; Status DC Furosemide (Lasix) 60 mg 1X ONCE IVP Last administered on 12/26/17at 08:46; Start 12/26/17 at 09:00; Stop 12/26/17 at 09:01; Status DC Warfarin Sodium (Coumadin) 2 mg 1X ONCE PO ; Start 12/26/17 at 14:45; Stop at 14:46; Status Cancel Warfarin Sodium (Coumadin) 2 mg 1X WARF ONCE PO Last administered on at 17:29; Start 12/26/17 at 16:00; Stop 12/26/17 at 16:01; Status DC Levofloxacin/ Dextrose 50 ml @ 50 mls/hr Q24H IV Last administered on at 22:47; Start 12/26/17 at 23:00; Stop 12/27/17 at 09:12; Status DC Levofloxacin (Levaquin) 250 mg QHS PO Last administered on 12/30/17at 21:23; Start 12/27/17 at 21:00 Warfarin Sodium (Coumadin) 2 mg 1X WARF ONCE PO Last administered on at 17:15; Start 12/27/17 at 16:00; Stop 12/27/17 at 16:01; Status DC Sodium Chloride 1,000 ml @ 75 mls/hr [id number] IV Last administered on at 15:37; Start 12/27/17 at 12:00; Stop 12/28/17 at 17:24; Status DC Warfarin Sodium (Coumadin) 2 mg 1X WARF ONCE PO Last administered on at 17:33; Start 12/28/17 at 16:00; Stop 12/28/17 at 16:01; Status DC Sodium Chloride 1,000 ml @ 60 mls/hr [id number] IV Last administered on at 21:26; Start 12/28/17 at 18:00 Warfarin Sodium (Coumadin) 2 mg 1X WARF ONCE PO Last administered on at 16:28; Start 12/29/17 at 16:00; Stop 12/29/17 at 16:01; Status DC Magnesium Sulfate 50 ml @ 25 mls/hr PRN DAILY PRN IV for Mag < 1.7 on am labs; Start 12/30/17 at 07:00 Warfarin Sodium (Coumadin) 2 mg 1X WARF ONCE PO ; Start 12/30/17 at 16:00; Stop 12/30/17 at 16:01; Status DC Active Scripts Active Digoxin 125 Mcg Tablet 125 Mcg PO DAILY Reported Proair Hfa Inhaler (Albuterol Sulfate) 8.5 Gm Hfa.aer.ad 1 Puff INH PRN Q6HRS PRN Sotalol (Sotalol Hcl) 80 Mg Tablet 1 Tab PO BID Tessalon Perle (Benzonatate) 100 Mg Capsule 2 Cap PO TID PRN Warfarin Sodium 2 Mg Tablet 1 Tab PO DAILY Lisinopril 10 Mg Tablet 1 Tab PO DAILY Levothyroxine Sodium 125 Mcg Tablet 150 Mcg PO DAILY Simvastatin 40 Mg Tablet 40 Mg PO DAILY Metformin Hcl 500 Mg Tablet 500 Mg PO BIDWMEALS Furosemide 20 Mg Tablet 1 Tab PO DAILY Potassium Chloride 10 Meq Tab.sr.24h 10 Meq PO DAILY Vitals/I & O Vital Sign - Last 24 Hours 12/30/17 12/30/17 12/30/17 12/30/17 15:10 15:26 19:30 20:00 Temp 98.1 98.1 98.1 98.1 Pulse 75 72 Resp 16 20 B/P (MAP) 119/59 (79) 141/67 (91) Pulse Ox 95 98 O2 Delivery Room Air Room Air Room Air Room Air 12/30/17 12/30/17 12/31/17 12/31/17 21:26 23:00 03:30 07:30 Temp 98.7 98.3 98.0 98.7 98.3 98.0 Pulse 72 70 90 74 Resp 20 20 20 B/P (MAP) 141/67 123/50 (74) 124/56 (78) 125/64 (84) Pulse Ox 92 93 94 O2 Delivery Room Air Room Air Room Air 12/31/17 12/31/17 12/31/17 12/31/17 07:57 08:00 08:41 08:43 Pulse 74 74 B/P (MAP) 125/64 125/64 Pulse Ox 94 O2 Delivery Room Air Room Air Intake and Output 12/30/17 12/30/17 12/31/17 15:00 23:00 07:00 Intake Total 120 ml 220 ml 580 ml Output Total 550 ml 900 ml 900 ml Balance -430 ml -680 ml -320 ml MACI BROWNE III DO Dec 31, 2017 11:42
--- NOTE | 2017-12-31 11:48 | PDOC ---
PROGRESS NOTES Assessment Problems Medical Problems: (1) Atrial fibrillation with RVR Status: Acute (2) Bandemia Status: Acute (3) Hypoxia Status: Acute (4) Severe sepsis Status: Acute Metabolic encephalopathy. Hypoxic encephalopathy. Confusion. Respiratory failure. Renal failure. CHF, EF 40%. AFib. DM. Hyperglycemia. HTN. HLD. Hypothyroidism. Bilateral maxillary sinusitis. Severe obesity. Pacemaker in site. Brain atrophy. Plan Coumadin. Zocor Treat medical and cardiac diseases. OT/PT. Ready to go to shelter unit from neurological perspective Subjective No complaints Objective Vital Signs Date Time Temp Pulse Resp B/P (MAP) Pulse Ox O2 Delivery O2 Flow Rate FiO2 12/31/17 08:43 74 125/64 12/31/17 08:00 Room Air 12/31/17 07:57 94 12/31/17 07:30 98.0 20 98.0 Intake and Output 12/31/17 07:00 Intake Total 920 ml Output Total 2350 ml Balance -1430 ml Intake Oral 920 ml Output Urine Total 2350 ml PHYSICAL EXAM Alert. Oriented to place and person, knows month and year. PERRL. EOMI. CN: no focal findings. Muscle tone: normal. Muscle strength: 4/5 DTR: 0-1+ Plantar reflex: silent Gait: not examined in bed. Sensory exam: no abnormal findings. No cerebellar signs elicited. Review of Relevant I have reviewed the following items uyen (where applicable) has been applied. Labs Laboratory Tests Test 12/29/17 11:56 12/29/17 17:00 12/29/17 20:42 12/30/17 03:00 Glucose (Fingerstick) 135 mg/dL (70-99) 116 mg/dL (70-99) 114 mg/dL (70-99) White Blood Count 7.8 x10^3/uL (4.0-11.0) Red Blood Count 3.81 x10^6/uL (3.50-5.40) Hemoglobin 12.1 g/dL (12.0-15.5) Hematocrit 36.0 % (36.0-47.0) Mean Corpuscular Volume 94 fL (79-100) Mean Corpuscular Hemoglobin 32 pg (25-35) Mean Corpuscular Hemoglobin Concent 34 g/dL (31-37) Red Cell Distribution Width 16.7 % (11.5-14.5) Platelet Count 162 x10^3/uL (140-400) Neutrophils (%) (Auto) 69 % (31-73) Lymphocytes (%) (Auto) 13 % (24-48) Monocytes (%) (Auto) 13 % (0-9) Eosinophils (%) (Auto) 4 % (0-3) Basophils (%) (Auto) 1 % (0-3) Neutrophils # (Auto) 5.4 x10^3uL (1.8-7.7) Lymphocytes # (Auto) 1.0 x10^3/uL (1.0-4.8) Monocytes # (Auto) 1.0 x10^3/uL (0.0-1.1) Eosinophils # (Auto) 0.3 x10^3/uL (0.0-0.7) Basophils # (Auto) 0.1 x10^3/uL (0.0-0.2) Prothrombin Time 23.9 SEC (11.7-14.0) Prothromb Time International Ratio 2.2 (0.8-1.1) Sodium Level 137 mmol/L (136-145) Potassium Level 4.0 mmol/L (3.5-5.1) Chloride Level 105 mmol/L (98-107) Carbon Dioxide Level 22 mmol/L (21-32) Anion Gap 10 (6-14) Blood Urea Nitrogen 24 mg/dL (7-20) Creatinine 2.4 mg/dL (0.6-1.0) Estimated GFR (Cockcroft-Gault) 19.8 Glucose Level 113 mg/dL (70-99) Calcium Level 8.0 mg/dL (8.5-10.1) Test 12/30/17 07:00 12/30/17 11:36 12/30/17 13:45 12/30/17 17:07 Glucose (Fingerstick) 117 mg/dL (70-99) 144 mg/dL (70-99) 109 mg/dL (70-99) Urine Collection Type Unknown Urine Color Yellow Urine Clarity Clear Urine pH 5.5 Urine Specific [place] 1.010 Urine Protein Negative mg/dL (NEG-TRACE) Urine Glucose (UA) Negative mg/dL (NEG) Urine Ketones (Stick) Negative mg/dL (NEG) Urine Blood Large (NEG) Urine Nitrite Negative (NEG) Urine Bilirubin Negative (NEG) Urine Urobilinogen Dipstick 0.2 mg/dL (0.2 mg/dL) Urine Leukocyte Esterase Trace (NEG) Urine RBC >40 /HPF (0-2) Urine WBC 1-4 /HPF (0-4) Urine Squamous Epithelial Cells Few /LPF Urine Bacteria 0 /HPF (0-FEW) Test 12/30/17 20:53 12/31/17 06:10 12/31/17 06:11 12/31/17 07:34 Glucose (Fingerstick) 115 mg/dL (70-99) 111 mg/dL (70-99) Sodium Level 139 mmol/L (136-145) Potassium Level 4.1 mmol/L (3.5-5.1) Chloride Level 104 mmol/L (98-107) Carbon Dioxide Level 24 mmol/L (21-32) Anion Gap 11 (6-14) Blood Urea Nitrogen 24 mg/dL (7-20) Creatinine 2.5 mg/dL (0.6-1.0) Estimated GFR (Cockcroft-Gault) 18.9 Glucose Level 113 mg/dL (70-99) Calcium Level 8.6 mg/dL (8.5-10.1) Phosphorus Level 3.6 mg/dL (2.6-4.7) Magnesium Level 2.0 mg/dL (1.8-2.4) Albumin 2.3 g/dL (3.4-5.0) Hemoglobin 12.1 g/dL (12.0-15.5) Prothrombin Time 22.8 SEC (11.7-14.0) Prothromb Time International Ratio 2.1 (0.8-1.1) Laboratory Tests Test 12/30/17 13:45 12/30/17 17:07 12/30/17 20:53 12/31/17 06:10 Urine Collection Type Unknown Urine Color Yellow Urine Clarity Clear Urine pH 5.5 Urine Specific [place] 1.010 Urine Protein Negative mg/dL (NEG-TRACE) Urine Glucose (UA) Negative mg/dL (NEG) Urine Ketones (Stick) Negative mg/dL (NEG) Urine Blood Large (NEG) Urine Nitrite Negative (NEG) Urine Bilirubin Negative (NEG) Urine Urobilinogen Dipstick 0.2 mg/dL (0.2 mg/dL) Urine Leukocyte Esterase Trace (NEG) Urine RBC >40 /HPF (0-2) Urine WBC 1-4 /HPF (0-4) Urine Squamous Epithelial Cells Few /LPF Urine Bacteria 0 /HPF (0-FEW) Glucose (Fingerstick) 109 mg/dL (70-99) 115 mg/dL (70-99) Sodium Level 139 mmol/L (136-145) Potassium Level 4.1 mmol/L (3.5-5.1) Chloride Level 104 mmol/L (98-107) Carbon Dioxide Level 24 mmol/L (21-32) Anion Gap 11 (6-14) Blood Urea Nitrogen 24 mg/dL (7-20) Creatinine 2.5 mg/dL (0.6-1.0) Estimated GFR (Cockcroft-Gault) 18.9 Glucose Level 113 mg/dL (70-99) Calcium Level 8.6 mg/dL (8.5-10.1) Phosphorus Level 3.6 mg/dL (2.6-4.7) Magnesium Level 2.0 mg/dL (1.8-2.4) Albumin 2.3 g/dL (3.4-5.0) Test 12/31/17 06:11 12/31/17 07:34 Hemoglobin 12.1 g/dL (12.0-15.5) Prothrombin Time 22.8 SEC (11.7-14.0) Prothromb Time International Ratio 2.1 (0.8-1.1) Glucose (Fingerstick) 111 mg/dL (70-99) Microbiology 12/28/17 Urine Culture - Final, Complete 12/28/17 Urine Culture Result 1 (ANGELICA) - Final, Complete Medications Current Medications Diltiazem HCl (Cardizem) 20 mg 1X ONCE IVP Last administered on 12/23/17at 23: 00; Start 12/23/17 at 23:00; Stop 12/23/17 at 23:01; Status DC Aspirin (Adonis Aspirin) 325 mg 1X ONCE PO ; Start 12/23/17 at 23:00; Stop 12/23 at 23:01; Status DC Diltiazem HCl 125 mg/Dextrose 125 ml @ 10 mls/hr 1X ONCE IV Last administered on 12/23/17at 23:11; Start 12/23/17 at 23:00; Stop 12/24/17 at 11:29 ; Status DC Dexamethasone Sodium Phosphate (Decadron) 10 mg 1X ONCE IV Last administered on 12/23/17at 22:57; Start 12/23/17 at 23:00; Stop 12/23/17 at 23:01; Status DC Albuterol/ Ipratropium (Duoneb) 3 ml 1X ONCE NEB ; Start 12/23/17 at 23:00; Stop 12/23/17 at 23:01; Status DC Albuterol/ Ipratropium (Duoneb) 3 ml STAT ONCE NEB ; Start 12/23/17 at 23:00; Stop 12/23/17 at 23:01; Status DC Hyoscyamine (Anaspaz) 0.25 mg 1X ONCE PO ; Start 12/23/17 at 23:45; Stop at 23:46; Status Cancel Sodium Chloride 1,000 ml @ 1,000 mls/hr 1X ONCE IV Last administered on at 01:17; Start 12/23/17 at 23:45; Stop 12/24/17 at 00:44; Status DC Sodium Chloride 1,000 ml @ 1,000 mls/hr 1X ONCE IV Last administered on at 04:29; Start 12/23/17 at 23:45; Stop 12/24/17 at 00:44; Status DC Piperacillin Sod/ Tazobactam Sod 4.5 gm/Sodium Chloride 100 ml @ 200 mls/hr 1X ONCE IV Last administered on 12/24/17at 01:17; Start 12/24/17 at 00:00; Stop 12/24/17 at 00:29; Status DC Levofloxacin/ Dextrose 150 ml @ 100 mls/hr 1X ONCE IV Last administered on at 01:17; Start 12/24/17 at 00:00; Stop 12/24/17 at 01:29; Status DC Vancomycin HCl 2 gm/Sodium Chloride 500 ml @ 250 mls/hr 1X ONCE IV Last administered on 12/24/17at 01:18; Start 12/24/17 at 00:30; Stop 12/24/17 at 02:29 ; Status DC Ondansetron HCl (Zofran) 4 mg PRN Q8HRS PRN IV NAUSEA/VOMITING 1ST CHOICE; Start 12/24/17 at 00:15; Stop 12/25/17 at 00:14; Status DC Fentanyl Citrate (Fentanyl 2ml Vial) 50 mcg PRN Q2HR PRN IV SEVERE PAIN; Start 12/24/17 at 00:15; Stop 12/25/17 at 00:14; Status DC Albuterol Sulfate (Ventolin Neb Soln) 2.5 mg PRN Q4HRS PRN NEB WHEEZING Last administered on 12/25/17at 17:28; Start 12/24/17 at 00:30 Insulin Human Lispro (HumaLOG) 0-5 UNITS TIDWMEALS SQ Last administered on 12/24at 17:46; Start 12/24/17 at 08:00 Dextrose (Dextrose 50%-Water Syringe) 12.5 gm PRN Q15MIN PRN IV SEE COMMENTS; Start 12/24/17 at 00:15 Info (Do NOT chart on this placeholder) 1 each 1X ONCE MC ; Start 12/24/17 at 01:45; Stop 12/24/17 at 01:46; Status UNV Influenza Virus Vaccine (Afluria Trivalent [id number] Syringe) 0.5 ml ONCE ONCE VAX IM Last administered on 12/24/17at 08:51; Start 12/24/17 at 09:00; Stop at 09:01; Status DC Albuterol/ Ipratropium (Duoneb) 3 ml RTQID NEB Last administered on 12/31/17at 07:57; Start 12/24/17 at 12:00 Levofloxacin/ Dextrose 100 ml @ 100 mls/hr Q24H IV ; Start 12/24/17 at 10:30; Status UNV Vancomycin HCl (Vanco Per Pharmacy) 1 each PRN DAILY PRN MC SEE COMMENTS Last administered on 12/25/17at 10:36; Start 12/24/17 at 10:30; Stop 12/25/17 at 17:09 ; Status DC Levofloxacin/ Dextrose 100 ml @ 100 mls/hr Q24H IV Last administered on at 23:31; Start 12/24/17 at 23:00; Stop 12/26/17 at 14:40; Status DC Vancomycin HCl 1.75 gm/Sodium Chloride 500 ml @ 250 mls/hr Q12H IV Last administered on 12/25/17at 13:00; Start 12/24/17 at 13:00; Stop 12/25/17 at 17:08 ; Status DC Vancomycin HCl (Vancomycin Trough Level) 1 each 1X ONCE MC ; Start 12/25/17 at 23:30; Stop 12/25/17 at 23:30; Status DC Lactobacillus Rhamnosus (Culturelle) 1 cap BID PO Last administered on 08:38; Start 12/24/17 at 21:00 Warfarin Sodium (Coumadin Per Pharmacy) 1 each PRN DAILY PRN MC SEE COMMENTS Last administered on 12/30/17at 10:52; Start 12/24/17 at 14:45 Warfarin Sodium (Coumadin) 2 mg 1X WARF ONCE PO Last administered on at 15:52; Start 12/24/17 at 16:00; Stop 12/24/17 at 16:01; Status DC Digoxin (Lanoxin) 125 mcg DAILY PO Last administered on 12/31/17 08:43; Start 12/24/17 at 17:30 Sotalol HCl (Betapace) 80 mg BID PO Last administered on 12/31/17at 08:41; Start 12/24/17 at 21:00 Furosemide (Lasix) 20 mg DAILY PO Last administered on 12/25/17at 07:50; Start 12/24/17 at 18:00; Stop 12/25/17 at 08:44; Status DC Potassium Chloride (Klor-Con) 10 meq DAILY PO Last administered on 12/27/17at 09 :46; Start 12/24/17 at 18:00; Stop 12/27/17 at 11:59; Status DC Levothyroxine Sodium (Synthroid) 150 mcg DAILY07 PO Last administered on 08:38; Start 12/24/17 at 18:00 Metformin HCl (Glucophage) 500 mg BIDWMEALS PO Last administered on 12/27/17 09:45; Start 12/24/17 at 18:00; Stop 12/27/17 at 10:53; Status DC Simvastatin (Zocor) 40 mg DAILY PO ; Start 12/24/17 at 18:00; Stop 12/24/17 at 18:00; Status DC Simvastatin (Zocor) 40 mg QHS PO Last administered on 12/30/17at 21:23; Start at 21:00 Furosemide (Lasix) 20 mg 1X ONCE PO Last administered on 12/25/17at 12:57; Start 12/25/17 at 09:00; Stop 12/25/17 at 09:01; Status DC Guaifenesin/ Codeine Phosphate (Robitussin Ac) 5 ml PRN Q6HRS PRN PO COUGH Last administered on 12/25/17at 12:54; Start 12/25/17 at 08:45 Benzonatate (Tessalon Perle) 100 mg [id number] PO Last administered on 12/31/17at 08 :39; Start 12/25/17 at 09:00 Furosemide (Lasix) 40 mg DAILY PO ; Start 12/26/17 at 09:00; Stop 12/27/17 at 11 :59; Status DC Warfarin Sodium (Coumadin) 2 mg 1X WARF ONCE PO Last administered on at 16:44; Start 12/25/17 at 16:00; Stop 12/25/17 at 16:01; Status DC Acetaminophen (Tylenol) 650 mg PRN Q6HRS PRN PO FEVER; Start 12/25/17 at 12:15 Ondansetron HCl (Zofran) 4 mg PRN Q6HRS PRN IV NAUSEA/VOMITING; Start 12/25/17 at 12:15 Morphine Sulfate (Morphine Sulfate) 2 mg PRN Q2HR PRN IV MODERATE TO SEVERE PAIN; Start 12/25/17 at 12:15 Tramadol HCl (Ultram) 50 mg PRN Q6HRS PRN PO MILD TO MODERATE PAIN Last administered on 12/28/17at 20:48; Start 12/25/17 at 12:15 Docusate Sodium (Colace) 100 mg PRN DAILY PRN PO HARD STOOLS Last administered on 12/30/17at 08:23; Start 12/25/17 at 12:15 Labetalol HCl (Normodyne Iv Push) 20 mg PRN Q2HR PRN IVP HYPERTENSION, SEE COMMENTS; Start 12/25/17 at 12:15 Furosemide (Lasix) 60 mg 1X ONCE IVP Last administered on 12/25/17at 17:51; Start 12/25/17 at 18:00; Stop 12/25/17 at 18:01; Status DC Furosemide (Lasix) 60 mg 1X ONCE IVP Last administered on 12/26/17at 08:46; Start 12/26/17 at 09:00; Stop 12/26/17 at 09:01; Status DC Warfarin Sodium (Coumadin) 2 mg 1X ONCE PO ; Start 12/26/17 at 14:45; Stop at 14:46; Status Cancel Warfarin Sodium (Coumadin) 2 mg 1X WARF ONCE PO Last administered on at 17:29; Start 12/26/17 at 16:00; Stop 12/26/17 at 16:01; Status DC Levofloxacin/ Dextrose 50 ml @ 50 mls/hr Q24H IV Last administered on at 22:47; Start 12/26/17 at 23:00; Stop 12/27/17 at 09:12; Status DC Levofloxacin (Levaquin) 250 mg QHS PO Last administered on 12/30/17at 21:23; Start 12/27/17 at 21:00 Warfarin Sodium (Coumadin) 2 mg 1X WARF ONCE PO Last administered on at 17:15; Start 12/27/17 at 16:00; Stop 12/27/17 at 16:01; Status DC Sodium Chloride 1,000 ml @ 75 mls/hr [id number] IV Last administered on at 15:37; Start 12/27/17 at 12:00; Stop 12/28/17 at 17:24; Status DC Warfarin Sodium (Coumadin) 2 mg 1X WARF ONCE PO Last administered on at 17:33; Start 12/28/17 at 16:00; Stop 12/28/17 at 16:01; Status DC Sodium Chloride 1,000 ml @ 60 mls/hr [id number] IV Last administered on at 21:26; Start 12/28/17 at 18:00 Warfarin Sodium (Coumadin) 2 mg 1X WARF ONCE PO Last administered on at 16:28; Start 12/29/17 at 16:00; Stop 12/29/17 at 16:01; Status DC Magnesium Sulfate 50 ml @ 25 mls/hr PRN DAILY PRN IV for Mag < 1.7 on am labs; Start 12/30/17 at 07:00 Warfarin Sodium (Coumadin) 2 mg 1X WARF ONCE PO ; Start 12/30/17 at 16:00; Stop 12/30/17 at 16:01; Status DC Active Scripts Active Digoxin 125 Mcg Tablet 125 Mcg PO DAILY Reported Proair Hfa Inhaler (Albuterol Sulfate) 8.5 Gm Hfa.aer.ad 1 Puff INH PRN Q6HRS PRN Sotalol (Sotalol Hcl) 80 Mg Tablet 1 Tab PO BID Tessalon Perle (Benzonatate) 100 Mg Capsule 2 Cap PO TID PRN Warfarin Sodium 2 Mg Tablet 1 Tab PO DAILY Lisinopril 10 Mg Tablet 1 Tab PO DAILY Levothyroxine Sodium 125 Mcg Tablet 150 Mcg PO DAILY Simvastatin 40 Mg Tablet 40 Mg PO DAILY Metformin Hcl 500 Mg Tablet 500 Mg PO BIDWMEALS Furosemide 20 Mg Tablet 1 Tab PO DAILY Potassium Chloride 10 Meq Tab.sr.24h 10 Meq PO DAILY Vitals/I & O Vital Sign - Last 24 Hours 12/30/17 12/30/17 12/30/17 12/30/17 15:10 15:26 19:30 20:00 Temp 98.1 98.1 98.1 98.1 Pulse 75 72 Resp 16 20 B/P (MAP) 119/59 (79) 141/67 (91) Pulse Ox 95 98 O2 Delivery Room Air Room Air Room Air Room Air 12/30/17 12/30/17 12/31/17 12/31/17 21:26 23:00 03:30 07:30 Temp 98.7 98.3 98.0 98.7 98.3 98.0 Pulse 72 70 90 74 Resp 20 20 20 B/P (MAP) 141/67 123/50 (74) 124/56 (78) 125/64 (84) Pulse Ox 92 93 94 O2 Delivery Room Air Room Air Room Air 12/31/17 12/31/17 12/31/17 12/31/17 07:57 08:00 08:41 08:43 Pulse 74 74 B/P (MAP) 125/64 125/64 Pulse Ox 94 O2 Delivery Room Air Room Air Intake and Output 12/30/17 12/30/17 12/31/17 15:00 23:00 07:00 Intake Total 120 ml 220 ml 580 ml Output Total 550 ml 900 ml 900 ml Balance -430 ml -680 ml -320 ml KENDRICK MONTEJO MD Dec 31, 2017 11:48
--- NOTE | 2017-12-31 11:53 | PDOC2 ---
MATILDE GARCIA [employer] OPERATOR 12/31/17 1153: UROLOGY CONSULT Date of Consult Date of Consult DATE: 12/31/17 TIME: 11:48 Reason for Consult Reason for Consult: Urinary retention, micro hematuria Identification/Chief Complaint Chief Complaint Urinary retention, micro hematuria Source Source: Caregiver, Chart review, Patient History of Present Illness Reason for Visit: 72 year old white female with multipile medical problems admitted for A fib with RVR, hypoxia and bandemia. On Renal US on 12/29 distension was noted of the urinary bladder. In addition, micro hematuria was noted on UA and so urology was consulted. Today bladder scan per attending RN is greater than 500. Patient states she had a wu catheter once "years ago" but cannot remember the reason. Despite bladder scan results, her bladder "does not feel full" at this time. She also denies abd pain or flank pain and gross hematuria. She cannot remember having seen a urologist for any reason. She admits some kidney problems but is unclear about what they are. She denies a history of kidney stones. Last night she did have some frequency and nocturia, but she typically does not have this. Nursing staff reports a PVR of greater than 500 times two via bladder scan. Past Medical History Cardiovascular: AFIB, CHF, HTN, Hyperlipidemia Pulmonary: Bronchitis, COPD Psych: No pertinent hx Rheumatologic: No pertinent hx Infectious disease: No pertinent hx ENT: No pertinent hx Renal/: No pertinent hx Endocrine: Diabetes, Hypothyroidism Past Surgical History Past Surgical History: No pertinent history Family History Family History: High Cholestrol, Hypertension Social History ALCOHOL: none Drugs: None Current Problem List Problems: (1) Wu catheter in place (2) Urinary retention Current Medications Current Medications Current Medications Warfarin Sodium (Coumadin) 2 mg 1X WARF ONCE PO ; Start 12/30/17 at 16:00; Stop 12/30/17 at 16:01; Status DC Allergies Allergies: Coded Allergies: No Known Drug Allergies (Unverified , 08/21/16) ROS Review Of Systems: CONSTITUTIONAL: No fever or chills EYES: No recent changes SKIN: No rash or itching CARDIOVASCULAR: No chest pain, syncope, palpitations, or edema RESPIRATORY: No SOB or cough GASTROINTESTINAL: No nausea, vomiting or abdominal pain NEUROLOGICAL: No headaches or weakness ENDOCRINE: No cold or heat intolerance GENITOURINARY: + frequency of urination, + nocturia, + bladder full. MUSCULOSKELETAL: No back pain or joint pain LYMPHATICS: No enlarged lymph nodes PSYCHIATRIC: No anxiety or depression Physical Exam Physical Exam: General: Pleasant, no acute distress, well groomed Eyes: conjunctiva anicteric, eyes full range of motion ENT: moist oral mucosa, normal dentition Neck: Trachea midline, no masses Respiratory: unlabored breathing, not using accessory muscles, Abdomen: soft, obese Pelvic: Anatomy WNL. 16 icelandic wu catheter inserted with no difficulty. 600 ml of clear yellow urine return noted upon initial insertion. Vitals VITALS Vital Signs Date Time Temp Pulse Resp B/P (MAP) Pulse Ox O2 Delivery O2 Flow Rate FiO2 12/31/17 08:43 74 125/64 12/31/17 08:00 Room Air 12/31/17 07:57 94 12/31/17 07:30 98.0 20 98.0 Labs Labs Laboratory Tests Test 12/29/17 11:56 12/29/17 17:00 12/29/17 20:42 12/30/17 03:00 Glucose (Fingerstick) 135 mg/dL (70-99) 116 mg/dL (70-99) 114 mg/dL (70-99) White Blood Count 7.8 x10^3/uL (4.0-11.0) Red Blood Count 3.81 x10^6/uL (3.50-5.40) Hemoglobin 12.1 g/dL (12.0-15.5) Hematocrit 36.0 % (36.0-47.0) Mean Corpuscular Volume 94 fL (79-100) Mean Corpuscular Hemoglobin 32 pg (25-35) Mean Corpuscular Hemoglobin Concent 34 g/dL (31-37) Red Cell Distribution Width 16.7 % (11.5-14.5) Platelet Count 162 x10^3/uL (140-400) Neutrophils (%) (Auto) 69 % (31-73) Lymphocytes (%) (Auto) 13 % (24-48) Monocytes (%) (Auto) 13 % (0-9) Eosinophils (%) (Auto) 4 % (0-3) Basophils (%) (Auto) 1 % (0-3) Neutrophils # (Auto) 5.4 x10^3uL (1.8-7.7) Lymphocytes # (Auto) 1.0 x10^3/uL (1.0-4.8) Monocytes # (Auto) 1.0 x10^3/uL (0.0-1.1) Eosinophils # (Auto) 0.3 x10^3/uL (0.0-0.7) Basophils # (Auto) 0.1 x10^3/uL (0.0-0.2) Prothrombin Time 23.9 SEC (11.7-14.0) Prothromb Time International Ratio 2.2 (0.8-1.1) Sodium Level 137 mmol/L (136-145) Potassium Level 4.0 mmol/L (3.5-5.1) Chloride Level 105 mmol/L (98-107) Carbon Dioxide Level 22 mmol/L (21-32) Anion Gap 10 (6-14) Blood Urea Nitrogen 24 mg/dL (7-20) Creatinine 2.4 mg/dL (0.6-1.0) Estimated GFR (Cockcroft-Gault) 19.8 Glucose Level 113 mg/dL (70-99) Calcium Level 8.0 mg/dL (8.5-10.1) Test 12/30/17 07:00 12/30/17 11:36 12/30/17 13:45 12/30/17 17:07 Glucose (Fingerstick) 117 mg/dL (70-99) 144 mg/dL (70-99) 109 mg/dL (70-99) Urine Collection Type Unknown Urine Color Yellow Urine Clarity Clear Urine pH 5.5 Urine Specific [place] 1.010 Urine Protein Negative mg/dL (NEG-TRACE) Urine Glucose (UA) Negative mg/dL (NEG) Urine Ketones (Stick) Negative mg/dL (NEG) Urine Blood Large (NEG) Urine Nitrite Negative (NEG) Urine Bilirubin Negative (NEG) Urine Urobilinogen Dipstick 0.2 mg/dL (0.2 mg/dL) Urine Leukocyte Esterase Trace (NEG) Urine RBC >40 /HPF (0-2) Urine WBC 1-4 /HPF (0-4) Urine Squamous Epithelial Cells Few /LPF Urine Bacteria 0 /HPF (0-FEW) Test 12/30/17 20:53 12/31/17 06:10 12/31/17 06:11 12/31/17 07:34 Glucose (Fingerstick) 115 mg/dL (70-99) 111 mg/dL (70-99) Sodium Level 139 mmol/L (136-145) Potassium Level 4.1 mmol/L (3.5-5.1) Chloride Level 104 mmol/L (98-107) Carbon Dioxide Level 24 mmol/L (21-32) Anion Gap 11 (6-14) Blood Urea Nitrogen 24 mg/dL (7-20) Creatinine 2.5 mg/dL (0.6-1.0) Estimated GFR (Cockcroft-Gault) 18.9 Glucose Level 113 mg/dL (70-99) Calcium Level 8.6 mg/dL (8.5-10.1) Phosphorus Level 3.6 mg/dL (2.6-4.7) Magnesium Level 2.0 mg/dL (1.8-2.4) Albumin 2.3 g/dL (3.4-5.0) Hemoglobin 12.1 g/dL (12.0-15.5) Prothrombin Time 22.8 SEC (11.7-14.0) Prothromb Time International Ratio 2.1 (0.8-1.1) Laboratory Tests Test 12/30/17 13:45 12/30/17 17:07 12/30/17 20:53 12/31/17 06:10 Urine Collection Type Unknown Urine Color Yellow Urine Clarity Clear Urine pH 5.5 Urine Specific [place] 1.010 Urine Protein Negative mg/dL (NEG-TRACE) Urine Glucose (UA) Negative mg/dL (NEG) Urine Ketones (Stick) Negative mg/dL (NEG) Urine Blood Large (NEG) Urine Nitrite Negative (NEG) Urine Bilirubin Negative (NEG) Urine Urobilinogen Dipstick 0.2 mg/dL (0.2 mg/dL) Urine Leukocyte Esterase Trace (NEG) Urine RBC >40 /HPF (0-2) Urine WBC 1-4 /HPF (0-4) Urine Squamous Epithelial Cells Few /LPF Urine Bacteria 0 /HPF (0-FEW) Glucose (Fingerstick) 109 mg/dL (70-99) 115 mg/dL (70-99) Sodium Level 139 mmol/L (136-145) Potassium Level 4.1 mmol/L (3.5-5.1) Chloride Level 104 mmol/L (98-107) Carbon Dioxide Level 24 mmol/L (21-32) Anion Gap 11 (6-14) Blood Urea Nitrogen 24 mg/dL (7-20) Creatinine 2.5 mg/dL (0.6-1.0) Estimated GFR (Cockcroft-Gault) 18.9 Glucose Level 113 mg/dL (70-99) Calcium Level 8.6 mg/dL (8.5-10.1) Phosphorus Level 3.6 mg/dL (2.6-4.7) Magnesium Level 2.0 mg/dL (1.8-2.4) Albumin 2.3 g/dL (3.4-5.0) Test 12/31/17 06:11 12/31/17 07:34 Hemoglobin 12.1 g/dL (12.0-15.5) Prothrombin Time 22.8 SEC (11.7-14.0) Prothromb Time International Ratio 2.1 (0.8-1.1) Glucose (Fingerstick) 111 mg/dL (70-99) Images Images Impression: 1. There is distention of the urinary bladder. 2. There is no hydronephrosis of either kidney. Assessment/Plan Assessment/Plan Wu catheter inserted today with output of 600 ml. Nursing staff to maintain wu. If she discharges home tomorrow, discharge with wu in place. A follow up appointment with Dr. Brandon for voiding trial next week on 02/03 at 1020 am. Appointment card and new patient paperwork given to attending RN. Hematuria-Microscopic. Patient's creatinine is 2.5, so cannot do CTU at this time. Will test CMP in the am to see if wu insertion has made any difference. Renal US from 12/29 notes no hydronephrosis. JERRELL BRANDON MD 01/01/18 1550: UROLOGY CONSULT Assessment/Plan Assessment/Plan 72 yo F with urinary retention and microhematuria. Currently managed well managed with urethral catheter. Unclear etiology for urinary retention. Will plan for outpatient voiding trial as catheter was placed yest and she is d/cing today. Will repeat UA micro in about 2 mo. If positive will discuss formal hematuria evaluation. MATILDE GARCIA APRN Dec 31, 2017 11:53 JERRELL BRANDON MD Jan 01, 2018 15:50
[2017-12-31 11:56] VITALS: BP 134/66
[2017-12-31] MEDS: IV NORMAL SALINE 1000ML BAG 1,000 ML IV SCH (12:40)
[2017-12-31 14:55] VITALS: BP 123/63
[2017-12-31] MEDS: WARFARIN 3 MG TABLET. PO SCH (17:09)
--- NOTE | 2017-12-31 17:52 | PDOC ---
PROGRESS NOTES Subjective Subjective Patient feels better today. Was able to walk to the bathroom. Objective Objective Vital Signs Date Time Temp Pulse Resp B/P (MAP) Pulse Ox O2 Delivery O2 Flow Rate FiO2 12/31/17 14:55 98.3 68 20 123/63 (83) 93 Room Air 98.3 12/31/17 13:21 2.0 Intake and Output 12/31/17 07:00 Intake Total 920 ml Output Total 2350 ml Balance -1430 ml Intake Oral 920 ml Output Urine Total 2350 ml Physical Exam Physical Exam No significant changes in cardiac exam Assessment Assessment Patient seems to be improving. I agree with present plan. Comment Review of Relevant I have reviewed the following items uyen (where applicable) has been applied. Labs Laboratory Tests Test 12/29/17 20:42 12/30/17 03:00 12/30/17 07:00 12/30/17 11:36 Glucose (Fingerstick) 114 mg/dL (70-99) 117 mg/dL (70-99) 144 mg/dL (70-99) White Blood Count 7.8 x10^3/uL (4.0-11.0) Red Blood Count 3.81 x10^6/uL (3.50-5.40) Hemoglobin 12.1 g/dL (12.0-15.5) Hematocrit 36.0 % (36.0-47.0) Mean Corpuscular Volume 94 fL (79-100) Mean Corpuscular Hemoglobin 32 pg (25-35) Mean Corpuscular Hemoglobin Concent 34 g/dL (31-37) Red Cell Distribution Width 16.7 % (11.5-14.5) Platelet Count 162 x10^3/uL (140-400) Neutrophils (%) (Auto) 69 % (31-73) Lymphocytes (%) (Auto) 13 % (24-48) Monocytes (%) (Auto) 13 % (0-9) Eosinophils (%) (Auto) 4 % (0-3) Basophils (%) (Auto) 1 % (0-3) Neutrophils # (Auto) 5.4 x10^3uL (1.8-7.7) Lymphocytes # (Auto) 1.0 x10^3/uL (1.0-4.8) Monocytes # (Auto) 1.0 x10^3/uL (0.0-1.1) Eosinophils # (Auto) 0.3 x10^3/uL (0.0-0.7) Basophils # (Auto) 0.1 x10^3/uL (0.0-0.2) Prothrombin Time 23.9 SEC (11.7-14.0) Prothromb Time International Ratio 2.2 (0.8-1.1) Sodium Level 137 mmol/L (136-145) Potassium Level 4.0 mmol/L (3.5-5.1) Chloride Level 105 mmol/L (98-107) Carbon Dioxide Level 22 mmol/L (21-32) Anion Gap 10 (6-14) Blood Urea Nitrogen 24 mg/dL (7-20) Creatinine 2.4 mg/dL (0.6-1.0) Estimated GFR (Cockcroft-Gault) 19.8 Glucose Level 113 mg/dL (70-99) Calcium Level 8.0 mg/dL (8.5-10.1) Test 12/30/17 13:45 12/30/17 17:07 12/30/17 20:53 12/31/17 06:10 Urine Collection Type Unknown Urine Color Yellow Urine Clarity Clear Urine pH 5.5 Urine Specific [place] 1.010 Urine Protein Negative mg/dL (NEG-TRACE) Urine Glucose (UA) Negative mg/dL (NEG) Urine Ketones (Stick) Negative mg/dL (NEG) Urine Blood Large (NEG) Urine Nitrite Negative (NEG) Urine Bilirubin Negative (NEG) Urine Urobilinogen Dipstick 0.2 mg/dL (0.2 mg/dL) Urine Leukocyte Esterase Trace (NEG) Urine RBC >40 /HPF (0-2) Urine WBC 1-4 /HPF (0-4) Urine Squamous Epithelial Cells Few /LPF Urine Bacteria 0 /HPF (0-FEW) Glucose (Fingerstick) 109 mg/dL (70-99) 115 mg/dL (70-99) Sodium Level 139 mmol/L (136-145) Potassium Level 4.1 mmol/L (3.5-5.1) Chloride Level 104 mmol/L (98-107) Carbon Dioxide Level 24 mmol/L (21-32) Anion Gap 11 (6-14) Blood Urea Nitrogen 24 mg/dL (7-20) Creatinine 2.5 mg/dL (0.6-1.0) Estimated GFR (Cockcroft-Gault) 18.9 Glucose Level 113 mg/dL (70-99) Calcium Level 8.6 mg/dL (8.5-10.1) Phosphorus Level 3.6 mg/dL (2.6-4.7) Magnesium Level 2.0 mg/dL (1.8-2.4) Albumin 2.3 g/dL (3.4-5.0) Test 12/31/17 06:11 12/31/17 07:34 12/31/17 12:25 12/31/17 16:32 Hemoglobin 12.1 g/dL (12.0-15.5) Prothrombin Time 22.8 SEC (11.7-14.0) Prothromb Time International Ratio 2.1 (0.8-1.1) Glucose (Fingerstick) 111 mg/dL (70-99) 122 mg/dL (70-99) 94 mg/dL (70-99) Laboratory Tests Test 12/30/17 20:53 12/31/17 06:10 12/31/17 06:11 12/31/17 07:34 Glucose (Fingerstick) 115 mg/dL (70-99) 111 mg/dL (70-99) Sodium Level 139 mmol/L (136-145) Potassium Level 4.1 mmol/L (3.5-5.1) Chloride Level 104 mmol/L (98-107) Carbon Dioxide Level 24 mmol/L (21-32) Anion Gap 11 (6-14) Blood Urea Nitrogen 24 mg/dL (7-20) Creatinine 2.5 mg/dL (0.6-1.0) Estimated GFR (Cockcroft-Gault) 18.9 Glucose Level 113 mg/dL (70-99) Calcium Level 8.6 mg/dL (8.5-10.1) Phosphorus Level 3.6 mg/dL (2.6-4.7) Magnesium Level 2.0 mg/dL (1.8-2.4) Albumin 2.3 g/dL (3.4-5.0) Hemoglobin 12.1 g/dL (12.0-15.5) Prothrombin Time 22.8 SEC (11.7-14.0) Prothromb Time International Ratio 2.1 (0.8-1.1) Test 12/31/17 12:25 12/31/17 16:32 Glucose (Fingerstick) 122 mg/dL (70-99) 94 mg/dL (70-99) Microbiology 12/28/17 Urine Culture - Final, Complete 12/28/17 Urine Culture Result 1 (ANGELICA) - Final, Complete Medications Current Medications Diltiazem HCl (Cardizem) 20 mg 1X ONCE IVP Last administered on 12/23/17at 23: 00; Start 12/23/17 at 23:00; Stop 12/23/17 at 23:01; Status DC Aspirin (Adonis Aspirin) 325 mg 1X ONCE PO ; Start 12/23/17 at 23:00; Stop 12/23 at 23:01; Status DC Diltiazem HCl 125 mg/Dextrose 125 ml @ 10 mls/hr 1X ONCE IV Last administered on 12/23/17at 23:11; Start 12/23/17 at 23:00; Stop 12/24/17 at 11:29 ; Status DC Dexamethasone Sodium Phosphate (Decadron) 10 mg 1X ONCE IV Last administered on 12/23/17at 22:57; Start 12/23/17 at 23:00; Stop 12/23/17 at 23:01; Status DC Albuterol/ Ipratropium (Duoneb) 3 ml 1X ONCE NEB ; Start 12/23/17 at 23:00; Stop 12/23/17 at 23:01; Status DC Albuterol/ Ipratropium (Duoneb) 3 ml STAT ONCE NEB ; Start 12/23/17 at 23:00; Stop 12/23/17 at 23:01; Status DC Hyoscyamine (Anaspaz) 0.25 mg 1X ONCE PO ; Start 12/23/17 at 23:45; Stop at 23:46; Status Cancel Sodium Chloride 1,000 ml @ 1,000 mls/hr 1X ONCE IV Last administered on at 01:17; Start 12/23/17 at 23:45; Stop 12/24/17 at 00:44; Status DC Sodium Chloride 1,000 ml @ 1,000 mls/hr 1X ONCE IV Last administered on at 04:29; Start 12/23/17 at 23:45; Stop 12/24/17 at 00:44; Status DC Piperacillin Sod/ Tazobactam Sod 4.5 gm/Sodium Chloride 100 ml @ 200 mls/hr 1X ONCE IV Last administered on 12/24/17at 01:17; Start 12/24/17 at 00:00; Stop 12/24/17 at 00:29; Status DC Levofloxacin/ Dextrose 150 ml @ 100 mls/hr 1X ONCE IV Last administered on at 01:17; Start 12/24/17 at 00:00; Stop 12/24/17 at 01:29; Status DC Vancomycin HCl 2 gm/Sodium Chloride 500 ml @ 250 mls/hr 1X ONCE IV Last administered on 12/24/17at 01:18; Start 12/24/17 at 00:30; Stop 12/24/17 at 02:29 ; Status DC Ondansetron HCl (Zofran) 4 mg PRN Q8HRS PRN IV NAUSEA/VOMITING 1ST CHOICE; Start 12/24/17 at 00:15; Stop 12/25/17 at 00:14; Status DC Fentanyl Citrate (Fentanyl 2ml Vial) 50 mcg PRN Q2HR PRN IV SEVERE PAIN; Start 12/24/17 at 00:15; Stop 12/25/17 at 00:14; Status DC Albuterol Sulfate (Ventolin Neb Soln) 2.5 mg PRN Q4HRS PRN NEB WHEEZING Last administered on 12/25/17at 17:28; Start 12/24/17 at 00:30 Insulin Human Lispro (HumaLOG) 0-5 UNITS TIDWMEALS SQ Last administered on 12/24at 17:46; Start 12/24/17 at 08:00 Dextrose (Dextrose 50%-Water Syringe) 12.5 gm PRN Q15MIN PRN IV SEE COMMENTS; Start 12/24/17 at 00:15 Info (Do NOT chart on this placeholder) 1 each 1X ONCE MC ; Start 12/24/17 at 01:45; Stop 12/24/17 at 01:46; Status UNV Influenza Virus Vaccine (Afluria Trivalent [id number] Syringe) 0.5 ml ONCE ONCE VAX IM Last administered on 12/24/17at 08:51; Start 12/24/17 at 09:00; Stop at 09:01; Status DC Albuterol/ Ipratropium (Duoneb) 3 ml RTQID NEB Last administered on 12/31/17at 12:32; Start 12/24/17 at 12:00 Levofloxacin/ Dextrose 100 ml @ 100 mls/hr Q24H IV ; Start 12/24/17 at 10:30; Status UNV Vancomycin HCl (Vanco Per Pharmacy) 1 each PRN DAILY PRN MC SEE COMMENTS Last administered on 12/25/17at 10:36; Start 12/24/17 at 10:30; Stop 12/25/17 at 17:09 ; Status DC Levofloxacin/ Dextrose 100 ml @ 100 mls/hr Q24H IV Last administered on at 23:31; Start 12/24/17 at 23:00; Stop 12/26/17 at 14:40; Status DC Vancomycin HCl 1.75 gm/Sodium Chloride 500 ml @ 250 mls/hr Q12H IV Last administered on 12/25/17at 13:00; Start 12/24/17 at 13:00; Stop 12/25/17 at 17:08 ; Status DC Vancomycin HCl (Vancomycin Trough Level) 1 each 1X ONCE MC ; Start 12/25/17 at 23:30; Stop 12/25/17 at 23:30; Status DC Lactobacillus Rhamnosus (Culturelle) 1 cap BID PO Last administered on at 08:38; Start 12/24/17 at 21:00 Warfarin Sodium (Coumadin Per Pharmacy) 1 each PRN DAILY PRN MC SEE COMMENTS Last administered on 12/31/17at 13:40; Start 12/24/17 at 14:45 Warfarin Sodium (Coumadin) 2 mg 1X WARF ONCE PO Last administered on at 15:52; Start 12/24/17 at 16:00; Stop 12/24/17 at 16:01; Status DC Digoxin (Lanoxin) 125 mcg DAILY PO Last administered on 12/31/17at 08:43; Start 12/24/17 at 17:30 Sotalol HCl (Betapace) 80 mg BID PO Last administered on 12/31/17at 08:41; Start 12/24/17 at 21:00 Furosemide (Lasix) 20 mg DAILY PO Last administered on 12/25/17at 07:50; Start 12/24/17 at 18:00; Stop 12/25/17 at 08:44; Status DC Potassium Chloride (Klor-Con) 10 meq DAILY PO Last administered on 12/27/17at 09 :46; Start 12/24/17 at 18:00; Stop 12/27/17 at 11:59; Status DC Levothyroxine Sodium (Synthroid) 150 mcg DAILY07 PO Last administered on at 08:38; Start 12/24/17 at 18:00 Metformin HCl (Glucophage) 500 mg BIDWMEALS PO Last administered on 12/27/17at 09:45; Start 12/24/17 at 18:00; Stop 12/27/17 at 10:53; Status DC Simvastatin (Zocor) 40 mg DAILY PO ; Start 12/24/17 at 18:00; Stop 12/24/17 at 18:00; Status DC Simvastatin (Zocor) 40 mg QHS PO Last administered on 12/30/17at 21:23; Start at 21:00 Furosemide (Lasix) 20 mg 1X ONCE PO Last administered on 12/25/17at 12:57; Start 12/25/17 at 09:00; Stop 12/25/17 at 09:01; Status DC Guaifenesin/ Codeine Phosphate (Robitussin Ac) 5 ml PRN Q6HRS PRN PO COUGH Last administered on 12/25/17at 12:54; Start 12/25/17 at 08:45 Benzonatate (Tessalon Perle) 100 mg [id number] PO Last administered on 12/31/17at 08 :39; Start 12/25/17 at 09:00 Furosemide (Lasix) 40 mg DAILY PO ; Start 12/26/17 at 09:00; Stop 12/27/17 at 11 :59; Status DC Warfarin Sodium (Coumadin) 2 mg 1X WARF ONCE PO Last administered on at 16:44; Start 12/25/17 at 16:00; Stop 12/25/17 at 16:01; Status DC Acetaminophen (Tylenol) 650 mg PRN Q6HRS PRN PO FEVER; Start 12/25/17 at 12:15 Ondansetron HCl (Zofran) 4 mg PRN Q6HRS PRN IV NAUSEA/VOMITING; Start 12/25/17 at 12:15 Morphine Sulfate (Morphine Sulfate) 2 mg PRN Q2HR PRN IV MODERATE TO SEVERE PAIN; Start 12/25/17 at 12:15 Tramadol HCl (Ultram) 50 mg PRN Q6HRS PRN PO MILD TO MODERATE PAIN Last administered on 12/28/17at 20:48; Start 12/25/17 at 12:15 Docusate Sodium (Colace) 100 mg PRN DAILY PRN PO HARD STOOLS Last administered on 12/30/17at 08:23; Start 12/25/17 at 12:15 Labetalol HCl (Normodyne Iv Push) 20 mg PRN Q2HR PRN IVP HYPERTENSION, SEE COMMENTS; Start 12/25/17 at 12:15 Furosemide (Lasix) 60 mg 1X ONCE IVP Last administered on 12/25/17at 17:51; Start 12/25/17 at 18:00; Stop 12/25/17 at 18:01; Status DC Furosemide (Lasix) 60 mg 1X ONCE IVP Last administered on 12/26/17at 08:46; Start 12/26/17 at 09:00; Stop 12/26/17 at 09:01; Status DC Warfarin Sodium (Coumadin) 2 mg 1X ONCE PO ; Start 12/26/17 at 14:45; Stop at 14:46; Status Cancel Warfarin Sodium (Coumadin) 2 mg 1X WARF ONCE PO Last administered on at 17:29; Start 12/26/17 at 16:00; Stop 12/26/17 at 16:01; Status DC Levofloxacin/ Dextrose 50 ml @ 50 mls/hr Q24H IV Last administered on at 22:47; Start 12/26/17 at 23:00; Stop 12/27/17 at 09:12; Status DC Levofloxacin (Levaquin) 250 mg QHS PO Last administered on 12/30/17at 21:23; Start 12/27/17 at 21:00 Warfarin Sodium (Coumadin) 2 mg 1X WARF ONCE PO Last administered on at 17:15; Start 12/27/17 at 16:00; Stop 12/27/17 at 16:01; Status DC Sodium Chloride 1,000 ml @ 75 mls/hr [id number] IV Last administered on at 15:37; Start 12/27/17 at 12:00; Stop 12/28/17 at 17:24; Status DC Warfarin Sodium (Coumadin) 2 mg 1X WARF ONCE PO Last administered on at 17:33; Start 12/28/17 at 16:00; Stop 12/28/17 at 16:01; Status DC Sodium Chloride 1,000 ml @ 60 mls/hr [id number] IV Last administered on at 21:26; Start 12/28/17 at 18:00 Warfarin Sodium (Coumadin) 2 mg 1X WARF ONCE PO Last administered on at 16:28; Start 12/29/17 at 16:00; Stop 12/29/17 at 16:01; Status DC Magnesium Sulfate 50 ml @ 25 mls/hr PRN DAILY PRN IV for Mag < 1.7 on am labs; Start 12/30/17 at 07:00 Warfarin Sodium (Coumadin) 2 mg 1X WARF ONCE PO ; Start 12/30/17 at 16:00; Stop 12/30/17 at 16:01; Status DC Warfarin Sodium (Coumadin) 3 mg DAILY16 PO Last administered on 12/31/17at 17:09 ; Start 12/31/17 at 16:00 Active Scripts Active Digoxin 125 Mcg Tablet 125 Mcg PO DAILY Reported Proair Hfa Inhaler (Albuterol Sulfate) 8.5 Gm Hfa.aer.ad 1 Puff INH PRN Q6HRS PRN Sotalol (Sotalol Hcl) 80 Mg Tablet 1 Tab PO BID Tessalon Perle (Benzonatate) 100 Mg Capsule 2 Cap PO TID PRN Warfarin Sodium 2 Mg Tablet 1 Tab PO DAILY Lisinopril 10 Mg Tablet 1 Tab PO DAILY Levothyroxine Sodium 125 Mcg Tablet 150 Mcg PO DAILY Simvastatin 40 Mg Tablet 40 Mg PO DAILY Metformin Hcl 500 Mg Tablet 500 Mg PO BIDWMEALS Furosemide 20 Mg Tablet 1 Tab PO DAILY Potassium Chloride 10 Meq Tab.sr.24h 10 Meq PO DAILY Vitals/I & O Vital Sign - Last 24 Hours 12/30/17 12/30/17 12/30/17 12/30/17 19:30 20:00 21:26 23:00 Temp 98.1 98.7 98.1 98.7 Pulse 72 72 70 Resp 20 20 B/P (MAP) 141/67 (91) 141/67 123/50 (74) Pulse Ox 98 92 O2 Delivery Room Air Room Air Room Air 12/31/17 12/31/17 12/31/17 12/31/17 03:30 07:30 07:57 08:00 Temp 98.3 98.0 98.3 98.0 Pulse 90 74 Resp 20 20 B/P (MAP) 124/56 (78) 125/64 (84) Pulse Ox 93 94 94 O2 Delivery Room Air Room Air Room Air Room Air 12/31/17 12/31/17 12/31/17 12/31/17 08:41 08:43 11:56 12:44 Temp 98.0 98.0 Pulse 74 74 82 Resp 20 B/P (MAP) 125/64 125/64 134/66 (88) Pulse Ox 95 94 O2 Delivery Room Air Room Air 12/31/17 12/31/17 13:21 14:55 Temp 98.3 98.3 Pulse 68 Resp 20 B/P (MAP) 123/63 (83) Pulse Ox 93 O2 Delivery Nasal Cannula Room Air O2 Flow Rate 2.0 Intake and Output 12/30/17 12/30/17 12/31/17 15:00 23:00 07:00 Intake Total 120 ml 220 ml 580 ml Output Total 550 ml 900 ml 900 ml Balance -430 ml -680 ml -320 ml MARTI SAUER MD Dec 31, 2017 17:52
[2017-12-31 19:30] VITALS: BP 126/62
[2017-12-31] MEDS: SIMVASTATIN 40 MG TABLET. PO SCH (20:23)
[2017-12-31 22:50] VITALS: BP 120/61
[2018-01-01 03:20] VITALS: BP 123/55
[2018-01-01 04:24] LABS: ALBUMIN 2.3 g/dL (3.4-5.0); CALCIUM 8.2 mg/dL (8.5-10.1); CREATININE 2.5 mg/dL (0.6-1.0); GFR 18.9; MAGNESIUM 1.8 mg/dL (1.8-2.4); PHOSPHORUS 3.6 mg/dL (2.6-4.7); POTASSIUM 4.1 mmol/L (3.5-5.1)
[2018-01-01] MEDS: LEVOTHYROXINE 150 MCG TABLET PO SCH (06:34)
[2018-01-01 07:00] VITALS: BP 124/55
[2018-01-01] MEDS: IPRATRPIUM/ALBUTEROL 0.5/2.5MG 3 ML NEBU. NEB SCH ×3 (07:29→16:12)
[2018-01-01] MEDS: INSULIN LISPRO 300 UNITS/3 ML INSULN.PEN. SQ SCH ×3 (08:00→16:46)
[2018-01-01] MEDS: DIGOXIN 125 MCG TABLET. PO SCH (08:31)
[2018-01-01] MEDS: BENZONATATE 100 MG CAPSULE. PO SCH ×2 (08:31→14:00)
[2018-01-01] MEDS: LACTOBACILLUS RHAMNOSUS GG 1 CAPSULE. PO SCH (08:31)
[2018-01-01] MEDS: SOTALOL 80 MG TABLET. PO SCH (08:31)
--- NOTE | 2018-01-01 09:03 | PDOC ---
PULMONARY PROGRESS NOTES Subjective no soa, Vitals Vital Signs Date Time Temp Pulse Resp B/P (MAP) Pulse Ox O2 Delivery O2 Flow Rate FiO2 01/01/18 08:31 80 123/55 01/01/18 07:32 95 Room Air 01/01/18 03:20 98.1 20 98.1 12/31/17 13:21 2.0 General: Alert, No acute distress Lungs: Clear Cardiovascular: S1, S2 Abdomen: Soft, Other (obese) Neuro Exam: Alert Extremities: Other (2+edema) Labs Laboratory Tests Test 12/30/17 11:36 12/30/17 13:45 12/30/17 17:07 12/30/17 20:53 Glucose (Fingerstick) 144 mg/dL (70-99) 109 mg/dL (70-99) 115 mg/dL (70-99) Urine Collection Type Unknown Urine Color Yellow Urine Clarity Clear Urine pH 5.5 Urine Specific [place] 1.010 Urine Protein Negative mg/dL (NEG-TRACE) Urine Glucose (UA) Negative mg/dL (NEG) Urine Ketones (Stick) Negative mg/dL (NEG) Urine Blood Large (NEG) Urine Nitrite Negative (NEG) Urine Bilirubin Negative (NEG) Urine Urobilinogen Dipstick 0.2 mg/dL (0.2 mg/dL) Urine Leukocyte Esterase Trace (NEG) Urine RBC >40 /HPF (0-2) Urine WBC 1-4 /HPF (0-4) Urine Squamous Epithelial Cells Few /LPF Urine Bacteria 0 /HPF (0-FEW) Test 12/31/17 06:10 12/31/17 06:11 12/31/17 07:34 12/31/17 12:25 Sodium Level 139 mmol/L (136-145) Potassium Level 4.1 mmol/L (3.5-5.1) Chloride Level 104 mmol/L (98-107) Carbon Dioxide Level 24 mmol/L (21-32) Anion Gap 11 (6-14) Blood Urea Nitrogen 24 mg/dL (7-20) Creatinine 2.5 mg/dL (0.6-1.0) Estimated GFR (Cockcroft-Gault) 18.9 Glucose Level 113 mg/dL (70-99) Calcium Level 8.6 mg/dL (8.5-10.1) Phosphorus Level 3.6 mg/dL (2.6-4.7) Magnesium Level 2.0 mg/dL (1.8-2.4) Albumin 2.3 g/dL (3.4-5.0) Hemoglobin 12.1 g/dL (12.0-15.5) Prothrombin Time 22.8 SEC (11.7-14.0) Prothromb Time International Ratio 2.1 (0.8-1.1) Glucose (Fingerstick) 111 mg/dL (70-99) 122 mg/dL (70-99) Test 12/31/17 16:32 12/31/17 20:56 01/01/18 03:35 01/01/18 07:26 Glucose (Fingerstick) 94 mg/dL (70-99) 104 mg/dL (70-99) 102 mg/dL (70-99) Sodium Level 142 mmol/L (136-145) Potassium Level 4.1 mmol/L (3.5-5.1) Chloride Level 106 mmol/L (98-107) Carbon Dioxide Level 26 mmol/L (21-32) Anion Gap 10 (6-14) Blood Urea Nitrogen 22 mg/dL (7-20) Creatinine 2.5 mg/dL (0.6-1.0) Estimated GFR (Cockcroft-Gault) 18.9 Glucose Level 98 mg/dL (70-99) Calcium Level 8.2 mg/dL (8.5-10.1) Phosphorus Level 3.6 mg/dL (2.6-4.7) Magnesium Level 1.8 mg/dL (1.8-2.4) Albumin 2.3 g/dL (3.4-5.0) Laboratory Tests Test 12/31/17 12:25 12/31/17 16:32 12/31/17 20:56 01/01/18 03:35 Glucose (Fingerstick) 122 mg/dL (70-99) 94 mg/dL (70-99) 104 mg/dL (70-99) Sodium Level 142 mmol/L (136-145) Potassium Level 4.1 mmol/L (3.5-5.1) Chloride Level 106 mmol/L (98-107) Carbon Dioxide Level 26 mmol/L (21-32) Anion Gap 10 (6-14) Blood Urea Nitrogen 22 mg/dL (7-20) Creatinine 2.5 mg/dL (0.6-1.0) Estimated GFR (Cockcroft-Gault) 18.9 Glucose Level 98 mg/dL (70-99) Calcium Level 8.2 mg/dL (8.5-10.1) Phosphorus Level 3.6 mg/dL (2.6-4.7) Magnesium Level 1.8 mg/dL (1.8-2.4) Albumin 2.3 g/dL (3.4-5.0) Test 01/01/18 07:26 Glucose (Fingerstick) 102 mg/dL (70-99) Medications Active Scripts Medications Dose Route/Sig Max Daily Dose Days Date Category Proair Hfa Inhaler (Albuterol Sulfate) 8.5 Gm Hfa.aer.ad 1 Puff INH PRN Q6HRS PRN 12/24/17 Reported Sotalol (Sotalol Hcl) 80 Mg Tablet 1 Tab PO BID 12/24/17 Reported Tessalon Perle (Benzonatate) 100 Mg Capsule 2 Cap PO TID PRN 12/24/17 Reported Digoxin 125 Mcg Tablet 125 Mcg PO DAILY 09/26/17 Rx Warfarin Sodium 2 Mg Tablet 1 Tab PO DAILY 09/23/17 Reported Lisinopril 10 Mg Tablet 1 Tab PO DAILY 09/23/17 Reported Levothyroxine Sodium 125 Mcg Tablet 150 Mcg PO DAILY 09/23/17 Reported Simvastatin 40 Mg Tablet 40 Mg PO DAILY 09/23/17 Reported Metformin Hcl 500 Mg Tablet 500 Mg PO BIDWMEALS 09/23/17 Reported Furosemide 20 Mg Tablet 1 Tab PO DAILY 09/23/17 Reported Potassium Chloride 10 Meq Tab.sr.24h 10 Meq PO DAILY 09/23/17 Reported Impression . 1. Acute hypoxic respiratory failure secondary to multifactorial etiologies including a combination of right and left heart failure and possible lower respiratory tract infection. In addition, underlying chronic obstructive pulmonary disease with exacerbation. 2. Chronic atrial fibrillation, on chronic anticoagulation 3. 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 She no longer smokes cigarettes. 4. Morbid obesity and suspect obesity hypoventilation syndrome. Needs to rule out for obstructive sleep apnea by sleep study as an outpatient. Plan . PT OK TO D/C FROM MY STANDPOINT OUT PT SLEEP STUDY POSSIBLE HOME HEALTH 6 MIN DONE DOES NOT QUALIFY FOR 02 FOLLOW UP IN OFFICE NILAY SAUCEDO MD Jan 01, 2018 09:03
--- NOTE | 2018-01-01 09:45 | PDOC ---
PROGRESS NOTES Assessment Problems Medical Problems: (1) Atrial fibrillation with RVR Status: Acute (2) Bandemia Status: Acute (3) Hypoxia Status: Acute (4) Severe sepsis Status: Acute Metabolic encephalopathy. Hypoxic encephalopathy. Plan Coumadin. Zocor Treat medical and cardiac diseases. OT/PT. Ready to go to longterm unit from neurological perspective Subjective No complaints Objective Vital Signs Date Time Temp Pulse Resp B/P (MAP) Pulse Ox O2 Delivery O2 Flow Rate FiO2 01/01/18 08:31 80 123/55 01/01/18 07:32 95 Room Air 01/01/18 07:00 98.4 18 98.4 12/31/17 13:21 2.0 Intake and Output 01/01/18 07:00 Intake Total 3530 ml Output Total 2200 ml Balance 1330 ml Intake Oral 3530 ml Output Urine Total 2200 ml PHYSICAL EXAM Alert. Oriented to place and person, knows month and year. PERRL. EOMI. CN: no focal findings. Muscle tone: normal. Muscle strength: 4/5 DTR: 0-1+ Plantar reflex: silent Gait: not examined in bed. Sensory exam: no abnormal findings. No cerebellar signs elicited. Review of Relevant I have reviewed the following items uyen (where applicable) has been applied. Labs Laboratory Tests Test 12/30/17 11:36 12/30/17 13:45 12/30/17 17:07 12/30/17 20:53 Glucose (Fingerstick) 144 mg/dL (70-99) 109 mg/dL (70-99) 115 mg/dL (70-99) Urine Collection Type Unknown Urine Color Yellow Urine Clarity Clear Urine pH 5.5 Urine Specific [place] 1.010 Urine Protein Negative mg/dL (NEG-TRACE) Urine Glucose (UA) Negative mg/dL (NEG) Urine Ketones (Stick) Negative mg/dL (NEG) Urine Blood Large (NEG) Urine Nitrite Negative (NEG) Urine Bilirubin Negative (NEG) Urine Urobilinogen Dipstick 0.2 mg/dL (0.2 mg/dL) Urine Leukocyte Esterase Trace (NEG) Urine RBC >40 /HPF (0-2) Urine WBC 1-4 /HPF (0-4) Urine Squamous Epithelial Cells Few /LPF Urine Bacteria 0 /HPF (0-FEW) Test 12/31/17 06:10 12/31/17 06:11 12/31/17 07:34 12/31/17 12:25 Sodium Level 139 mmol/L (136-145) Potassium Level 4.1 mmol/L (3.5-5.1) Chloride Level 104 mmol/L (98-107) Carbon Dioxide Level 24 mmol/L (21-32) Anion Gap 11 (6-14) Blood Urea Nitrogen 24 mg/dL (7-20) Creatinine 2.5 mg/dL (0.6-1.0) Estimated GFR (Cockcroft-Gault) 18.9 Glucose Level 113 mg/dL (70-99) Calcium Level 8.6 mg/dL (8.5-10.1) Phosphorus Level 3.6 mg/dL (2.6-4.7) Magnesium Level 2.0 mg/dL (1.8-2.4) Albumin 2.3 g/dL (3.4-5.0) Hemoglobin 12.1 g/dL (12.0-15.5) Prothrombin Time 22.8 SEC (11.7-14.0) Prothromb Time International Ratio 2.1 (0.8-1.1) Glucose (Fingerstick) 111 mg/dL (70-99) 122 mg/dL (70-99) Test 12/31/17 16:32 12/31/17 20:56 01/01/18 03:35 01/01/18 07:26 Glucose (Fingerstick) 94 mg/dL (70-99) 104 mg/dL (70-99) 102 mg/dL (70-99) Sodium Level 142 mmol/L (136-145) Potassium Level 4.1 mmol/L (3.5-5.1) Chloride Level 106 mmol/L (98-107) Carbon Dioxide Level 26 mmol/L (21-32) Anion Gap 10 (6-14) Blood Urea Nitrogen 22 mg/dL (7-20) Creatinine 2.5 mg/dL (0.6-1.0) Estimated GFR (Cockcroft-Gault) 18.9 Glucose Level 98 mg/dL (70-99) Calcium Level 8.2 mg/dL (8.5-10.1) Phosphorus Level 3.6 mg/dL (2.6-4.7) Magnesium Level 1.8 mg/dL (1.8-2.4) Albumin 2.3 g/dL (3.4-5.0) Laboratory Tests Test 12/31/17 12:25 12/31/17 16:32 12/31/17 20:56 01/01/18 03:35 Glucose (Fingerstick) 122 mg/dL (70-99) 94 mg/dL (70-99) 104 mg/dL (70-99) Sodium Level 142 mmol/L (136-145) Potassium Level 4.1 mmol/L (3.5-5.1) Chloride Level 106 mmol/L (98-107) Carbon Dioxide Level 26 mmol/L (21-32) Anion Gap 10 (6-14) Blood Urea Nitrogen 22 mg/dL (7-20) Creatinine 2.5 mg/dL (0.6-1.0) Estimated GFR (Cockcroft-Gault) 18.9 Glucose Level 98 mg/dL (70-99) Calcium Level 8.2 mg/dL (8.5-10.1) Phosphorus Level 3.6 mg/dL (2.6-4.7) Magnesium Level 1.8 mg/dL (1.8-2.4) Albumin 2.3 g/dL (3.4-5.0) Test 01/01/18 07:26 Glucose (Fingerstick) 102 mg/dL (70-99) Microbiology 12/28/17 Urine Culture - Final, Complete 12/28/17 Urine Culture Result 1 (ANGELICA) - Final, Complete Medications Current Medications Diltiazem HCl (Cardizem) 20 mg 1X ONCE IVP Last administered on 12/23/17at 23: 00; Start 12/23/17 at 23:00; Stop 12/23/17 at 23:01; Status DC Aspirin (Adonis Aspirin) 325 mg 1X ONCE PO ; Start 12/23/17 at 23:00; Stop 12/23 at 23:01; Status DC Diltiazem HCl 125 mg/Dextrose 125 ml @ 10 mls/hr 1X ONCE IV Last administered on 12/23/17at 23:11; Start 12/23/17 at 23:00; Stop 12/24/17 at 11:29 ; Status DC Dexamethasone Sodium Phosphate (Decadron) 10 mg 1X ONCE IV Last administered on 12/23/17at 22:57; Start 12/23/17 at 23:00; Stop 12/23/17 at 23:01; Status DC Albuterol/ Ipratropium (Duoneb) 3 ml 1X ONCE NEB ; Start 12/23/17 at 23:00; Stop 12/23/17 at 23:01; Status DC Albuterol/ Ipratropium (Duoneb) 3 ml STAT ONCE NEB ; Start 12/23/17 at 23:00; Stop 12/23/17 at 23:01; Status DC Hyoscyamine (Anaspaz) 0.25 mg 1X ONCE PO ; Start 12/23/17 at 23:45; Stop at 23:46; Status Cancel Sodium Chloride 1,000 ml @ 1,000 mls/hr 1X ONCE IV Last administered on at 01:17; Start 12/23/17 at 23:45; Stop 12/24/17 at 00:44; Status DC Sodium Chloride 1,000 ml @ 1,000 mls/hr 1X ONCE IV Last administered on at 04:29; Start 12/23/17 at 23:45; Stop 12/24/17 at 00:44; Status DC Piperacillin Sod/ Tazobactam Sod 4.5 gm/Sodium Chloride 100 ml @ 200 mls/hr 1X ONCE IV Last administered on 12/24/17at 01:17; Start 12/24/17 at 00:00; Stop 12/24/17 at 00:29; Status DC Levofloxacin/ Dextrose 150 ml @ 100 mls/hr 1X ONCE IV Last administered on at 01:17; Start 12/24/17 at 00:00; Stop 12/24/17 at 01:29; Status DC Vancomycin HCl 2 gm/Sodium Chloride 500 ml @ 250 mls/hr 1X ONCE IV Last administered on 12/24/17at 01:18; Start 12/24/17 at 00:30; Stop 12/24/17 at 02:29 ; Status DC Ondansetron HCl (Zofran) 4 mg PRN Q8HRS PRN IV NAUSEA/VOMITING 1ST CHOICE; Start 12/24/17 at 00:15; Stop 12/25/17 at 00:14; Status DC Fentanyl Citrate (Fentanyl 2ml Vial) 50 mcg PRN Q2HR PRN IV SEVERE PAIN; Start 12/24/17 at 00:15; Stop 12/25/17 at 00:14; Status DC Albuterol Sulfate (Ventolin Neb Soln) 2.5 mg PRN Q4HRS PRN NEB WHEEZING Last administered on 12/25/17at 17:28; Start 12/24/17 at 00:30 Insulin Human Lispro (HumaLOG) 0-5 UNITS TIDWMEALS SQ Last administered on 12/24at 17:46; Start 12/24/17 at 08:00 Dextrose (Dextrose 50%-Water Syringe) 12.5 gm PRN Q15MIN PRN IV SEE COMMENTS; Start 12/24/17 at 00:15 Info (Do NOT chart on this placeholder) 1 each 1X ONCE MC ; Start 12/24/17 at 01:45; Stop 12/24/17 at 01:46; Status UNV Influenza Virus Vaccine (Afluria Trivalent [id number] Syringe) 0.5 ml ONCE ONCE VAX IM Last administered on 12/24/17at 08:51; Start 12/24/17 at 09:00; Stop at 09:01; Status DC Albuterol/ Ipratropium (Duoneb) 3 ml RTQID NEB Last administered on 01/01/18at 07:29; Start 12/24/17 at 12:00 Levofloxacin/ Dextrose 100 ml @ 100 mls/hr Q24H IV ; Start 12/24/17 at 10:30; Status UNV Vancomycin HCl (Vanco Per Pharmacy) 1 each PRN DAILY PRN MC SEE COMMENTS Last administered on 12/25/17at 10:36; Start 12/24/17 at 10:30; Stop 12/25/17 at 17:09 ; Status DC Levofloxacin/ Dextrose 100 ml @ 100 mls/hr Q24H IV Last administered on at 23:31; Start 12/24/17 at 23:00; Stop 12/26/17 at 14:40; Status DC Vancomycin HCl 1.75 gm/Sodium Chloride 500 ml @ 250 mls/hr Q12H IV Last administered on 12/25/17at 13:00; Start 12/24/17 at 13:00; Stop 12/25/17 at 17:08 ; Status DC Vancomycin HCl (Vancomycin Trough Level) 1 each 1X ONCE MC ; Start 12/25/17 at 23:30; Stop 12/25/17 at 23:30; Status DC Lactobacillus Rhamnosus (Culturelle) 1 cap BID PO Last administered on 08:31; Start 12/24/17 at 21:00 Warfarin Sodium (Coumadin Per Pharmacy) 1 each PRN DAILY PRN MC SEE COMMENTS Last administered on 12/31/17at 13:40; Start 12/24/17 at 14:45 Warfarin Sodium (Coumadin) 2 mg 1X WARF ONCE PO Last administered on at 15:52; Start 12/24/17 at 16:00; Stop 12/24/17 at 16:01; Status DC Digoxin (Lanoxin) 125 mcg DAILY PO Last administered on 01/01/18 08:31; Start 12/24/17 at 17:30 Sotalol HCl (Betapace) 80 mg BID PO Last administered on 01/01/18 08:31; Start 12/24/17 at 21:00 Furosemide (Lasix) 20 mg DAILY PO Last administered on 12/25/17at 07:50; Start 12/24/17 at 18:00; Stop 12/25/17 at 08:44; Status DC Potassium Chloride (Klor-Con) 10 meq DAILY PO Last administered on 12/27/17at 09 :46; Start 12/24/17 at 18:00; Stop 12/27/17 at 11:59; Status DC Levothyroxine Sodium (Synthroid) 150 mcg DAILY07 PO Last administered on at 06:34; Start 12/24/17 at 18:00 Metformin HCl (Glucophage) 500 mg BIDWMEALS PO Last administered on 12/27/17at 09:45; Start 12/24/17 at 18:00; Stop 12/27/17 at 10:53; Status DC Simvastatin (Zocor) 40 mg DAILY PO ; Start 12/24/17 at 18:00; Stop 12/24/17 at 18:00; Status DC Simvastatin (Zocor) 40 mg QHS PO Last administered on 12/31/17at 20:23; Start at 21:00 Furosemide (Lasix) 20 mg 1X ONCE PO Last administered on 12/25/17at 12:57; Start 12/25/17 at 09:00; Stop 12/25/17 at 09:01; Status DC Guaifenesin/ Codeine Phosphate (Robitussin Ac) 5 ml PRN Q6HRS PRN PO COUGH Last administered on 12/25/17at 12:54; Start 12/25/17 at 08:45 Benzonatate (Tessalon Perle) 100 mg [id number] PO Last administered on 01/01/18at 08 :31; Start 12/25/17 at 09:00 Furosemide (Lasix) 40 mg DAILY PO ; Start 12/26/17 at 09:00; Stop 12/27/17 at 11 :59; Status DC Warfarin Sodium (Coumadin) 2 mg 1X WARF ONCE PO Last administered on at 16:44; Start 12/25/17 at 16:00; Stop 12/25/17 at 16:01; Status DC Acetaminophen (Tylenol) 650 mg PRN Q6HRS PRN PO FEVER; Start 12/25/17 at 12:15 Ondansetron HCl (Zofran) 4 mg PRN Q6HRS PRN IV NAUSEA/VOMITING; Start 12/25/17 at 12:15 Morphine Sulfate (Morphine Sulfate) 2 mg PRN Q2HR PRN IV MODERATE TO SEVERE PAIN; Start 12/25/17 at 12:15 Tramadol HCl (Ultram) 50 mg PRN Q6HRS PRN PO MILD TO MODERATE PAIN Last administered on 12/28/17at 20:48; Start 12/25/17 at 12:15 Docusate Sodium (Colace) 100 mg PRN DAILY PRN PO HARD STOOLS Last administered on 12/30/17at 08:23; Start 12/25/17 at 12:15 Labetalol HCl (Normodyne Iv Push) 20 mg PRN Q2HR PRN IVP HYPERTENSION, SEE COMMENTS; Start 12/25/17 at 12:15 Furosemide (Lasix) 60 mg 1X ONCE IVP Last administered on 12/25/17at 17:51; Start 12/25/17 at 18:00; Stop 12/25/17 at 18:01; Status DC Furosemide (Lasix) 60 mg 1X ONCE IVP Last administered on 12/26/17at 08:46; Start 12/26/17 at 09:00; Stop 12/26/17 at 09:01; Status DC Warfarin Sodium (Coumadin) 2 mg 1X ONCE PO ; Start 12/26/17 at 14:45; Stop at 14:46; Status Cancel Warfarin Sodium (Coumadin) 2 mg 1X WARF ONCE PO Last administered on at 17:29; Start 12/26/17 at 16:00; Stop 12/26/17 at 16:01; Status DC Levofloxacin/ Dextrose 50 ml @ 50 mls/hr Q24H IV Last administered on at 22:47; Start 12/26/17 at 23:00; Stop 12/27/17 at 09:12; Status DC Levofloxacin (Levaquin) 250 mg QHS PO Last administered on 12/31/17at 20:23; Start 12/27/17 at 21:00 Warfarin Sodium (Coumadin) 2 mg 1X WARF ONCE PO Last administered on at 17:15; Start 12/27/17 at 16:00; Stop 12/27/17 at 16:01; Status DC Sodium Chloride 1,000 ml @ 75 mls/hr [id number] IV Last administered on at 15:37; Start 12/27/17 at 12:00; Stop 12/28/17 at 17:24; Status DC Warfarin Sodium (Coumadin) 2 mg 1X WARF ONCE PO Last administered on at 17:33; Start 12/28/17 at 16:00; Stop 12/28/17 at 16:01; Status DC Sodium Chloride 1,000 ml @ 60 mls/hr [id number] IV Last administered on at 21:26; Start 12/28/17 at 18:00; Stop 12/31/17 at 19:12; Status DC Warfarin Sodium (Coumadin) 2 mg 1X WARF ONCE PO Last administered on at 16:28; Start 12/29/17 at 16:00; Stop 12/29/17 at 16:01; Status DC Magnesium Sulfate 50 ml @ 25 mls/hr PRN DAILY PRN IV for Mag < 1.7 on am labs; Start 12/30/17 at 07:00 Warfarin Sodium (Coumadin) 2 mg 1X WARF ONCE PO ; Start 12/30/17 at 16:00; Stop 12/30/17 at 16:01; Status DC Warfarin Sodium (Coumadin) 3 mg DAILY16 PO Last administered on 12/31/17at 17:09 ; Start 12/31/17 at 16:00 Active Scripts Active Digoxin 125 Mcg Tablet 125 Mcg PO DAILY Reported Proair Hfa Inhaler (Albuterol Sulfate) 8.5 Gm Hfa.aer.ad 1 Puff INH PRN Q6HRS PRN Sotalol (Sotalol Hcl) 80 Mg Tablet 1 Tab PO BID Tessalon Perle (Benzonatate) 100 Mg Capsule 2 Cap PO TID PRN Warfarin Sodium 2 Mg Tablet 1 Tab PO DAILY Lisinopril 10 Mg Tablet 1 Tab PO DAILY Levothyroxine Sodium 125 Mcg Tablet 150 Mcg PO DAILY Simvastatin 40 Mg Tablet 40 Mg PO DAILY Metformin Hcl 500 Mg Tablet 500 Mg PO BIDWMEALS Furosemide 20 Mg Tablet 1 Tab PO DAILY Potassium Chloride 10 Meq Tab.sr.24h 10 Meq PO DAILY Vitals/I & O Vital Sign - Last 24 Hours 12/31/17 12/31/17 12/31/17 12/31/17 11:56 12:44 13:21 14:55 Temp 98.0 98.3 98.0 98.3 Pulse 82 68 Resp 20 20 B/P (MAP) 134/66 (88) 123/63 (83) Pulse Ox 95 94 93 O2 Delivery Room Air Room Air Nasal Cannula Room Air O2 Flow Rate 2.0 12/31/17 12/31/17 12/31/17 12/31/17 19:30 19:51 20:00 20:23 Temp 98.1 98.1 Pulse 67 67 Resp 20 B/P (MAP) 126/62 (83) 126/62 Pulse Ox 95 95 O2 Delivery Room Air Room Air Room Air 12/31/17 01/01/18 01/01/18 01/01/18 22:50 03:20 07:00 07:32 Temp 98.0 98.1 98.4 98.0 98.1 98.4 Pulse 72 80 68 Resp 18 20 18 B/P (MAP) 120/61 (80) 123/55 (77) 124/55 (78) Pulse Ox 96 95 93 95 O2 Delivery Room Air Room Air Room Air Room Air 01/01/18 01/01/18 08:31 08:31 Pulse 80 80 B/P (MAP) 123/55 123/55 Intake and Output 12/31/17 12/31/17 01/01/18 15:00 23:00 07:00 Intake Total 660 ml 2450 ml 420 ml Output Total 350 ml 800 ml 1050 ml Balance 310 ml 1650 ml -630 ml KENDRICK MONTEJO MD Jan 01, 2018 09:45
--- NOTE | 2018-01-01 10:07 | PDOC ---
SUBJECTIVE ROS No specific complaints , stable OBJECTIVE Vital Signs Vital Signs Date Time Temp Pulse Resp B/P (MAP) Pulse Ox O2 Delivery O2 Flow Rate FiO2 01/01/18 08:31 80 123/55 01/01/18 07:32 95 Room Air 01/01/18 07:00 98.4 18 98.4 12/31/17 13:21 2.0 I & 0 Intake and Output 01/01/18 07:00 Intake Total 3530 ml Output Total 2200 ml Balance 1330 ml Intake Oral 3530 ml Output Urine Total 2200 ml PHYSICAL EXAM Physical Exam General- Morbidly obese , NAD , sitting up in recliner NECK: Supple, no JVD. HEENT- OM mildly dry LUNGS: Diminished breath sounds. CV: With an irregular rhythm. ABDOMEN: Soft, morbidly obese. EXTREMITIES: Non pitting edema , chronic venous stasis Skin- No rash, changes of CVI Neuro- AXOx 3 + has Luu + DIAGNOSIS/ASSESSMENT Assessment & Plan ARF: Presumed ATN Renal sonogram Normal ,Holding Diuretics No improvement in renal function -? Plateaued Lytes wnl , UA- No Overt Proteinuria Ordered Bladder scan yesterday - had Urinary retention, Urology Consulted Luu placed Hematuria: unclear if she has underlying cystitis or is this due to underlying Coumadin use and coagulopathy Consulted Urology Hypoalbuminemia. May be contributing to edema also Discussed with Pt and RN at bedside Likely DC home today with Home health- has follow up appt with urology COMMENT/RELEVANT DATA Meds Current Medications Medications (Trade) Dose Ordered Sig/Marley Start Time Stop Time Status Last Admin Dose Admin Acetaminophen (Tylenol) 650 mg PRN Q6HRS PRN 12/25/17 12:15 Albuterol Sulfate (Ventolin Neb Soln) 2.5 mg PRN Q4HRS PRN 12/24/17 00:30 12/25/17 17:28 2.5 MG Albuterol/ Ipratropium (Duoneb) 3 ml RTQID 12/24/17 12:00 01/01/18 07:29 3 ML Aspirin (Adonis Aspirin) 325 mg 1X ONCE 12/23/17 23:00 12/23/17 23:01 DC Benzonatate (Tessalon Perle) 100 mg [id number] 12/25/17 09:00 01/01/18 08:31 100 MG Dexamethasone Sodium Phosphate (Decadron) 10 mg 1X ONCE 12/23/17 23:00 12/23/17 23:01 DC 12/23/17 22:57 10 MG Dextrose (Dextrose 50%-Water Syringe) 12.5 gm PRN Q15MIN PRN 12/24/17 00:15 Digoxin (Lanoxin) 125 mcg DAILY 12/24/17 17:30 01/01/18 08:31 125 MCG Diltiazem HCl (Cardizem) 20 mg 1X ONCE 12/23/17 23:00 12/23/17 23:01 DC 12/23/17 23:00 20 MG Diltiazem HCl 125 mg/Dextrose 125 ml @ 10 mls/hr 1X ONCE 12/23/17 23:00 12/24/17 11:29 DC 12/23/17 23:11 10 MLS/HR Docusate Sodium (Colace) 100 mg PRN DAILY PRN 12/25/17 12:15 12/30/17 08:23 100 MG Fentanyl Citrate (Fentanyl 2ml Vial) 50 mcg PRN Q2HR PRN 12/24/17 00:15 12/25/17 00:14 DC Furosemide (Lasix) 60 mg 1X ONCE 12/26/17 09:00 12/26/17 09:01 DC 12/26/17 08:46 60 MG Guaifenesin/ Codeine Phosphate (Robitussin Ac) 5 ml PRN Q6HRS PRN 12/25/17 08:45 12/25/17 12:54 5 ML Hyoscyamine (Anaspaz) 0.25 mg 1X ONCE 12/23/17 23:45 12/23/17 23:46 Cancel Influenza Virus Vaccine (Afluria Trivalent [id number] Syringe) 0.5 ml ONCE ONCE 12/24/17 09:00 12/24/17 09:01 DC 12/24/17 08:51 0.5 ML Info (Do NOT chart on this placeholder) 1 each 1X ONCE 12/24/17 01:45 12/24/17 01:46 UNV Insulin Human Lispro (HumaLOG) 0-5 UNITS TIDWMEALS 12/24/17 08:00 12/24/17 17:46 2 UNITS Labetalol HCl (Normodyne Iv Push) 20 mg PRN Q2HR PRN 12/25/17 12:15 Lactobacillus Rhamnosus (Culturelle) 1 cap BID 12/24/17 21:00 01/01/18 08:31 1 CAP Levofloxacin (Levaquin) 250 mg QHS 12/27/17 21:00 12/31/17 20:23 250 MG Levofloxacin/ Dextrose 50 ml @ 50 mls/hr Q24H 12/26/17 23:00 12/27/17 09:12 DC 12/26/17 22:47 50 MLS/HR Levothyroxine Sodium (Synthroid) 150 mcg DAILY07 12/24/17 18:00 01/01/18 06:34 150 MCG Magnesium Sulfate 50 ml @ 25 mls/hr PRN DAILY PRN 12/30/17 07:00 Metformin HCl (Glucophage) 500 mg BIDWMEALS 12/24/17 18:00 12/27/17 10:53 DC 12/27/17 09:45 500 MG Morphine Sulfate (Morphine Sulfate) 2 mg PRN Q2HR PRN 12/25/17 12:15 Ondansetron HCl (Zofran) 4 mg PRN Q6HRS PRN 12/25/17 12:15 Piperacillin Sod/ Tazobactam Sod 4.5 gm/Sodium Chloride 100 ml @ 200 mls/hr 1X ONCE 12/24/17 00:00 12/24/17 00:29 DC 12/24/17 01:17 200 MLS/HR Potassium Chloride (Klor-Con) 10 meq DAILY 12/24/17 18:00 12/27/17 11:59 DC 12/27/17 09:46 10 MEQ Simvastatin (Zocor) 40 mg QHS 12/24/17 21:00 12/31/17 20:23 40 MG Sodium Chloride 1,000 ml @ 60 mls/hr [id number] 12/28/17 18:00 12/31/17 19:12 DC 12/30/17 21:26 60 MLS/HR Sotalol HCl (Betapace) 80 mg BID 12/24/17 21:00 01/01/18 08:31 80 MG Tramadol HCl (Ultram) 50 mg PRN Q6HRS PRN 12/25/17 12:15 12/28/17 20:48 50 MG Vancomycin HCl (Vanco Per Pharmacy) 1 each PRN DAILY PRN 12/24/17 10:30 9/18/18 17:09 DC 12/25/17 10:36 1 EACH Vancomycin HCl (Vancomycin Trough Level) 1 each 1X ONCE 12/25/17 23:30 12/25/17 23:30 DC Vancomycin HCl 1.75 gm/Sodium Chloride 500 ml @ 250 mls/hr Q12H 12/24/17 13:00 12/25/17 17:08 DC 12/25/17 13:00 250 MLS/HR Vancomycin HCl 2 gm/Sodium Chloride 500 ml @ 250 mls/hr 1X ONCE 12/24/17 00:30 12/24/17 02:29 DC 12/24/17 01:18 250 MLS/HR Warfarin Sodium (Coumadin Per Pharmacy) 1 each PRN DAILY PRN 12/24/17 14:45 12/31/17 13:40 1 EACH Warfarin Sodium (Coumadin) 3 mg DAILY16 12/31/17 16:00 12/31/17 17:09 3 MG Lab Laboratory Tests Test 12/31/17 12:25 12/31/17 16:32 12/31/17 20:56 01/01/18 03:35 Glucose (Fingerstick) 122 mg/dL (70-99) 94 mg/dL (70-99) 104 mg/dL (70-99) Sodium Level 142 mmol/L (136-145) Potassium Level 4.1 mmol/L (3.5-5.1) Chloride Level 106 mmol/L (98-107) Carbon Dioxide Level 26 mmol/L (21-32) Anion Gap 10 (6-14) Blood Urea Nitrogen 22 mg/dL (7-20) Creatinine 2.5 mg/dL (0.6-1.0) Estimated GFR (Cockcroft-Gault) 18.9 Glucose Level 98 mg/dL (70-99) Calcium Level 8.2 mg/dL (8.5-10.1) Phosphorus Level 3.6 mg/dL (2.6-4.7) Magnesium Level 1.8 mg/dL (1.8-2.4) Albumin 2.3 g/dL (3.4-5.0) Test 01/01/18 07:26 Glucose (Fingerstick) 102 mg/dL (70-99) Results All relevant outside records, renal labs, imaging studies, telemetry/EKG's were reviewed. DIMAS,KIMBERLYN MD Jan 01, 2018 10:07
[2018-01-01 10:46] VITALS: BP 115/60
[2018-01-01 15:28] VITALS: BP 129/61
[2018-01-01] MEDS: WARFARIN 3 MG TABLET. PO SCH (17:02)
--- NOTE | 2018-01-01 17:20 | PDOC3 ---
Discharge Summary [facility] Date of Admission: Dec 26, 2017 Discharge Date: Jan 01, 2018 Admitting Diagnosis sepsis Final Diagnosis Problems Medical Problems: (1) Atrial fibrillation with RVR Status: Acute (2) Bandemia Status: Acute (3) Hypoxia Status: Acute (4) Severe sepsis Status: Acute Brief Hospital Course Ms. Nolasco is a 72 old F with hx of obesity, htn, who presents with acuter renal failure, sepsis and the patient also was found to have negative cultures and the patient will be sent home with treatment for copd exacerbation. the patient responded well to the copd treatment. she did have a cr of 2.5 and the patient had some urinary retention. Sx are severe ongoing no radiation no alleviation or aggravation. NAD A&ox3 mmm obese neck w/o nodes s1 s2 rrr no murmurs decraesed in bases soft obese 1+ non pitting edema greater than 30 min spent on discharge Patient History: Patient reports no known family medical history. CONDITION AT DISCHARGE: Improved, Stable Scheduled Digoxin (Digoxin), 125 MCG PO DAILY Furosemide (Furosemide), 1 TAB PO DAILY, (Reported) Levofloxacin (Levofloxacin), 250 MG PO QHS Levothyroxine Sodium (Levothyroxine Sodium), 150 MCG PO DAILY, (Reported) Lisinopril (Lisinopril), 1 TAB PO DAILY, (Reported) Metformin Hcl (Metformin Hcl), 500 MG PO BIDWMEALS, (Reported) Potassium Chloride (Potassium Chloride), 10 MEQ PO DAILY, (Reported) Simvastatin (Simvastatin), 40 MG PO DAILY, (Reported) Sotalol Hcl (Sotalol), 1 TAB PO BID, (Reported) Warfarin Sodium (Warfarin Sodium), 1 TAB PO DAILY, (Reported) Scheduled PRN Albuterol Sulfate (Proair Hfa Inhaler), 1 PUFF INH PRN Q6HRS PRN for SHORTNESS OF BREATH, (Reported) Benzonatate (Tessalon Perle), 2 CAP PO TID PRN for COUGH, (Reported) SAMANTHA SARAVIA MD Jan 01, 2018 17:20
[2018-01-01] MEDS ORDERED: LEVO250T7 PO (17:21)
--- NOTE | 2018-01-01 17:30 | PDOC ---
PROGRESS NOTES Subjective Subjective Patient ambulated earlier. Objective Objective Vital Signs Date Time Temp Pulse Resp B/P (MAP) Pulse Ox O2 Delivery O2 Flow Rate FiO2 01/01/18 16:14 Room Air 01/01/18 15:28 97.7 77 16 129/61 (83) 93 97.7 12/31/17 13:21 2.0 Intake and Output 01/01/18 07:00 Intake Total 3530 ml Output Total 2200 ml Balance 1330 ml Intake Oral 3530 ml Output Urine Total 2200 ml Physical Exam Physical Exam No changes in cardiac exam Assessment Assessment The patient was not approved for senior care. She is being discharged home. Comment Review of Relevant I have reviewed the following items uyen (where applicable) has been applied. Labs Laboratory Tests Test 12/30/17 20:53 12/31/17 06:10 12/31/17 06:11 12/31/17 07:34 Glucose (Fingerstick) 115 mg/dL (70-99) 111 mg/dL (70-99) Sodium Level 139 mmol/L (136-145) Potassium Level 4.1 mmol/L (3.5-5.1) Chloride Level 104 mmol/L (98-107) Carbon Dioxide Level 24 mmol/L (21-32) Anion Gap 11 (6-14) Blood Urea Nitrogen 24 mg/dL (7-20) Creatinine 2.5 mg/dL (0.6-1.0) Estimated GFR (Cockcroft-Gault) 18.9 Glucose Level 113 mg/dL (70-99) Calcium Level 8.6 mg/dL (8.5-10.1) Phosphorus Level 3.6 mg/dL (2.6-4.7) Magnesium Level 2.0 mg/dL (1.8-2.4) Albumin 2.3 g/dL (3.4-5.0) Hemoglobin 12.1 g/dL (12.0-15.5) Prothrombin Time 22.8 SEC (11.7-14.0) Prothromb Time International Ratio 2.1 (0.8-1.1) Test 12/31/17 12:25 12/31/17 16:32 12/31/17 20:56 01/01/18 03:35 Glucose (Fingerstick) 122 mg/dL (70-99) 94 mg/dL (70-99) 104 mg/dL (70-99) Sodium Level 142 mmol/L (136-145) Potassium Level 4.1 mmol/L (3.5-5.1) Chloride Level 106 mmol/L (98-107) Carbon Dioxide Level 26 mmol/L (21-32) Anion Gap 10 (6-14) Blood Urea Nitrogen 22 mg/dL (7-20) Creatinine 2.5 mg/dL (0.6-1.0) Estimated GFR (Cockcroft-Gault) 18.9 Glucose Level 98 mg/dL (70-99) Calcium Level 8.2 mg/dL (8.5-10.1) Phosphorus Level 3.6 mg/dL (2.6-4.7) Magnesium Level 1.8 mg/dL (1.8-2.4) Albumin 2.3 g/dL (3.4-5.0) Test 01/01/18 07:26 01/01/18 11:18 01/01/18 16:19 Glucose (Fingerstick) 102 mg/dL (70-99) 116 mg/dL (70-99) 92 mg/dL (70-99) Laboratory Tests Test 12/31/17 20:56 01/01/18 03:35 01/01/18 07:26 01/01/18 11:18 Glucose (Fingerstick) 104 mg/dL (70-99) 102 mg/dL (70-99) 116 mg/dL (70-99) Sodium Level 142 mmol/L (136-145) Potassium Level 4.1 mmol/L (3.5-5.1) Chloride Level 106 mmol/L (98-107) Carbon Dioxide Level 26 mmol/L (21-32) Anion Gap 10 (6-14) Blood Urea Nitrogen 22 mg/dL (7-20) Creatinine 2.5 mg/dL (0.6-1.0) Estimated GFR (Cockcroft-Gault) 18.9 Glucose Level 98 mg/dL (70-99) Calcium Level 8.2 mg/dL (8.5-10.1) Phosphorus Level 3.6 mg/dL (2.6-4.7) Magnesium Level 1.8 mg/dL (1.8-2.4) Albumin 2.3 g/dL (3.4-5.0) Test 01/01/18 16:19 Glucose (Fingerstick) 92 mg/dL (70-99) Microbiology 12/28/17 Urine Culture - Final, Complete 12/28/17 Urine Culture Result 1 (ANGELICA) - Final, Complete Medications Current Medications Diltiazem HCl (Cardizem) 20 mg 1X ONCE IVP Last administered on 12/23/17at 23: 00; Start 12/23/17 at 23:00; Stop 12/23/17 at 23:01; Status DC Aspirin (Adonis Aspirin) 325 mg 1X ONCE PO ; Start 12/23/17 at 23:00; Stop 12/23 at 23:01; Status DC Diltiazem HCl 125 mg/Dextrose 125 ml @ 10 mls/hr 1X ONCE IV Last administered on 12/23/17at 23:11; Start 12/23/17 at 23:00; Stop 12/24/17 at 11:29 ; Status DC Dexamethasone Sodium Phosphate (Decadron) 10 mg 1X ONCE IV Last administered on 12/23/17at 22:57; Start 12/23/17 at 23:00; Stop 12/23/17 at 23:01; Status DC Albuterol/ Ipratropium (Duoneb) 3 ml 1X ONCE NEB ; Start 12/23/17 at 23:00; Stop 12/23/17 at 23:01; Status DC Albuterol/ Ipratropium (Duoneb) 3 ml STAT ONCE NEB ; Start 12/23/17 at 23:00; Stop 12/23/17 at 23:01; Status DC Hyoscyamine (Anaspaz) 0.25 mg 1X ONCE PO ; Start 12/23/17 at 23:45; Stop at 23:46; Status Cancel Sodium Chloride 1,000 ml @ 1,000 mls/hr 1X ONCE IV Last administered on at 01:17; Start 12/23/17 at 23:45; Stop 12/24/17 at 00:44; Status DC Sodium Chloride 1,000 ml @ 1,000 mls/hr 1X ONCE IV Last administered on at 04:29; Start 12/23/17 at 23:45; Stop 12/24/17 at 00:44; Status DC Piperacillin Sod/ Tazobactam Sod 4.5 gm/Sodium Chloride 100 ml @ 200 mls/hr 1X ONCE IV Last administered on 12/24/17at 01:17; Start 12/24/17 at 00:00; Stop 12/24/17 at 00:29; Status DC Levofloxacin/ Dextrose 150 ml @ 100 mls/hr 1X ONCE IV Last administered on at 01:17; Start 12/24/17 at 00:00; Stop 12/24/17 at 01:29; Status DC Vancomycin HCl 2 gm/Sodium Chloride 500 ml @ 250 mls/hr 1X ONCE IV Last administered on 12/24/17at 01:18; Start 12/24/17 at 00:30; Stop 12/24/17 at 02:29 ; Status DC Ondansetron HCl (Zofran) 4 mg PRN Q8HRS PRN IV NAUSEA/VOMITING 1ST CHOICE; Start 12/24/17 at 00:15; Stop 12/25/17 at 00:14; Status DC Fentanyl Citrate (Fentanyl 2ml Vial) 50 mcg PRN Q2HR PRN IV SEVERE PAIN; Start 12/24/17 at 00:15; Stop 12/25/17 at 00:14; Status DC Albuterol Sulfate (Ventolin Neb Soln) 2.5 mg PRN Q4HRS PRN NEB WHEEZING Last administered on 12/25/17at 17:28; Start 12/24/17 at 00:30 Insulin Human Lispro (HumaLOG) 0-5 UNITS TIDWMEALS SQ Last administered on 12/24at 17:46; Start 12/24/17 at 08:00 Dextrose (Dextrose 50%-Water Syringe) 12.5 gm PRN Q15MIN PRN IV SEE COMMENTS; Start 12/24/17 at 00:15 Info (Do NOT chart on this placeholder) 1 each 1X ONCE MC ; Start 12/24/17 at 01:45; Stop 12/24/17 at 01:46; Status UNV Influenza Virus Vaccine (Afluria Trivalent [id number] Syringe) 0.5 ml ONCE ONCE VAX IM Last administered on 12/24/17at 08:51; Start 12/24/17 at 09:00; Stop at 09:01; Status DC Albuterol/ Ipratropium (Duoneb) 3 ml RTQID NEB Last administered on 01/01/18at 16:12; Start 12/24/17 at 12:00 Levofloxacin/ Dextrose 100 ml @ 100 mls/hr Q24H IV ; Start 12/24/17 at 10:30; Status UNV Vancomycin HCl (Vanco Per Pharmacy) 1 each PRN DAILY PRN MC SEE COMMENTS Last administered on 12/25/17at 10:36; Start 12/24/17 at 10:30; Stop 12/25/17 at 17:09 ; Status DC Levofloxacin/ Dextrose 100 ml @ 100 mls/hr Q24H IV Last administered on at 23:31; Start 12/24/17 at 23:00; Stop 12/26/17 at 14:40; Status DC Vancomycin HCl 1.75 gm/Sodium Chloride 500 ml @ 250 mls/hr Q12H IV Last administered on 12/25/17at 13:00; Start 12/24/17 at 13:00; Stop 12/25/17 at 17:08 ; Status DC Vancomycin HCl (Vancomycin Trough Level) 1 each 1X ONCE MC ; Start 12/25/17 at 23:30; Stop 12/25/17 at 23:30; Status DC Lactobacillus Rhamnosus (Culturelle) 1 cap BID PO Last administered on 08:31; Start 12/24/17 at 21:00 Warfarin Sodium (Coumadin Per Pharmacy) 1 each PRN DAILY PRN MC SEE COMMENTS Last administered on 01/01/18 13:51; Start 12/24/17 at 14:45 Warfarin Sodium (Coumadin) 2 mg 1X WARF ONCE PO Last administered on at 15:52; Start 12/24/17 at 16:00; Stop 12/24/17 at 16:01; Status DC Digoxin (Lanoxin) 125 mcg DAILY PO Last administered on 01/01/18 08:31; Start 12/24/17 at 17:30 Sotalol HCl (Betapace) 80 mg BID PO Last administered on 01/01/18 08:31; Start 12/24/17 at 21:00 Furosemide (Lasix) 20 mg DAILY PO Last administered on 12/25/17at 07:50; Start 12/24/17 at 18:00; Stop 12/25/17 at 08:44; Status DC Potassium Chloride (Klor-Con) 10 meq DAILY PO Last administered on 9/20/18at 09 :46; Start 12/24/17 at 18:00; Stop 12/27/17 at 11:59; Status DC Levothyroxine Sodium (Synthroid) 150 mcg DAILY07 PO Last administered on at 06:34; Start 12/24/17 at 18:00 Metformin HCl (Glucophage) 500 mg BIDWMEALS PO Last administered on 12/27/17at 09:45; Start 12/24/17 at 18:00; Stop 12/27/17 at 10:53; Status DC Simvastatin (Zocor) 40 mg DAILY PO ; Start 12/24/17 at 18:00; Stop 12/24/17 at 18:00; Status DC Simvastatin (Zocor) 40 mg QHS PO Last administered on 12/31/17at 20:23; Start at 21:00 Furosemide (Lasix) 20 mg 1X ONCE PO Last administered on 12/25/17at 12:57; Start 12/25/17 at 09:00; Stop 12/25/17 at 09:01; Status DC Guaifenesin/ Codeine Phosphate (Robitussin Ac) 5 ml PRN Q6HRS PRN PO COUGH Last administered on 12/25/17at 12:54; Start 12/25/17 at 08:45 Benzonatate (Tessalon Perle) 100 mg [id number] PO Last administered on 01/01/18at 08 :31; Start 12/25/17 at 09:00 Furosemide (Lasix) 40 mg DAILY PO ; Start 12/26/17 at 09:00; Stop 12/27/17 at 11 :59; Status DC Warfarin Sodium (Coumadin) 2 mg 1X WARF ONCE PO Last administered on at 16:44; Start 12/25/17 at 16:00; Stop 12/25/17 at 16:01; Status DC Acetaminophen (Tylenol) 650 mg PRN Q6HRS PRN PO FEVER; Start 12/25/17 at 12:15 Ondansetron HCl (Zofran) 4 mg PRN Q6HRS PRN IV NAUSEA/VOMITING; Start 12/25/17 at 12:15 Morphine Sulfate (Morphine Sulfate) 2 mg PRN Q2HR PRN IV MODERATE TO SEVERE PAIN; Start 12/25/17 at 12:15 Tramadol HCl (Ultram) 50 mg PRN Q6HRS PRN PO MILD TO MODERATE PAIN Last administered on 12/28/17at 20:48; Start 12/25/17 at 12:15 Docusate Sodium (Colace) 100 mg PRN DAILY PRN PO HARD STOOLS Last administered on 12/30/17at 08:23; Start 12/25/17 at 12:15 Labetalol HCl (Normodyne Iv Push) 20 mg PRN Q2HR PRN IVP HYPERTENSION, SEE COMMENTS; Start 12/25/17 at 12:15 Furosemide (Lasix) 60 mg 1X ONCE IVP Last administered on 12/25/17at 17:51; Start 12/25/17 at 18:00; Stop 12/25/17 at 18:01; Status DC Furosemide (Lasix) 60 mg 1X ONCE IVP Last administered on 12/26/17at 08:46; Start 12/26/17 at 09:00; Stop 12/26/17 at 09:01; Status DC Warfarin Sodium (Coumadin) 2 mg 1X ONCE PO ; Start 12/26/17 at 14:45; Stop at 14:46; Status Cancel Warfarin Sodium (Coumadin) 2 mg 1X WARF ONCE PO Last administered on at 17:29; Start 12/26/17 at 16:00; Stop 12/26/17 at 16:01; Status DC Levofloxacin/ Dextrose 50 ml @ 50 mls/hr Q24H IV Last administered on at 22:47; Start 12/26/17 at 23:00; Stop 12/27/17 at 09:12; Status DC Levofloxacin (Levaquin) 250 mg QHS PO Last administered on 12/31/17at 20:23; Start 12/27/17 at 21:00 Warfarin Sodium (Coumadin) 2 mg 1X WARF ONCE PO Last administered on at 17:15; Start 12/27/17 at 16:00; Stop 12/27/17 at 16:01; Status DC Sodium Chloride 1,000 ml @ 75 mls/hr [id number] IV Last administered on at 15:37; Start 12/27/17 at 12:00; Stop 12/28/17 at 17:24; Status DC Warfarin Sodium (Coumadin) 2 mg 1X WARF ONCE PO Last administered on at 17:33; Start 12/28/17 at 16:00; Stop 12/28/17 at 16:01; Status DC Sodium Chloride 1,000 ml @ 60 mls/hr [id number] IV Last administered on at 21:26; Start 12/28/17 at 18:00; Stop 12/31/17 at 19:12; Status DC Warfarin Sodium (Coumadin) 2 mg 1X WARF ONCE PO Last administered on at 16:28; Start 12/29/17 at 16:00; Stop 12/29/17 at 16:01; Status DC Magnesium Sulfate 50 ml @ 25 mls/hr PRN DAILY PRN IV for Mag < 1.7 on am labs; Start 12/30/17 at 07:00 Warfarin Sodium (Coumadin) 2 mg 1X WARF ONCE PO ; Start 12/30/17 at 16:00; Stop 12/30/17 at 16:01; Status DC Warfarin Sodium (Coumadin) 3 mg DAILY16 PO Last administered on 01/01/18at 17:02 ; Start 12/31/17 at 16:00 Active Scripts Active Levofloxacin 250 Mg Tablet 250 Mg PO QHS 3 Days Digoxin 125 Mcg Tablet 125 Mcg PO DAILY Reported Proair Hfa Inhaler (Albuterol Sulfate) 8.5 Gm Hfa.aer.ad 1 Puff INH PRN Q6HRS PRN Sotalol (Sotalol Hcl) 80 Mg Tablet 1 Tab PO BID Tessalon Perle (Benzonatate) 100 Mg Capsule 2 Cap PO TID PRN Warfarin Sodium 2 Mg Tablet 1 Tab PO DAILY Lisinopril 10 Mg Tablet 1 Tab PO DAILY Levothyroxine Sodium 125 Mcg Tablet 150 Mcg PO DAILY Simvastatin 40 Mg Tablet 40 Mg PO DAILY Metformin Hcl 500 Mg Tablet 500 Mg PO BIDWMEALS Furosemide 20 Mg Tablet 1 Tab PO DAILY Potassium Chloride 10 Meq Tab.sr.24h 10 Meq PO DAILY Vitals/I & O Vital Sign - Last 24 Hours 12/31/17 12/31/17 12/31/17 12/31/17 19:30 19:51 20:00 20:23 Temp 98.1 98.1 Pulse 67 67 Resp 20 B/P (MAP) 126/62 (83) 126/62 Pulse Ox 95 95 O2 Delivery Room Air Room Air Room Air 12/31/17 01/01/18 01/01/18 01/01/18 22:50 03:20 07:00 07:32 Temp 98.0 98.1 98.4 98.0 98.1 98.4 Pulse 72 80 68 Resp 18 20 18 B/P (MAP) 120/61 (80) 123/55 (77) 124/55 (78) Pulse Ox 96 95 93 95 O2 Delivery Room Air Room Air Room Air Room Air 01/01/18 01/01/18 01/01/18 01/01/18 08:00 08:31 08:31 10:38 Pulse 80 80 B/P (MAP) 123/55 123/55 O2 Delivery Room Air Room Air 01/01/18 01/01/18 01/01/18 01/01/18 10:46 12:53 15:28 16:14 Temp 98.6 97.7 98.6 97.7 Pulse 69 77 Resp 18 16 B/P (MAP) 115/60 (78) 129/61 (83) Pulse Ox 93 95 93 O2 Delivery Room Air Room Air Room Air Room Air Intake and Output 12/31/17 12/31/17 01/01/18 15:00 23:00 07:00 Intake Total 660 ml 2450 ml 420 ml Output Total 350 ml 800 ml 1050 ml Balance 310 ml 1650 ml -630 ml MARTI SAUER MD Jan 01, 2018 17:30
== END 2018-01-01 18:21 | disposition home health service (06) | DRG 871 ==
LOC: ER 22:06 → 1 WEST ICU 12-24 00:15 → 2 NORTH 12-25 18:04
PROVIDERS: ADMIT Internal Medicine; ATTEND Internal Medicine
DX: A41.9 Sepsis, unspecified organism (principal); J96.01 Acute respiratory failure with hypoxia; G93.41 Metabolic encephalopathy; N17.0 Acute kidney failure with tubular necrosis; Z68.41 Body mass index [BMI] 40.0-44.9, adult; J44.1 Chronic obstructive pulmonary disease with (acute) exacerbation; D68.9 Coagulation defect, unspecified; G93.1 Anoxic brain damage, not elsewhere classified; I31.3 Pericardial effusion (noninflammatory); I50.814 Right heart failure due to left heart failure; R65.20 Severe sepsis without septic shock; E66.01 Morbid (severe) obesity due to excess calories; I11.0 Hypertensive heart disease with heart failure; E78.00 Pure hypercholesterolemia, unspecified; E11.65 Type 2 diabetes mellitus with hyperglycemia; I87.8 Other specified disorders of veins; F17.200 Nicotine dependence, unspecified, uncomplicated; I48.2 Chronic atrial fibrillation; E86.0 Dehydration; J32.0 Chronic maxillary sinusitis; G31.9 Degenerative disease of nervous system, unspecified; F02.80 Dementia in other diseases classified elsewhere, unspecified severity, without behavioral disturbance, psychotic disturbance, mood disturbance, and anxiety; G30.9 Alzheimer's disease, unspecified; I07.1 Rheumatic tricuspid insufficiency; I27.20 Pulmonary hypertension, unspecified; N32.89 Other specified disorders of bladder; R31.29 Other microscopic hematuria; R33.9 Retention of urine, unspecified; E78.5 Hyperlipidemia, unspecified; E05.00 Thyrotoxicosis with diffuse goiter without thyrotoxic crisis or storm; E03.9 Hypothyroidism, unspecified; Z90.49 Acquired absence of other specified parts of digestive tract; Z95.0 Presence of cardiac pacemaker; Z82.49 Family history of ischemic heart disease and other diseases of the circulatory system; Z79.899 Other long term (current) drug therapy; Z79.01 Long term (current) use of anticoagulants; Z83.49 Family history of other endocrine, nutritional and metabolic diseases; Z23 Encounter for immunization
CPT/HCPCS: 36415; 70450; 71045; 71250; 76770; 80048; 80053; 80061; 80069; 80162; 81001; 82550; 82962; 83605; 83690; 83735; 83880; 84439; 84443; 84481; 84484; 85007; 85018; 85025; 85610; 85730; 87086; 87641; 90471; 90756; 93005; 93306; 94618; 94640; 94644; 94760; 95816; 96365; 96366; 96375; 99291; J1100; J1815; J1940; J1956; J2543; J3370; J3490; J7030; J7040; J7613; J7620; 97110; 97116; 97530; 97535; Q2035

== ENCOUNTER → 2018-04-24 | Outpatient (CLI) | payer BC ==
[~2018-04-24] MED LIST changes: +ALBU2.5V8 INH; +BENZ100C PO; +CONTRAST GIVEN. MC PRN; +IOHEXOL 240 MG/ML 50ML VIAL. PO ONE; +LEVO250T7 PO
--- NOTE | 2018-04-24 16:39 | RAD ---
Examination: CT of the abdomen pelvis without IV contrast and with oral contrast HISTORY: History of weight loss, fatigue COMPARISON: None available TECHNIQUE: Axial CT images of the abdomen pelvis were performed with oral contrast. Coronal and sagittal reformats are performed Exposure: One or more of the following individualized dose reduction techniques were utilized for this examination: 1. Automated exposure control 2. Adjustment of the mA and/or kV according to patient size 3. Use of iterative reconstruction technique. FINDINGS: Minimal bibasilar lung atelectasis. No evidence of free air identified in the abdomen. The evaluation of the solid organs is limited lack of IV contrast. Nodular appearance of the liver likely cirrhosis. Spleen, adrenals grossly appears unremarkable. Cholecystectomy clips identified. The stomach is mildly distended. The visualized pancreas grossly appears unremarkable. The small bowel is nondilated. Feces and gas noted in the colon. Prominent splenorenal shunt identified. There is mild thickened appearance of the wall of the colon particularly the descending colon. Urinary bladder is mildly distended. The visualized uterus, adnexa grossly appears unremarkable. No evidence of intrarenal collecting system calculi or hydronephrosis. Moderate aortic atherosclerosis Mild degenerative changes thoracic spine. IMPRESSION: 1. Cirrhotic appearance of the liver. 2. Mild thickened appearance of the wall of the ascending colon, nonspecific could be due edema due to underlying liver disease or less likely mucosal pathology. Colonoscopic evaluation can be considered. Electronically signed by: Shaw Edouard MD (04/24/2018 4:34 PM) [id number]
== END | disposition home or self-care (01) ==
LOC: CT 09:45
PROVIDERS: ATTEND Family Medicine
DX: K31.89 Other diseases of stomach and duodenum (principal); N32.89 Other specified disorders of bladder; J98.11 Atelectasis; I70.0 Atherosclerosis of aorta; M47.814 Spondylosis without myelopathy or radiculopathy, thoracic region; Z90.49 Acquired absence of other specified parts of digestive tract
CPT/HCPCS: 74176; Q9966